=== PATIENT | female | born 1945 | race Caucasian/White ===

== ENCOUNTER → 2017-01-17 | Outpatient (CLI) | payer BC ==
[~2017-01-17] MED LIST: ASPI81TA21 PO; ATOR10TA82 PO; COEN100C7 PO; FEXO3TAB PO; LISI-461 PO; MELA1TAB4 PO; PANT40TA PO; RANI300T2 PO; TRIA0.5O TOP
--- NOTE | 2017-01-17 09:34 | DIAGNOSTIC IMAGING REPORT ---
CHEST CT WITHOUT CONTRAST CT DOSE: 548.76 mGycm HISTORY: R04.2 [id number] TECHNIQUE: Multiaxial CT images of the chest were performed without contrast. COMPARISON: Chest CTA 03/23/2016. FINDINGS: No pleural effusions. No pneumothorax. The central airways are patent.. Stable 4 mm nodular density within the right lung apex on image 47. The left upper lung zone remains clear. Stable curvilinear density within the medial aspect of the right lower lobe. This favors atelectasis or scarring given the long-term stability. Moderate to large hiatus hernia, unchanged. Postoperative changes within the left hemidiaphragm with mesh repair. Stable left basilar linear densities also likely representing scarring. No new focal lung consolidations. No fractures within the visualized osseous structures. The visualized liver, spleen, and adrenal glands are unremarkable. Normal caliber thoracic aorta. No mediastinal or hilar lymphadenopathy. The heart remains mildly enlarged. IMPRESSION: 1. No significant change compared to the prior study. 2. Postoperative changes within the left hemidiaphragm with stable bibasilar scar like densities. 3. Moderate to large hiatus hernia. Electronically signed by: Clemente Albrecht M.D. 01/17/2017 9:33 AM Dictated Date/Time: 01/17/2017 9:25 AM
== END | disposition home or self-care (01) ==
LOC: C.CTS 09:05
PROVIDERS: ATTEND Internal Medicine Pulmonary Disease
DX: R04.2 Hemoptysis (principal); K44.9 Diaphragmatic hernia without obstruction or gangrene

== ENCOUNTER → 2017-08-29 | Day surgery (SDC) | payer BC, OTHER ==
[2017-08-13 10:39] VITALS: BMI 34.0
[~2017-08-29] VITALS: Ht 170.2 cm; Wt 100.0 kg
[~2017-08-29] MED LIST changes: +ATOR-22 PO; -ATOR10TA82 PO; -FEXO3TAB PO; +LIDOCAINE HCL 2% 2 ML VIAL (20MG/ML) ONE; -LISI-461 PO; +LOSA1TAB PO; +OXYB5TAB21 PO; +PROPOFOL IV EMULSION 10 MG/ML 20 ML VIAL IV ONE; -RANI300T2 PO; +TRIA0.022 EXT; -TRIA0.5O TOP; +ZNTT/150 PO
[2017-08-29 13:02] VITALS: Ht 170.2 cm; Wt 100.0 kg
--- NOTE | 2017-08-29 13:54 | Endo History and Physical ---
History & Physical Date of Service: Aug 29, 2017. Chief Complaint: hx polyps Referring Physician: Dr. Phelan History of Present Illness For colonoscopy Past Surgical History Hx Cardiac Surgery: No Hx Internal Defibrillator: No Hx Pacemaker: No Hx Abdominal Surgery: Yes (MARII FUNDIPLATION, VAGINAL SEPTUM REMOVAL) Hx of Implantable Prosthesis: No Hx Post-Op Nausea and Vomiting: No Hx Cancer Surgery: Yes (LT BREAST PARIAL MASTECTOMY) Hx Thoracic Surgery: No Hx Orthopedic: No Hx Urinary Tract Surgery: No Family History None Social History Smoking Status: Former Smoker Hx Substance Use: No Hx Alcohol Use: Yes (OCCASIONAL) Allergies Coded Allergies: Shellfish (Verified Allergy, Intermediate, ITCHY, THROAT SWELLING, 08/29/17 ) NO KNOWN DRUG ALLERGIES (Verified Allergy, Unknown, ., 08/29/17) Current Medications Reported Home Medications Medications Dose Route/Sig Max Daily Dose Days Date Category Dose Instructions Triamcinolone Acet 0.025% (Triamcinolone Acetonide (Topic) 0.025 % Lot 1 Dose EXT DAILY PRN 08/15/17 Reported Coq10 (Coenzyme Q10 (Ubidecarenone)) 100 Mg Cap 1 Cap PO QAM 08/15/17 Reported Zantac (Ranitidine HCl) 150 Mg Tab 150 Mg PO HS 08/15/17 Reported Protonix (Pantoprazole Sodium) 40 Mg Tab 40 Mg PO QAM 08/15/17 Reported Ditropan Xl (Oxybutynin Chloride) 5 Mg Tab 1 Tab PO QAM 08/15/17 Reported NEW RX, HAS NOT STARTED YET. Cozaar (Losartan Potassium) 25 Mg Tab 25 Mg PO QAM 08/15/17 Reported Lipitor (Atorvastatin Calcium) 20 Mg Tab 10 Mg PO QAM 08/15/17 Reported Melatonin 1 Mg Tab 1 Mg PO HS PRN 10/07/13 Reported Ecotrin Or Generic (Aspirin) 81 Mg Tab 81 Mg PO QAM 05/12/13 Reported Vital Signs Weight (Kilograms): 100.00 Height (Feet): 5 Height (Inches): 7 Date Time Temp Pulse Resp B/P (MAP) Pulse Ox O2 Delivery O2 Flow Rate FiO2 08/29/17 13:07 36.5 75 20 127/79 (95) 94 Room Air Physical Exam General Appearance: WD/WN Respiratory/Chest: Respiratory effort: no dyspnea Cardiovascular: Heart Auscultation: RRR Abdomen: Inspection & Palpation: soft Assessment and Plan Hx polyps for colonoscopy
--- NOTE | 2017-08-29 14:23 | Discharge Instructions ---
Endoscopy Patient Instructions Date / Procedure(s) Performed Aug 29, 2017. Colonoscopy Allergy Information Coded Allergies: Shellfish (Verified Allergy, Intermediate, ITCHY, THROAT SWELLING, 08/29/17 ) NO KNOWN DRUG ALLERGIES (Verified Allergy, Unknown, ., 08/29/17) Discharge Date / Findings Aug 29, 2017. diverticulosis Medication Instructions Restart Stopped Medication(s): resume meds Reported Home Medications Medications Dose Route/Sig Max Daily Dose Days Date Category Dose Instructions Triamcinolone Acet 0.025% (Triamcinolone Acetonide (Topic) 0.025 % Lot 1 Dose EXT DAILY PRN 08/15/17 Reported Coq10 (Coenzyme Q10 (Ubidecarenone)) 100 Mg Cap 1 Cap PO QAM 08/15/17 Reported Zantac (Ranitidine HCl) 150 Mg Tab 150 Mg PO HS 08/15/17 Reported Protonix (Pantoprazole Sodium) 40 Mg Tab 40 Mg PO QAM 08/15/17 Reported Ditropan Xl (Oxybutynin Chloride) 5 Mg Tab 1 Tab PO QAM 08/15/17 Reported NEW RX, HAS NOT STARTED YET. Cozaar (Losartan Potassium) 25 Mg Tab 25 Mg PO QAM 08/15/17 Reported Lipitor (Atorvastatin Calcium) 20 Mg Tab 10 Mg PO QAM 08/15/17 Reported Melatonin 1 Mg Tab 1 Mg PO HS PRN 10/07/13 Reported Ecotrin Or Generic (Aspirin) 81 Mg Tab 81 Mg PO QAM 05/12/13 Reported Provider Instructions Activity Restrictions - No exercising or heavy lifting for 24 hours. - Do not drink alcohol the day of the procedure. - Do not drive a car or operate machinery until the day after the procedure. - Do not make any important decisions or sign important papers in 24 hours after the procedure. Following Day: - Return to full activity which may include returning to work/school. Diet Start your diet with liquids and light foods (jello, soup, juice, toast). Then eat your usual diet if not nauseated. Treatment For Common After Affects For mild abdominal pain, bloating, or excessive gas: - Rest - Eat lightly - Lie on right side Follow-Up Information Follow-up with Dr. Phelan as scheduled Anesthesia Information What You Should Know You have had a procedure that required some medicine to reduce anxiety and discomfort. This treatment is called moderate sedation. After receiving the treatment, you may be sleepy, but you will be able to breathe on your own. The effects of the treatment may last for several hours. Follow these instructions along with Activity/Diet recommendations noted above: * Do NOT do anything where dizziness or clumsiness would be dangerous. * Rest quietly at home today, then you can be up and about tomorrow. * Have a responsible person stay with you the rest of today. * You may have had an I.V. today. If so, you may take the dressing off later today. Recommendations Call your doctor if: * Trouble breathing * Continuous vomiting for more than 24 hours * Temperature above 101 degrees * Severe abdominal pain or bloating * Pain not relieved by pain medicine ordered * There is increased drainage or redness from any incision * A large amount of rectal bleeding greater than 2-3 tablespoons. (If you had a polyp/s removed or have hemorrhoids, a small amount of blood - from the rectum is to be expected.) * You have any unanswered questions or concerns. IN THE EVENT OF A SERIOUS EMERGENCY, GO TO THE NEAREST EMERGENCY ROOM Your discharge instructions were prepared by provider Kade Jiménez. Patient Instructions Signature Page Zara Cohn Patient (or Guardian) Signature/Date: I have read and understand the instructions given to me by my caregivers. Caregiver/RN/Doctor Signature/Date: The above-named patient and/or guardian has received patient instructions on this date. + Original Patient Signature Page (only) stays with chart. Please make copy for patient.
--- NOTE | 2017-08-29 14:26 | GI REPORT ---
Procedure Date: 08/29/2017 2:03 PM Procedure: Colonoscopy Indications: Personal history of colonic polyps Medicines: Propofol total dose 300 mg IV, Lidocaine 40 mg IV Complications: No immediate complications. Estimated Blood Loss: Estimated blood loss: none. Procedure: Pre-Anesthesia Assessment: - Prior to the procedure, a History and Physical was performed, and patient medications, allergies and sensitivities were reviewed. The patient's tolerance of previous anesthesia was reviewed. - The risks and benefits of the procedure and the sedation options and risks were discussed with the patient. All questions were answered and informed consent was obtained. After I obtained informed consent, the scope was passed under direct vision. Throughout the procedure, the patient's blood pressure, pulse, and oxygen saturations were monitored continuously. The scope was introduced through the anus and advanced to the terminal ileum. The colonoscopy was performed without difficulty. The patient tolerated the procedure well. The quality of the bowel preparation was good. Findings: Multiple diverticula were found in the sigmoid colon. The terminal ileum appeared normal. Impression: - Diverticulosis in the sigmoid colon. - The examined portion of the ileum was normal. - No specimens collected. Recommendation: - Discharge patient to home (ambulatory). - Continue present medications. - Repeat colonoscopy in 5 years for surveillance. - Return to primary care physician PRN. Kade Jiménez M.D. Kade Jiménez MD 08/29/2017 2:26:14 PM This report has been signed electronically. Note Initiated On: 08/29/2017 2:03 PM I attest to the content of the Intraoperative Record and orders documented therein, exceptions below
[2017-08-29 14:55] VITALS: BP 133/81; PULSE 86; O2SAT 96
--- NOTE | 2017-08-29 15:04 | Anesthesiology Progress Note ---
Anesthesia Post Op Note Date & Time Aug 29, 2017 at 15:03 Vital Signs Pain Intensity: 0 Vital Signs Past 12 Hours Date Time Temp Pulse Resp B/P (MAP) Pulse Ox O2 Delivery O2 Flow Rate FiO2 08/29/17 14:55 86 20 133/81 (98) 96 Room Air 08/29/17 14:40 87 18 128/74 (92) 96 Room Air 08/29/17 14:24 96 20 80/43 (55) 96 Room Air 08/29/17 13:07 36.5 75 20 127/79 (95) 94 Room Air Notes Mental Status: alert / awake / arousable, participated in evaluation Pt Amnestic to Procedure: Yes Nausea / Vomiting: adequately controlled Pain: adequately controlled Airway Patency, RR, SpO2: stable & adequate BP & HR: stable & adequate Hydration State: stable & adequate Anesthetic Complications: no major complications apparent
== END | disposition home or self-care (01) ==
LOC: C.GI 12:43
PROVIDERS: ATTEND Internal Medicine Gastroenterology
DX: R04.2 Hemoptysis (principal); K57.30 Diverticulosis of large intestine without perforation or abscess without bleeding; E88.81 Metabolic syndrome and other insulin resistance; K21.9 Gastro-esophageal reflux disease without esophagitis; I10 Essential (primary) hypertension; E78.2 Mixed hyperlipidemia; Z87.891 Personal history of nicotine dependence; Z86.010 Personal history of colon polyps; Z79.899 Other long term (current) drug therapy

== ENCOUNTER 2019-10-31 09:17 | Inpatient (IN) ==
[2019-10-31] MEDS ORDERED: SODIUM CHLORIDE 0.9% 500 ML IV SCH (09:45)
--- NOTE | 2019-10-31 09:50 | Emergency Department Note ---
Impression & Plan Abdominal pain, RUQ ED Provider Note NAME: HILL MCKEON AGE: 74 SEX: F ARRIVES VIA: Walk-In INFORMANT: Patient ED PROVIDER(S): Marek Castro MD CHIEF COMPLAINT: RUQ abdominal pain PLAN: Disposition: Admitted Condition: [Good] MEDICAL DECISION MAKING: Patient presented with upper abdominal pain. Her work-up included blood work and CT imaging. She had a leukocytosis and findings consistent with pancreat itis on laboratory testing. She had a CT scan which raised concerns for a bowel obstruction as well as cholelithiasis. The patient was treated with IV Dilaudid normal saline. She initially declined analgesia but on reassessment was having more pain. She did well with this. The patient underwent ultrasound imaging which did not reveal any evidence of cholecystitis. I did discuss the case with general surgery, Selma Coon PA-C who will consult with Dr. Jackie Elaine. I also discussed the case with the [facility] physician [facility] hospitalist service, Ratna Haney PA-C. Triage Nursing notes reviewed and agree them. Vital Signs: reviewed and remarkable for mild tachycardia Differential diagnosis: Pancreatitis, biliary pathology, appendicitis, infections, diverticulitis, UTI, obstruction, mesenteric ischemia, aortic pathology, inflammatory bowel disease, renal colic, PUD, hernia, volvulus, constipation, as well as other pathologies. ER treatment provided: NSS hydration IV Dilaudid Diagnostics interpreted by me: ECG: Rate: 109 Rhythm: Sinus tachycardia Nora: Normal QRS: Normal ST segements: No ST elevation or depression. Other: Inferior and anterior Q waves present. Laboratory studies: [place] ptosis on CBC. Chemistry panel revealed an elevated lipase consistent with pancreatitis. LFTs normal. Imaging studies: CT scan of the abdomen pelvis was consistent with a small bowel obstruction. Cholelithiasis noted. Ultrasound imaging of the right upper quadrant revealed cholelithiasis without evidence of cholecystitis. Consultation(s): General surgery [facility] physician [facility] hospitalist service HPI:The patient is a 74 year old female who presents to the Emergency Room with complaints of RUQ abdominal pain. This started 2 days ago and is worsening. The patient also notes the following associated symptoms, chronic SOB, diarrhea. The patient has tried tylenol relieving factors. Current pain is rated as 8/10. She declines analgesia. Called PCP and directed to ER. No travel or exposures. Pt denies LOC, headache, fevers, chills, diaphoresis, visual changes, neck pain, chest pain, new breathing difficulties, nausea, vomiting, back pain, melena, hematochezia, urinary symptoms, numbness, weakness, lymphadenopathy, rash, or other complaints. ROS: See above HPI for pertinent positives & negatives. A total of [10] systems reviewed and were otherwise negative. PAST MEDICAL HISTORY:[See Below] Hiatal hernia PAST SURGICAL HISTORY:[See Below]Repair of hernia FAMILY HISTORY:[See Below] SOCIAL HISTORY:[See Below] HOME MEDICATIONS:[See above] ALLERGIES:[See above] VITALS:[See Below] PHYSICAL EXAMINATION: GENERAL: Awake, alert, well-appearing, in no distress HENT: Normocephalic, atraumatic. Oropharynx unremarkable. EYES: Normal conjunctiva. Sclera non-icteric. NECK: Inspection normal. Non-tender. Supple. No nuchal rigidity. FROM. No masses. RESPIRATORY: Clear to auscultation. No wheezes. No rales. Normal respiratory effort. CARDIAC: Tachycardic rate. Normal rhythm. No murmurs. No rubs. Extremities warm and well perfused. Pulses equal. No JVD. GI: Soft, non-distended. RUQ tenderness to palpation. No rebound or guarding. No masses. RECTAL: Deferred. MUSCULOSKELETAL: Atraumatic. Chest examination reveals no tenderness. The back is symmetrical on inspection without obvious abnormality. There is no CVA tenderness to palpation. No joint edema. LOWER EXTREMITIES: Calves are equal size bilaterally and non-tender. No edema. No discoloration. NEURO: Normal sensorium. No sensory or motor deficits noted. SKIN: No rash or jaundice noted. 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 pt thinks she had an issue after vocal cord surgery but can't remember History of hemoptysis History of vocal cord paralysis cause? Hyperlipidemia Hypertension Laryngopharyngeal reflux Menopause Pain, lower extremity Pulmonary embolism 5 years ago - post hiatal hernia repair - pt also has factor V - [facility] - treated w/ AC Pulmonary embolism Restrictive lung disease Vocal cord paralysis LEFT Surgical History History of arthroscopy of right knee meniscus repair History of breast biopsy malignant History of colonoscopy History of esophagogastroduodenoscopy (EGD) History of hernia repair History of repair diaphramic hernia by thoracoabdominal approach History of laryngoscopy History of direct laryngoscopy with injection into vocal chords History of nasal polypectomy History of Dillon fundoplication History of esophagogastric fundoplasty dillon fundoplication History of partial mastectomy of left breast History of repair of hiatal hernia History of surgery vocal cord surgery History of tooth extraction History of wisdom tooth extraction Family History Brother Family history of diabetes mellitus Father Cerebral artery occlusion with cerebral infarction Sister Factor V Leiden mutation Hypercoagulation Other No family history of adverse response to anesthesia Social History Preferred Language: [place] Islander Communication Ability: Effective Manager Visual Required: No Beliefs That Will Affect Care: None marital status: Single Current Living Situation: Alone Other Information That Helps Us Care for You: No Feels Safe at Home: Yes Safety Concerns: Feels Safe At This Time Smoking Status: Former smoker Tobacco Type: cigarettes ; Cigarettes Per Day: 1 pack per day ; Smoking End Date: 1988 ; Second Hand Exposure: Yes (parents smoked) ; Hx Alcohol Use: Yes Alcohol type: beer, wine and hard liquor Hx Substance Use: No Allergies Allergies Allergy/AdvReac Type Severity Reaction Status Date / Time shellfish derived Allergy Intermediate ITCHY, Verified 10/31/19 10:21 THROAT SWELLING No Known Drug Allergies Allergy Unknown . Verified 10/31/19 10:21 Home Meds Home Medications Medication Instructions Recorded Confirmed acetaminophen [Tylenol Extra 1,000 mg PO Q6H PRN 09/13/18 10/31/19 Strength] aspirin 81 mg PO QAM 09/13/18 10/31/19 coenzyme Q10 [CoQ-10] 100 mg PO QAM 09/13/18 10/31/19 losartan 25 mg PO QAM 09/13/18 10/31/19 polyethylene glycol 3350 [Miralax] 17 g PO DAILY PRN 09/13/18 10/31/19 Mucinex 1 tab PO QAM 12/17/18 10/31/19 albuterol sulfate [ProAir HFA] 2 puff INHALATION Q6H PRN 12/17/18 10/31/19 melatonin 5 mg capsule 5 mg PO HS PRN cap 02/26/19 10/31/19 ferrous sulfate [iron] 325 mg PO 2XWK 10/31/19 10/31/19 rosuvastatin 5 mg PO QAM 10/31/19 10/31/19 Results & Data (ED) Vital Signs Vital Signs - 24 hr 10/31/19 09:23 10/31/19 09:53 10/31/19 09:54 Temperature 36.9 C Temperature Source Oral Pulse Rate 120 H 112 H Pulse Rate from SpO2 Sensor 108 H Respiratory Rate 20 23 Blood Pressure 112/78 120/81 Blood Pressure Mean 89 95 Pulse Oximetry 92 91 92 Oxygen Delivery Method Room Air Room Air Sepsis Recent Fever Within 48 Hours No Sepsis New/Unexplained Change in Mental Status No Sepsis Action Taken by Nursing No Action Required 10/31/19 10:00 10/31/19 10:30 10/31/19 11:00 Temperature Temperature Source Pulse Rate 108 H 102 H 109 H Pulse Rate from SpO2 Sensor 104 H 102 H 104 H Respiratory Rate 24 17 20 Blood Pressure 118/79 122/86 126/94 Blood Pressure Mean 83 96 101 Pulse Oximetry 93 94 94 Oxygen Delivery Method Room Air Room Air Room Air Sepsis Recent Fever Within 48 Hours Sepsis New/Unexplained Change in Mental Status Sepsis Action Taken by Nursing Laboratory Data Result diagrams: 10/31/19 10:00 10/31/19 10:00 Lab Results 10/31/19 10/31/19 Range/Units 10:00 10:00 WBC 16.38 H (4.8-10.8) K/uL RBC 5.31 (4.2-5.4) M/uL Hgb 15.4 (12.0-16.0) g/dL Hct 46.4 (37-47) % MCV 87.4 (80-100) fL MCH 29.0 (25-34) pg MCHC 33.2 (32-36) g/dL RDW Std Deviation 44.5 (36.4-46.3) fL RDW Coeff of Maya 13.8 (11.5-14.5) % Plt Count 255 (130-400) K/uL MPV 11.4 H (7.4-10.4) fL Immature Gran % (Auto) 0.4 % Neut % (Auto) 92.8 % Lymph % (Auto) 2.3 % Sebastian % (Auto) 4.4 % Eos % (Auto) 0.0 % Baso % (Auto) 0.1 % Immature Gran # (Auto) 0.06 H (0.00-0.02) K/uL Neut # (Auto) 15.22 H (1.4-6.5) K/uL Lymph # (Auto) 0.37 L (1.2-3.4) K/uL Sebastian # (Auto) 0.72 H (0.11-0.59) K/uL Eos # (Auto) 0.00 (0-0.5) K/uL Baso # (Auto) 0.01 (0-0.2) K/uL Sodium 140 (136-145) mmol/L Potassium 3.7 (3.5-5.1) mmol/L Chloride 106 (98-107) mmol/L Carbon Dioxide 27 (21-32) mmol/L Anion Gap 7.0 (3-11) BUN 31 H (7-18) mg/dl Creatinine 1.47 H (0.6-1.2) mg/dl Est Cr Clr Drug Dosing 40.4 ml/min Est GFR ( Amer) 40.9 Est GFR (Non-Af Amer) 35.3 BUN/Creatinine Ratio 21.0 H (10-20) Glucose 161 H (70-99) mg/dl Calcium 9.6 (8.5-10.1) mg/dl Total Bilirubin 0.5 (0.2-1) mg/dl AST 15 (15-37) U/L ALT 18 (12-78) U/L Alkaline Phosphatase 99 (45-117) U/L Troponin I < 0.015 (0-0.045) ng/ml Total Protein 7.8 (6.4-8.2) gm/dl Albumin 3.6 (3.4-5.0) gm/dl Globulin 4.2 H (2.5-4.0) gm/dl Albumin/Globulin Ratio 0.8 L (0.9-2) Lipase 84216 H (73-393) U/L Administered Medications Acetaminophen (Tylenol) 1,000 mg PO Q8H [facility] Stop: 11/30/19 12:59 Last Admin: 10/31/19 13:50 Dose: 1,000 mg Documented by: [id number] Ferrous Sulfate (Feosol) 325 mg PO MoFr@0900 [facility] Stop: 11/30/19 13:14 Last Admin: 10/31/19 13:49 Dose: Not Given Documented by: [id number] Hydromorphone HCl (Dilaudid) 0.5 mg IV Q3H PRN PRN Reason: Pain Stop: 11/14/19 12:41 Last Admin: 10/31/19 15:20 Dose: 0.5 mg Documented by: [id number] Lactated Ringer's (Lr) 1,000 mls @ 125 mls/hr IV .Q8H [facility] Stop: 11/30/19 11:29 Last Admin: 10/31/19 11:40 Dose: 125 mls/hr Documented by: [id number] Cefoxitin Sodium 2,000 mg/ (Dextrose) 60 mls @ 100 mls/hr IV Q8H [facility] Stop: 11/10/19 12:59 Last Infusion: 10/31/19 13:49 Dose: 0 mls/hr Documented by: [id number] Admin: 10/31/19 13:12 Dose: 100 mls/hr Documented by: [id number] Ondansetron HCl (Zofran) 4 mg IV Q4H PRN PRN Reason: Nausea And Vomiting Stop: 11/30/19 12:41 Last Admin: 10/31/19 16:48 Dose: 4 mg Documented by: [id number] Discontinued Medications Hydromorphone HCl (Dilaudid) 0.5 mg IV NOW STA Stop: 10/31/19 11:35 Last Admin: 10/31/19 11:40 Dose: 0.5 mg Documented by: [id number] Sodium Chloride (Nss) 500 mls @ 999 mls/hr IV .Q31M [facility] Stop: 10/31/19 10:15 Last Infusion: 10/31/19 11:08 Dose: 0 mls/hr Documented by: [id number] Admin: 10/31/19 10:01 Dose: 999 mls/hr Documented by: [id number] Discharge Plan Visit Data *Final* Discharge Date/Time: 10/31/19 12:16 Chief Complaint: Abdominal Pain Stated Complaint: ABD PAIN ED Provider: Marek Castro Discharge Problem: Abdominal pain, RUQ Patient Disposition: Admitted As Inpatient Discharge Instructions Interventions: ED Discharge Assessment Last Done: 10/31/19 12:16
[2019-10-31 10:14] LABS: Basophils # (auto) 0.01 K/uL (0-0.2); Basophils % (auto) 0.1 %; Hematocrit (blood only) 46.4 % (37-47); Hemoglobin 15.4 g/dL (12.0-16.0); Immature Granulocytes # (auto) 0.06 K/uL (0.00-0.02); Immature Granulocytes % (auto) 0.4 %; Lymphocytes # (auto) 0.37 K/uL (1.2-3.4); Lymphocytes % (auto) 2.3 %; Mean Corpuscular Hgb Conc 33.2 g/dL (32-36); Mean Corpuscular Volume 87.4 fL (80-100); Mean Platelet Volume 11.4 fL (7.4-10.4); Monocytes # (auto) 0.72 K/uL (0.11-0.59); Monocytes % (auto) 4.4 %; Neutrophils # (auto) 15.22 K/uL (1.4-6.5); Neutrophils % (auto) 92.8 %; Platelet Count 255 K/uL (130-400); RDW Coefficient of Variation 13.8 % (11.5-14.5); RDW Standard Deviation 44.5 fL (36.4-46.3); Red Blood Count 5.31 M/uL (4.2-5.4); White Blood Count 16.38 K/uL (4.8-10.8)
[2019-10-31 10:34] LABS: Alanine Aminotransferase 18 U/L (12-78); Albumin Level 3.6 gm/dl (3.4-5.0); Aspartate Aminotransferase 15 U/L (15-37); Blood Urea Nitrogen 31 mg/dl (7-18); Calcium 9.6 mg/dl (8.5-10.1); Carbon Dioxide 27 mmol/L (21-32); Chloride 106 mmol/L (98-107); Creatinine Clr Calc Pharmacy 40.4 ml/min; Est GFR (African American) 40.9; Est GFR (Non-African American) 35.3; Glucose 161 mg/dl (70-99); Potassium 3.7 mmol/L (3.5-5.1); Sodium 140 mmol/L (136-145)
[2019-10-31 10:39] LABS: Albumin Globulin Ratio 0.8 (0.9-2); Alkaline Phosphatase 99 U/L (45-117); Bilirubin,Total 0.5 mg/dl (0.2-1); Globulin 4.2 gm/dl (2.5-4.0); Lipase 13725 U/L (73-393); Total Protein 7.8 gm/dl (6.4-8.2); Troponin I < 0.015 ng/ml (0-0.045)
--- NOTE | 2019-10-31 11:01 | CT Scan Report ---
CT SCAN OF THE ABDOMEN AND PELVIS WITHOUT IV CONTRAST CLINICAL HISTORY: Right upper quadrant abdominal pain. COMPARISON STUDY: Abdominal CT dated 12/18/2007. TECHNIQUE: CT scan of the abdomen and pelvis is performed from the lung bases to the proximal femora. Images are reviewed in the axial, sagittal, and coronal planes. IV contrast was not administered for this examination as per the referring clinician. Note that the examination was performed in suboptim al fashion without oral and IV contrast. A dose lowering technique was utilized adhering to the princ iplterrie of RAGINI. CT DOSE: 1147.49 mGy.cm FINDINGS: Lung bases: The heart is enlarged and without pericardial effusion. The coronary arteries are densely calcified. Postoperative change is noted involving the left hemidiaphragm. There is a trace right pl eural effusion. The lung bases are otherwise clear noting bibasilar scarring/atelectasis Liver: The unenhanced liver is normal in size, contour, and attenuation. There is no intrahepatic lindsay iary ductal dilatation. Gallbladder: Small gallstones are noted. There is no CT evidence of acute cholecystitis. Spleen: Normal in size and attenuation. Pancreas: The unenhanced pancreas is mildly atrophic and grossly unremarkable. Adrenal glands: Unremarkable. Kidneys: The unenhanced kidneys demonstrate mild cortical atrophy and are without hydronephrosis. Sma ll nonobstructing calculi in the lower pole of left kidney measure up to 4 mm. No right renal calculi are identified. There is no evidence of contour deforming renal mass lesion. Parapelvic cysts are ag ain seen bilaterally. Abdominal vasculature: The abdominal aorta is normal in course and caliber noting moderate atheroscle rotic calcification. Bowel: Stomach and bowel there is a moderate to large hiatal hernia. The duodenum is normal in config uration. The stomach is distended and filled with fluid. The proximal small bowel loops are distended and fluid-filled, measuring up to 3.5 cm in diameter. There is a transition point identified in the ventral lower abdomen on image #215. A second transition points suggested in the right lower quadrant image #228. The distal small bowel and colon are decompressed and the appearance is consistent with a small bowel obstruction. This is likely on the basis of adhesions. There is no pneumatosis intestin олег or portal venous gas. Trace interloop fluid is observed. There is mild colonic diverticulosis wi thout CT evidence of acute diverticulitis. The appendix is well-visualized and normal. Peritoneum: There is no intraperitoneal free air. Trace free fluid is noted in the pelvis. Lymphadenopathy: None. Pelvic viscera: The bladder is decompressed and grossly unremarkable. The uterus and adnexa are brit l as imaged. Skeletal structures: The skeletal structures are osteopenic. There is mild to moderate lumbosacral sp ondylosis and scoliosis. No lytic or blastic lesions are seen. IMPRESSION: 1. Suboptimal examination without oral and IV contrast. 2. Findings are consistent with a small bowel obstruction. A transition point is identified in the ve ntral lower abdomen and this is likely in the basis of adhesions. A second transition point is sugges derian in the right lower quadrant, and a complex bowel obstruction is not excluded. Surgical assessment is advised. 3. There is trace interloop fluid and pelvic ascites. 4. There is no pneumatosis intestinalis or portal venous gas. No intraperitoneal free air is seen. 5. There is a moderate to large hiatal hernia. 6. Postoperative changes consistent with surgical repair of the left hemidiaphragm. 7. Cholelithiasis and left-sided nephrolithiasis. 8. Cardiomegaly and trace right pleural effusion. 9. Additional findings as above. ACT 112: Negative or not required by law. Electronically signed by: Les Fowler M.D. 10/31/2019 11:00 AM
--- NOTE | 2019-10-31 11:17 | History & Physical Report ---
Date of Service October 31, 2019 Assessment & Plan (1) SBO (small bowel obstruction): -Admit to [facility] -Consult general surgery for SBO and further management, this is likely secondary to adhesions from history of large hiatal hernia repair in 2012. -Bowel rest, IV hydration, pain management for conservative measures regarding SBO at this time -Lipase significantly elevated above 13,000, LR ordered, trend lipase with a.m. labs,, question if cholelithiasis causing blockage of pancreatic duct? ? ileus? -LFTs and bilirubin normal on admission, will trend. -CT of the abdomen reviewed does not demonstrate pancreatitis and was not done with contrast so will await US gallbladder -Consider initiation of IV abx with elevated WBC of 16.38 - Mafoxen 2 g Q8H - Afebrile (2) Diaphragmatic hernia: - In 2012 she underwent a Jamil fundoplication and repair of a large diaphragmatic hernia at [facility]. This was followed by a very complicated course postoperatively including PE, pneumonia, and acute respiratory failure where she required a tracheostomy. (3) Factor V Leiden mutation: -history of PE but taken off anticoagulation in the setting of hemoptysis. Patient denies any hemoptysis for more than >2 years (4) Pulmonary embolism: - Resolved now, occurred in 2012 after hernia repair. -Initially in 2012 PE was treated with warfarin and then subsequently was changed to Xarelto. Later on the Xarelto dose was cut in half. Subsequently Xarelto was discontinued in May 2015. In June 2015 she had some hemoptysis. She had intermittent small amounts of hemoptysis over the subsequent months. -March 2016 she represented with hemoptysis: Bronchoscopy was done which showed no evidence of acute bleeding. 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 The patient was referred to Infectious Disease and she saw Dr. Dorantes who felt treatment was not needed. - October 2016 had hemoptysis again. It occurred intermittently thereafter. She states she has not had any hemoptysis in the past year or more. (5) Restrictive lung disease: -Follows with Dr. Bustillo as an outpatient (6) Asthma: -Chronic, stable, continue pro-air as needed (7) Vocal cord paralysis: - Follow with Dr. Holloway as an outpatient, patient currently not performing focal exercises like she was instructed to (8) SYLVIA (acute kidney injury): -Creatinine acutely elevated at 1.47, BUN = 31, baseline creatinine is 0.95 -LR IV 125 mL/h x 12 hours -Trend a.m. 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 Patient presents with acute onset of nausea and vomiting which occurred 2 nights ago and has worsened. She reports right upper quadrant pain as well as epigastric pain. 2 days ago she consumed a large meal of baked ziti where she thought she overate and that was the cause of her symptoms. Last evening she developed diarrhea and has had several bouts. Currently she feels moderately distended in her abdomen, but denies nausea or vomiting. She has not yet received any pain medication but rates her pain an 8-9 out of 10 at bedside. She is agreeable to some IV pain meds at this time where earlier today thought that she could deal with pain. PT denies any recent alcohol intake nor routine alcohol intake. When asked about history of pancreatitis, she denies any history of such. She did not take her morning medications secondary to abdominal pain. Allergies Allergy/AdvReac Type Severity Reaction Status Date / Time shellfish derived Allergy Intermediate ITCHY, Verified 10/31/19 10:21 THROAT SWELLING No Known Drug Allergies Allergy Unknown . Verified 10/31/19 10:21 Home Medications Home Medications Medication Instructions Recorded Confirmed Type acetaminophen [Tylenol Extra 1,000 mg PO Q6H PRN 09/13/18 10/31/19 History Strength] aspirin 81 mg PO QAM 09/13/18 10/31/19 History coenzyme Q10 [CoQ-10] 100 mg PO QAM 09/13/18 10/31/19 History losartan 25 mg PO QAM 09/13/18 10/31/19 History polyethylene glycol 3350 [Miralax] 17 g PO DAILY PRN 09/13/18 10/31/19 History Mucinex 1 tab PO QAM 12/17/18 10/31/19 History albuterol sulfate [ProAir HFA] 2 puff INHALATION Q6H PRN 12/17/18 10/31/19 History melatonin 5 mg capsule 5 mg PO HS PRN cap 02/26/19 10/31/19 History ferrous sulfate [iron] 325 mg PO 2XWK 10/31/19 10/31/19 History rosuvastatin 5 mg PO QAM 10/31/19 10/31/19 History Past Med/Surg History Medical History Anemia Asthma inhaler prn Asthma Atypical mycobacterial infection Bronchiectasis Cancer breast ca - left - partial mastectomy - radiation 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) "Abnormal left breast mammogram Status post biopsy revealing DCIS, solid with focal comedonecrosis Status post left breast segmental mastectomy Stage [id number] stage 0 Status post completion of radiation therapy 03/22/2010 received 6120 cGy" Cough Diaphragmatic hernia Encounter for pre-operative examination Encounter for pre-operative examination Factor V Leiden Factor V Leiden mutation GERD (gastroesophageal reflux disease) History of anesthesia reaction ? pt thinks she had an issue after vocal cord surgery but can't remember History of hemoptysis History of vocal cord paralysis cause? Hyperlipidemia Hypertension Laryngopharyngeal reflux Menopause Pain, lower extremity Pulmonary embolism 5 years ago - post hiatal hernia repair - pt also has factor V - [facility] - treated w/ AC Pulmonary embolism Restrictive lung disease Vocal cord paralysis LEFT Surgical History History of arthroscopy of right knee meniscus repair History of breast biopsy malignant History of colonoscopy History of esophagogastroduodenoscopy (EGD) History of hernia repair History of repair diaphramic hernia by thoracoabdominal approach History of laryngoscopy History of direct laryngoscopy with injection into vocal chords History of nasal polypectomy History of Jamil fundoplication History of esophagogastric fundoplasty jamil fundoplication History of partial mastectomy of left breast History of repair of hiatal hernia History of surgery vocal cord surgery History of tooth extraction History of wisdom tooth extraction Family History Brother Family history of diabetes mellitus Father Cerebral artery occlusion with cerebral infarction Sister Factor V Leiden mutation Hypercoagulation Other No family history of adverse response to anesthesia Social History Preferred Language: Kiswahili Communication Ability: Effective Atlassian Administrator Required: No Beliefs That Will Affect Care: None marital status: Single Current Living Situation: Alone Other Information That Helps Us Care for You: No Feels Safe at Home: Yes Safety Concerns: Feels Safe At This Time Smoking Status: Former smoker Tobacco Type: cigarettes ; Cigarettes Per Day: 1 pack per day ; Smoking End Date: 1988 ; Second Hand Exposure: Yes (parents smoked) ; Hx Alcohol Use: Yes Alcohol type: beer, wine and hard liquor Hx Substance Use: No Review of Systems Review of Systems: Constitutional: No fever, sweats or chills Eyes: No diplopia, no worsening or blurred vision ENT: normal hearing, no trouble swallowing, + left-sided vocal cord paralysis, not routinely performing vocal exercises Respiratory: No cough, sputum, dyspnea at rest or on exertion Cardiovascular: No chest pain, tightness or palpitations Abdomen: As per HPI Musculoskeletal: No joint pain, calf pain, swelling Neurologic: No weakness, numbness/tingling, or balance problems Psychiatric: No anxiety or depression Skin: No rash or itch Physical Exam Physical Exam: General: awake, alert, + moderate distress and fatigued Head: Normocephalic, atraumatic ENT: PERRL, EOMI, no pharyngeal exudate, mucous membranes moist Chest: Clear to auscultation, on room air, no adventitious breath sounds Cardiac: + Sinus tach, HR = 115 at bedside, no murmur, no JVD, normal peripheral pulses, good capillary refill Abdominal: + Hypoactive BS x 4 quadrants, + mildly distended, + tender to palpation in RUQ and epigastric region, + Oreilly sign, + guarding no rebound tenderness Extremities: Normal inspection, no peripheral edema or erythema, calfs nontender to palpation Psych: Normal mood and affect Neuro: AAO x 3, strength intact bilaterally and rated 5/5, no motor deficits, speech is clear, no peripheral sensory deficits Skin: no rash or erythema Results & Data Results & Data ([facility]) Vital Signs (Past 12 Hours) Vital Signs Temp Pulse Resp BP Pulse Ox 10/31/19 11:00 109 H 20 126/94 94 10/31/19 10:30 102 H 17 122/86 94 10/31/19 10:00 108 H 24 118/79 93 10/31/19 09:54 92 10/31/19 09:53 112 H 23 120/81 91 10/31/19 09:23 36.9 C 120 H 20 112/[address] SCAN OF THE ABDOMEN AND PELVIS WITHOUT IV CONTRAST CLINICAL HISTORY: Right upper quadrant abdominal pain. COMPARISON STUDY: Abdominal CT dated 12/18/2007. TECHNIQUE: CT scan of the abdomen and pelvis is performed from the lung bases to the proximal femora. Images are reviewed in the axial, sagittal, and coronal planes. IV contrast was not administered for this examination as per the referring clinician. Note that the examination was performed in suboptimal fashion without oral and IV contrast. A dose lowering technique was utilized adhering to the principles of ALARA. CT DOSE: 1147.49 mGy.cm FINDINGS: Lung bases: The heart is enlarged and without pericardial effusion. The coronary arteries are densely calcified. Postoperative change is noted involving the left hemidiaphragm. There is a trace right pleural effusion. The lung bases are otherwise clear noting bibasilar scarring/atelectasis Liver: The unenhanced liver is normal in size, contour, and attenuation. There is no intrahepatic biliary ductal dilatation. Gallbladder: Small gallstones are noted. There is no CT evidence of acute cholecystitis. Spleen: Normal in size and attenuation. Pancreas: The unenhanced pancreas is mildly atrophic and grossly unremarkable. Adrenal glands: Unremarkable. Kidneys: The unenhanced kidneys demonstrate mild cortical atrophy and are without hydronephrosis. Small nonobstructing calculi in the lower pole of left kidney measure up to 4 mm. No right renal calculi are identified. There is no evidence of contour deforming renal mass lesion. Parapelvic cysts are again seen bilaterally. Abdominal vasculature: The abdominal aorta is normal in course and caliber noting moderate atherosclerotic calcification. Bowel: Stomach and bowel there is a moderate to large hiatal hernia. The duodenum is normal in configuration. The stomach is distended and filled with fluid. The proximal small bowel loops are distended and fluid-filled, measuring up to 3.5 cm in diameter. There is a transition point identified in the ventral lower abdomen on image #215. A second transition points suggested in the right lower quadrant image #228. The distal small bowel and colon are decompressed and the appearance is consistent with a small bowel obstruction. This is likely on the basis of adhesions. There is no pneumatosis intestinalis or portal venous gas. Trace interloop fluid is observed. There is mild colonic diverticulosis without CT evidence of acute diverticulitis. The appendix is well-visualized and normal. Peritoneum: There is no intraperitoneal free air. Trace free fluid is noted in the pelvis. Lymphadenopathy: None. Pelvic viscera: The bladder is decompressed and grossly unremarkable. The uterus and adnexa are normal as imaged. Skeletal structures: The skeletal structures are osteopenic. There is mild to moderate lumbosacral spondylosis and scoliosis. No lytic or blastic lesions are seen. IMPRESSION: 1. Suboptimal examination without oral and IV contrast. 2. Findings are consistent with a small bowel obstruction. A transition point is identified in the ventral lower abdomen and this is likely in the basis of adhesions. A second transition point is suggested in the right lower quadrant, and a complex bowel obstruction is not excluded. Surgical assessment is advised. 3. There is trace interloop fluid and pelvic ascites. 4. There is no pneumatosis intestinalis or portal venous gas. No intraperitoneal free air is seen. 5. There is a moderate to large hiatal hernia. 6. Postoperative changes consistent with surgical repair of the left hemidiaphragm. 7. Cholelithiasis and left-sided nephrolithiasis. 8. Cardiomegaly and trace right pleural effusion. 9. Additional findings as above. ACT 112: Negative or not required by law. Electronically signed by: Les Fowler M.D. 10/31/2019 11:00 AM Code Status & VTE Plan Code Status Discussed with patient at bedside Supervising Physician Co-Signing Physician Notes During my face to face encounter, I performed a physical examination and obtained a clinical history. Agree with above history and physical examination. I agree with above plan. In addition to the above plan, will add the following: Given that patient has a small bowel Obstruction, will continue on NPO. Will reinforce that she continues to ambulate to stimulate peristalsis. Will try to limit narcotics (opiates). In regards to her acute pancreatitis Will continue IV fluids for her acute pancreatitis. Currently has stones in gall bladder but no emergent indications for cholecystectomy at this time. PG Care Time/CCT Total # of Minutes Spent Total Time Spent with Patient: Total time spent is greater than 50% in coordination of care (as documented) at patient's floor/unit and/or counseling patient: Coding Level of Care Code 57162 Initial Inpt Care Lvl 3 Diagnoses SBO (small bowel obstruction) K56.609 Diaphragmatic hernia K44.9 Factor V Leiden mutation D68.51 Pulmonary embolism I26.99 Restrictive lung disease J98.4 Asthma J45.909 Vocal cord paralysis J38.00 SYLVIA (acute kidney injury) N17.9 Hypertension I10 Hyperlipidemia E78.5 Carcinoma in situ of breast D05.90 DVT prophylaxis Z29.9
[2019-10-31] MEDS ORDERED: HYDROmorphone INJ 0.5 MG/0.5 ML SYR IV STA (11:34)
[2019-10-31] MEDS: LACTATED RINGER'S 1,000 ML IV SCH ×2 (11:40→20:28)
--- NOTE | 2019-10-31 12:35 | Ultrasound Report ---
ULTRASOUND RIGHT UPPER QUADRANT ABDOMEN CLINICAL HISTORY: Right upper quadrant abdominal pain. COMPARISON STUDY: Abdominal CT dated 10/31/2019. TECHNIQUE: Real-time, grayscale, and color flow sonography of the right upper quadrant of the abdomen was performed. Images are reviewed in the transverse and longitudinal planes. FINDINGS: Liver: The liver is normal in size and echotexture. There is no intrahepatic biliary ductal dilatatio n. The main portal vein is patent. Gallbladder: The gallbladder is distended and there is a 6 mm shadowing mobile calcified gallstone. T here is no gallbladder wall thickening or pericholecystic fluid. A sonographic Oreilly's sign is repor tedly absent. The common bile duct measures up to 0.6 cm in diameter. Pancreas: Not visualized due to overlying bowel gas. Right kidney: Survey images of the right kidney demonstrate cortical atrophy. There is no hydronephro sis. Small cysts measure up to 1.4 cm. Ascites: None. IMPRESSION: Cholelithiasis without sonographic evidence of acute cholecystitis. ACT 112: Negative or not required by law. Electronically signed by: Les Fowler M.D. 10/31/2019 12:34 PM
[2019-10-31] MEDS ORDERED: POLYETHYLENE (MIRALAX) 17 GM PACK PO PRN (12:42)
[2019-10-31] MEDS ORDERED: LACTATED RINGER'S 1,000 ML IV SCH (12:42)
[2019-10-31] MEDS ORDERED: ALBUTEROL HFA 8 GM INHALER INH PRN (12:50)
[2019-10-31] MEDS: cefOXitin 2,000 MG in DEXTROSE 5% 50 ML IV SCH ×2 (13:12→20:25)
[2019-10-31] MEDS ORDERED: FERROUS SULFATE 325 MG TAB PO SCH (13:15)
--- NOTE | 2019-10-31 13:24 | Consultation ---
Date of Consultation October 31, 2019 Assessment & Plan (1) SBO (small bowel obstruction): Imaging shows small bowel obstruction with transition point. No signs of acute abdomen on examination. Would agree with bowel rest, IVF resuscitation, ng tube placement if significant vomiting occurs. Will follow. Present on Admission?: Yes (2) Factor V Leiden mutation: history of PE. Present on Admission?: Yes (3) Pancreatitis: Elevated lipase but normal liver function tests, no sign of acute cholecystitis on RUQ U/S, no sign of pancreatitis on CT (although noncontrast). Possible this is early evolving gallstone pancreatitis. Would follow labwork. Can reassess need for cholecystectomy pending clinical course. History of Present Illness Requesting Physician: Jeannie Haney Reason for Consultation: abdominal pain Attending Physician: Abdiaziz Sanderson History of Present Illness 74 yr old woman admitted with abdominal pain. Has a history of complicated diaphragmatic hernia repair. Prior to this event, had not had any bowel issues. Two nights ago, had a large meal of baked ziti. Following this, developed nausea and diarrhea, abdominal pain, generalized, epigastric. Dull/ aching and sharp at times. Not crampy. 8/10 in severity. No exacerbating or relieving factors. Associated with a cough which would precipitate the loose stools. Notes slight increase abdominal distention. No prior similar symptoms. In ER, CT scan (noncontrast) suggestive of SBO with dilated bowel and transition point. However, [place]work [place] [address] suggestive of pancreatitis. Remainder of lft's are normal. Allergies Allergy/AdvReac Type Severity Reaction Status Date / Time shellfish derived Allergy Intermediate ITCHY, Verified 10/31/19 10:21 THROAT SWELLING No Known Drug Allergies Allergy Unknown . Verified 10/31/19 10:21 Home Medications Home Medications Medication Instructions Recorded Confirmed Type acetaminophen [Tylenol Extra 1,000 mg PO Q6H PRN 09/13/18 10/31/19 History Strength] aspirin 81 mg PO QAM 09/13/18 10/31/19 History coenzyme Q10 [CoQ-10] 100 mg PO QAM 09/13/18 10/31/19 History losartan 25 mg PO QAM 09/13/18 10/31/19 History polyethylene glycol 3350 [Miralax] 17 g PO DAILY PRN 09/13/18 10/31/19 History Mucinex 1 tab PO QAM 12/17/18 10/31/19 History albuterol sulfate [ProAir HFA] 2 puff INHALATION Q6H PRN 12/17/18 10/31/19 History melatonin 5 mg capsule 5 mg PO HS PRN cap 02/26/19 10/31/19 History ferrous sulfate [iron] 325 mg PO 2XWK 10/31/19 10/31/19 History rosuvastatin 5 mg PO QAM 10/31/19 10/31/19 History Patient History Medical History Anemia Asthma inhaler prn Asthma Atypical mycobacterial infection Bronchiectasis Cancer breast ca - left - partial mastectomy - radiation 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 pt thinks she had an issue after vocal cord surgery but can't remember History of hemoptysis History of vocal cord paralysis cause? Hyperlipidemia Hypertension Laryngopharyngeal reflux Menopause Pain, lower extremity Pulmonary embolism 5 years ago - post hiatal hernia repair - pt also has factor V - [facility] - treated w/ AC Pulmonary embolism Restrictive lung disease Vocal cord paralysis LEFT Surgical History History of arthroscopy of right knee meniscus repair History of breast biopsy malignant History of colonoscopy History of esophagogastroduodenoscopy (EGD) History of hernia repair History of repair diaphramic hernia by thoracoabdominal approach History of laryngoscopy History of direct laryngoscopy with injection into vocal chords History of nasal polypectomy History of Dillon fundoplication History of esophagogastric fundoplasty dillon fundoplication History of partial mastectomy of left breast History of repair of hiatal hernia History of surgery vocal cord surgery History of tooth extraction History of wisdom tooth extraction Family History Brother Family history of diabetes mellitus Father Cerebral artery occlusion with cerebral infarction Sister Factor V Leiden mutation Hypercoagulation Other No family history of adverse response to anesthesia Social History Preferred Language: Croatian Communication Ability: Effective Expense Clerk Required: No Beliefs That Will Affect Care: None Current Living Situation: Alone Other Information That Helps Us Care for You: No Feels Safe at Home: Yes Safety Concerns: Feels Safe At This Time Smoking Status: Former smoker Tobacco Type: cigarettes ; Cigarettes Per Day: 1 pack per day ; Smoking End Date: 1988 ; Second Hand Exposure: Yes (parents smoked) ; Hx Alcohol Use: Yes Alcohol type: beer, wine and hard liquor Hx Substance Use: No Review of Systems Review of Systems: All systems reviewed & are unremarkable except as noted in HPI & below Respiratory: + cough Physical Exam Constitutional: WD/WN, vitals as above Eyes: PERRL, conjunctivae normal, anicteric sclerae Respiratory: normal respiratory effort, lungs clear to auscultation Cardiovascular: RRR, no murmur, no edema Gastrointestinal (Abdomen): Inspection/Auscultation: abdomen normal to inspection, + abdomen distended (mild) and normal bowel sounds Percussion/Palpation: + abdomen tender (epigastric and right upper quadrant) and abdomen soft; no guarding Musculoskeletal: Extremities: no cyanosis and no clubbing Skin: no rashes, warm and dry Neurologic: CN's II-XI intact bilaterally Psychiatric: A+Ox3, euthymic affect Results & Data ([facility]) Vital Signs (Past 12 Hours) Vital Signs Temp Pulse Pulse Resp BP BP Pulse Ox 10/31/19 12:53 36.5 C 109 H 22 119/80 93 10/31/19 11:48 115 H 20 157/95 H 95 10/31/19 11:00 109 H 20 126/94 94 10/31/19 10:30 102 H 17 122/86 94 10/31/19 10:00 108 H 24 118/79 93 10/31/19 09:54 92 10/31/19 09:53 112 H 23 120/81 91 10/31/19 09:23 36.9 C 120 H 20 112/78 92 Laboratory Results 10/31/19 10/31/19 Range/Units 10:00 10:00 WBC 16.38 H (4.8-10.8) K/uL RBC 5.31 (4.2-5.4) M/uL Hgb 15.4 (12.0-16.0) g/dL Hct 46.4 (37-47) % MCV 87.4 (80-100) fL MCH 29.0 (25-34) pg MCHC 33.2 (32-36) g/dL RDW Std Deviation 44.5 (36.4-46.3) fL RDW Coeff of Maya 13.8 (11.5-14.5) % Plt Count 255 (130-400) K/uL MPV 11.4 H (7.4-10.4) fL Immature Gran % (Auto) 0.4 % Neut % (Auto) 92.8 % Lymph % (Auto) 2.3 % Hubbard % (Auto) 4.4 % Eos % (Auto) 0.0 % Baso % (Auto) 0.1 % Immature Gran # (Auto) 0.06 H (0.00-0.02) K/uL Neut # (Auto) 15.22 H (1.4-6.5) K/uL Lymph # (Auto) 0.37 L (1.2-3.4) K/uL Hubbard # (Auto) 0.72 H (0.11-0.59) K/uL Eos # (Auto) 0.00 (0-0.5) K/uL Baso # (Auto) 0.01 (0-0.2) K/uL Sodium 140 (136-145) mmol/L Potassium 3.7 (3.5-5.1) mmol/L Chloride 106 (98-107) mmol/L Carbon Dioxide 27 (21-32) mmol/L Anion Gap 7.0 (3-11) BUN 31 H (7-18) mg/dl Creatinine 1.47 H (0.6-1.2) mg/dl Est Cr Clr Drug Dosing 40.4 ml/min Est GFR ( Amer) 40.9 Est GFR (Non-Af Amer) 35.3 BUN/Creatinine Ratio 21.0 H (10-20) Glucose 161 H (70-99) mg/dl Calcium 9.6 (8.5-10.1) mg/dl Total Bilirubin 0.5 (0.2-1) mg/dl AST 15 (15-37) U/L ALT 18 (12-78) U/L Alkaline Phosphatase 99 (45-117) U/L Troponin I < 0.015 (0-0.045) ng/ml Total Protein 7.8 (6.4-8.2) gm/dl Albumin 3.6 (3.4-5.0) gm/dl Globulin 4.2 H (2.5-4.0) gm/dl Albumin/Globulin Ratio 0.8 L (0.9-2) Lipase 55633 H (73-393) U/L Diagnostic Findings CT scan findings reviewed: FINDINGS: Lung bases: The heart is enlarged and without pericardial effusion. The coronary arteries are densely calcified. Postoperative change is noted involving the lef t hemidiaphragm. There is a trace right pleural effusion. The lung bases are otherwise clear noting bibasilar scarring/atelectasis Liver: The unenhanced liver is normal in size, contour, and attenuation. There is no intrahepatic biliary ductal dilatation. Gallbladder: Small gallstones are noted. There is no CT evidence of acute cholecystitis. Spleen: Normal in size and attenuation. Pancreas: The unenhanced pancreas is mildly atrophic and grossly unremarkable. Adrenal glands: Unremarkable. Kidneys: The unenhanced kidneys demonstrate mild cortical atrophy and are without hydronephrosis. Small nonobstructing calculi in the lower pole of left kidney measure up to 4 mm. No right renal calculi are identified. There is no evidence of contour deforming renal mass lesion. Parapelvic cysts are again seen bilaterally. Abdominal vasculature: The abdominal aorta is normal in course and caliber noting moderate atherosclerotic calcification. Bowel: Stomach and bowel there is a moderate to large hiatal hernia. The duodenum is normal in configuration. The stomach is distended and filled with fluid. The proximal small bowel loops are distended and fluid-filled, measuring up to 3.5 cm in diameter. There is a transition point identified in the ventral lower abdomen on image #215. A second transition points suggested in the right lower quadrant image #228. The distal small bowel and colon are decompressed and the appearance is consistent with a small bowel obstruction. This is likely on the basis of adhesions. There is no pneumatosis intestinalis or portal venous gas. Trace interloop fluid is observed. There is mild colonic diverticulosis without CT evidence of acute diverticulitis. The appendix is well-visualized and normal. Peritoneum: There is no intraperitoneal free air. Trace free fluid is noted in the pelvis. Lymphadenopathy: None. Pelvic viscera: The bladder is decompressed and grossly unremarkable. The uterus and adnexa are normal as imaged. Skeletal structures: The skeletal structures are osteopenic. There is mild to moderate lumbosacral spondylosis and scoliosis. No lytic or blastic lesions are seen. IMPRESSION: 1. Suboptimal examination without oral and IV contrast. 2. Findings are consistent with a small bowel obstruction. A transition point is identified in the ventral lower abdomen and this is likely in the basis of adhesions. A second transition point is suggested in the right lower quadrant, and a complex bowel obstruction is not excluded. Surgical assessment is advised. 3. There is trace interloop fluid and pelvic ascites. 4. There is no pneumatosis intestinalis or portal venous gas. No intraperitoneal free air is seen. 5. There is a moderate to large hiatal hernia. 6. Postoperative changes consistent with surgical repair of the left hemidiaphragm. 7. Cholelithiasis and left-sided nephrolithiasis. 8. Cardiomegaly and trace right pleural effusion. 9. Additional findings as above. RUQ US: FINDINGS: Liver: The liver is normal in size and echotexture. There is no intrahepatic biliary ductal dilatation. The main portal vein is patent. Gallbladder: The gallbladder is distended and there is a 6 mm shadowing mobile calcified gallstone. There is no gallbladder wall thickening or pericholecystic fluid. A sonographic Oreilly's sign is reportedly absent. The common bile duct measures up to 0.6 cm in diameter. Pancreas: Not visualized due to overlying bowel gas. Right kidney: Survey images of the right kidney demonstrate cortical atrophy. There is no hydronephrosis. Small cysts measure up to 1.4 cm. Ascites: None. IMPRESSION: Cholelithiasis without sonographic evidence of acute cholecystitis.
[2019-10-31] MEDS: ACETAMINOPHEN 500 MG TAB PO SCH ×3 (13:50→20:30)
[2019-10-31] MEDS: HYDROmorphone INJ 0.5 MG/0.5 ML SYR IV PRN ×2 (15:20→21:31)
--- NOTE | 2019-10-31 15:55 | Electrocardiogram Report ---
Test Reason : Blood Pressure : / mmHG Vent. Rate : 109 BPM Atrial Rate : 109 BPM P-R Int : 150 ms QRS Dur : 086 ms QT Int : 342 ms P-R-T Axes : 049 025 017 degrees QTc Int : 460 ms Sinus tachycardia with frequent PACs Abnormal ECG When compared with ECG of 16-SEP-2018 11:04, Nonspecific T wave abnormality, worse in Inferior leads Nonspecific T wave abnormality no longer evident in Anterior leads Confirmed by Issac Veliz ([id number]) on 10/31/2019 3:55:12 PM Referred By: REFERRED SELF Confirmed By:David Veliz
[2019-10-31] MEDS: ONDANSETRON INJ 2 MG/ML 2 ML VIAL IV PRN ×2 (16:48→20:25)
[2019-10-31 17:09] LABS: Appearance Urine Cloudy (Clear); Bacteria Urine Automated Negative (Negative); Bilirubin Urine Negative (Negative); Blood Urine Negative (Negative); Color Urine Yellow; Epithelial Cell Urine Auto >30 /lpf (0-5); Glucose Urine UA Negative (Negative); Ketones Urine 1+ (Negative); Leukocyte Esterase Urine Trace (Negative); Nitrite Urine Negative (Negative); Protein Urine 1+ (Negative); Specific Gravity Urine 1.027 (1.000-1.030); Urobilinogen Urine Negative (Negative)
[2019-11-01] MEDS: ONDANSETRON INJ 2 MG/ML 2 ML VIAL IV PRN ×2 (02:57→23:40)
[2019-11-01] MEDS: ACETAMINOPHEN 500 MG TAB PO SCH ×3 (05:24→20:53)
[2019-11-01] MEDS: HYDROmorphone INJ 0.5 MG/0.5 ML SYR IV PRN ×2 (06:04→13:11)
[2019-11-01] MEDS: LACTATED RINGER'S 1,000 ML IV SCH ×3 (06:05→20:17)
[2019-11-01 06:20] LABS: Hematocrit (blood only) 45.7 % (37-47); Mean Corpuscular Hemoglobin 29.5 pg (25-34); Mean Corpuscular Hgb Conc 32.8 g/dL (32-36); Mean Platelet Volume 11.3 fL (7.4-10.4); Platelet Count 233 K/uL (130-400); RDW Coefficient of Variation 14.3 % (11.5-14.5); RDW Standard Deviation 46.8 fL (36.4-46.3); Red Blood Count 5.08 M/uL (4.2-5.4); White Blood Count 8.95 K/uL (4.8-10.8)
[2019-11-01] MEDS: cefOXitin 2,000 MG in DEXTROSE 5% 50 ML IV SCH ×3 (06:35→20:35)
[2019-11-01 06:50] LABS: Albumin Level 3.1 gm/dl (3.4-5.0); BUN Creatinine Ratio 25.1 (10-20); Bilirubin Direct 0.2 mg/dl (0-0.2); Calcium 9.1 mg/dl (8.5-10.1); Creatinine Clr Calc Pharmacy 36.4 ml/min; Est GFR (African American) 36.4; Est GFR (Non-African American) 31.4; Potassium 3.9 mmol/L (3.5-5.1)
[2019-11-01 06:53] LABS: Albumin Globulin Ratio 0.8 (0.9-2); Bilirubin,Total 0.7 mg/dl (0.2-1); Total Protein 7.1 gm/dl (6.4-8.2)
[2019-11-01] MEDS: guaiFENesin 600 MG TABCR PO SCH (08:43)
[2019-11-01] MEDS: LOSARTAN POTASSIUM 25 MG TAB PO SCH (08:43)
[2019-11-01] MEDS: ROSUVASTATIN CALCIUM 5 MG TAB PO SCH (08:43)
[2019-11-01] MEDS: ASPIRIN 81 MG ECTAB PO SCH (08:43)
[2019-11-01] MEDS ORDERED: NON-FORMULARY MEDICATION (Coenzyme Q10 [Coq-10] 100 MG) PO SCH (09:00)
--- NOTE | 2019-11-01 10:49 | XRay Report ---
XR chest 1V portable CLINICAL HISTORY: 74 years-old Female presenting with SOB. TECHNIQUE: Portable upright AP view of the chest was obtained. COMPARISON: 10/11/2018. FINDINGS: Atherosclerosis of the aortic arch. Cardiac silhouette enlarged. Mildly low lung volumes. Mild pulmon titus vascular prominence increased from prior. Minimal basilar opacities. No pleural effusion or pneum othorax. Osseous structures normal. Upper abdomen normal. IMPRESSION: 1. Cardiomegaly with mild if any volume overload. 2. Low lung volumes with hypoventilatory changes and suspected bibasilar atelectasis. ACT 112: Negative or not required by law. Electronically signed by: Jet Monahan M.D. 11/01/2019 10:47 AM
--- NOTE | 2019-11-01 11:27 | Surgery Progress Note ---
Date of Service November 01, 2019 Assessment & Plan (1) SBO (small bowel obstruction): Imaging shows small bowel obstruction with transition point. No signs of acute abdomen on examination. Would agree with bowel rest, IVF resuscitation, ng tube placement if significant vomiting occurs. Will follow. No changes since yesterday. If no improvement, consider abdominal xray tomorrow to assess for progression of SBO. (2) Factor V Leiden mutation: history of PE. New onset of shortness of breath - cxr done by medicine shows mild pulmonary vascular congestion. Will defer management of pulmonary symptoms to medical team. (3) Pancreatitis: Elevated lipase but normal liver function tests, no sign of acute cholecystitis on RUQ U/S, no sign of pancreatitis on CT (although noncontrast). Possible this is early evolving gallstone pancreatitis. Lipase is decreasing, leukocytosis has resolved. Subjective Does not feel well, states no change or worsening pain in abdomen from yesterday but is feeling increasingly short of breath. Appears more labored with her breathing. No vomiting. No further bout of diarrhea and has not had a bowel movement or passed flatus since admission. Review of Systems Review of Systems: All systems reviewed & are unremarkable except as noted in HPI & below Physical Exam Constitutional: WD/WN, vitals as above Eyes: PERRL, conjunctivae normal, anicteric sclerae Respiratory: + labored breathing Auscultation: + diminished lung sounds (at bases) Cardiovascular: RRR, no murmur, no edema Gastrointestinal (Abdomen): Inspection/Auscultation: abdomen normal to inspection, + abdomen distended (mild) and normal bowel sounds Percussion/Palpation: + abdomen tender (appears to be less tender than yesterday) and abdomen soft; no guarding Musculoskeletal: Extremities: no cyanosis and no clubbing Skin: no rashes, warm and dry Neurologic: CN's II-XI intact bilaterally Psychiatric: A+Ox3, euthymic affect Results & Data Vital Signs (Past 12 Hours) Vital Signs Temp Pulse Resp BP BP Pulse Ox 11/01/19 07:35 36.6 C 99 H 18 116/77 92 11/01/19 06:45 92 10/31/19 23:37 37.0 C 107 H 20 132/76 93 Laboratory Results Abnormal lab results 03/27/20 03/28/20 03/28/20 Range/Units 16:57 06:05 06:05 RDW Std Deviation 46.8 H (36.4-46.3) fL MPV 11.3 H (7.4-10.4) fL BUN 41 H (7-18) mg/dl Creatinine 1.62 H (0.6-1.2) mg/dl BUN/Creatinine Ratio 25.1 H (10-20) Glucose 143 H (70-99) mg/dl Albumin 3.1 L (3.4-5.0) gm/dl Albumin/Globulin Ratio 0.8 L (0.9-2) Lipase 954 H (73-393) U/L Urine Appearance Cloudy A (Clear) Urine Protein 1+ H (Negative) Urine Ketones 1+ H (Negative) Ur Leukocyte Esterase Trace H (Negative) Urine RBC (Auto) 10-30 H (0-4) /hpf U Hyaline Cast (Auto) 5-10 H (0-5) /lpf U Epithel Cells (Auto) >30 H (0-5) /lpf Diagnostic Findings RUQ U/S showed no signs of acute cholecystitis, there was a small mobile gallstone present.
[2019-11-01] MEDS: LEVALBUTEROL HCL 1.25 MG/3 ML NEB NEB SCH ×2 (13:19→19:04)
[2019-11-01] MEDS ORDERED: ALBUT/IPRATROP 3MG/0.5MG NEB 3 ML VIAL NEB PRN (20:09)
[2019-11-01 21:36] LABS: D Dimer 2360 ug/L FEU (0-500)
[2019-11-01 22:29] LABS: INR 1.1 (0.9-1.1); Partial Thromboplastin Time 27.3 Seconds (21.0-31.0)
--- NOTE | 2019-11-01 22:53 | Hospitalist Progress Note ---
Date of Service November 01, 2019 Assessment & Plan (1) SBO (small bowel obstruction): -Admit to [facility] -Consult general surgery for SBO and further management, this is likely secondary to adhesions from history of large hiatal hernia repair in 2012. -Bowel rest, IV hydration, pain management for conservative measures regarding SBO at this time -Patient is NPO for now and clinically improving. -Lipase significantly improved from 13,000 to less than 1000, LR ordered, but held for concern over CHF. Surgery aware of gallbladder stones, no surgery is recommended at this time. -LFTs and bilirubin normal on admission, will trend. -On cefoxitin. WBC improved. - Afebrile (2) Diaphragmatic hernia: - In 2012 she underwent a Dillon fundoplication and repair of a large diaphragmatic hernia at [facility]. This was followed by a very complicated course postoperatively including PE, pneumonia, and acute respiratory failure where she required a tracheostomy. (3) Factor V Leiden mutation: -history of PE but taken off anticoagulation in the setting of hemoptysis. Patient denies any hemoptysis for more than >2 years (4) Pulmonary embolism: - Resolved now, occurred in 2012 after hernia repair. -Initially in 2012 PE was treated with warfarin and then subsequently was changed to Xarelto. Later on the Xarelto dose was cut in half. Subsequently Xarelto was discontinued in May 2015. In June 2015 she had some hemoptysis. She had intermittent small amounts of hemoptysis over the subsequent months. -March 2016 she represented with hemoptysis: Bronchoscopy was done which showed no evidence of acute bleeding. 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 The patient was referred to Infectious Disease and she saw Dr. Dorantes who felt treatment was not needed. - October 2016 had hemoptysis again. It occurred intermittently thereafter. She states she has not had any hemoptysis in the past year or more. (5) Restrictive lung disease: -Follows with Dr. Bustillo as an outpatient (6) Asthma: -Chronic, stable, continue pro-air as needed (7) Vocal cord paralysis: - Follow with Dr. Holloway as an outpatient, patient currently not performing focal exercises like she was instructed to (8) SYLVIA (acute kidney injury): -Creatinine acutely elevated at 1.47, BUN = 31, baseline creatinine is 0.95 -slightly worse today at 1.6 -however holding fluid for SOB. (9) Hypertension: -Losartan given today. will consider holding for SYLVIA. (10) Hyperlipidemia: -Continue rosuvastatin 5 mg daily (11) Carcinoma in situ of breast: -History of such diagnosed in Sep 2009, s/p left partial mastectomy and XRT, resolved (12) DVT prophylaxis: -Teds, SCDs CODE STATUS: Full code Will transfer to PCU to monitor for SOB and HR. Admission and Anticipated Discharge Date Admission Date: October 31, 2019 Subjective D/W nrsing staff. Patient appears to be anxious and gets more anxious while in the room. This also occured when I was examining patient. Patient reports feeling somewhat more short of breath today. Patient denies any nausea, vomiting, chest pain, sputum production. In regards to BM, patient has not passed stool. Review of Systems Review of Systems: All systems reviewed & are unremarkable except as noted in HPI & below Physical Exam Physical Exam: General: awake, alert, + moderate distress and fatigued Head: Normocephalic, atraumatic ENT: PERRL, EOMI, no pharyngeal exudate, mucous membranes moist Chest: Clear to auscultation, on room air, no adventitious breath sounds Cardiac: + Sinus tach, no murmur, no JVD, normal peripheral pulses, good capillary refill Abdominal: + Hypoactive BS x 4 quadrants, + mildly distended, no longer tender to palpation in RUQ and epigastric region, negative kinsey sign + guarding no rebound tenderness Extremities: Normal inspection, no peripheral edema or erythema, calfs nontender to palpation Psych: Normal mood and affect Neuro: AAO x 3, strength intact bilaterally and rated 5/5, no motor deficits, speech is clear, no peripheral sensory deficits Skin: no rash or erythema Results & Data Results & Data ([facility]) Vital Signs (Past 12 Hours) Vital Signs Temp Pulse Pulse Pulse Pulse Resp BP 11/01/19 20:00 11/01/19 19:44 123 H 22 104/69 11/01/19 19:41 36.7 C 106 H 18 126/79 11/01/19 19:05 113 H 24 11/01/19 16:13 36.5 C 111 H 20 112/78 11/01/19 13:21 110 H 18 11/01/19 13:01 98 H 11/01/19 12:34 36.4 C L 89 18 125/83 Pulse Ox Pulse Ox 11/01/19 20:00 94 11/01/19 19:44 94 11/01/19 19:41 99 11/01/19 19:05 91 11/01/19 16:13 90 11/01/19 13:21 92 11/01/19 13:01 11/01/19 12:34 94 PG Care Time/CCT Total # of Minutes Spent Total Time Spent with Patient: Total time spent is greater than 50% in coordination of care (as documented) at patient's floor/unit and/or counseling patient: Coding Level of Care Code 05085 Subseq Hosp Care Lvl 3 Diagnoses SBO (small bowel obstruction) K56.609 Diaphragmatic hernia K44.9 Factor V Leiden mutation D68.51 Pulmonary embolism I26.99 Restrictive lung disease J98.4 Asthma J45.909 Vocal cord paralysis J38.00 SYLVIA (acute kidney injury) N17.9 Hypertension I10 Hyperlipidemia E78.5 Carcinoma in situ of breast D05.90 DVT prophylaxis Z29.9 Time Spent (min) 35
[2019-11-02] MEDS ORDERED: OPTIRAY 320 125ml IV PRN (00:05)
[2019-11-02] MEDS: LEVALBUTEROL HCL 1.25 MG/3 ML NEB NEB SCH (00:39)
[2019-11-02] MEDS ORDERED: ALPRAZolam 0.25 MG TABLET PO STA (01:55)
--- NOTE | 2019-11-02 02:26 | Communication Note ---
Date of Service: November 02, 2019 1) Received page from RN over concerns of pt SOB and tachycardia. Went to assess and pt noted to be in mild distress, anxious appearing. Tachycardia and wheezing noted on PE. Scored at least 6 pts on Wells Criteria-moderate risk. Ordered D- Dimer ([id number]) and pt sent pt for urgent CTA Chest to r/o PE. Per [facility] read: positive for pulmonary embolism with small clot burden. LE Dopplers additionally ordered. Per [facility] read: No deep vein thrombosis in b/l lower extremities. Pt with h/o factor V Leiden mutation with previous PE (occurred in 2012 after hernia repair) that was taken off anticoagulation in the setting of hemoptysis. As noted in admission H&P, initially in 2012 PE was treated with warfarin and then subsequently was changed to Xarelto. Later on the Xarelto dose was cut in half. Subsequently Xarelto was discontinued in May 2015. In June 2015 pt had some hemoptysis. She had intermittent small amounts of hemoptysis over the subsequent months. March 2016 she represented with hemoptysis: Bronchoscopy was done which showed no evidence of acute bleeding. October 2016 had hemoptysis again. It occurred intermittently thereafter. She states she has not had any hemoptysis in the past year or more. After coming back from LE Doppler study, pt's SOB improved, notes that likely an anxiety component contributing. NAD. Given small burden load of PE and and pt h/o extensive hemoptysis as noted above, a consult was placed for vascular sx for consideration for IVC filter, as pt does not appear to be a candidate for AC at this time. 2) Pt with significant emesis refractory to Zofran. An NGT was placed, low intermittent suction. Placement confirmed by XR. Resident Activity Tracking Resident Involvement: Resident Care Provided Care Provided: Adult [facility]
[2019-11-02] MEDS: cefOXitin 2,000 MG in DEXTROSE 5% 50 ML IV SCH ×2 (04:20→12:29)
[2019-11-02] MEDS: ACETAMINOPHEN 500 MG TAB PO SCH ×2 (04:20→12:02)
[2019-11-02] MEDS: ONDANSETRON INJ 2 MG/ML 2 ML VIAL IV PRN ×3 (04:20→20:06)
[2019-11-02] MEDS: LACTATED RINGER'S 1,000 ML IV SCH ×2 (04:20→12:21)
--- NOTE | 2019-11-02 05:30 | CT Scan Report ---
CT angio chest PE protocol CT DOSE: 422.08 mGy.cm HISTORY: Chest pain. Dyspnea. PE TECHNIQUE: Multiaxial CT images of the chest were performed following the intravenous administration of contrast to evaluate the pulmonary arteries. Maximal intensity projection images were also obtaine d. A dose lowering technique was utilized adhering to the principles of ALARA. COMPARISON STUDY: None. FINDINGS: The thoracic aorta is tortuous and ectatic. There is fluid-filled distention of the stomach as well as proximal small bowel. Gallbladder is mildly distended. The basilar atelectasis is present. Pulmonary arterial vasculature suggests a filling defect of the right lower lobe pulmonary arterial v asculature image 36. All remaining pulmonary arterial structures enhance appropriately. IMPRESSION: 1. Study is positive for a focal pulmonary embolus involving the right lower lobe. 2. Mild bibasilar atelectasis with stable postoperative changes left hemidiaphragm. 3. Moderate fluid-filled gastric distention associated with hiatal hernia. Moderate proximal small calista wel and gallbladder distention. ACT 112: Negative or not required by law. The above report was generated using voice recognition software. It may contain grammatical, syntax or spelling errors. Electronically signed by: Dillon Lopes M.D. 11/02/2019 5:29 AM
--- NOTE | 2019-11-02 05:49 | Ultrasound Report ---
US venous doppler LE BI HISTORY: Pain. Edema. r/o dvt COMPARISON STUDY: None. FINDINGS: There is normal compressibility, flow, and augmentation within the bilateral lower extremit y deep venous systems. IMPRESSION: No DVT within the right or left lower extremity. ACT 112: Negative or not required by law. The above report was generated using voice recognition software. It may contain grammatical, syntax or spelling errors. Electronically signed by: Dillon Lopes M.D. 11/02/2019 5:48 AM
[2019-11-02 06:19] LABS: Hematocrit (blood only) 43.9 % (37-47); Hemoglobin 14.2 g/dL (12.0-16.0); Mean Corpuscular Hemoglobin 29.1 pg (25-34); Mean Corpuscular Hgb Conc 32.3 g/dL (32-36); Mean Platelet Volume 11.9 fL (7.4-10.4); Platelet Count 224 K/uL (130-400); RDW Coefficient of Variation 14.6 % (11.5-14.5); RDW Standard Deviation 48.2 fL (36.4-46.3); Red Blood Count 4.88 M/uL (4.2-5.4)
--- NOTE | 2019-11-02 06:22 | XRay Report ---
XR KUB/Abdomen 1 view CLINICAL HISTORY: NG tube placement tube position COMPARISON STUDY: 12/10/2007 FINDINGS: Nasogastric tube appears to be within the distal esophagus. This should be advanced. IMPRESSION: Nasogastric tube appears to be within the distal esophagus. This should be advanced. ACT 112: Negative or not required by law. The above report was generated using voice recognition software. It may contain grammatical, syntax or spelling errors. Electronically signed by: Dillon Lopes M.D. 11/02/2019 6:20 AM
[2019-11-02 06:48] LABS: Alanine Aminotransferase 14 U/L (12-78); Albumin Level 2.8 gm/dl (3.4-5.0); Aspartate Aminotransferase 12 U/L (15-37); BUN Creatinine Ratio 29.2 (10-20); Blood Urea Nitrogen 49 mg/dl (7-18); Calcium 8.9 mg/dl (8.5-10.1); Carbon Dioxide 29 mmol/L (21-32); Chloride 103 mmol/L (98-107); Creatinine Clr Calc Pharmacy 35.1 ml/min; Est GFR (African American) 34.8; Glucose 127 mg/dl (70-99); Potassium 3.6 mmol/L (3.5-5.1); Sodium 138 mmol/L (136-145)
[2019-11-02 06:51] LABS: Albumin Globulin Ratio 0.7 (0.9-2); Alkaline Phosphatase 66 U/L (45-117); Bilirubin,Total 0.6 mg/dl (0.2-1); Total Protein 6.8 gm/dl (6.4-8.2)
--- NOTE | 2019-11-02 06:53 | XRay Report ---
XR KUB/Abdomen 1 view CLINICAL HISTORY: NG tube advanced COMPARISON STUDY: Same date FINDINGS: Nasogastric tube is now coiled within either a small hiatal hernia or within the left lower lobe. IMPRESSION: Nasogastric tube is now coiled within either a small hiatal hernia or within the left lo wer lobe. This tube should be repositioned. ACT 112: Negative or not required by law. The above report was generated using voice recognition software. It may contain grammatical, syntax or spelling errors. Electronically signed by: Dillon Lopes M.D. 11/02/2019 6:51 AM
[2019-11-02 07:19] LABS: Bilirubin Direct < 0.1 mg/dl (0-0.2)
--- NOTE | 2019-11-02 08:17 | XRay Report ---
XR KUB/Abdomen 1 view CLINICAL HISTORY: NG tube placement COMPARISON STUDY: Same date FINDINGS: No change in the position of the nasogastric tube. It continues to be coiled within the reg ion of the left lower lobe or within a small hiatal hernia. IMPRESSION: No change in the location of the nasogastric tube. It is coiled within the left lower lo be or small hiatal hernia. ACT 112: Negative or not required by law. The above report was generated using voice recognition software. It may contain grammatical, syntax or spelling errors. Electronically signed by: Dillon Lopes M.D. 11/02/2019 8:16 AM
--- NOTE | 2019-11-02 08:25 | Hospitalist Progress Note ---
Date of Service November 02, 2019 Assessment & Plan (1) SBO (small bowel obstruction): -General surgery on board for SBO and further management, this is likely secondary to adhesions from history of large hiatal hernia repair in 2012. Persistent SBO despite NGT placement because of coiling within hiatal hernia now. There are gallstones as seen on US, no surgery planned at this time. -NGT placed overnight due to emesis of 750 ml, NGT on LIS with 300 ml out, but had to be repositioned twice overnight. KUB reviewed from 07:40 today showing coiling and possibly within a small hiatal hernia, discussed with Dr. Elaine and will replace NGT now and follow up with KUB. - NPO -Lipase trended down. -LFTs and bilirubin normal on admission, will trend. - Continue on cefoxitin. - WBC improved - Afebrile -Bowel rest, IV hydration, pain management for conservative measures have been done , NGT placed however coiling within hiatal hernia, no successful improvement in sx. Discussed with [facility] for transfer and they are willing to accept the patient. (2) Diaphragmatic hernia: - In 2012 she underwent a Dillon fundoplication and repair of a large diaphragmatic hernia at [facility]. This was followed by a very complicated course postoperatively including PE, pneumonia, and acute respiratory failure where she required a tracheostomy. (3) Factor V Leiden mutation: -history of PE but taken off anticoagulation in the setting of hemoptysis. Patient denies any hemoptysis for more than >2 years (4) Pulmonary embolism: Overnight developed SOB and tachycardia now found to have new PE with small clot burden - Pt is not an anticoagulation candidate with hx of hemoptysis - Vascular consult for possible IVC filter placement - Discussed with Dr. Calvillo who reports she would not be a candidate considering no DVT in BLE and other issues currently ongoing. - Pulmonary consulted - negative troponin on repeat, negative BNP - Checking echo stat - Starting on heparin per pulm recommendations at this time. Pt will transfer to [place] while on heparin. - Continue on LR Hx of PE discussed with radiologist - this is an acute PE, not in the same l ocation as previous PE in 2016 or PE in 2013. - Initially had PE which occurred in 2012 after hernia repair. -Initially in 2013 PE was treated with warfarin and then subsequently was changed to Xarelto. Later on the Xarelto dose was cut in half. Subsequently Xarelto was discontinued in May 2015. In June 2015 she had some hemoptysis. She had intermittent small amounts of hemoptysis over the subsequent months. -March 2016 she represented with hemoptysis: Bronchoscopy was done which showed no evidence of acute bleeding. 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 The patient was referred to Infectious Disease and she saw Dr. Dorantes who felt treatment was not needed. - October 2016 had hemoptysis again. It occurred intermittently thereafter. She states she has not had any hemoptysis in the past year or more. (5) Restrictive lung disease: -Follows with Dr. Bustillo as an outpatient (6) Asthma: -Chronic, stable, continue pro-air as needed (7) Vocal cord paralysis: - Follow with Dr. Holloway as an outpatient, patient currently not performing focal exercises like she was instructed to (8) SYLVIA (acute kidney injury): -Creatinine acutely elevated at 1.47, BUN = 31, baseline creatinine is 0.95 -slightly worse today at 1.6 -started on IVFs on 10/31 -follow BMP (9) Hypertension: -Losartan continued - consider holding for SYLVIA. Creatinine 1.68 and appears to be around baseline. 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 I verified all aggarwal points and agree with MIREILLE Haney with the following exceptions and/or additions: Please see discharge summary on same DOS Subjective The patient was seen and examined this morning. Pt states not doing well. She feels uncomfortable and finds it hard to position herself in bed comfortably. She has NGT in place, out 300 mL since it was re positioned earlier this morning, currently on LIS. Nursing reports the NGT was repositioned twice overnight due to coiling up, likely around the area in which her hiatal hernia is. Discussed with surgery and will replace it with another. Review of Systems Review of Systems: Constitutional: No fever, sweats or chills, + uncomfortable Eyes: No diplopia, no worsening or blurred vision ENT: normal hearing, no trouble swallowing Respiratory: No cough, sputum, +dyspnea on exertion Cardiovascular: No chest pain, tightness or palpitations Abdomen: + generalized abd pain, +nausea, no vomiting since NGT placement, no diarrhea or constipation, no BM or flatus. Musculoskeletal: No joint pain, calf pain, swelling Neurologic: No weakness, numbness/tingling, or balance problems Psychiatric: No anxiety or depression Skin: No rash or itch Physical Exam Physical Exam: General: awake, alert, + mild distress, + appears uncomfortable Head: Normocephalic, atraumatic ENT: PERRL, EOMI, no pharyngeal exudate, mucous membranes moist Chest: Clear to auscultation but slightly diminished at bases, on room air, no adventitious breath sounds Cardiac:+ sinus tachycardia, no murmur, no JVD, normal peripheral pulses, good capillary refill Abdominal: NABS x 4 quadrants, + mildly distended, +tender to palpation, no rebound, +guarding Extremities: Normal inspection, no peripheral edema or erythema, calfs nontender to palpation Psych: Normal mood and affect Neuro: AAO x 3, no gross motor deficits, speech is clear Results & Data Results & Data ([facility]) Vital Signs (Past 12 Hours) Vital Signs Temp Pulse Pulse Pulse Pulse Resp BP 11/02/19 07:00 36.5 C 111 H 24 11/02/19 04:00 36.9 C 106 H 19 111/73 11/02/19 01:17 11/02/19 00:41 113 H 20 11/02/19 00:35 115 H 11/01/19 23:23 36.5 C 110 H 22 BP Pulse Ox Pulse Ox 11/02/19 07:00 133/85 91 11/02/19 04:00 91 11/02/19 01:17 93 11/02/19 00:41 93 11/02/19 00:35 11/01/19 23:23 112/76 93 PG Care Time/CCT Total # of Minutes Spent Total Time Spent with Patient: Total time spent is greater than 50% in coordination of care (as documented) at patient's floor/unit and/or counseling patient: Coding Level of Care Code None Diagnoses SBO (small bowel obstruction) K56.609 Diaphragmatic hernia K44.9 Factor V Leiden mutation D68.51 Pulmonary embolism I26.99 Restrictive lung disease J98.4 Asthma J45.909 Vocal cord paralysis J38.00 SYLVIA (acute kidney injury) N17.9 Hypertension I10 Hyperlipidemia E78.5 Carcinoma in situ of breast D05.90 DVT prophylaxis Z29.9
--- NOTE | 2019-11-02 11:03 | XRay Report ---
XR KUB/Abdomen 1 view CLINICAL HISTORY: Assess position of NGT after new placed. COMPARISON STUDY: Same date FINDINGS: Nasogastric tube appears to be coiled within what is most likely a tortuous esophagus possi emerita within a hiatal hernia. IMPRESSION: A new nasogastric tube remains coiled within what appears to be the distal esophagus and /or small hiatal hernia. ACT 112: Negative or not required by law. The above report was generated using voice recognition software. It may contain grammatical, syntax or spelling errors. Electronically signed by: Dillon Lopes M.D. 11/02/2019 11:02 AM
[2019-11-02] MEDS: guaiFENesin 600 MG TABCR PO SCH (11:19)
[2019-11-02] MEDS: ASPIRIN 81 MG ECTAB PO SCH (11:19)
[2019-11-02] MEDS: LOSARTAN POTASSIUM 25 MG TAB PO SCH (11:19)
[2019-11-02] MEDS: ROSUVASTATIN CALCIUM 5 MG TAB PO SCH (11:19)
--- NOTE | 2019-11-02 11:55 | Surgery Progress Note ---
Date of Service November 02, 2019 Assessment & Plan (1) SBO (small bowel obstruction): Persistent proximal small bowel obstruction likely related to adhesive disease from prior complex hiatal hernia repair complicated by new vomiting and inability to place ng tube within stomach despite multiple attempts. Overall, while there is no clinical sign of bowel ischemia or need for urgent surgical intervention, she is also not improving and less likely to improve if ng cannot be placed. With her prior complex hiatal hernia repair, mainly upper abdominal adhesions, recurrent hiatal hernia and recent PE, she would best be served at a tertiary care facility should she require surgery. She herself is also not comfortable with staying locally and is interested in transfer. (2) Factor V Leiden mutation: New PE. (3) Pancreatitis: Elevated lipase but normal liver function tests, no sign of acute cholecystitis on RUQ U/S, no sign of pancreatitis on CT (although noncontrast). Possible this is early evolving gallstone pancreatitis. Lipase is now normal. leukocytosis has resolved. Subjective Vomited large volume yesterday. NG attempted to be placed but despite multiple attempts, remains coiled and not entering the dilated stomach. KUB again confirms dilated stomach and proximal small bowel c/w evolving SBO likely from upper abdominal adhesive disease due to prior large complex hiatal hernia repair. Events / imaging yesterday also demonstrate new pulmonary embolus. Remains short of breath, feels as though she is getting worse from respiratory standpoint. No worsening abdominal pain but still has not passed flatus. Review of Systems Review of Systems: All systems reviewed & are unremarkable except as noted in HPI & below Physical Exam Constitutional: WD/WN, vitals as above Eyes: PERRL, conjunctivae normal, anicteric sclerae Respiratory: + labored breathing Auscultation: + diminished lung sounds (at bases) Cardiovascular: Rate/Rhythm: regular rhythm and + tachycardic Heart Sounds: no murmur Gastrointestinal (Abdomen): Inspection/Auscultation: abdomen normal to inspection, + abdomen distended (mild) and normal bowel sounds Percussion/Palpation: + abdomen tender (appears to be less tender than yesterday) and abdomen soft; no guarding Musculoskeletal: Extremities: no cyanosis and no clubbing Skin: no rashes, warm and dry Neurologic: CN's II-XI intact bilaterally Psychiatric: A+Ox3, euthymic affect Results & Data Vital Signs (Past 12 Hours) Vital Signs Temp Pulse Pulse Pulse Pulse Resp BP 11/02/19 09:52 114 H 11/02/19 07:00 36.5 C 111 H 24 11/02/19 04:00 36.9 C 106 H 19 111/73 11/02/19 01:17 11/02/19 00:41 113 H 20 11/02/19 00:35 115 H BP Pulse Ox Pulse Ox 11/02/19 09:52 11/02/19 07:00 133/85 91 11/02/19 04:00 91 11/02/19 01:17 93 11/02/19 00:41 93 11/02/19 00:35 Laboratory Results 11/02/19 11/02/19 11/02/19 Range/Units 05:16 05:16 05:16 WBC 8.30 (4.8-10.8) K/uL RBC 4.88 (4.2-5.4) M/uL Hgb 14.2 (12.0-16.0) g/dL Hct 43.9 (37-47) % MCV 90.0 (80-100) fL MCH 29.1 (25-34) pg MCHC 32.3 (32-36) g/dL RDW Std Deviation 48.2 H (36.4-46.3) fL RDW Coeff of Maya 14.6 H (11.5-14.5) % Plt Count 224 (130-400) K/uL MPV 11.9 H (7.4-10.4) fL PT (9.0-12.0) Seconds INR (0.9-1.1) APTT (21.0-31.0) Seconds PTT Ratio D-Dimer (0-500) ug/L FEU Sodium 138 (136-145) mmol/L Potassium 3.6 (3.5-5.1) mmol/L Chloride 103 (98-107) mmol/L Carbon Dioxide 29 (21-32) mmol/L Anion Gap 6.0 (3-11) BUN 49 H (7-18) mg/dl Creatinine 1.68 H (0.6-1.2) mg/dl Est Cr Clr Drug Dosing 35.1 ml/min Est GFR ( Amer) 34.8 Est GFR (Non-Af Amer) 30.0 BUN/Creatinine Ratio 29.2 H (10-20) Glucose 127 H (70-99) mg/dl Calcium 8.9 (8.5-10.1) mg/dl Total Bilirubin 0.6 (0.2-1) mg/dl Direct Bilirubin < 0.1 D (0-0.2) mg/dl AST 12 L (15-37) U/L ALT 14 (12-78) U/L Alkaline Phosphatase 66 (45-117) U/L Troponin I (0-0.045) ng/ml Total Protein 6.8 (6.4-8.2) gm/dl Albumin 2.8 L (3.4-5.0) gm/dl Globulin 4.0 (2.5-4.0) gm/dl Albumin/Globulin Ratio 0.7 L (0.9-2) Lipase 367 (73-393) U/L 11/02/19 11/01/19 11/01/19 Range/Units 01:06 20:51 20:51 WBC (4.8-10.8) K/uL RBC (4.2-5.4) M/uL Hgb (12.0-16.0) g/dL Hct (37-47) % MCV (80-100) fL MCH (25-34) pg MCHC (32-36) g/dL RDW Std Deviation (36.4-46.3) fL RDW Coeff of Maya (11.5-14.5) % Plt Count (130-400) K/uL MPV (7.4-10.4) fL PT 12.0 (9.0-12.0) Seconds INR 1.1 (0.9-1.1) APTT 27.3 (21.0-31.0) Seconds PTT Ratio 1.0 D-Dimer 2360 H* (0-500) ug/L FEU Sodium (136-145) mmol/L Potassium (3.5-5.1) mmol/L Chloride (98-107) mmol/L Carbon Dioxide (21-32) mmol/L Anion Gap (3-11) BUN (7-18) mg/dl Creatinine (0.6-1.2) mg/dl Est Cr Clr Drug Dosing ml/min Est GFR ( Amer) Est GFR (Non-Af Amer) BUN/Creatinine Ratio (10-20) Glucose (70-99) mg/dl Calcium (8.5-10.1) mg/dl Total Bilirubin (0.2-1) mg/dl Direct Bilirubin (0-0.2) mg/dl AST (15-37) U/L ALT (12-78) U/L Alkaline Phosphatase (45-117) U/L Troponin I < 0.015 (0-0.045) ng/ml Total Protein (6.4-8.2) gm/dl Albumin (3.4-5.0) gm/dl Globulin (2.5-4.0) gm/dl Albumin/Globulin Ratio (0.9-2) Lipase (73-393) U/L Diagnostic Findings CTA shows new pulmonary embolus, stomach and gallbladder distention. Amylase is now normal. KUB shows persistent coiling of ng tube, dilated stomach.
[2019-11-02] MEDS ORDERED: ONDANSETRON INJ 2 MG/ML 2 ML VIAL IV ONE (13:02)
--- NOTE | 2019-11-02 13:27 | Pulmonary Consultation ---
Date of Consultation November 02, 2019 Assessment & Plan (1) Factor V Leiden mutation: Impression: 74-year-old female with complex medical history as noted with prior PEs, restrictive lung disease, potential asthma, vocal cord paralysis and complex diaphragmatic surgery at [facility] presenting now with bowel obstruction and concomitant small PE. Recommendations: 1. PE: Patient appears hemodynamically stable currently. Recommend checking BNP and troponin as well as echocardiogram. Duplex ultrasound of the lower extremities is negative. No indication for IVC filter. Recommend initiation of heparin drip. Given that this is her second event, and the factor V Leiden, would favor lifelong anticoagulation unless there is an absolute contraindication. Her prior history of hemoptysis does not constitute an absolute contraindication at this point time. Continue to follow over time. She does have an accentuated P2 on exam and a slight RV tap. echocardiogram will be helpful in guiding additional therapies and management strategy. 2. Shortness of breath: Suspect this is multifactorial due to combinations of restrictive lung disease worsened by her intra-abdominal process, and acute PE. Should she worsen would recommend checking lactate and blood gas. Noninvasive positive pressure ventilation may be trialed however ultimately, will require definitive improvement in her intra-abdominal process before her respiratory complaints would improve significantly. 3. Reported history of asthma: Patient did have a bronchodilator spots on her last PFTs. She is not bronchospastic currently. No indication for steroids currently. Inhalers can be used on an as-needed basis but again I do not believe that is the etiology of the patient's current complaints. 4. Restrictive lung disease: Likely multifactorial due to combinations of potential diaphragm dysfunction and weight. Prior CT scans have demonstrated no significant parenchymal abnormality. Continue supportive care. 5. Vocal cord paralysis: It does not appear to be an active issue currently. Continue to follow. Management of the patient's other medical issues is deferred to the medical service. (2) Pulmonary embolism: (3) Restrictive lung disease: (4) Vocal cord paralysis: History of Present Illness Attending Physician: Arlet Taylor MD History of Present Illness Asked by hospitalist to evaluate patient with history of PE, hemoptysis, and admitted with bowel obstruction with new small right lower lobe filling defect. History is obtained from review electronic medical record and discussion with the patient. The patient is a 74-year-old female who follows with Dr. arroyo in the outpatient setting. She is followed for history of restrictive lung disease with last PFTs demonstrating total lung capacity about 60 to 70%. There are notes regarding asthma and she did have a 15% improvement after administration of bronchodilators. She has a history of a complex diaphragmatic repair for hiatal hernia and diaphragmatic hernia which apparently was performed at [facility]. Her course was very complicated and postoperatively she required tracheostomy placement. She relates a history of PE diagnosed at that point time as well and was placed on anticoagulation. She had difficulties over the next several years as delineated in Dr. arroyo's notes and the admitting hospitalist notes with intermittent hemoptysis. Bronchoscopy identified no signs of bleeding. 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 She was not given any antimicrobial agents. She presented to the emergency room yesterday with acute onset of nausea and vomiting as well as some upper quadrant pain on the right and chang-epigastric pain. She had imaging performed which revealed a high-grade bowel obstruction. Surgical consultation was obtained. They recommended NG decompression. Multiple attempts to place an NG tube is been unsuccessful. Surgery service feels that given her complexity and previous intra-abdominal instrumentation, she would not be a candidate for surgical intervention today and of recommended transfer to a tertiary care facility. The patient also would like to be transferred to a tertiary care facility. The patient last evening developed increasing respiratory difficulty. A d-dimer was positive. She underwent a CT angiogram which showed a small filling defect in the right lower lobe subsegmental pulmonary artery. Pulmonary was consulted for additional management. Duplex ultrasound of the lower extremities demonstrated no clot. She is remained hemodynamically stable although slightly tachycardic. No syncope or presyncope. She is not had any hemoptysis. The patient also relates a history of factor V Leiden deficiency although she is unclear if she is heterozygous or homozygous. She also has a history of vocal cord paralysis Allergies Allergy/AdvReac Type Severity Reaction Status Date / Time shellfish derived Allergy Intermediate ITCHY, Verified 10/31/19 10:21 THROAT SWELLING No Known Drug Allergies Allergy Unknown . Verified 10/31/19 10:21 Home Medications Home Medications Medication Instructions Recorded Confirmed Type acetaminophen [Tylenol Extra 1,000 mg PO Q6H PRN 09/13/18 10/31/19 History Strength] aspirin 81 mg PO QAM 09/13/18 10/31/19 History coenzyme Q10 [CoQ-10] 100 mg PO QAM 09/13/18 10/31/19 History losartan 25 mg PO QAM 09/13/18 10/31/19 History polyethylene glycol 3350 [Miralax] 17 g PO DAILY PRN 09/13/18 10/31/19 History Mucinex 1 tab PO QAM 12/17/18 10/31/19 History albuterol sulfate [ProAir HFA] 2 puff INHALATION Q6H PRN 12/17/18 10/31/19 History melatonin 5 mg capsule 5 mg PO HS PRN cap 02/26/19 10/31/19 History ferrous sulfate [iron] 325 mg PO 2XWK 10/31/19 10/31/19 History rosuvastatin 5 mg PO QAM 10/31/19 10/31/19 History Patient History Medical History Anemia Asthma inhaler prn Asthma Atypical mycobacterial infection Bronchiectasis Cancer breast ca - left - partial mastectomy - radiation 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 pt thinks she had an issue after vocal cord surgery but can't remember History of hemoptysis History of vocal cord paralysis cause? Hyperlipidemia Hypertension Laryngopharyngeal reflux Menopause Pain, lower extremity Pulmonary embolism 5 years ago - post hiatal hernia repair - pt also has factor V - [facility] - treated w/ AC Pulmonary embolism Restrictive lung disease Vocal cord paralysis LEFT Surgical History History of arthroscopy of right knee meniscus repair History of breast biopsy malignant History of colonoscopy History of esophagogastroduodenoscopy (EGD) History of hernia repair History of repair diaphramic hernia by thoracoabdominal approach History of laryngoscopy History of direct laryngoscopy with injection into vocal chords History of nasal polypectomy History of Dillon fundoplication History of esophagogastric fundoplasty dillon fundoplication History of partial mastectomy of left breast History of repair of hiatal hernia History of surgery vocal cord surgery History of tooth extraction History of wisdom tooth extraction Family History Brother Family history of diabetes mellitus Father Cerebral artery occlusion with cerebral infarction Sister Factor V Leiden mutation Hypercoagulation Other No family history of adverse response to anesthesia Social History Preferred Language: Armenian Communication Ability: Effective Counseling Department Chair Required: No Beliefs That Will Affect Care: None marital status: Single Current Living Situation: Alone Other Information That Helps Us Care for You: No Feels Safe at Home: Yes Safety Concerns: Feels Safe At This Time Smoking Status: Former smoker Tobacco Type: cigarettes ; Cigarettes Per Day: 1 pack per day ; Smoking End Date: 1988 ; Second Hand Exposure: Yes (parents smoked) ; Hx Alcohol Use: Yes Alcohol type: beer, wine and hard liquor Hx Substance Use: No Review of Systems Review of Systems: Please refer to admission H&P for complete details. I have no additions or deletions. Physical Exam Constitutional: well developed and + ill appearing; no acute distress Neck: trachea midline, no thyromegaly Respiratory: normal respiratory effort, lungs clear to auscultation Cardiovascular: Rate/Rhythm: regular rate Heart Sounds: normal S1 Accentuated S2 with an RV tap noted Gastrointestinal (Abdomen): Inspection/Auscultation: abdomen normal to inspec tion She is nontender. Bowel sounds are diminished. She is slightly distended Musculoskeletal: Extremities: extremities normal to inspection Skin: no rashes, warm and dry Neurologic: Nonfocal exam Lymphatic: no cervical lymphadenopathy Results & Data Results & Data ([facility]) Vital Signs (Past 12 Hours) Vital Signs Temp Pulse Pulse Pulse Resp BP BP 11/02/19 12:02 36.7 C 105 H 20 117/81 11/02/19 09:52 114 H 11/02/19 07:00 36.5 C 111 H 24 133/85 11/02/19 04:00 36.9 C 106 H 19 111/73 11/02/19 01:17 Pulse Ox Pulse Ox 11/02/19 12:02 93 11/02/19 09:52 11/02/19 07:00 91 11/02/19 04:00 91 11/02/19 01:17 93 Laboratory Results 11/02/19 05:16 11/02/19 05:16 Lipase on presentation markedly elevated over 13,000 now decreased to normal at 367 Troponin BMP not checked Echocardiogram pending EKG did not show S1Q3T3 changes or RV strain pattern. Diagnostic Findings Imaging studies independently reviewed. CT angiogram 11/01/2019 was reviewed. The patient does have slightly low lung volumes. There is a small persistent hiatal hernia. Dilated stomach and small bowel loops noted. Small filling defect noted within the subsegmental right lower lobe pulmonary artery. No evidence of pulmonary infarct. CT abdomen pelvis 10/31/2019 was reviewed. It demonstrates evidence of a high- grade bowel obstruction with a transition point identified in the lower abdomen and a second transition point in the right lower quadrant Last PFTs were reviewed from April 2019. These showed an FEV1 of 1.44 L or 60% predicted with an FVC of 1.97 L or 62% predicted. The ratio was normal at 73. Bronchodilators were administered with a 15% improvement in the FEV1. Restriction was confirmed on lung volumes with a total lung capacity of 70% predicted, FRC of 73% predicted, RV of 71% predicted. Diffusion capacity reduced at 63% predicted but corrects to 102% predicted when adjusted for alveolar ventilation. Flow volume loops were consistent with restrictive physiology PG Care Time/CCT Total # of Minutes Spent Total Time Spent with Patient: Total time spent is greater than 50% in coordination of care (as documented) at patient's floor/unit and/or counseling patient: Coding Level of Care Code 19001 Initial Inpt Care Lvl 3 Diagnoses Factor V Leiden mutation D68.51 Pulmonary embolism I26.99 Restrictive lung disease J98.4 Vocal cord paralysis J38.00
[2019-11-02] MEDS ORDERED: HEPARIN SODIUM/DEXTROSE 25,000 UNITS/500 ML BAG IV SCH (13:30)
[2019-11-02] MEDS ORDERED: HEPARIN IV BOLUS 6,000 UNITS in SYRINGE 0 ML IV ONE (14:00)
[2019-11-02 14:06] LABS: NT Pro B Type Natriuretic Pept 483 pg/ml (0-900); Troponin I < 0.015 ng/ml (0-0.045)
[2019-11-02] MEDS ORDERED: PROCHLORPERAZINE 10 MG in SYRINGE 8 ML IV PRN (15:50)
[2019-11-02] MEDS ORDERED: PROMETHAZINE HCL 12.5 MG in SODIUM CHLORIDE 0.9% 50 ML IV STA (15:53)
--- NOTE | 2019-11-02 17:50 | Discharge Summary ---
Date of Service November 02, 2019 Admission HPI Per Admitting Provider This is a 74-year-old female with PMHx of hiatal hernia s/p surgical correction in 2013, PE, tracheostomy, hemoptysis, which are now resolved, as well as factor V Leiden mutation, left vocal cord paralysis, GERD, restrictive lung disease, asthma, history of breast cancer with left partial mastectomy and XRT therapy, HLD DM, HTN. Patient presents with acute onset of nausea and vomiting which occurred 2 nights ago and has worsened. She reports right upper quadrant pain as well as epigastric pain. 2 days ago she consumed a large meal of baked ziti where she thought she overate and that was the cause of her symptoms. Last evening she developed diarrhea and has had several bouts. Currently she feels moderately distended in her abdomen, but denies nausea or vomiting. She has not yet received any pain medication but rates her pain an 8-9 out of 10 at bedside. She is agreeable to some IV pain meds at this time where earlier today thought that she could deal with pain. PT denies any recent alcohol intake nor routine alcohol intake. When asked about history of pancreatitis, she denies any history of such. She did not take her morning medications secondary to abdominal pain. Admission Exam Per Admitting Provider General: awake, alert, + moderate distress and fatigued Head: Normocephalic, atraumatic ENT: PERRL, EOMI, no pharyngeal exudate, mucous membranes moist Chest: Clear to auscultation, on room air, no adventitious breath sounds Cardiac: + Sinus tach, HR = 115 at bedside, no murmur, no JVD, normal peripheral pulses, good capillary refill Abdominal: + Hypoactive BS x 4 quadrants, + mildly distended, + tender to palpation in RUQ and epigastric region, + Oreilly sign, + guarding no rebound tenderness Extremities: Normal inspection, no peripheral edema or erythema, calfs nontender to palpation Psych: Normal mood and affect Neuro: AAO x 3, strength intact bilaterally and rated 5/5, no motor deficits, speech is clear, no peripheral sensory deficits Skin: no rash or erythema Principal Diagnosis Small bowel obstruction Pulmonary embolism Factor V Leiden Hiatal hernia s/p repair Discharge Exam General: awake, alert, + mild distress, + appears uncomfortable Head: Normocephalic, atraumatic ENT: PERRL, EOMI, no pharyngeal exudate, mucous membranes moist Chest: Clear to auscultation but slightly diminished at bases, on room air, no adventitious breath sounds Cardiac:+ sinus tachycardia, no murmur, no JVD, normal peripheral pulses, good capillary refill Abdominal: NABS x 4 quadrants, + mildly distended, +tender to palpation, no rebound, +guarding Extremities: Normal inspection, no peripheral edema or erythema, calfs nontender to palpation Psych: Normal mood and affect Neuro: AAO x 3, no gross motor deficits, speech is clear Discharge Data Allergies Allergy/AdvReac Type Severity Reaction Status Date / Time shellfish derived Allergy Intermediate ITCHY, Verified 10/31/19 10:21 THROAT SWELLING No Known Drug Allergies Allergy Unknown . Verified 10/31/19 10:21 Consultations 10/31/19 11:17 ED Decision to Admit Stat 10/31/19 12:42 Consult Case Management - Discharge Planning Routine Consult General Surgery Routine 11/02/19 00:46 Consult Vascular Surgery Routine 11/02/19 12:40 Consult Pulmonology Routine 11/02/19 14:33 Burn CD for patient Stat Ordered Studies 10/31/19 09:43 CT abd pelvis wo con Stat 10/31/19 10:43 US gallbladder Stat 11/01/19 20:31 CT angio chest PE protocol Urgent 11/02/19 00:45 US venous doppler LE BI Urgent CXR KUB x 4 Hospital Course (1) SBO (small bowel obstruction): -General surgery on board for SBO and further management, this is likely secondary to adhesions from history of large hiatal hernia repair in 2012 with recurrent HH. Persistent SBO despite multiple attempts for NGT placement because of coiling within hiatal hernia now. There are gallstones as seen on US, no surgery planned at this time. -NGT placed overnight due to emesis of 750 ml, NGT on LIS with 300 ml out this morning- but had to be repositioned twice overnight. KUB reviewed from 07:40 today showing coiling and possibly within a small hiatal hernia, discussed with Dr. Elaine and was planning on replacing NG tube however d/t multiple unsuccessful attempts and possibly needing general surgery for further work- up/surgical procedure, also patient request, planned for transfer to [facility]. - NPO - Lipase trended down. - LFTs and bilirubin normal on admission, will trend. - Continue on cefoxitin. - WBC improved - Afebrile -continue Bowel rest, IV hydration, pain management for conservative measures have been done , NGT placed however coiling within hiatal hernia, it was removed, no successful improvement in sx. Discussed with [facility] for transfer and they are willing to accept the patient. (2) Diaphragmatic hernia: - In 2012 she underwent a Dillon fundoplication and repair of a large diaphragmatic hernia at [facility]. This was followed by a very complicated course postoperatively including PE, pneumonia, and acute respiratory failure where she required a tracheostomy. -Appears new small hiatal hernia on imaging, NG tube continuing to coil within this location (3) Factor V Leiden mutation: -history of PE but taken off anticoagulation in the setting of hemoptysis. Patient denies any hemoptysis for more than >2 years (4) Pulmonary embolism: Overnight 10/31-11/01, developed SOB and tachycardia now found to have new PE with small clot burden - Pt is not a good snf anticoagulation candidate with hx of hemoptysis -fortunately, she is hemodynamically stable at this time, not hypoxic - Vascular consult for possible IVC filter placement - Discussed with Dr. Calvillo who reports she would not be a candidate considering no DVT in BLE and other issues currently ongoing. - Pulmonary consulted - negative troponin on repeat, negative BNP - Checking echo stat-was pending at time of discharge - Starting on heparin gtt per pulm recommendations at this time. Pt will transfer to [place] while on heparin. - Continue on LR Hx of PE discussed with radiologist - this is an acute PE, not in the same location as previous PE in 2016 or PE in 2012. - Initially had PE which occurred in 2012 after hernia repair. -Initially in 2012 PE was treated with warfarin and then subsequently was changed to Xarelto. Later on the Xarelto dose was cut in half. Subsequently Xarelto was discontinued in May 2015. In June 2015 she had some hemoptysis. She had intermittent small amounts of hemoptysis over the subsequent months. -March 2016 she represented with hemoptysis: Bronchoscopy was done which showed no evidence of acute bleeding. 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 The patient was referred to Infectious Disease and she saw Dr. Dorantes who felt treatment was not needed. - October 2016 had hemoptysis again. It occurred intermittently thereafter. She states she has not had any hemoptysis in the past year or more. (5) Restrictive lung disease: -Follows with Dr. Bustillo as an outpatient (6) Asthma: -Chronic, stable, continue pro-air as needed (7) Vocal cord paralysis: - Follow with Dr. Macdonald of ENT as an outpatient, patient currently not performing focal exercises like she was instructed to (8) SYLVIA (acute kidney injury): -Creatinine acutely elevated at 1.47, BUN = 31, baseline creatinine is 0.95 -Cr. 1.65 today, overnight was placed on LR after CT PE confirmed for new acute PE, continue on transport. (9) Hypertension: -Losartan continued initially for elevated BP - LR started overnight, Cr. As above (10) Hyperlipidemia: -Continue rosuvastatin 5 mg daily (11) Carcinoma in situ of breast: -History of such diagnosed in Sep 2009, s/p left partial mastectomy and XRT, resolved (12) DVT prophylaxis: -Teds, SCDs, heparin gtt CODE STATUS: Full code Dispo: Transferred to [facility]. Total Time Total Time Spent Total Time Spent (In Minutes): 50 Discharge Plan Discharge Items Patient Disposition: Transfer Acute Care Hospital Reason For Visit: SBO Discharge Diagnosis: Small Bowel obstruction, new onset Pulmonary embolism Condition on Discharge: Serious Activity: As commented below Activity Comment: OOB to chair as tolerated, ambulate as tolerated Non-emergency contact: Primary Care Provider Call non-emergency contact if: you have any medication questions and your rectal temperature is above 100.4 Follow-up/Referrals: Thanh Phelan [Primary Care Provider] - Diet: Nothing by Mouth Addtl Attending Provider Instructions: You were admitted to [facility] due to abdominal pain and nausea x 2 days prior to admission and found to have small bowel obstruction and pulmonary embolism during your stay at [facility]. Due to needs for possible surgery in the setting of complicated previous hiatal hernia repair and new small hiatal hernia, and pulmonary embolism on heparin in the setting of Factor V Leiden, you are being transferred to [facility] under general surgery service. During your stay here you were treated with supportive care, medications including intravenous fluids, and started on a heparin drip. Imaging studies which were completed include CT abdomen, CT PE, 2D echocardiogram. Medications: Continue taking you medications as prescribed Appointments: Follow up with appropriate services after discharge from [facility]. Pending Studies at Discharge: No Stand-Alone Forms: My [facility] Skilled Items Patient informed of condition?: Yes DNR: No Discharge Level of Care: Other Communicable Disease: No Discharge Prognosis: Stable Lines: Peripheral IV Urinary Catheter: No Medications and DC Order Prescriptions: Continued melatonin 5 mg capsule 5 mg PO HS PRN (Reason: Sleep) RF: 0 albuterol sulfate [ProAir HFA] 90 mcg/actuation Hfa Aerosol Inhaler 2 puff INHALATION Q6H PRN (Reason: Shortness Of Breath) RF: 0 Mucinex 1,200 mg Tablet Extended Release 12hr 1 tab PO QAM RF: 0 aspirin 81 mg Tablet,Delayed Release (Dr/Ec) 81 mg PO QAM RF: 0 acetaminophen [Tylenol Extra Strength] 500 mg Tablet 1,000 mg PO Q6H PRN (Reason: Pain) RF: 0 losartan 25 mg Tablet 25 mg PO QAM RF: 0 polyethylene glycol 3350 [Miralax] 17 gram/dose Powder 17 g PO DAILY PRN (Reason: Constipation) RF: 0 coenzyme Q10 [CoQ-10] 100 mg Capsule 100 mg PO QAM RF: 0 ferrous sulfate [iron] 325 mg (65 mg iron) Tablet 325 mg PO 2XWK RF: 0 rosuvastatin 5 mg tablet 5 mg PO QAM RF: 0 Discharge Orders: Discharge Order (Routine); Ordered 11/02/19 Ordered By: Jeannie Haney Admission Data Admit Date/Time: 10/31/19 11:43 Attending Provider: Arlet Taylor Admit Provider: Abdiaziz Sanderson Primary Care Provider: Thanh Phelan Other Providers: Abdiaziz Sanderson ; Jackie Elaine ; Giorgio Calvillo ; Steve Tobar Supervising Physician Co-Signing Physician Notes MIREILLE Supervision Note: I personally saw and examined the patient. I verified all aggarwal points and agree with MIREILLE Haney with the following exceptions and/or additions: Pt with persistent nausea, no significant abd pain. NGT with repeated attempts unable to pass into stomach due to coiling in hiatal hernia Seen by Gen Surgery and discussed the case with Dr. Elaine today--> needs referral to tertiary care facility for potentially complex surgery for HH if SBO does not resolved; pt prefers [facility] where she had her hiatal hernia repair originally. Pt denies chest pain and SOB now but remains mildly tachycardic, not hypoxic NAD, AAOx3 Tachy, reg rhtyhm, no mgr CTAB no wcr Abd hypoactive BS, mild distension in epigastric region, nontender Ext no edema 74 yo female here with SBO secondary to recurrent HH with adhesions likely, inability to pass NGT, potential fo rcomplex repair perhaps involving Thoracic Surgery. Also with development of acute PE requiring anticoagulation with heparin gtt -transfer to [facility] at this time given complexity of medical issues -added on phenergan prn nausea as zofran not helping stable for transfer Coding Level of Care Code D/C Day Management >30 mins Diagnoses SBO (small bowel obstruction) K56.609 Diaphragmatic hernia K44.9 Factor V Leiden mutation D68.51 Pulmonary embolism I26.99 Restrictive lung disease J98.4 Asthma J45.909 Vocal cord paralysis J38.00 SYLVIA (acute kidney injury) N17.9 Hypertension I10 Hyperlipidemia E78.5 Carcinoma in situ of breast D05.90 DVT prophylaxis Z29.9
[2019-11-02 20:45] LABS: Partial Thromboplastin Ratio 2.9
[2019-11-02 20:47] LABS: Partial Thromboplastin Time 80.7 Seconds (21.0-31.0)
--- NOTE | 2019-11-03 11:34 | XCELERA ---
[id number] \\[id number]
== END 2019-11-02 20:15 | disposition short-term general hospital (02) | DRG 388 ==
LOC: ED 09:17 → 3E 11:43 → SUATTDRO 11:43 → 3E 12:16 → 2S 11-01 12:28

== ENCOUNTER 2021-02-15 08:54 | Inpatient (IN) ==
--- NOTE | 2021-02-15 09:37 | Emergency Department Note ---
Impression & Plan Cough productive of yellow sputum, Hypoxia ED Provider Note INFORMANT: Patient ED PROVIDER(S): Marek Castro MD CHIEF COMPLAINT: Cough PLAN: Disposition: Admitted Condition: Good Outpatient prescription management: none Referral: None MEDICAL DECISION MAKING: Patient presented to emergency department complaining of a productive cough. Chest x-ray was performed and showed some atelectasis but no significant infiltrate. She had blood work obtained. She has a mild leukocytosis. The patient's troponin, BNP, and chemistry panel are unremarkable. ECG was negative. Patient was doing well however she became more short of breath and had more productive cough. She was producing a lot of sputum. Her oxygen saturations dropped to 88%. She was placed on supplemental oxygen by me. A sputum culture was ordered. IV Rocephin and doxycycline ordered after blood cultures. The patient will need further management in the hospital. She did request on multiple occasion something for the cough. She was given a small dose of oral Hycodan. Consultation was made with not any hospitalist service. The patient was evaluated in the ER for further management. Triage Nursing notes reviewed and agree them. Vital Signs: reviewed and remarkable for no significant abnormalities Differential diagnosis: Reactive airway disease, pneumonia, pneumothorax, COPD, CHF, infections, cardiac ischemia, pulmonary embolism, musculoskeletal, gastrointestinal, as well as other pathologies. Diagnostics interpreted by me: ECG: Rate: 89 Rhythm:Normal sinus Randolph:Normal QRS:Normal ST segements:No elevation or depression Other:No PACs or PVCs Cardiac Monitoring: Cardiac monitoring ordered by me: The patient was placed on continuous cardiac monitoring and observed. It revealed a normal sinus rhythm at 90 beats per minute without ectopy or evidence of dysrhythmia. Imaging studies: Chest imaging shows bibasilar crease markings. Radiology favored atelectasis. Possibly infectious. HPI: The patient is a 75 year old female who presents to the Emergency Room with complaints of productive cough. This started 2 days ago and is worsening. The patient also notes the following associated symptoms, congested, mild SOb. The patient has tried her nebulizer for relieving factors. Current pain is rated as 0/10. Pt denies LOC, headache, fevers, chills, diaphoresis, visual changes, neck pain, chest pain, nausea, vomiting, abdominal pain, back pain, melena, hematochezia, urinary symptoms, numbness, weakness, lymphadenopathy, rash, or other complaints. ROS: See above HPI for pertinent positives & negatives. A total of 10 systems reviewed and were otherwise negative. PAST MEDICAL HISTORY:See Below , Bronchiectasis, SBO PAST SURGICAL HISTORY:See Below, hiatal hernia FAMILY HISTORY:See Below SOCIAL HISTORY:See Below, retired HOME MEDICATIONS:See Below ALLERGIES:See Below VITALS:See Below PHYSICAL EXAMINATION: GENERAL: Awake, tired-appearing, in no distress HENT: Normocephalic, atraumatic. Oropharynx unremarkable. EYES: Normal conjunctiva. Sclera non-icteric. NECK: Inspection normal. Non-tender. Supple. No nuchal rigidity. FROM. No masses. RESPIRATORY: Clear to auscultation. No wheezes. No rales. Normal respiratory effort. CARDIAC: Normal rate. Normal rhythm. No murmurs. No rubs. Extremities warm and well perfused. Pulses equal. No JVD. GI: Soft, non-distended. No tenderness to palpation. No rebound or guarding. No masses. RECTAL: Deferred. MUSCULOSKELETAL: Atraumatic. Chest examination reveals no tenderness. The back is symmetrical on inspection without obvious abnormality. There is no CVA tenderness to palpation. No joint edema. LOWER EXTREMITIES: Calves are equal size bilaterally and non-tender. No edema. No discoloration. NEURO: Normal sensorium. No sensory or motor deficits noted. SKIN: No rash or jaundice noted. Marek Castro MD Past Med/Surg History Medical History (Updated 02/15/21 @ 14:53 by Marek Castro MD) Anemia Aspiration pneumonia Asthma inhaler prn Bronchiectasis Cancer breast ca - left - partial mastectomy - radiation Chronic cough Factor V Leiden GERD (gastroesophageal reflux disease) Hiatal hernia History of anesthesia reaction ? pt thinks she had an issue after vocal cord surgery but can't remember History of hemoptysis eliquis recently decreased from 5 mg PO BID to 2.5 mg PO BID. pt denies hemoptysis since decreasing eliquis dose History of vocal cord paralysis cause? Hyperlipidemia Hypertension Laryngopharyngeal reflux Mild asthma Pulmonary embolism -10/2019 -- factor V -- on eliquis BID -7 years ago - post hiatal hernia repair - pt also has factor V - [facility] - treated w/ AC Restrictive lung disease Shortness of breath Surgical History History of arthroscopy of right knee meniscus repair History of breast biopsy History of colonoscopy History of esophagogastroduodenoscopy (EGD) History of hernia repair History of repair diaphramic hernia by thoracoabdominal approach History of laryngoscopy History of direct laryngoscopy with injection into vocal chords History of left cataract surgery History of nasal polypectomy History of Dillon fundoplication History of esophagogastric fundoplasty dillon fundoplication History of partial mastectomy of left breast History of repair of hiatal hernia History of surgery vocal cord surgery History of surgery lysis of abdominal adhesions 10/2019 [facility] History of tooth extraction History of vaginal surgery History of wisdom tooth extraction Family History Brother Family history of diabetes mellitus Father Cerebral artery occlusion with cerebral infarction Sister Factor V Leiden mutation Hypercoagulation Other No family history of adverse response to anesthesia Social History Smoking Status: Former smoker Tobacco Type: Cigarettes Cigarettes Per Day: 1 pack per day; Second Hand Exposure: No; Hx Alcohol Use: Yes Alcohol type: beer, wine and hard liquor Hx Substance Use: No Preferred Language: Vincentian Communication Ability: Effective Roentgenologist Required: No Beliefs That Will Affect Care: None marital status: Single Current Living Situation: Alone Feels Safe at Home: Yes Assistive Devices: Glasses Allergies Allergies Allergy/AdvReac Type Severity Reaction Status Date / Time shellfish derived Allergy Intermediate ITCHY, Verified 02/15/21 11:21 THROAT SWELLING No Known Drug Allergies Allergy Unknown . Verified 02/15/21 11:21 Home Meds Home Medications Medication Instructions Recorded Confirmed acetaminophen [Tylenol Extra 1,000 mg PO Q6H PRN 09/13/18 02/15/21 Strength] losartan [Cozaar] 25 mg PO QAM 09/13/18 02/15/21 polyethylene glycol 3350 [Miralax] 17 g PO DAILY PRN 09/13/18 02/15/21 melatonin 5 mg capsule 5 mg PO HS PRN cap 02/26/19 02/15/21 rosuvastatin [Crestor] 5 mg PO QAM 10/31/19 02/15/21 pantoprazole 40 mg tablet,delayed 40 mg PO QDD 11/14/19 02/15/21 release budesonide-formoterol [Symbicort] 2 inh INHALATION BID 02/24/20 02/15/21 albuterol sulfate 90 mcg/actuation 2 puffs INH QID PRN 02/25/20 02/15/21 breath activated powder inhaler coenzyme Q10 100 mg capsule 100 mg PO QAM 02/25/20 02/15/21 apixaban [Eliquis] 2.5 mg PO BID 08/07/20 02/15/21 famotidine 20 mg tablet 10 mg PO HS 09/15/20 02/15/21 Cbd 5mg 5 - 10 mg PO DAILY PRN 02/15/21 02/15/21 [employer] Prodha Memory 1,000 mg PO QAM 02/15/21 02/15/21 guaifenesin [Mucinex] 600 mg PO Q12H PRN 02/15/21 02/15/21 Previous Rx's Medication Instructions Recorded fluticasone propionate 50 2 spray INTRANASAL DAILY #15.8 ml 08/23/20 mcg/actuation nasal spray,suspension Flutter Valve #1 ea 02/01/21 Results & Data (ED) Vital Signs Vital Signs - 24 hr 02/15/21 08:55 02/15/21 09:21 02/15/21 09:50 Temperature 36.5 C Temperature Source Temporal Artery Scan Pulse Rate 105 H 95 H 90 Pulse Rate [Left Finger] Pulse Rate from SpO2 Sensor 97 H Pulse Rhythm Regular Respiratory Rate 18 20 18 Respiratory Effort / Characteristics Blood Pressure 128/77 131/80 Blood Pressure Mean 94 97 Blood Pressure Position Sitting Pulse Oximetry 92 93 94 Oxygen Delivery Method Room Air Room Air Room Air Oxygen Flow Rate Sepsis Recent Fever Within 48 Hours No Sepsis New/Unexplained Change in Mental Status No Sepsis Action Taken by Nursing No Action Required 02/15/21 10:00 02/15/21 11:00 02/15/21 12:03 Temperature Temperature Source Pulse Rate 90 88 107 H Pulse Rate [Left Finger] Pulse Rate from SpO2 Sensor 90 88 109 H Pulse Rhythm Respiratory Rate 20 21 22 Respiratory Effort / Characteristics Blood Pressure 117/73 126/71 Blood Pressure Mean 87 89 Blood Pressure Position Pulse Oximetry 93 94 88 L Oxygen Delivery Method Room Air Room Air Oxygen Flow Rate Sepsis Recent Fever Within 48 Hours Sepsis New/Unexplained Change in Mental Status Sepsis Action Taken by Nursing 02/15/21 12:10 02/15/21 12:20 02/15/21 12:30 Temperature Temperature Source Pulse Rate 112 H 104 H 102 H Pulse Rate [Left Finger] Pulse Rate from SpO2 Sensor 111 H 105 H 102 H Pulse Rhythm Respiratory Rate 23 22 17 Respiratory Effort / Characteristics Blood Pressure Blood Pressure Mean Blood Pressure Position Pulse Oximetry 90 92 94 Oxygen Delivery Method Room Air Nasal Cannula Oxygen Flow Rate 2 Sepsis Recent Fever Within 48 Hours Sepsis New/Unexplained Change in Mental Status Sepsis Action Taken by Nursing 02/15/21 12:40 02/15/21 12:50 02/15/21 13:00 Temperature Temperature Source Pulse Rate 104 H 104 H 103 H Pulse Rate [Left Finger] Pulse Rate from SpO2 Sensor 106 H 103 H 103 H Pulse Rhythm Respiratory Rate 21 22 20 Respiratory Effort / Characteristics Blood Pressure Blood Pressure Mean Blood Pressure Position Pulse Oximetry 91 90 89 L Oxygen Delivery Method Nasal Cannula Nasal Cannula Oxygen Flow Rate 2 2 2 Sepsis Recent Fever Within 48 Hours Sepsis New/Unexplained Change in Mental Status Sepsis Action Taken by Nursing 02/15/21 13:11 02/15/21 13:20 02/15/21 13:31 Temperature Temperature Source Pulse Rate 102 H Pulse Rate [Left Finger] 101 H Pulse Rate from SpO2 Sensor 110 H 103 H Pulse Rhythm Respiratory Rate 22 22 20 Respiratory Effort / Characteristics Non-Labored Spontaneous Blood Pressure Blood Pressure Mean Blood Pressure Position Pulse Oximetry 88 L 95 94 Oxygen Delivery Method Nasal Cannula Nasal Cannula Nasal Cannula Oxygen Flow Rate 2 3 3 Sepsis Recent Fever Within 48 Hours Sepsis New/Unexplained Change in Mental Status Sepsis Action Taken by Nursing 02/15/21 14:00 Temperature Temperature Source Pulse Rate 98 H Pulse Rate [Left Finger] Pulse Rate from SpO2 Sensor 98 H Pulse Rhythm Respiratory Rate 20 Respiratory Effort / Characteristics Blood Pressure 116/65 Blood Pressure Mean 82 Blood Pressure Position Pulse Oximetry 100 Oxygen Delivery Method Nasal Cannula Oxygen Flow Rate 3 Sepsis Recent Fever Within 48 Hours Sepsis New/Unexplained Change in Mental Status Sepsis Action Taken by Nursing Laboratory Data Result diagrams: 02/15/21 10:20 02/15/21 10:20 Lab Results 02/15/21 02/15/21 02/15/21 Range/Units 10:20 10:20 10:20 WBC 10.83 H (4.8-10.8) K/uL RBC 4.64 (4.2-5.4) M/uL Hgb 12.8 (12.0-16.0) g/dL Hct 40.6 (37-47) % MCV 87.5 (80-100) fL MCH 27.6 (25-34) pg MCHC 31.5 L (32-36) g/dL RDW Std Deviation 48.9 H (36.4-46.3) fL RDW Coeff of Maya 15.2 H (11.5-14.5) % Plt Count 229 (130-400) K/uL MPV 10.4 (7.4-10.4) fL Immature Gran % (Auto) 0.2 % Neut % (Auto) 90.8 % Lymph % (Auto) 5.4 % Wilson % (Auto) 3.4 % Eos % (Auto) 0.2 % Baso % (Auto) 0.0 % Neut # (Auto) 9.84 H (1.4-6.5) K/uL Lymph # (Auto) 0.58 L (1.2-3.4) K/uL Wilson # (Auto) 0.37 (0.11-0.59) K/uL Eos # (Auto) 0.02 (0-0.5) K/uL Baso # (Auto) 0.00 (0-0.2) K/uL Immature Gran # (Auto) 0.02 (0.00-0.02) K/uL D-Dimer Cancelled Sodium 142 (136-145) mmol/L Potassium 3.4 L (3.5-5.1) mmol/L Chloride 110 H (98-107) mmol/L Carbon Dioxide 29 (21-32) mmol/L Anion Gap 4.0 (3-11) BUN 16 (7-18) mg/dl Creatinine 0.86 (0.6-1.2) mg/dl Est Cr Clr Drug Dosing 62.3 ml/min Est GFR ( Amer) 77.7 ml/min Est GFR (Non-Af Amer) 67.0 ml/min BUN/Creatinine Ratio 18.6 (10-20) Glucose 118 H (70-99) mg/dl Calcium 8.6 (8.5-10.1) mg/dl Total Bilirubin 0.6 (0.2-1) mg/dl AST 11 L (15-37) U/L ALT 15 (12-78) U/L Alkaline Phosphatase 74 (45-117) U/L Troponin I < 0.015 (0-0.045) ng/ml NT-Pro-B Natriuret Pep 121 (0-900) pg/ml Total Protein 6.8 (6.4-8.2) gm/dl Albumin 3.2 L (3.4-5.0) gm/dl Globulin 3.6 (2.5-4.0) gm/dl Albumin/Globulin Ratio 0.9 (0.9-2) Urine Color Urine Appearance (Clear) Urine pH (4.5-7.5) Ur Specific [place] (1.000-1.030) Urine Protein (Negative) Urine Glucose (UA) (Negative) Urine Ketones (Negative) Urine Blood (Negative) Urine Nitrite (Negative) Urine Bilirubin (Negative) Urine Urobilinogen (Negative) Ur Leukocyte Esterase (Negative) Urine WBC (Auto) (0-5) /hpf Urine RBC (Auto) (0-4) /hpf U Hyaline Cast (Auto) (0-5) /lpf U Epithel Cells (Auto) (0-5) /lpf Urine Bacteria (Auto) (Negative) Ur Renal Epithelial Cell Urine Crystals Urine Yeast COVID-19 Eval Order SARS-CoV-2 (PCR) (Negative) 02/15/21 02/15/21 02/15/21 Range/Units 13:00 13:21 13:21 WBC (4.8-10.8) K/uL RBC (4.2-5.4) M/uL Hgb (12.0-16.0) g/dL Hct (37-47) % MCV (80-100) fL MCH (25-34) pg MCHC (32-36) g/dL RDW Std Deviation (36.4-46.3) fL RDW Coeff of Maya (11.5-14.5) % Plt Count (130-400) K/uL MPV (7.4-10.4) fL Immature Gran % (Auto) % Neut % (Auto) % Lymph % (Auto) % Wilson % (Auto) % Eos % (Auto) % Baso % (Auto) % Neut # (Auto) (1.4-6.5) K/uL Lymph # (Auto) (1.2-3.4) K/uL Wilson # (Auto) (0.11-0.59) K/uL Eos # (Auto) (0-0.5) K/uL Baso # (Auto) (0-0.2) K/uL Immature Gran # (Auto) (0.00-0.02) K/uL D-Dimer Sodium (136-145) mmol/L Potassium (3.5-5.1) mmol/L Chloride (98-107) mmol/L Carbon Dioxide (21-32) mmol/L Anion Gap (3-11) BUN (7-18) mg/dl Creatinine (0.6-1.2) mg/dl Est Cr Clr Drug Dosing ml/min Est GFR ( Amer) ml/min Est GFR (Non-Af Amer) ml/min BUN/Creatinine Ratio (10-20) Glucose (70-99) mg/dl Calcium (8.5-10.1) mg/dl Total Bilirubin (0.2-1) mg/dl AST (15-37) U/L ALT (12-78) U/L Alkaline Phosphatase (45-117) U/L Troponin I (0-0.045) ng/ml NT-Pro-B Natriuret Pep (0-900) pg/ml Total Protein (6.4-8.2) gm/dl Albumin (3.4-5.0) gm/dl Globulin (2.5-4.0) gm/dl Albumin/Globulin Ratio (0.9-2) Urine Color Dark Yellow Urine Appearance Turbid A (Clear) Urine pH 7.5 (4.5-7.5) Ur Specific [place] 1.014 (1.000-1.030) Urine Protein 2+ H (Negative) Urine Glucose (UA) Trace H (Negative) Urine Ketones Negative (Negative) Urine Blood 3+ H (Negative) Urine Nitrite Positive A (Negative) Urine Bilirubin Negative (Negative) Urine Urobilinogen Negative (Negative) Ur Leukocyte Esterase 3+ H (Negative) Urine WBC (Auto) >30 H (0-5) /hpf Urine RBC (Auto) 5-10 H (0-4) /hpf U Hyaline Cast (Auto) 5-10 H (0-5) /lpf U Epithel Cells (Auto) >30 H (0-5) /lpf Urine Bacteria (Auto) 2+ H (Negative) Ur Renal Epithelial Cell Not Reportable Urine Crystals Not Reportable Urine Yeast Not Reportable COVID-19 Eval Order Covid19 at [facility] SARS-CoV-2 (PCR) NEGATIVE (Negative) Administered Medications Discontinued Medications Albuterol (Albut/Ipratrop 3mg/0.5mg Neb 3 Ml Vial) 3 ml NEB NOW STA Stop: 02/15/21 12:30 Last Admin: 02/15/21 13:30 Dose: 3 ml Documented by: [id number] Hydrocodone Bit/Homatropine Methylb (Hydrocodone/Homatropine Syrup 5mg/1.5mg 5ml Udp) 5 ml PO NOW STA Stop: 02/15/21 12:30 Last Admin: 02/15/21 12:45 Dose: 5 ml Documented by: [id number] Ceftriaxone Sodium (Rocephin) 2,000 mg in 70 mls @ 140 mls/hr IV NOW STA Stop: 02/15/21 12:57 Last Infusion: 02/15/21 13:26 Dose: 0 mls/hr Documented by: [id number] Admin: 02/15/21 12:55 Dose: 140 mls/hr Documented by: [id number] Doxycycline Hyclate 100 mg/ (Dextrose) 110 mls @ 50 mls/hr IV NOW STA Stop: 02/15/21 14:39 Last Admin: 02/15/21 13:38 Dose: 50 mls/hr Documented by: [id number] Imaging Data Radiologist's Impression: Chest X-Ray 02/15/21 09:38 XR chest 1V portable CLINICAL HISTORY: Dyspnea COMPARISON STUDY: Chest radiograph February 01, 2021. FINDINGS: Patient is rotated. There is no pneumothorax. Bibasilar opacities persist. There are equivocal trace bilateral pleural effusions. There is no evidence for pulmonary edema. A hiatal hernia is present. IMPRESSION: 1. Bibasilar opacities which favor atelectasis. 2. Possible trace bilateral pleural effusions. 3. Hiatal hernia. ACT 112: Negative or not required by law. Electronically signed by: Vin Lema M.D. 02/15/2021 10:32 AM Discharge Plan Visit Data Chief Complaint: Cough Stated Complaint: SEVERE DEEP COUGH,SOB ED Provider: Marek Castro Discharge Problem: Cough productive of yellow sputum, Hypoxia Forms Stand Alone Forms: My [facility] Prescriptions Prescriptions: No Action fluticasone propionate [Children's Flonase Allergy Rlf] 50 mcg/actuation spray,suspension 2 spray intranasal DAILY Qty: 15.8 RF: 2 melatonin 5 mg capsule 5 mg PO HS PRN (Reason: Sleep) RF: 0 pantoprazole [Protonix] 40 mg tablet,delayed release (DR/EC) 40 mg PO QDD RF: 0 famotidine [Pepcid] 20 mg tablet 10 mg PO HS RF: 0 ProAir RespiClick 90 mcg/actuation aerosol powdr breath activated 2 puffs INH QID PRN (Reason: sob) RF: 0 coenzyme Q10 100 mg capsule 100 mg PO QAM RF: 0 (DME) Flutter Valve Device See Rx Instructions .ROUTE .MEDSUPPLY Qty: 1 RF: 0 budesonide-formoterol [Symbicort] 80-4.5 mcg/actuation HFA aerosol inhaler 2 inh INHALATION BID RF: 0 Eliquis 2.5 mg tablet 2.5 mg PO BID RF: 0 acetaminophen [Tylenol Extra Strength] 500 mg Tablet 1,000 mg PO Q6H PRN (Reason: Pain) RF: 0 losartan [Cozaar] 25 mg Tablet 25 mg PO QAM RF: 0 polyethylene glycol 3350 [Miralax] 17 gram/dose Powder 17 g PO DAILY PRN (Reason: Constipation) RF: 0 rosuvastatin [Crestor] 5 mg tablet 5 mg PO QAM RF: 0 guaifenesin [Mucinex] 600 mg Tablet Extended Release 12hr 600 mg PO Q12H PRN (Reason: Congestion) RF: 0 Cbd 5mg 5 - 10 mg PO DAILY PRN (Reason: .) RF: 0 [employer] Prodha Memory 1,000 mg PO QAM RF: 0
[2021-02-15 10:32] LABS: Eosinophils # (auto) 0.02 K/uL (0-0.5); Eosinophils % (auto) 0.2 %; Hematocrit (blood only) 40.6 % (37-47); Hemoglobin 12.8 g/dL (12.0-16.0); Immature Granulocytes # (auto) 0.02 K/uL (0.00-0.02); Immature Granulocytes % (auto) 0.2 %; Lymphocytes # (auto) 0.58 K/uL (1.2-3.4); Lymphocytes % (auto) 5.4 %; Mean Corpuscular Hemoglobin 27.6 pg (25-34); Mean Corpuscular Hgb Conc 31.5 g/dL (32-36); Mean Corpuscular Volume 87.5 fL (80-100); Mean Platelet Volume 10.4 fL (7.4-10.4); Monocytes # (auto) 0.37 K/uL (0.11-0.59); Monocytes % (auto) 3.4 %; Neutrophils # (auto) 9.84 K/uL (1.4-6.5); Neutrophils % (auto) 90.8 %; Platelet Count 229 K/uL (130-400); RDW Coefficient of Variation 15.2 % (11.5-14.5); RDW Standard Deviation 48.9 fL (36.4-46.3); Red Blood Count 4.64 M/uL (4.2-5.4); White Blood Count 10.83 K/uL (4.8-10.8)
--- NOTE | 2021-02-15 10:33 | XRay Report ---
XR chest 1V portable CLINICAL HISTORY: Dyspnea COMPARISON STUDY: Chest radiograph February 01, 2021. FINDINGS: Patient is rotated. There is no pneumothorax. Bibasilar opacities persist. There are equivo zachariah trace bilateral pleural effusions. There is no evidence for pulmonary edema. A hiatal hernia is p resent. IMPRESSION: 1. Bibasilar opacities which favor atelectasis. 2. Possible trace bilateral pleural effusions. 3. Hiatal hernia. ACT 112: Negative or not required by law. Electronically signed by: Vin Lema M.D. 02/15/2021 10:32 AM
[2021-02-15 10:53] LABS: Alanine Aminotransferase 15 U/L (12-78); Albumin Level 3.2 gm/dl (3.4-5.0); Aspartate Aminotransferase 11 U/L (15-37); BUN Creatinine Ratio 18.6 (10-20); Blood Urea Nitrogen 16 mg/dl (7-18); Calcium 8.6 mg/dl (8.5-10.1); Carbon Dioxide 29 mmol/L (21-32); Chloride 110 mmol/L (98-107); Creatinine Clr Calc Pharmacy 62.3 ml/min; Est GFR (African American) 77.7 ml/min; Glucose 118 mg/dl (70-99); Potassium 3.4 mmol/L (3.5-5.1); Sodium 142 mmol/L (136-145)
[2021-02-15 10:57] LABS: Albumin Globulin Ratio 0.9 (0.9-2); Alkaline Phosphatase 74 U/L (45-117); Bilirubin,Total 0.6 mg/dl (0.2-1); Globulin 3.6 gm/dl (2.5-4.0); NT Pro B Type Natriuretic Pept 121 pg/ml (0-900); Total Protein 6.8 gm/dl (6.4-8.2); Troponin I < 0.015 ng/ml (0-0.045)
[2021-02-15] MEDS ORDERED: cefTRIAXone SODIUM 2,000 MG/70 ML BAG IV STA (12:28)
[2021-02-15] MEDS ORDERED: DOXYCYCLINE HYCLATE 100 MG in DEXTROSE 5% 100 ML IV STA (12:28)
[2021-02-15] MEDS ORDERED: ALBUT/IPRATROP 3MG/0.5MG NEB 3 ML VIAL NEB STA (12:29)
[2021-02-15] MEDS ORDERED: HYDROcodone/HOMATROPINE SYRUP 5MG/1.5MG 5ML UDP PO STA (12:29)
[2021-02-15 13:33] LABS: Appearance Urine Turbid (Clear); Bacteria Urine Automated 2+ (Negative); Bilirubin Urine Negative (Negative); Blood Urine 3+ (Negative); Color Urine Dark Yellow; Epithelial Cell Urine Auto >30 /lpf (0-5); Glucose Urine UA Trace (Negative); Ketones Urine Negative (Negative); Leukocyte Esterase Urine 3+ (Negative); Nitrite Urine Positive (Negative); Specific Gravity Urine 1.014 (1.000-1.030); Urobilinogen Urine Negative (Negative); WBC Urine Automated >30 /hpf (0-5); pH Urine 7.5 (4.5-7.5)
[2021-02-15 13:38] LABS: Protein Urine 2+ (Negative)
--- NOTE | 2021-02-15 15:03 | History & Physical Report ---
Date of Service February 15, 2021 Assessment & Plan (1) Cough productive of yellow sputum: Admitted for above problem.will place on neb xopenex Solumedrol IV ABX IV will assess improvement on these meds will require further workup with pulm as outpatien. Could this be infection: bacterial, viral, or LPR vs voacl paralysis (2) Laryngopharyngeal reflux (LPR): as stated above, may need ENT followup (3) Vocal cord paralysis: (4) Pulmonary embolism: H/O above problem. will continue aixaban (5) Factor V Leiden mutation: (6) Hyperlipidemia: resume home meds (7) Hypertension: resume home meds (8) Bronchiectasis: as above (9) Restrictive lung disease: History of Present Illness Primary Care Provider: Thanh Phelan 75 yo female is here for 48 hours of worsening cough. Patient reports having intermittent cough for the past 48 hours. Patient reports having worsening sputum. Patient reports when she takes a deep breath or speaks, she feels like she needs to cough. When patient arrived to the ER, she required more oxygen. Allergies Allergy/AdvReac Type Severity Reaction Status Date / Time shellfish derived Allergy Intermediate ITCHY, Verified 02/15/21 11:21 THROAT SWELLING No Known Drug Allergies Allergy Unknown . Verified 02/15/21 11:21 Home Medications Medication Instructions Recorded Confirmed Type acetaminophen [Tylenol Extra 1,000 mg PO Q6H PRN 09/13/18 02/15/21 History Strength] losartan [Cozaar] 25 mg PO QAM 09/13/18 02/15/21 History polyethylene glycol 3350 [Miralax] 17 g PO DAILY PRN 09/13/18 02/15/21 History melatonin 5 mg capsule 5 mg PO HS PRN cap 02/26/19 02/15/21 History rosuvastatin [Crestor] 5 mg PO QAM 10/31/19 02/15/21 History pantoprazole 40 mg tablet,delayed 40 mg PO QDD 11/14/19 02/15/21 History release budesonide-formoterol [Symbicort] 2 inh INHALATION BID 02/24/20 02/15/21 History albuterol sulfate 90 mcg/actuation 2 puffs INH QID PRN 02/25/20 02/15/21 History breath activated powder inhaler coenzyme Q10 100 mg capsule 100 mg PO QAM 02/25/20 02/15/21 History apixaban [Eliquis] 2.5 mg PO BID 08/07/20 02/15/21 History fluticasone propionate 50 2 spray INTRANASAL DAILY #15.8 ml 08/23/20 02/15/21 Rx mcg/actuation nasal spray,suspension famotidine 20 mg tablet 10 mg PO HS 09/15/20 02/15/21 History Flutter Valve #1 ea 02/01/21 02/01/21 Rx Cbd 5mg 5 - 10 mg PO DAILY PRN 02/15/21 02/15/21 History [employer] Prodha Memory 1,000 mg PO QAM 02/15/21 02/15/21 History guaifenesin [Mucinex] 600 mg PO Q12H PRN 02/15/21 02/15/21 History Past Med/Surg History Medical History Anemia Aspiration pneumonia Asthma inhaler prn Bronchiectasis Cancer breast ca - left - partial mastectomy - radiation Chronic cough Factor V Leiden GERD (gastroesophageal reflux disease) Hiatal hernia History of anesthesia reaction ? pt thinks she had an issue after vocal cord surgery but can't remember History of hemoptysis eliquis recently decreased from 5 mg PO BID to 2.5 mg PO BID. pt denies hemoptysis since decreasing eliquis dose History of vocal cord paralysis cause? Hyperlipidemia Hypertension Laryngopharyngeal reflux Mild asthma Pulmonary embolism -10/2019 -- factor V -- on eliquis BID -7 years ago - post hiatal hernia repair - pt also has factor V - [facility] - treated w/ AC Restrictive lung disease Shortness of breath Surgical History History of arthroscopy of right knee meniscus repair History of breast biopsy History of colonoscopy History of esophagogastroduodenoscopy (EGD) History of hernia repair History of repair diaphramic hernia by thoracoabdominal approach History of laryngoscopy History of direct laryngoscopy with injection into vocal chords History of left cataract surgery History of nasal polypectomy History of Dillon fundoplication History of esophagogastric fundoplasty dillon fundoplication History of partial mastectomy of left breast History of repair of hiatal hernia History of surgery vocal cord surgery History of surgery lysis of abdominal adhesions 10/2019 [facility] History of tooth extraction History of vaginal surgery History of wisdom tooth extraction Family History Brother Family history of diabetes mellitus Father Cerebral artery occlusion with cerebral infarction Sister Factor V Leiden mutation Hypercoagulation Other No family history of adverse response to anesthesia Social History Smoking Status: Former smoker Tobacco Type: Cigarettes Cigarettes Per Day: 1 pack per day; Second Hand Exposure: No; Do You Dip or Chew Tobacco: No; Tobacco Cessation Education Requested by Patient: No Hx Alcohol Use: Yes Alcohol type: beer, wine and hard liquor Hx Substance Use: No Preferred Language: [place] Communication Ability: Effective Business Area Director Required: No Beliefs That Will Affect Care: Spiritual marital status: Single Current Living Situation: Alone Other Information That Helps Us Care for You: Yes (Likes to be called Naomy) Feels Safe at Home: Yes Safety Concerns: Feels Safe At This Time Assistive Devices: Cane and Glasses Review of Systems Constitutional: no fever and no sweats Eyes: no diplopia Respiratory: + cough and + change in sputum Cardiovascular: no chest pain with activity Gastrointestinal: no bloating Genitourinary: no urinary frequency Musculoskeletal: no radicular pain Integumentary: no rash Neurologic: no falls Psychiatric: no hopelessness Endocrine: no polydipsia Physical Exam Constitutional: WD/WN, vitals as above Eyes: PERRL, conjunctivae normal, anicteric sclerae ENMT: external ear and nose normal, oropharynx normal Neck: trachea midline, no thyromegaly Respiratory: + respiratory distress and + labored breathing Auscultation: + diminished lung sounds Cardiovascular: RRR, no murmur, no edema Gastrointestinal (Abdomen): normal bowel sounds, soft, nontender, no hepatosplenomegaly Musculoskeletal: no cyanosis or clubbing, extremities motor strength 5/5 Skin: no rashes, warm and dry Neurologic: PERRL, EOMI, accommodation nl, no face palsy, no dysarthria Psychiatric: A+Ox3, euthymic affect Results & Data Results & Data ([facility]) Vital Signs (Past 12 Hours) Vital Signs Temp Pulse Pulse Resp BP Pulse Ox 02/15/21 14:00 98 H 20 116/65 100 02/15/21 13:31 101 H 20 94 02/15/21 13:20 102 H 22 95 02/15/21 13:11 22 88 L 02/15/21 13:00 103 H 20 89 L 02/15/21 12:50 104 H 22 90 02/15/21 12:40 104 H 21 91 02/15/21 12:30 102 H 17 94 02/15/21 12:20 104 H 22 92 02/15/21 12:10 112 H 23 90 02/15/21 12:03 107 H 22 88 L 02/15/21 11:00 88 21 126/71 94 02/15/21 10:00 90 20 117/73 93 02/15/21 09:50 90 18 94 02/15/21 09:21 95 H 20 131/80 93 02/15/21 08:55 36.5 C 105 H 18 128/77 92 PG Care Time/CCT Total # of Minutes Spent Total Time Spent with Patient: Total time spent is greater than 50% in coordination of care (as documented) at patient's floor/unit and/or counseling patient: Coding Level of Care Code 94277 Initial Inpt Care Lvl 3 Diagnoses Cough productive of yellow sputum R05 Laryngopharyngeal reflux (LPR) K21.9 Vocal cord paralysis J38.00 Pulmonary embolism I26.99 Factor V Leiden mutation D68.51 Hyperlipidemia E78.5 Hypertension I10 Bronchiectasis J47.9 Restrictive lung disease J98.4 Time Spent (min) 5
[2021-02-15] MEDS ORDERED: ACETAMINOPHEN 500 MG TAB PO PRN ×2 (15:09→15:28)
[2021-02-15] MEDS ORDERED: POLYETHYLENE (MIRALAX) 17 GM PACK PO PRN (15:09)
[2021-02-15] MEDS ORDERED: MELATONIN 3 MG TAB PO PRN (15:25)
[2021-02-15] MEDS: guaiFENesin 600 MG TABCR PO PRN (15:43)
--- NOTE | 2021-02-15 18:30 | Electrocardiogram Report ---
Test Reason : Blood Pressure : / mmHG Vent. Rate : 089 BPM Atrial Rate : 089 BPM P-R Int : 162 ms QRS Dur : 094 ms QT Int : 368 ms P-R-T Axes : 052 019 030 degrees QTc Int : 447 ms Normal sinus rhythm Normal ECG When compared with ECG of 07-AUG-2020 16:21, Minimal criteria for Inferior infarct are no longer Present Confirmed by Issac Veliz ([id number]) on 02/15/2021 6:30:27 PM Referred By: REFERRED SELF Confirmed By:David Veliz
[2021-02-15] MEDS: PANTOprazole 40 MG TAB PO SCH (18:42)
[2021-02-15] MEDS: LEVALBUTEROL HCL 1.25 MG/3 ML NEB NEB SCH (19:02)
[2021-02-15] MEDS: FAMOTIDINE 10 MG TABLET PO SCH (20:33)
[2021-02-15] MEDS: APIXABAN 2.5 MG TAB PO SCH (20:33)
[2021-02-16] MEDS: LEVALBUTEROL HCL 1.25 MG/3 ML NEB NEB SCH ×4 (01:52→18:05)
[2021-02-16] MEDS: methylPREDNISolone 40 MG in SYRINGE 0 ML IV SCH (08:45)
[2021-02-16] MEDS: APIXABAN 2.5 MG TAB PO SCH ×2 (08:46→20:08)
[2021-02-16] MEDS: LOSARTAN POTASSIUM 25 MG TAB PO SCH (08:46)
[2021-02-16] MEDS: FLUTICASONE PROPIONATE NA SPR 16 GM BTL SCH (08:46)
[2021-02-16] MEDS: ROSUVASTATIN CALCIUM 5 MG TAB PO SCH (08:47)
[2021-02-16] MEDS: FLUTICASONE/VILANTEROL 100/25MCG 14 PUFFS/INHALER INH SCH (08:47)
[2021-02-16] MEDS ORDERED: NON-FORMULARY MEDICATION (Coenzyme Q10 100 mg capsule) PO SCH (09:00)
[2021-02-16] MEDS ORDERED: AZITHROMYCIN 500 MG in DEXTROSE 5% 250 ML IV ONE (09:00)
[2021-02-16] MEDS: cefTRIAXone SODIUM 2,000 MG in DEXTROSE 5% 50 ML IV SCH (12:26)
[2021-02-16] MEDS: PANTOprazole 40 MG TAB PO SCH (16:25)
[2021-02-16] MEDS: BENZONATATE 100 MG CAPSULE PO PRN (16:27)
[2021-02-16] MEDS ORDERED: COUGH DROP (SUGAR FREE) LOZ 24 LOZ/1 BOX BUCCAL ONE (19:11)
[2021-02-16] MEDS: FAMOTIDINE 10 MG TABLET PO SCH (20:08)
--- NOTE | 2021-02-16 21:50 | Hospitalist Progress Note ---
Date of Service February 16, 2021 Assessment & Plan (1) Cough productive of yellow sputum: Plan: Admitted for above problem. Patient improved with current plan. will continue flutter valve and antibiotics, awaiting cultues continue on neb xopenex Solumedrol IV ABX IV will require further workup with pulm as outpatient. Could this be infection: bacterial, viral, or LPR vs voacl paralysis (2) Laryngopharyngeal reflux (LPR): as stated above, may need ENT followup (3) Vocal cord paralysis: (4) Pulmonary embolism: H/O above problem. will continue aixaban (5) Factor V Leiden mutation: (6) Hyperlipidemia: resume home meds (7) Hypertension: resume home meds (8) Bronchiectasis: as above (9) Restrictive lung disease: (2) Laryngopharyngeal reflux (LPR): (3) Vocal cord paralysis: (4) Pulmonary embolism: (5) Factor V Leiden mutation: (6) Hyperlipidemia: (7) Hypertension: (8) Bronchiectasis: (9) Restrictive lung disease: Admission and Anticipated Discharge Date Admission Date: February 15, 2021 Subjective Patient reports her coughing has decreased, her sputum is now dark brown, Review of Systems Review of Systems: All systems reviewed & are unremarkable except as noted in HPI & below Physical Exam Constitutional: WD/WN, vitals as above Eyes: PERRL, conjunctivae normal, anicteric sclerae ENMT: external ear and nose normal, oropharynx normal Neck: trachea midline, no thyromegaly Respiratory: no respiratory distress and no labored breathing Auscultation: + diminished lung sounds Cardiovascular: RRR, no murmur, no edema Gastrointestinal (Abdomen): normal bowel sounds, soft, nontender, no hepatosplenomegaly Musculoskeletal: no cyanosis or clubbing, extremities motor strength 5/5 Skin: no rashes, warm and dry Neurologic: PERRL, EOMI, accommodation nl, no face palsy, no dysarthria Psychiatric: A+Ox3, euthymic affect Results & Data Results & Data ([facility]) Vital Signs (Past 12 Hours) Vital Signs Temp Pulse Resp BP Pulse Ox 02/16/21 18:06 102 H 16 96 02/16/21 16:10 36.6 C 91 H 16 105/68 94 02/16/21 13:24 92 H 18 95 PG Care Time/CCT Total # of Minutes Spent Total Time Spent with Patient: Total time spent is greater than 50% in coordination of care (as documented) at patient's floor/unit and/or counseling patient: Coding Level of Care Code 62697 Subseq Hosp Care Lvl 2 Diagnoses Cough productive of yellow sputum R05 Laryngopharyngeal reflux (LPR) K21.9 Vocal cord paralysis J38.00 Pulmonary embolism I26.99 Factor V Leiden mutation D68.51 Hyperlipidemia E78.5 Hypertension I10 Bronchiectasis J47.9 Restrictive lung disease J98.4
[2021-02-17] MEDS: BENZONATATE 100 MG CAPSULE PO PRN ×3 (00:22→20:16)
[2021-02-17] MEDS: LEVALBUTEROL HCL 1.25 MG/3 ML NEB NEB SCH ×4 (01:57→19:14)
[2021-02-17] MEDS: ROSUVASTATIN CALCIUM 5 MG TAB PO SCH (08:20)
[2021-02-17] MEDS: LOSARTAN POTASSIUM 25 MG TAB PO SCH (08:21)
[2021-02-17] MEDS: APIXABAN 2.5 MG TAB PO SCH ×2 (08:21→20:16)
[2021-02-17] MEDS: AZITHROMYCIN 250 MG TAB PO SCH (08:21)
[2021-02-17] MEDS: methylPREDNISolone 40 MG in SYRINGE 0 ML IV SCH (08:22)
[2021-02-17] MEDS: FLUTICASONE/VILANTEROL 100/25MCG 14 PUFFS/INHALER INH SCH (08:23)
[2021-02-17] MEDS: FLUTICASONE PROPIONATE NA SPR 16 GM BTL SCH (08:23)
[2021-02-17] MEDS: cefTRIAXone SODIUM 2,000 MG in DEXTROSE 5% 50 ML IV SCH (12:01)
[2021-02-17 14:37] LABS: Basophils # (auto) 0.01 K/uL (0-0.2); Basophils % (auto) 0.1 %; Hematocrit (blood only) 40.4 % (37-47); Hemoglobin 12.8 g/dL (12.0-16.0); Immature Granulocytes # (auto) 0.02 K/uL (0.00-0.02); Immature Granulocytes % (auto) 0.2 %; Lymphocytes # (auto) 0.53 K/uL (1.2-3.4); Lymphocytes % (auto) 4.8 %; Mean Corpuscular Hemoglobin 27.9 pg (25-34); Mean Corpuscular Hgb Conc 31.7 g/dL (32-36); Mean Platelet Volume 10.7 fL (7.4-10.4); Monocytes # (auto) 0.24 K/uL (0.11-0.59); Monocytes % (auto) 2.2 %; Neutrophils # (auto) 10.15 K/uL (1.4-6.5); Neutrophils % (auto) 92.7 %; Platelet Count 243 K/uL (130-400); RDW Coefficient of Variation 15.7 % (11.5-14.5); RDW Standard Deviation 50.5 fL (36.4-46.3); Red Blood Count 4.59 M/uL (4.2-5.4); White Blood Count 10.95 K/uL (4.8-10.8)
[2021-02-17 15:18] LABS: BUN Creatinine Ratio 21.5 (10-20); Calcium 9.1 mg/dl (8.5-10.1); Creatinine Clr Calc Pharmacy 58.1 ml/min; Est GFR (Non-African American) 58.7 ml/min; Potassium 4.1 mmol/L (3.5-5.1)
[2021-02-17] MEDS: PANTOprazole 40 MG TAB PO SCH (16:48)
[2021-02-17] MEDS: FAMOTIDINE 10 MG TABLET PO SCH (20:16)
[2021-02-17] MEDS: guaiFENesin 600 MG TABCR PO PRN (21:00)
--- NOTE | 2021-02-17 21:08 | Hospitalist Progress Note ---
Date of Service February 17, 2021 Assessment & Plan (1) Cough productive of yellow sputum: Plan: Bronchiectasis with (acute) exacerbation Admitted for above problem. Patient improved with current plan. Frequecny of cough as well as production of sputum has improved. will continue flutter valve and antibiotics sputum culturesd are negative. continue on neb xopenex Solumedrol IV ABX IV will require further workup with pulm as outpatient. Etiology may be multifactorial: bacterial, viral, or LPR vs voacl paralysis Patient however is asking to see pulmonary provider prior to discharge. (2) Laryngopharyngeal reflux (LPR): as stated above, may need ENT followup (3) Vocal cord paralysis: (4) Pulmonary embolism: H/O above problem. will continue paixaban (5) Factor V Leiden mutation: (6) Hyperlipidemia: resume home meds (7) Hypertension: resume home meds (8) Bronchiectasis: as above (9) Restrictive lung disease: (2) Laryngopharyngeal reflux (LPR): (3) Vocal cord paralysis: (4) Pulmonary embolism: (5) Factor V Leiden mutation: (6) Hyperlipidemia: (7) Hypertension: (8) Bronchiectasis: (9) Restrictive lung disease: Admission and Anticipated Discharge Date Admission Date: February 15, 2021 Subjective Patient had a coughing spell this morning. She states she was very anxious and reports that she coudl not breath. Though she reports that he has improved from when she came in and her sputum has decreased, she is frustrated as to why these episodes keep on occuring as well as to why she has not recovered as quickly as she had hoped. She is asking for input from a special effects specialist. Review of Systems Review of Systems: All systems reviewed & are unremarkable except as noted in HPI & below Physical Exam Constitutional: WD/WN, vitals as above Eyes: PERRL, conjunctivae normal, anicteric sclerae ENMT: external ear and nose normal, oropharynx normal Neck: trachea midline, no thyromegaly Respiratory: no respiratory distress and no labored breathing Auscultation: + diminished lung sounds Cardiovascular: RRR, no murmur, no edema Gastrointestinal (Abdomen): normal bowel sounds, soft, nontender, no hepatosplenomegaly Musculoskeletal: no cyanosis or clubbing, extremities motor strength 5/5 Skin: no rashes, warm and dry Neurologic: PERRL, EOMI, accommodation nl, no face palsy, no dysarthria Psychiatric: A+Ox3, euthymic affect Results & Data Results & Data ([facility]) Vital Signs (Past 12 Hours) Vital Signs Pulse Resp Pulse Ox 02/17/21 19:17 94 H 18 96 02/17/21 13:41 92 H 18 96 PG Care Time/CCT Total # of Minutes Spent Total Time Spent with Patient: Total time spent is greater than 50% in coordination of care (as documented) at patient's floor/unit and/or counseling patient: Coding Level of Care Code 07156 Subseq Hosp Care Lvl 2 Diagnoses Cough productive of yellow sputum R05 Laryngopharyngeal reflux (LPR) K21.9 Vocal cord paralysis J38.00 Pulmonary embolism I26.99 Factor V Leiden mutation D68.51 Hyperlipidemia E78.5 Hypertension I10 Bronchiectasis J47.9 Restrictive lung disease J98.4 Time Spent (min) 25
[2021-02-18] MEDS: LEVALBUTEROL HCL 1.25 MG/3 ML NEB NEB SCH ×3 (01:27→13:17)
[2021-02-18] MEDS: BENZONATATE 100 MG CAPSULE PO PRN (06:22)
[2021-02-18] MEDS: LOSARTAN POTASSIUM 25 MG TAB PO SCH (08:37)
[2021-02-18] MEDS: APIXABAN 2.5 MG TAB PO SCH (08:37)
[2021-02-18] MEDS: guaiFENesin 600 MG TABCR PO PRN (08:37)
[2021-02-18] MEDS: FLUTICASONE/VILANTEROL 100/25MCG 14 PUFFS/INHALER INH SCH (08:38)
[2021-02-18] MEDS: FLUTICASONE PROPIONATE NA SPR 16 GM BTL SCH (08:38)
[2021-02-18] MEDS: methylPREDNISolone 40 MG in SYRINGE 0 ML IV SCH (08:38)
[2021-02-18] MEDS: AZITHROMYCIN 250 MG TAB PO SCH (08:39)
[2021-02-18] MEDS: ROSUVASTATIN CALCIUM 5 MG TAB PO SCH (08:39)
--- NOTE | 2021-02-18 09:55 | XRay Report ---
XR chest 2V PA/lateral CLINICAL HISTORY: cough/ SOB COMPARISON STUDY: 02/15/2021 FINDINGS: The heart is borderline enlarged. There is a retrocardiac opacity consistent with a hiatal hernia. There are persistent bibasilar opacities, atelectasis favored over pneumonia. There are no si gnificant pleural effusions. IMPRESSION: 1. Persistent bibasilar opacities, atelectasis favored over pneumonia. ACT 112: Negative or not required by law. Electronically signed by: Fabian Dorsey M.D. 02/18/2021 9:54 AM
--- NOTE | 2021-02-18 10:01 | Pulmonary Consultation ---
Date of Consultation February 18, 2021 Assessment & Plan (1) Cough productive of yellow sputum: Impression: 75-year-old female with chronic cough associated with shortness of breath. She does not appear to be bronchospastic currently and I believe the etiologies for the cough are as outlined previously in the outpatient pulmonary note including vocal cord dysfunction, upper airway cough syndrome, esophageal reflux, potential intermittent aspiration. She is also on an ARB which could be causing the cough as well. Recommendations: 1. Cough: Recommend aggressively treating upper airway cough syndrome and reflux. Would place the patient on acid suppression medication as well as Carafate. Chlorpheniramine 4 mg twice a day, Sudafed LA 120 mg twice a day, Flonase nasal spray, and saline sinus irrigation should also be used for the upper airway cough syndrome. Chlorpheniramine is not available in the hospital so we will place her on Benadryl and transition to chlorpheniramine in the outpatient setting. Saline sinus irrigation also not available in the hospital. 2. Patient is on an ARB which could be aggravating the cough. Recommend discontinuing this medication. ARB cough can be anywhere between 1 and 8%. She may require other antihypertensives. 3. No indication for steroids currently Solu-Medrol will be stopped. Sputum culture is also negative to date so we will stop Rocephin. Can continue azithromycin for now. 4. Continue supportive treatment for cough with Tessalon Perles. If it becomes refractory, consideration for low-dose tramadol may be appropriate. 5. The patient may require reestablishment with speech therapy for evaluation management of her vocal cord dysfunction. Patient appears to be relatively stable at this point time and I think she can likely be dismissed from the hospital with outpatient pulmonary follow-up with [facility]. (2) Shortness of breath: (3) Hiatal hernia: (4) Pulmonary embolism: (5) Diaphragmatic hernia: (6) Atypical mycobacterial infection: History of Present Illness Attending Physician: Abdiaziz Sanderson History of Present Illness Asked by hospitalist to evaluate this patient admitted with cough. She follows with in the outpatient setting and was last seen about a month ago. She has a history of mild asthma, reflux, restrictive lung disease, factor V Leiden, PE, and vocal cord dysfunction. The patient is a 75-year-old female who presented to the emergency room 2020 with cough. She states that she has these coughing spasms which cause her to become significantly short of breath and she becomes quite panicked during these episodes. She does report some sputum production. The cough is worse whenever she takes a deep breath or speaks. She was placed on oxygen in the emergency room. She was admitted with diagnosis of bronchiectasis and treated with IV antibiotics and steroids. She is not significantly improved which prompted a pulmonary consultation. The patient does not report any wheezing. She does not have overt signs of reflux. She does endorse some chronic postnasal drip. She denies chest pain palpitations or significant lower extremity edema. No fevers chills or night sweats. Her appetite is good. She has no dysphagia or problems with chewing or swallowing. Allergies Allergy/AdvReac Type Severity Reaction Status Date / Time shellfish derived Allergy Intermediate ITCHY, Verified 02/15/21 11:21 THROAT SWELLING No Known Drug Allergies Allergy Unknown . Verified 02/15/21 11:21 Home Medications Medication Instructions Recorded Confirmed Type acetaminophen 500 mg tablet 1,000 mg PO Q6H PRN 09/13/18 02/15/21 History (Tylenol Extra Strength) losartan 25 mg tablet (Cozaar) 25 mg PO QAM 09/13/18 02/15/21 History polyethylene glycol 3350 17 17 g PO DAILY PRN 09/13/18 02/15/21 History gram/dose oral powder (Miralax) melatonin 5 mg capsule 5 mg PO HS PRN cap 02/26/19 02/15/21 History rosuvastatin 5 mg tablet (Crestor) 5 mg PO QAM 10/31/19 02/15/21 History pantoprazole 40 mg tablet,delayed 40 mg PO QDD 11/14/19 02/15/21 History release (Protonix) budesonide-formoterol HFA 80 2 inh INHALATION BID 02/24/20 02/15/21 History mcg-4.5 mcg/actuation aerosol inhaler (Symbicort) albuterol sulfate 90 mcg/actuation 2 puffs INH QID PRN 02/25/20 02/15/21 History breath activated powder inhaler ([employer]) coenzyme Q10 100 mg capsule 100 mg PO QAM 02/25/20 02/15/21 History apixaban 2.5 mg tablet (Eliquis) 2.5 mg PO BID 08/07/20 02/15/21 History fluticasone propionate 50 2 spray INTRANASAL DAILY #15.8 ml 08/23/20 02/15/21 Rx mcg/actuation nasal spray,suspension ([facility]on[facility]) famotidine 20 mg tablet (Pepcid) 10 mg PO HS 09/15/20 02/15/21 History Flutter Valve #1 ea 02/01/21 02/01/21 Rx Cbd 5mg 5 - 10 mg PO DAILY PRN 02/15/21 02/15/21 History [employer] Prodha Memory 1,000 mg PO QAM 02/15/21 02/15/21 History guaifenesin 600 mg tablet, 600 mg PO Q12H PRN 02/15/21 02/15/21 History extended release 12 hr (Mucinex) Patient History Medical History Anemia Aspiration pneumonia Asthma inhaler prn Bronchiectasis Cancer breast ca - left - partial mastectomy - radiation Chronic cough Factor V Leiden GERD (gastroesophageal reflux disease) Hiatal hernia History of anesthesia reaction ? pt thinks she had an issue after vocal cord surgery but can't remember History of hemoptysis eliquis recently decreased from 5 mg PO BID to 2.5 mg PO BID. pt denies hemoptysis since decreasing eliquis dose History of vocal cord paralysis cause? Hyperlipidemia Hypertension Laryngopharyngeal reflux Mild asthma Pulmonary embolism -10/2019 -- factor V -- on eliquis BID -7 years ago - post hiatal hernia repair - pt also has factor V - [facility] - treated w/ AC Restrictive lung disease Shortness of breath Surgical History History of arthroscopy of right knee meniscus repair History of breast biopsy History of colonoscopy History of esophagogastroduodenoscopy (EGD) History of hernia repair History of repair diaphramic hernia by thoracoabdominal approach History of laryngoscopy History of direct laryngoscopy with injection into vocal chords History of left cataract surgery History of nasal polypectomy History of Dillon fundoplication History of esophagogastric fundoplasty dillon fundoplication History of partial mastectomy of left breast History of repair of hiatal hernia History of surgery vocal cord surgery History of surgery lysis of abdominal adhesions 10/2019 [facility] History of tooth extraction History of vaginal surgery History of wisdom tooth extraction Family History Brother Family history of diabetes mellitus Father Cerebral artery occlusion with cerebral infarction Sister Factor V Leiden mutation Hypercoagulation Other No family history of adverse response to anesthesia Social History Smoking Status: Former smoker Tobacco Type: Cigarettes Cigarettes Per Day: 1 pack per day; Second Hand Exposure: No; Do You Dip or Chew Tobacco: No; Tobacco Cessation Education Requested by Patient: No Hx Alcohol Use: Yes Alcohol type: beer, wine and hard liquor Hx Substance Use: No Preferred Language: Ma[place] Communication Ability: Effective Gas Refrigerator Servicer Required: No Beliefs That Will Affect Care: Spiritual marital status: Single Current Living Situation: Alone Other Information That Helps Us Care for You: Yes (Likes to be called Naomy) Feels Safe at Home: Yes Safety Concerns: Feels Safe At This Time Assistive Devices: Cane Review of Systems Review of Systems: Please refer to the admission H&P. I have no additions or deletions. Physical Exam Constitutional: well developed and + obese; not ill appearing Eyes: PERRL, conjunctivae normal, anicteric sclerae ENMT: external ear and nose normal, oropharynx normal Neck: normal visual inspection Respiratory: normal respiratory effort, lungs clear to auscultation Cardiovascular: RRR, no murmur, no edema Gastrointestinal (Abdomen): normal bowel sounds, soft, nontender, no hepatosplenomegaly Musculoskeletal: no cyanosis or clubbing, extremities motor strength 5/5 Skin: no rashes, warm and dry Neurologic: PERRL, EOMI, accommodation nl, no face palsy, no dysarthria Motor/Sensory: + tremor Mild resting tremor noted of her head. Results & Data Results & Data ([facility]) Vital Signs (Past 12 Hours) Vital Signs Temp Pulse Resp BP Pulse Ox 02/18/21 08:02 36.8 C 75 16 119/69 93 02/18/21 07:34 76 19 94 02/18/21 01:29 74 18 93 02/17/21 23:00 36.5 C 81 18 131/80 94 Laboratory Results 02/17/21 14:16 02/17/21 14:16 Diagnostic Findings Imaging studies were independently reviewed. Chest x-ray from today demonstrated linear basilar densities consistent with probable atelectasis CT the chest from 02/24/2020 was reviewed. It demonstrates significant hiatal hernia. There is motion artifact. There does appear to be some mild mosaicism however this may be secondary to technique and motion degradation. PG Care Time/CCT Total # of Minutes Spent Total Time Spent with Patient: Total time spent is greater than 50% in coordination of care (as documented) at patient's floor/unit and/or counseling patient: Coding Level of Care Code 21634 Initial Inpt Care Lvl 3 Diagnoses Cough productive of yellow sputum R05 Shortness of breath R06.02 Hiatal hernia K44.9 Pulmonary embolism I26.99 Diaphragmatic hernia K44.9 Atypical mycobacterial infection A31.9
[2021-02-18] MEDS ORDERED: diphenhydrAMINE Capsule 25 MG CAP PO SCH (10:30)
[2021-02-18] MEDS ORDERED: PSEUDOEPHEDRINE HCL 30 MG TAB PO SCH (10:30)
[2021-02-18] MEDS ORDERED: FLUTICASONE PROPIONATE NA SPR 16 GM BTL SCH (10:30)
[2021-02-18 11:02] LABS: Basophils # (auto) 0.01 K/uL (0-0.2); Basophils % (auto) 0.1 %; Echinocytes 1+; Eosinophils # (auto) 0.05 K/uL (0-0.5); Eosinophils % (auto) 0.4 %; Hemoglobin 12.7 g/dL (12.0-16.0); Immature Granulocytes # (auto) 0.04 K/uL (0.00-0.02); Immature Granulocytes % (auto) 0.3 %; Lymphocytes % (auto) 6.3 %; Mean Corpuscular Hemoglobin 27.5 pg (25-34); Mean Corpuscular Volume 88.7 fL (80-100); Mean Platelet Volume 11.7 fL (7.4-10.4); Monocytes # (auto) 0.41 K/uL (0.11-0.59); Monocytes % (auto) 3.2 %; Neutrophils # (auto) 11.45 K/uL (1.4-6.5); Neutrophils % (auto) 89.7 %; Platelet Count 190 K/uL (130-400); RDW Coefficient of Variation 15.7 % (11.5-14.5); RDW Standard Deviation 51.6 fL (36.4-46.3); Red Blood Count 4.62 M/uL (4.2-5.4); White Blood Count 12.76 K/uL (4.8-10.8)
[2021-02-18] MEDS: SUCRALFATE 1 GM/10 ML UDC PO SCH ×2 (11:45→16:13)
[2021-02-18 11:58] LABS: BUN Creatinine Ratio 23.1 (10-20); Calcium 9.2 mg/dl (8.5-10.1); Creatinine Clr Calc Pharmacy 52.6 ml/min; Est GFR (African American) 60.3 ml/min; Potassium 3.6 mmol/L (3.5-5.1)
[2021-02-18] MEDS: PANTOprazole 40 MG TAB PO SCH (16:13)
--- NOTE | 2021-02-19 18:49 | Discharge Summary ---
Date of Service February 18, 2021 Admission HPI Per Admitting Provider 75 yo female is here for 48 hours of worsening cough. Patient reports having intermittent cough for the past 48 hours. Patient reports having worsening sputum. Patient reports when she takes a deep breath or speaks, she feels like she needs to cough. When patient arrived to the ER, she required more oxygen. Principal Diagnosis Bronchiectasis with acute exacerbation Discharge Exam Constitutional: WD/WN, vitals as above Eyes: PERRL, conjunctivae normal, anicteric sclerae ENMT: external ear and nose normal, oropharynx normal Neck: trachea midline, no thyromegaly Respiratory: no respiratory distress and no labored breathing Auscultation: + diminished lung sounds Cardiovascular: RRR, no murmur, no edema Gastrointestinal (Abdomen): normal bowel sounds, soft, nontender, no hepatosplenomegaly Musculoskeletal: no cyanosis or clubbing, extremities motor strength 5/5 Skin: no rashes, warm and dry Neurologic: PERRL, EOMI, accommodation nl, no face palsy, no dysarthria Psychiatric: A+Ox3, euthymic affect Discharge Data Allergies Allergy/AdvReac Type Severity Reaction Status Date / Time shellfish derived Allergy Intermediate ITCHY, Verified 02/15/21 11:21 THROAT SWELLING No Known Drug Allergies Allergy Unknown . Verified 02/15/21 11:21 Consultations 02/17/21 22:37 Consult Pulmonology Routine Hospital Course (1) Cough productive of yellow sputum: Bronchiectasis with (acute) exacerbation Admitted for above problem. Patient improved with current plan. Frequecny of cough as well as production of sputum has improved. will continue flutter valve and antibiotics sputum culturesd are negative. continue on neb xopenex Solumedrol IV ABX IV will require further workup with pulm as outpatient. Etiology may be multifactorial: bacterial, viral, or LPR vs voacl paralysis Patient however is asking to see pulmonary provider prior to discharge. On day of discharge: It appears your cough and shortness of breath is multifactorial and may be due to your vocal cord paralysis, reflux and restrictive lung disease in [facility] you follow Dr. Connor as an outpatient. Pulmonology saw patient. Dr. Tobar recommended aggressively to continue acid suppression medication as well as adding Carafate. Recommended adding Chlorpheniramine 4 mg twice a day, pseudoephedrine, Flonase nasal spray, and saline sinus irrigation should also be used for the upper airway cough syndrome. ARB (losartan) which could be aggravating the cough. Recommend discontinuing this medication. ARB cough can be anywhere between 1 and 8%. Added amlodipine to replace it at 2.5 mg PO Daily. Continue azithromycin for now. Continue supportive treatment for cough with Tessalon Perles. You may require reestablishment with speech therapy for evaluation management of her vocal cord dysfunction. Will defer to PCP. Patient appears to be relatively stable at this point time and I think she can likely be dismissed from the hospital with outpatient pulmonary follow-up with [facility]. (2) Laryngopharyngeal reflux (LPR): as stated above, may need ENT followup (3) Vocal cord paralysis: (4) Pulmonary embolism: H/O above problem. will continue paixaban (5) Factor V Leiden mutation: (6) Hyperlipidemia: resume home meds (7) Hypertension: resume home meds (8) Bronchiectasis: as above (9) Restrictive lung disease: (2) Laryngopharyngeal reflux (LPR): (3) Vocal cord paralysis: (4) Pulmonary embolism: (5) Factor V Leiden mutation: (6) Hyperlipidemia: (7) Hypertension: (8) Bronchiectasis: (9) Restrictive lung disease: Total Time Total Time Spent Total Time Spent (In Minutes): 32 Discharge Plan Discharge Items Patient Disposition: Home - Self-Care Reason For Visit: HYPOXIA/RESTRICTIVE LUNG DISEASE Discharge Diagnosis: hypoxia/ restrictive lung disease Activity: Resume your previous activity Non-emergency contact: Primary Care Provider Call non-emergency contact if: you have any medication questions Follow-up/Referrals: Brandyn Connor MD [Physician] - 03/10/21 10:15 am Thanh Phelan [Primary Care Provider] - 02/24/21 12:50 pm (Appointment will be with ) Diet: Heart Healthy Addtl Attending Provider Instructions: You came in with productive cough. You were treated with antibiotics and steroids. It appears your cough and shortness of breath is multifactorial and may be due to your vocal cord paralysis, reflux and restrictive lung disease in [facility] you follow Dr. Connor as an outpatient. Dr. Tobar recommended aggressively to continue acid suppression medication as well as adding Carafate. Recommended adding Chlorpheniramine 4 mg twice a day, pseudoephedrine, Flonase nasal spray, and saline sinus irrigation should also be used for the upper airway cough syndrome. You are on an ARB (losartan) which could be aggravating the cough. Recommend discontinuing this medication. ARB cough can be anywhere between 1 and 8%. You may require other antihypertensives. Continue azithromycin for now. Continue supportive treatment for cough with Tessalon Perles. You may require reestablishment with speech therapy for evaluation management of her vocal cord dysfunction. Will defer to PCP. Patient appears to be relatively stable at this point time and I think she can likely be dismissed from the hospital with outpatient pulmonary follow-up with Nikolas. Pending Studies at Discharge: No Stand-Alone Forms: My [facility] [employer], Smoking Cessation Medications and DC Order Prescriptions: New pseudoephedrine HCl [Suphedrine] 30 mg Tablet 30 mg PO BID Qty: 60 RF: 0 chlorpheniramine maleate 4 mg tablet 4 mg PO Q12H Qty: 60 RF: 0 sucralfate [Carafate] 1 gram tablet 1 g PO BID 28 Days Qty: 56 RF: 0 azithromycin 250 mg Tablet 250 mg PO QAM Qty: 3 RF: 0 benzonatate [Tessalon Perles] 100 mg Capsule 100 mg PO Q8H PRN (Reason: cough) Qty: 60 RF: 0 amlodipine 2.5 mg tablet 2.5 mg PO PM Qty: 30 RF: 0 Continued fluticasone propionate [Children's Flonase Allergy Rlf] 50 mcg/actuation spray,suspension 2 spray intranasal DAILY Qty: 15.8 RF: 2 melatonin 5 mg capsule 5 mg PO HS PRN (Reason: Sleep) RF: 0 pantoprazole [Protonix] 40 mg tablet,delayed release (DR/EC) 40 mg PO QDD RF: 0 famotidine [Pepcid] 20 mg tablet 10 mg PO HS RF: 0 ProAir RespiClick 90 mcg/actuation aerosol powdr breath activated 2 puffs INH QID PRN (Reason: sob) RF: 0 coenzyme Q10 100 mg capsule 100 mg PO QAM RF: 0 (DME) Flutter Valve Device See Rx Instructions .ROUTE .MEDSUPPLY Qty: 1 RF: 0 budesonide-formoterol [Symbicort] 80-4.5 mcg/actuation HFA aerosol inhaler 2 inh INHALATION BID RF: 0 Eliquis 2.5 mg tablet 2.5 mg PO BID RF: 0 acetaminophen [Tylenol Extra Strength] 500 mg Tablet 1,000 mg PO Q6H PRN (Reason: Pain) RF: 0 polyethylene glycol 3350 [Miralax] 17 gram/dose Powder 17 g PO DAILY PRN (Reason: Constipation) RF: 0 rosuvastatin [Crestor] 5 mg tablet 5 mg PO QAM RF: 0 guaifenesin [Mucinex] 600 mg Tablet Extended Release 12hr 600 mg PO Q12H PRN (Reason: Congestion) RF: 0 Cbd 5mg 5 - 10 mg PO DAILY PRN (Reason: .) RF: 0 [employer] Prodha Memory 1,000 mg PO QAM RF: 0 Discontinued losartan [Cozaar] 25 mg Tablet 25 mg PO QAM RF: 0 Discharge Orders: Discharge Order (Routine); Ordered 02/18/21 Ordered By: Abdiaziz Sanderson Admission Data Admit Date/Time: 02/15/21 15:20 Attending Provider: Abdiaziz Sanderson Admit Provider: Abdiaziz Sanderson Primary Care Provider: Thanh Phelan Other Providers: Steve Tobar Other Interventions: Discharge Summary Assessment (RN) Last Done: 02/18/21 15:25 Coding Level of Care Code D/C DAY MANAGEMENT >30 MINS Diagnoses Cough productive of yellow sputum R05 Laryngopharyngeal reflux (LPR) K21.9 Vocal cord paralysis J38.00 Pulmonary embolism I26.99 Factor V Leiden mutation D68.51 Hyperlipidemia E78.5 Hypertension I10 Bronchiectasis J47.9 Restrictive lung disease J98.4 Time Spent (min) 32
--- NOTE | 2021-03-02 12:16 | Coding Query ---
CODING QUERY To promote full compliance with coding requirements relating to patient care, provider participation is requested in all cases of optical assistant uncertainty. Please assist us with the question(s) below: Coding Question(s): There is documentation in the record of a history of Factor V Leiden Mutation. It is not clear if the patient was monitored during the admission for this and/or if the patient was on chronic medication for Factor V Leiden Mutation. Please specify below, in your clinical opinion. ( x ) Factor V Leiden Mutation was monitored and/or treated/managed with chronic medication or other medication during this admission. ( ) Factor V Leiden Mutation was Not monitored and/or treated/managed with chronic medication or other medication during this admission ( ) Other: Please Specify Physician's Response(s): Thank you Savannah Good Principal Diagnosis: "that condition established after study, to be chiefly responsible for occasioning the admission of the patient to the hospital for care." Co-Existing Principal Diagnosis: "when two or more diagnoses equally meet the criteria for principal diagnosis as determined by the circumstances of admission, diagnostic work up, and/or therapy provided, and the Alphabetic Index, Tabular List, or another coding guideline does not provide sequencing direction, any one of the diagnoses may be sequenced first." "When the physician has documented what appears to be a current diagnosis in the body of the record, but has not included the diagnosis in the final diagnostic statement, the physician should be asked whether the diagnosis should be added." (Source [facility]oding [facility] 2 QTR90. p3-4) DESHAWN
== END 2021-02-18 17:04 | disposition home or self-care (01) | DRG 191 ==
LOC: ED 08:54 → 3N 15:20

== ENCOUNTER 2021-05-03 11:14 | Inpatient (IN) ==
[2021-05-03] MEDS ORDERED: PIPERACILLIN/TAZOBACTAM 4.5 GM/120 ML BAG IV ONE (11:42)
[2021-05-03] MEDS ORDERED: ACETAMINOPHEN 1,000 MG/100 ML VIAL IV STA (11:42)
[2021-05-03] MEDS ORDERED: PIPERACILL/TAZOBAC CONSULT ACTIVE PRN (11:42)
[2021-05-03] MEDS ORDERED: SODIUM CHLORIDE 0.9% 1000ML 1,000 ML IV ONE ×2 (11:42→13:21)
[2021-05-03] MEDS ORDERED: ALBUT/IPRATROP 3MG/0.5MG NEB 3 ML VIAL NEB STA (11:45)
[2021-05-03] MEDS ORDERED: methylPREDNISolone 125 MG/2 ML VIAL IV STA (11:45)
[2021-05-03 12:11] LABS: Hematocrit (blood only) 41.9 % (37-47); Hemoglobin 13.7 g/dL (12.0-16.0); Mean Corpuscular Hemoglobin 28.2 pg (25-34); Mean Corpuscular Hgb Conc 32.7 g/dL (32-36); Mean Corpuscular Volume 86.2 fL (80-100); Mean Platelet Volume 11.7 fL (7.4-10.4); Platelet Count 223 K/uL (130-400); RDW Coefficient of Variation 15.1 % (11.5-14.5); RDW Standard Deviation 47.7 fL (36.4-46.3); Red Blood Count 4.86 M/uL (4.2-5.4); White Blood Count 14.34 K/uL (4.8-10.8)
--- NOTE | 2021-05-03 12:13 | Emergency Department Note ---
Impression & Plan Aspiration pneumonia, Hypoxia, Hypomagnesemia ED Provider Note NAME: HILL MCKEON AGE: 75 SEX: F ARRIVES VIA: Ambulance INFORMANT: Patient, ED PROVIDER(S): Mati Guillen MD CHIEF COMPLAINT: SOB PLAN: Disposition: Admit MEDICAL DECISION MAKING: The patient is a pleasant 75-year-old woman with a past medical history of bronchiectasis, history of vocal cord paralysis, acid reflux and restrictive lung disease who presents to the emergency department for worsening cough, congestion with productive yellow sputum and feverishness over the past several days. The patient denies being on home oxygen. She denies any nausea, vomiting, diarrhea or urinary symptoms. She denies any known COVID-19 exposures. On arrival the patient is ill-appearing, comfortable, febrile to 38.4 with heart in the 130s and vital signs otherwise stable. She appears clinically dry. She has scattered wheezes and rhonchi. EKG demonstrates sinus tachycardia without overt acute ischemia. Chest x-ray demonstrates progression of bilateral pleural effusions and bilateral infiltrates consistent with pneumonia with suspicion for aspiration given the patient's history. WBC 14.3 K, H/H and platelets within normal limits. Chemistry without metabolic acidosis. BUN/creatinine 20 consistent with the patient's clinically dry appearance. Magnesium 1.7 with repletion initiated. LFTs unremarkable. Troponin negative/undetectable. Procalcitonin is elevated at 3.6. Patient was treated empirically with IV Zosyn on arrival given febrile, tachycardic and s uspected aspiration pneumonia. HR improved with IVF hydration, apap, solu- medrol, duoneb. Zosyn ordered. Patient agrees with plan for admission given her hypoxia. Case was discussed with Dr. Mayo, [facility] hospitalist, who will evaluate the patient for admission. Triage Nursing notes reviewed and agree them. Prior medical records reviewed Vital Signs: reviewed and remarkable for hypoxia, tachycardia, fever. Differential diagnosis: Reactive airway disease, pneumonia, pneumothorax, COPD, CHF, infections, cardiac ischemia, pulmonary embolism, musculoskeletal, gastrointestinal, as well as other pathologies. ER treatment provided: See below. Diagnostics interpreted by me: ECG: Sinus tachycardia, 137 bpm, no ectopy, no overt ST elevation or depression, QTC 449, QRS 94. Cardiac Monitoring: An order for continuous cardiac monitoring was placed and demonstrated Sinus tachycardia, 137 bpm, no ectopy. Laboratory studies: See below Imaging studies: See below Consultation(s): Case was discussed with Dr. Mayo, [facility] hospitalist, who will evaluate the patient for admission. HPI: The patient is a pleasant 75-year-old woman with a past medical history of bronchiectasis, history of vocal cord paralysis, acid reflux and restrictive lung disease who presents to the emergency department for worsening cough, congestion with productive yellow sputum and feverishness over the past several days. The patient denies being on home oxygen. She denies any nausea, vomiting, diarrhea or urinary symptoms. She denies any known COVID-19 exposures. ROS: See above HPI for pertinent positives & negatives. A total of 10 systems reviewed and were otherwise negative. PAST MEDICAL HISTORY:See Below PAST SURGICAL HISTORY:See Below FAMILY HISTORY:See Below SOCIAL HISTORY:See Below HOME MEDICATIONS:See Below ALLERGIES:See Below VITALS:See Below PHYSICAL EXAMINATION: GENERAL: Awake, alert, ill-appearing, in no distress HENT: Normocephalic, atraumatic. Oropharynx with dry mucous membranes and otherwise unremarkable. EYES: Normal conjunctiva. Sclera non-icteric. NECK: Supple. No nuchal rigidity. FROM. No JVD. RESPIRATORY: Scattered wheezes and rhonci. CARDIAC: Tachycardic rate, normal rhythm. Extremities warm and well perfused. Pulses equal. ABDOMEN: Soft, non-distended. No tenderness to palpation. No rebound or guarding. No masses. RECTAL: Deferred. MUSCULOSKELETAL: Chest examination reveals no tenderness. The back is symmetrical on inspection without obvious abnormality. There is no CVA tenderness to palpation. No joint edema. LOWER EXTREMITIES: Calves are equal size bilaterally and non-tender. No edema. No discoloration. NEURO: Normal sensorium. No sensory or motor deficits noted. SKIN: No rash or jaundice noted. Mati Guillen MD Past Med/Surg History Medical History (Updated 05/04/21 @ 02:01 by Mati Guillen MD) Anemia Aspiration pneumonia Asthma inhaler prn Bronchiectasis Cancer breast ca - left - partial mastectomy - radiation Chronic cough Factor V Leiden GERD (gastroesophageal reflux disease) Hiatal hernia History of anesthesia reaction ? pt thinks she had an issue after vocal cord surgery but can't remember History of hemoptysis eliquis recently decreased from 5 mg PO BID to 2.5 mg PO BID. pt denies hemoptysis since decreasing eliquis dose History of vocal cord paralysis cause? Hyperlipidemia Hypertension Laryngopharyngeal reflux Mild asthma Pulmonary embolism -10/2019 -- factor V -- on eliquis BID -7 years ago - post hiatal hernia repair - pt also has factor V - [facility] - treated w/ AC Restrictive lung disease Shortness of breath Upper airway cough syndrome Surgical History History of arthroscopy of right knee meniscus repair History of breast biopsy History of colonoscopy History of esophagogastroduodenoscopy (EGD) History of hernia repair History of repair diaphramic hernia by thoracoabdominal approach History of laryngoscopy History of direct laryngoscopy with injection into vocal chords History of left cataract surgery History of nasal polypectomy History of Dillon fundoplication History of esophagogastric fundoplasty dillon fundoplication History of partial mastectomy of left breast History of repair of hiatal hernia History of surgery vocal cord surgery History of surgery lysis of abdominal adhesions 10/2019 [facility] History of tooth extraction History of vaginal surgery History of wisdom tooth extraction Family History Brother Family history of diabetes mellitus Father Cerebral artery occlusion with cerebral infarction Sister Factor V Leiden mutation Hypercoagulation Other No family history of adverse response to anesthesia Social History Smoking Status: Former smoker Tobacco Type: Cigarettes Cigarettes Per Day: 1 pack per day; Second Hand Exposure: No; Do You Dip or Chew Tobacco: No; Tobacco Cessation Education Requested by Patient: No Hx Alcohol Use: Yes Alcohol type: beer, wine and hard liquor Hx Substance Use: Yes Substance Use Type Other:: 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 Verified 05/03/21 14:05 Home Meds Home Medications Medication Instructions Recorded Confirmed polyethylene glycol 3350 17 17 g PO DAILY PRN 09/13/18 05/03/21 gram/dose oral powder (Miralax) melatonin 5 mg capsule 5 mg PO HS PRN cap 02/26/19 05/03/21 rosuvastatin 5 mg tablet (Crestor) 5 mg PO QAM 10/31/19 05/03/21 pantoprazole 40 mg tablet,delayed 40 mg PO QDD 11/14/19 05/03/21 release (Protonix) budesonide-formoterol HFA 80 2 inh INHALATION BID 02/24/20 05/03/21 mcg-4.5 mcg/actuation aerosol inhaler (Symbicort) albuterol sulfate 90 mcg/actuation 2 puffs INH QID PRN 02/25/20 05/03/21 breath activated powder inhaler (ProAir RespiClick) coenzyme Q10 100 mg capsule (Co 100 mg PO QAM 02/25/20 05/03/21 Q-10) apixaban 2.5 mg tablet (Eliquis) 2.5 mg PO BID 08/07/20 05/03/21 famotidine 20 mg tablet (Pepcid) 10 mg PO HS 09/15/20 05/03/21 guaifenesin 600 mg tablet, 600 mg PO Q12H PRN 02/15/21 05/03/21 extended release 12 hr (Mucinex) amlodipine 2.5 mg tablet (Norvasc) 2.5 mg PO HS 05/03/21 05/03/21 chlorpheniramine maleate 4 mg 4 mg PO Q12H 05/03/21 05/03/21 tablet (Allergy (chlorpheniramine)) fluticasone propionate 50 2 spray INTRANASAL QAM 05/03/21 05/03/21 mcg/actuation nasal spray,suspension (Children's Flonase Allergy Relief) sucralfate 1 gram tablet (Carafate) 1 g PO BID 05/03/21 05/03/21 Previous Rx's Medication Instructions Recorded Flutter Valve #1 ea 02/01/21 benzonatate 100 mg capsule 100 mg PO Q8H PRN #60 cap 02/18/21 (Tessalon Perles) pseudoephedrine HCl 30 mg tablet 30 mg PO BID #60 tab 02/18/21 (Suphedrine) Results & Data (ED) Vital Signs Vital Signs - 24 hr 05/03/21 11:19 05/03/21 11:27 05/03/21 11:30 Temperature 38.4 C H Temperature Source Oral Pulse Rate 137 H 135 H 133 H Pulse Rate [Apical] Pulse Rate from SpO2 Sensor 134 H 134 H Respiratory Rate 22 29 H 33 H Respiratory Effort / Characteristics Blood Pressure 99/67 L 101/67 Blood Pressure Mean 77 78 Pulse Oximetry 86 L 91 92 Oxygen Delivery Method Room Air Oxygen Flow Rate Sepsis Recent Fever Within 48 Hours Yes Sepsis New/Unexplained Change in Mental Status N/A Sepsis Action Taken by Nursing No Action Required 05/03/21 12:00 05/03/21 12:09 05/03/21 12:30 Temperature Temperature Source Pulse Rate 131 H 130 H Pulse Rate [Apical] 130 H Pulse Rate from SpO2 Sensor 133 H 130 H Respiratory Rate 33 H 32 H 29 H Respiratory Effort / Characteristics Spontaneous Blood Pressure 102/74 125/77 Blood Pressure Mean 83 93 Pulse Oximetry 91 90 93 Oxygen Delivery Method Nasal Cannula Oxygen Flow Rate 4 Sepsis Recent Fever Within 48 Hours Sepsis New/Unexplained Change in Mental Status Sepsis Action Taken by Nursing 05/03/21 13:00 05/03/21 13:30 05/03/21 14:00 Temperature Temperature Source Pulse Rate 129 H 102 H 104 H Pulse Rate [Apical] Pulse Rate from SpO2 Sensor 130 H 102 H 100 H Respiratory Rate 25 H 28 H 28 H Respiratory Effort / Characteristics Blood Pressure 101/69 109/64 104/58 L Blood Pressure Mean 79 79 73 Pulse Oximetry 93 92 Oxygen Delivery Method Oxygen Flow Rate Sepsis Recent Fever Within 48 Hours Sepsis New/Unexplained Change in Mental Status Sepsis Action Taken by Nursing Laboratory Data Result diagrams: 05/03/21 11:28 05/03/21 11:28 Lab Results 05/03/21 05/03/21 05/03/21 Range/Units 11:28 11:28 11:28 WBC 14.34 H (4.8-10.8) K/uL RBC 4.86 (4.2-5.4) M/uL Hgb 13.7 (12.0-16.0) g/dL Hct 41.9 (37-47) % MCV 86.2 (80-100) fL MCH 28.2 (25-34) pg MCHC 32.7 (32-36) g/dL RDW Std Deviation 47.7 H (36.4-46.3) fL RDW Coeff of Maya 15.1 H (11.5-14.5) % Plt Count 223 (130-400) K/uL MPV 11.7 H (7.4-10.4) fL Immature Gran % (Auto) 0.1 % Neut % (Auto) 93.6 % Lymph % (Auto) 3.3 % [place] % (Auto) 3.0 % Eos % (Auto) 0.0 % Baso % (Auto) 0.0 % Neut # (Auto) 13.41 H (1.4-6.5) K/uL Lymph # (Auto) 0.48 L (1.2-3.4) K/uL [place] # (Auto) 0.43 (0.11-0.59) K/uL Eos # (Auto) 0.00 (0-0.5) K/uL Baso # (Auto) 0.00 (0-0.2) K/uL Immature Gran # (Auto) 0.02 (0.00-0.02) K/uL PT 12.0 (9.0-12.0) Seconds INR 1.2 H (0.9-1.1) APTT 32.8 H (21.0-31.0) Seconds PTT Ratio 1.2 Sodium 142 (136-145) mmol/L Potassium 3.5 (3.5-5.1) mmol/L Chloride 108 H (98-107) mmol/L Carbon Dioxide 25 (21-32) mmol/L Anion Gap 9.0 (3-11) BUN 20 H (7-18) mg/dl Creatinine 0.94 (0.6-1.2) mg/dl Est Cr Clr Drug Dosing 56.6 ml/min Est GFR ( Amer) 69.8 ml/min Est GFR (Non-Af Amer) 60.2 ml/min BUN/Creatinine Ratio 21.3 H (10-20) Glucose 121 H (70-99) mg/dl Lactate (0.4-2.0) mmol/L Calcium 8.8 (8.5-10.1) mg/dl Phosphorus 2.7 (2.5-4.9) mg/dl Magnesium 1.7 L (1.8-2.4) mg/dl Total Bilirubin 0.8 (0.2-1) mg/dl Direct Bilirubin 0.3 H (0-0.2) mg/dl AST 18 (15-37) U/L ALT 23 (12-78) U/L Alkaline Phosphatase 64 (45-117) U/L Troponin I < 0.015 (0-0.045) ng/ml Total Protein 6.8 (6.4-8.2) gm/dl Albumin 3.0 L (3.4-5.0) gm/dl Globulin 3.8 (2.5-4.0) gm/dl Albumin/Globulin Ratio 0.8 L (0.9-2) Procalcitonin (0-0.5) ng/ml COVID-19 Eval Order SARS-CoV-2 (PCR) (Negative) 05/03/21 05/03/21 05/03/21 Range/Units 11:28 12:02 12:02 WBC (4.8-10.8) K/uL RBC (4.2-5.4) M/uL Hgb (12.0-16.0) g/dL Hct (37-47) % MCV (80-100) fL MCH (25-34) pg MCHC (32-36) g/dL RDW Std Deviation (36.4-46.3) fL RDW Coeff of Maya (11.5-14.5) % Plt Count (130-400) K/uL MPV (7.4-10.4) fL Immature Gran % (Auto) % Neut % (Auto) % Lymph % (Auto) % [place] % (Auto) % Eos % (Auto) % Baso % (Auto) % Neut # (Auto) (1.4-6.5) K/uL Lymph # (Auto) (1.2-3.4) K/uL [place] # (Auto) (0.11-0.59) K/uL Eos # (Auto) (0-0.5) K/uL Baso # (Auto) (0-0.2) K/uL Immature Gran # (Auto) (0.00-0.02) K/uL PT (9.0-12.0) Seconds INR (0.9-1.1) APTT (21.0-31.0) Seconds PTT Ratio Sodium (136-145) mmol/L Potassium (3.5-5.1) mmol/L Chloride (98-107) mmol/L Carbon Dioxide (21-32) mmol/L Anion Gap (3-11) BUN (7-18) mg/dl Creatinine (0.6-1.2) mg/dl Est Cr Clr Drug Dosing ml/min Est GFR ( Amer) ml/min Est GFR (Non-Af Amer) ml/min BUN/Creatinine Ratio (10-20) Glucose (70-99) mg/dl Lactate (0.4-2.0) mmol/L Calcium (8.5-10.1) mg/dl Phosphorus (2.5-4.9) mg/dl Magnesium (1.8-2.4) mg/dl Total Bilirubin (0.2-1) mg/dl Direct Bilirubin (0-0.2) mg/dl AST (15-37) U/L ALT (12-78) U/L Alkaline Phosphatase (45-117) U/L Troponin I (0-0.045) ng/ml Total Protein (6.4-8.2) gm/dl Albumin (3.4-5.0) gm/dl Globulin (2.5-4.0) gm/dl Albumin/Globulin Ratio (0.9-2) Procalcitonin 3.67 H (0-0.5) ng/ml COVID-19 Eval Order Covid19 at [facility] SARS-CoV-2 (PCR) NEGATIVE (Negative) 05/03/21 Range/Units 12:46 WBC (4.8-10.8) K/uL RBC (4.2-5.4) M/uL Hgb (12.0-16.0) g/dL Hct (37-47) % MCV (80-100) fL MCH (25-34) pg MCHC (32-36) g/dL RDW Std Deviation (36.4-46.3) fL RDW Coeff of Maya (11.5-14.5) % Plt Count (130-400) K/uL MPV (7.4-10.4) fL Immature Gran % (Auto) % Neut % (Auto) % Lymph % (Auto) % [place] % (Auto) % Eos % (Auto) % Baso % (Auto) % Neut # (Auto) (1.4-6.5) K/uL Lymph # (Auto) (1.2-3.4) K/uL [place] # (Auto) (0.11-0.59) K/uL Eos # (Auto) (0-0.5) K/uL Baso # (Auto) (0-0.2) K/uL Immature Gran # (Auto) (0.00-0.02) K/uL PT (9.0-12.0) Seconds INR (0.9-1.1) APTT (21.0-31.0) Seconds PTT Ratio Sodium (136-145) mmol/L Potassium (3.5-5.1) mmol/L Chloride (98-107) mmol/L Carbon Dioxide (21-32) mmol/L Anion Gap (3-11) BUN (7-18) mg/dl Creatinine (0.6-1.2) mg/dl Est Cr Clr Drug Dosing ml/min Est GFR ( Amer) ml/min Est GFR (Non-Af Amer) ml/min BUN/Creatinine Ratio (10-20) Glucose (70-99) mg/dl Lactate 1.6 (0.4-2.0) mmol/L Calcium (8.5-10.1) mg/dl Phosphorus (2.5-4.9) mg/dl Magnesium (1.8-2.4) mg/dl Total Bilirubin (0.2-1) mg/dl Direct Bilirubin (0-0.2) mg/dl AST (15-37) U/L ALT (12-78) U/L Alkaline Phosphatase (45-117) U/L Troponin I (0-0.045) ng/ml Total Protein (6.4-8.2) gm/dl Albumin (3.4-5.0) gm/dl Globulin (2.5-4.0) gm/dl Albumin/Globulin Ratio (0.9-2) Procalcitonin (0-0.5) ng/ml COVID-19 Eval Order SARS-CoV-2 (PCR) (Negative) Administered Medications Albuterol (Albut/Ipratrop 3mg/0.5mg Neb 3 Ml Vial) 3 ml NEB Q4R KENZIE Stop: 06/02/21 22:59 Last Admin: 09/28/21 23:29 Dose: 3 ml Documented by: [id number] Apixaban (Apixaban 2.5 Mg Tab) 2.5 mg PO BID KENZIE Stop: 06/02/21 20:59 Last Admin: 05/03/21 19:20 Dose: 2.5 mg Documented by: [id number] Benzonatate (Benzonatate 100 Mg Capsule) 100 mg PO Q8H PRN PRN Reason: cough Stop: 06/02/21 16:15 Last Admin: 05/03/21 19:19 Dose: 100 mg Documented by: [id number] Famotidine (Famotidine 10 Mg Tablet) 10 mg PO HS KENZIE Stop: 06/02/21 20:59 Last Admin: 05/03/21 19:20 Dose: 10 mg Documented by: [id number] Guaifenesin (Guaifenesin 600 Mg Tabcr) 1,200 mg PO BID KENZIE Stop: 06/02/21 20:59 Last Admin: 05/03/21 20:39 Dose: 1,200 mg Documented by: [id number] Piperacillin Sod/Tazobactam (Sod 3.375 gm/ Dextrose) 115 mls @ 28.75 mls/hr IV Q8H KENZIE; Protocol Stop: 05/05/21 17:59 Last Infusion: 05/03/21 23:28 Dose: 0 mls/hr Documented by: [id number] Admin: 05/03/21 18:33 Dose: 28.8 mls/hr Documented by: [id number] Pantoprazole Sodium (Pantoprazole 40 Mg Tab) 40 mg PO QDD KENZIE Stop: 06/02/21 16:29 Last Admin: 05/03/21 18:33 Dose: 40 mg Documented by: [id number] Sucralfate (Sucralfate 1 Gm Tab) 1 gm PO BID KENZIE Stop: 06/02/21 20:59 Last Admin: 05/03/21 19:20 Dose: 1 gm Documented by: [id number] Discontinued Medications Albuterol (Albut/Ipratrop 3mg/0.5mg Neb 3 Ml Vial) 3 ml NEB NOW STA Stop: 05/03/21 11:46 Last Admin: 05/03/21 12:08 Dose: 3 ml Documented by: [id number] Guaifenesin (Guaifenesin 600 Mg Tabcr) 600 mg PO NOW STA Stop: 05/03/21 13:23 Last Admin: 05/03/21 13:46 Dose: 600 mg Documented by: [id number] Sodium Chloride (Nss 1000ml) 1,000 mls @ 999 mls/hr IV .Q1H1M ONE Stop: 05/03/21 12:42 Last Infusion: 05/03/21 13:01 Dose: 0 mls/hr Documented by: [id number] Admin: 05/03/21 12:04 Dose: 999 mls/hr Documented by: [id number] Acetaminophen (Ofirmev) 1,000 mg in 100 mls @ 400 mls/hr IV NOW STA Stop: 05/03/21 11:56 Last Infusion: 05/03/21 12:24 Dose: 0 mls/hr Documented by: [id number] Admin: 05/03/21 12:05 Dose: 400 mls/hr Documented by: [id number] Piperacillin Sod/Tazobactam Sod (Zosyn) 4.5 gm in 120 mls @ 240 mls/hr IV NOW ONE Stop: 05/03/21 12:11 Last Infusion: 05/03/21 12:31 Dose: 0 mls/hr Documented by: [id number] Admin: 05/03/21 12:04 Dose: 240 mls/hr Documented by: [id number] Magnesium Sulfate/Dextrose (Magnesium Sulfate / D5w) 1 gm in 100 mls @ 100 mls/hr IV NOW STA Stop: 05/03/21 14:20 Last Infusion: 05/03/21 14:48 Dose: 0 mls/hr Documented by: [id number] Admin: 05/03/21 13:46 Dose: 100 mls/hr Documented by: [id number] Sodium Chloride (Nss 1000ml) 1,000 mls @ 999 mls/hr IV .Q1H1M ONE Stop: 05/03/21 14:21 Last Infusion: 05/03/21 14:49 Dose: 0 mls/hr Documented by: [id number] Admin: 05/03/21 13:46 Dose: 999 mls/hr Documented by: [id number] Azithromycin 500 mg/ Dextrose 255 mls @ 127.5 mls/hr IV NOW STA Stop: 05/03/21 16:18 Last Infusion: 05/03/21 19:06 Dose: 0 mls/hr Documented by: [id number] Admin: 05/03/21 16:36 Dose: 127.5 mls/hr Documented by: [id number] Ipratropium [place] (Ipratropium [place] Neb Soln 0.02% 2.5 Ml Vial) 0.5 mg INH Q6R KENZIE Stop: 06/02/21 18:59 Last Admin: 05/03/21 20:03 Dose: 0.5 mg Documented by: [id number] Levalbuterol HCl (Levalbuterol Hcl 0.63 Mg/3 Ml Neb) 0.63 mg NEB Q6R KENZIE Stop: 06/02/21 18:59 Last Admin: 05/03/21 20:03 Dose: 0.63 mg Documented by: [id number] Methylprednisolone (Methylprednisolone 125 Mg/2 Ml Vial) 125 mg IV NOW STA Stop: 05/03/21 11:46 Last Admin: 05/03/21 12:05 Dose: 125 mg Documented by: [id number] Miscellaneous (*Chlorphenaramine*Order Awaiting Action) 1 ea N/A QS KENZIE Stop: 06/02/21 16:59 Last Admin: 05/03/21 18:12 Dose: Not Given Documented by: [id number] Pseudoephedrine HCl (Pseudoephedrine Hcl 30 Mg Tab) 30 mg PO BID KENZIE Stop: 06/02/21 20:59 Last Admin: 05/03/21 19:21 Dose: 30 mg Documented by: [id number] Imaging Data Radiologist's Impression: Chest X-Ray 05/03/21 11:42 XR chest 1V portable INDICATION: [place] ^SEPSIS . TECHNIQUE: Single frontal radiograph of the chest was obtained. Comparison: Comparison is made to chest 2 views 02/18/2031 FINDINGS: No lines and tubes are seen. Calcified aortic knob is seen. The cardiac mediastinal silhouette is obscured. Airspace opacities are seen in the left retrocardiac region and right lower lung. There is a moderate left and small right pleural effusion. IMPRESSION: Moderate left and small right pleural effusion, increased from the prior. Worsened airspace opacities in the bilateral lower lungs which may represent atelectasis, pneumonia, and/or aspiration. ACT 112: Negative or not required by law. Electronically signed by: Michael Gayle M.D. 05/03/2021 12:38 PM Discharge Plan Visit Data Chief Complaint: Shortness of Breath/Dyspnea Stated Complaint: SOB ED Provider: Mati Guillen Discharge Problem: Aspiration pneumonia, Hypoxia, Hypomagnesemia Patient Disposition: Admitted As Inpatient Discharge Instructions Interventions: ED Discharge Assessment Last Done: 05/03/21 15:04 Discharge Problem: Aspiration pneumonia Qualifiers: Aspiration pneumonia type: unspecified Laterality: bilateral Lung location: lower lobe of lung Qualified Code(s): J69.0 - Pneumonitis due to inhalation of food and vomit
[2021-05-03 12:20] LABS: Alanine Aminotransferase 23 U/L (12-78); Aspartate Aminotransferase 18 U/L (15-37); BUN Creatinine Ratio 21.3 (10-20); Bilirubin Direct 0.3 mg/dl (0-0.2); Blood Urea Nitrogen 20 mg/dl (7-18); Calcium 8.8 mg/dl (8.5-10.1); Carbon Dioxide 25 mmol/L (21-32); Chloride 108 mmol/L (98-107); Creatinine Clr Calc Pharmacy 56.6 ml/min; Est GFR (African American) 69.8 ml/min; Est GFR (Non-African American) 60.2 ml/min; Glucose 121 mg/dl (70-99); Magnesium 1.7 mg/dl (1.8-2.4); Potassium 3.5 mmol/L (3.5-5.1); Sodium 142 mmol/L (136-145)
[2021-05-03 12:25] LABS: Albumin Globulin Ratio 0.8 (0.9-2); Alkaline Phosphatase 64 U/L (45-117); Bilirubin,Total 0.8 mg/dl (0.2-1); Globulin 3.8 gm/dl (2.5-4.0); Phosphorus 2.7 mg/dl (2.5-4.9); Total Protein 6.8 gm/dl (6.4-8.2); Troponin I < 0.015 ng/ml (0-0.045)
[2021-05-03 12:37] LABS: INR 1.2 (0.9-1.1); Partial Thromboplastin Ratio 1.2; Partial Thromboplastin Time 32.8 Seconds (21.0-31.0)
--- NOTE | 2021-05-03 12:39 | XRay Report ---
XR chest 1V portable INDICATION: [place] ^SEPSIS . TECHNIQUE: Single frontal radiograph of the chest was obtained. Comparison: Comparison is made to chest 2 views 02/18/2031 FINDINGS: No lines and tubes are seen. Calcified aortic knob is seen. The cardiac mediastinal silhouette is obs cured. Airspace opacities are seen in the left retrocardiac region and right lower lung. There is a m oderate left and small right pleural effusion. IMPRESSION: Moderate left and small right pleural effusion, increased from the prior. Worsened airspace opacities in the bilateral lower lungs which may represent atelectasis, pneumonia, and/or aspiration. ACT 112: Negative or not required by law. Electronically signed by: Michael Gayle M.D. 05/03/2021 12:38 PM
[2021-05-03 12:51] LABS: Immature Granulocytes # (auto) 0.02 K/uL (0.00-0.02); Immature Granulocytes % (auto) 0.1 %; Lymphocytes # (auto) 0.48 K/uL (1.2-3.4); Lymphocytes % (auto) 3.3 %; Monocytes # (auto) 0.43 K/uL (0.11-0.59); Neutrophils # (auto) 13.41 K/uL (1.4-6.5); Neutrophils % (auto) 93.6 %
[2021-05-03] MEDS ORDERED: MAGNESIUM SULFATE / D5W 1 GM/100 ML BAG IV STA (13:21)
[2021-05-03] MEDS ORDERED: guaiFENesin 600 MG TABCR PO STA (13:22)
--- NOTE | 2021-05-03 14:13 | History & Physical Report ---
Date of Service May 03, 2021 Assessment & Plan (1) Sepsis: Plan: Lactate 1.6 Zosyn + azithromycin Source - PNA, most likely aspiration given vocal cord issues and chronic postnasal drip (2) Bacterial pneumonia: Plan: Follow up blood cultures Sputum cultures ordered Incentive spirometer Flutter valve No indication for further steroids at the current time but will continue on nebulizers to aid with coughing up phlegm Zosyn to cover for aspiration pneumonia, start azithromycin to cover for atypical PNA SLT reassessment Consult pulmonology to aid in management given repeated episodes and pleural effusions (3) Acute respiratory failure with hypoxia: Plan: Secondary to pneumonia as above. Aim O2 sats > 90% (4) Bilateral pleural effusion: Plan: Consult pulmonology for consideration of diagnostic thoracocentesis as this has not been previously performed and no history of heart failure. (5) Laryngopharyngeal reflux (LPR): Plan: Continue pantoprazole, famotidine and Carafate (6) Vocal cord paralysis: Plan: Aspiration precautions SLT reassessment as above (7) Factor V Leiden mutation: Plan: History of PE, continue eliquis but may need to be held if thoracocentesis is planned. Plan: VTE Prophylaxis -apixaban 2.5 PO BID (reduced dose due to history of bleeding on higher doses) Diet - regular Disposition - admit to PCU Admission and Anticipated Discharge Date Admission Date: May 03, 2021 History of Present Illness Chief Complaint: Shortness of breath Primary Care Provider: Thanh Phelan Zara Cohn is a 75 year old female who presents to the ER with shortness of breath, hypoxia, chills and increased productive cough. She was recently admitted for the same in February 2021. She is under pulmonology for known asthma, reflux, restrictive lung disease, vocal cord dysfunction and chronic post nasal drip. On her admission in February she was diagnosed with bronchiectasis treated with IV steroids and antibiotics but without significant improvement therefore pulmonology were consulted and stopped steroids and increased her medications for post nasal drip and GERD. She reports her current symptoms started 2 nights ago with increasing productive cough with yellow sputum. Episodes of wheezing and not being able to catch her breath. Last night she started having chills. She took her O2 sats today and they were in the 80s with HR 148. She called her PCP office and advised coming to the ER so she called for an ambulance. She reports having the booster COVID-19 vaccination last Sunday with significant sore arm after this. She did not take any of her regular medications yet this morning. In the ER she is now maintaining O2 sats > 94% on 4LPM O2. CXR was consistent with worsening airspace opacities from prior. SARS-COV-2 PCR negative. She was treated with IV Zosyn and Solu-medrol. She was referred to medicine for admission and ongoing management of aspiration pneumonia and hypoxia. Allergies Allergy/AdvReac Type Severity Reaction Status Date / Time shellfish derived Allergy Intermediate ITCHY, Verified 05/03/21 14:05 THROAT SWELLING No Known Drug Allergies Allergy Unknown . Verified 05/03/21 14:05 Home Medications Medication Instructions Recorded Confirmed Type polyethylene glycol 3350 17 17 g PO DAILY PRN 09/13/18 05/03/21 History gram/dose oral powder (Miralax) melatonin 5 mg capsule 5 mg PO HS PRN cap 02/26/19 05/03/21 History rosuvastatin 5 mg tablet (Crestor) 5 mg PO QAM 10/31/19 05/03/21 History pantoprazole 40 mg tablet,delayed 40 mg PO QDD 11/14/19 05/03/21 History release (Protonix) budesonide-formoterol HFA 80 2 inh INHALATION BID 02/24/20 05/03/21 History mcg-4.5 mcg/actuation aerosol inhaler (Symbicort) albuterol sulfate 90 mcg/actuation 2 puffs INH QID PRN 02/25/20 05/03/21 History breath activated powder inhaler (ProAir RespiClick) coenzyme Q10 100 mg capsule (Co 100 mg PO QAM 02/25/20 05/03/21 History Q-10) apixaban 2.5 mg tablet (Eliquis) 2.5 mg PO BID 08/07/20 05/03/21 History famotidine 20 mg tablet (Pepcid) 10 mg PO HS 09/15/20 05/03/21 History Flutter Valve #1 ea 02/01/21 03/10/21 Rx guaifenesin 600 mg tablet, 600 mg PO Q12H PRN 02/15/21 05/03/21 History extended release 12 hr (Mucinex) benzonatate 100 mg capsule 100 mg PO Q8H PRN #60 cap 02/18/21 05/03/21 Rx (Tessalon Perles) pseudoephedrine HCl 30 mg tablet 30 mg PO BID #60 tab 02/18/21 05/03/21 Rx (Suphedrine) amlodipine 2.5 mg tablet (Norvasc) 2.5 mg PO HS 05/03/21 05/03/21 History chlorpheniramine maleate 4 mg 4 mg PO Q12H 05/03/21 05/03/21 History tablet (Allergy (chlorpheniramine)) fluticasone propionate 50 2 spray INTRANASAL QAM 05/03/21 05/03/21 History mcg/actuation nasal spray,suspension (Children's Flonase Allergy Relief) sucralfate 1 gram tablet (Carafate) 1 g PO BID 05/03/21 05/03/21 History Past Med/Surg History Medical History (Updated 05/04/21 @ 08:16 by Tylor Mayo MD) Anemia Aspiration pneumonia Asthma inhaler prn Bronchiectasis Cancer breast ca - left - partial mastectomy - radiation Chronic cough Factor V Leiden GERD (gastroesophageal reflux disease) Hiatal hernia History of anesthesia reaction ? pt thinks she had an issue after vocal cord surgery but can't remember History of hemoptysis eliquis recently decreased from 5 mg PO BID to 2.5 mg PO BID. pt denies hemoptysis since decreasing eliquis dose History of vocal cord paralysis cause? Hyperlipidemia Hypertension Laryngopharyngeal reflux Mild asthma Pulmonary embolism -10/2019 -- factor V -- on eliquis BID -7 years ago - post hiatal hernia repair - pt also has factor V - [facility] - treated w/ AC Restrictive lung disease Shortness of breath Upper airway cough syndrome Surgical History History of arthroscopy of right knee meniscus repair History of breast biopsy History of colonoscopy History of esophagogastroduodenoscopy (EGD) History of hernia repair History of repair diaphramic hernia by thoracoabdominal approach History of laryngoscopy History of direct laryngoscopy with injection into vocal chords History of left cataract surgery History of nasal polypectomy History of Dillon fundoplication History of esophagogastric fundoplasty dillon fundoplication History of partial mastectomy of left breast History of repair of hiatal hernia History of surgery vocal cord surgery History of surgery lysis of abdominal adhesions 10/2019 [facility] History of tooth extraction History of vaginal surgery History of wisdom tooth extraction Family History Brother Family history of diabetes mellitus Father Cerebral artery occlusion with cerebral infarction Sister Factor V Leiden mutation Hypercoagulation Other No family history of adverse response to anesthesia Social History Smoking Status: Former smoker Tobacco Type: Cigarettes Cigarettes Per Day: 1 pack per day; Second Hand Exposure: No; Do You Dip or Chew Tobacco: No; Tobacco Cessation Education Requested by Patient: No Hx Alcohol Use: Yes Alcohol type: beer, wine and hard liquor Hx Substance Use: Yes Substance Use Type Other:: 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 MARIJUANA Preferred Language: Bermudian Communication Ability: Effective 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 Beliefs That Will Affect Care: None marital status: Single Current Living Situation: Alone Other Information That Helps Us Care for You: No Feels Safe at Home: Yes Safety Concerns: Feels Safe At This Time Assistive Devices: Oxygen - Continuous Assistive Devices Comment: READING Review of Systems Review of Systems: All systems reviewed & are unremarkable except as noted in HPI & below Physical Exam Constitutional: WD/WN, vitals as above Eyes: + anicteric sclerae; normal pupil size ENMT: Mouth: oral mucous membranes not dry Neck: trachea midline, no thyromegaly Respiratory: + labored breathing, + retractions and + uses accessory muscles Auscultation: + crackles (borase bilateral posteriorly); no diminished lung sounds and no wheezes Cardiovascular: Rate/Rhythm: regular rhythm and + tachycardic Extremities: normal capillary refill; no calf tenderness and no pedal edema Gastrointestinal (Abdomen): normal bowel sounds, soft, nontender, no hepatosplenomegaly Musculoskeletal: no cyanosis or clubbing, extremities motor strength 5/5 Skin: no rashes, warm and dry Neurologic: moves all extremities and awake; no focal motor deficits and not confused Psychiatric: A+Ox3, euthymic affect Genitourinary: no CVA tenderness Results & Data Results & [facility] ([facility]) Vital Signs (Past 12 Hours) Vital Signs Temp Pulse Pulse Resp BP Pulse Ox 05/03/21 13:30 102 H 28 H 109/64 92 05/03/21 13:00 129 H 25 H 101/69 93 05/03/21 12:30 130 H 29 H 125/77 93 05/03/21 12:09 130 H 32 H 90 05/03/21 12:00 131 H 33 H 102/74 91 05/03/21 11:30 133 H 33 H 101/67 92 05/03/21 11:27 135 H 29 H 99/67 L 91 05/03/21 11:19 38.4 C H 137 H 22 86 L Diagnostic Findings XR chest 1V portable INDICATION: MN ^SEPSIS TECHNIQUE: Single frontal radiograph of the chest was obtained. Comparison: Comparison is made to chest 2 views 02/18/2031 FINDINGS: No lines and tubes are seen. Calcified aortic knob is seen. The cardiac mediastinal silhouette is obscured. Airspace opacities are seen in the left retrocardiac region and right lower lung. There is a moderate left and small right pleural effusion. IMPRESSION: Moderate left and small right pleural effusion, increased from the prior. Worsened airspace opacities in the bilateral lower lungs which may represent atelectasis, pneumonia, and/or aspiration. Medications Administered ER Medications Given: NSS 2L bolus Acetaminophen 1g IV Zosyn 4.5g IV Solu-medrol 125mg IV Duoneb 3ml Magnesium sulphate 1g IV Guaifenesin 600mg PO ECG Indication: SOB/dyspnea Rate (beats per minute): 137 Rhythm: sinus tachycardia Findings: no acute ischemic change Comparison ECG Date: from (February 15, 2021) Change: the following changes noted (increased rate) Code Status & VTE Plan Code Status Full as discussed with the patient VTE Prophylaxis Plan VTE Prophylaxis will be ordered: Yes PG Care Time/CCT Total # of Minutes Spent Total Time Spent with Patient: Total time spent is greater than 50% in coordination of care (as documented) at patient's floor/unit and/or counseling patient: Coding Level of Care Code 31773 Initial Inpt Care Lvl 3 Diagnoses Sepsis A41.9 Bacterial pneumonia J15.9 Acute respiratory failure with hypoxia J96.01 Laryngopharyngeal reflux (LPR) K21.9 Vocal cord paralysis J38.00 Factor V Leiden mutation D68.51 Bilateral pleural effusion J90
[2021-05-03] MEDS ORDERED: AZITHROMYCIN 500 MG in DEXTROSE 5% 250 ML IV STA (14:19)
[2021-05-03] MEDS ORDERED: guaiFENesin 600 MG TABCR PO PRN (16:16)
[2021-05-03] MEDS ORDERED: ONDANSETRON INJ 2 MG/ML 2 ML VIAL IV PRN (16:16)
[2021-05-03] MEDS ORDERED: ACETAMINOPHEN 325 MG TAB PO PRN (16:16)
[2021-05-03] MEDS ORDERED: POLYETHYLENE (MIRALAX) 17 GM PACK PO PRN (16:16)
[2021-05-03 17:11] LABS: Appearance Urine Clear (Clear); Bacteria Urine Automated Negative (Negative); Bilirubin Urine Negative (Negative); Blood Urine Trace (Negative); Color Urine Yellow; Epithelial Cell Urine Auto 20-30 /lpf (0-5); Glucose Urine UA Negative (Negative); Ketones Urine 1+ (Negative); Leukocyte Esterase Urine Negative (Negative); Nitrite Urine Negative (Negative); Protein Urine 1+ (Negative); Specific Gravity Urine 1.022 (1.000-1.030); Urobilinogen Urine Negative (Negative); pH Urine 5.5 (4.5-7.5)
[2021-05-03] MEDS: PANTOprazole 40 MG TAB PO SCH (18:33)
[2021-05-03] MEDS: PIPERACILLIN/TAZOBACTAM 3.375 GM in DEXTROSE 5% 100 ML IV SCH (18:33)
[2021-05-03] MEDS ORDERED: IPRATROPIUM BROMIDE NEB SOLN 0.02% 2.5 ML VIAL INH SCH (19:00)
[2021-05-03] MEDS ORDERED: LEVALBUTEROL HCL 0.63 MG/3 ML NEB NEB SCH (19:00)
[2021-05-03] MEDS ORDERED: XOPENEX/ATROVENT 0.63mg/0.5MG NEB COMBO NEB SCH (19:00)
[2021-05-03] MEDS: BENZONATATE 100 MG CAPSULE PO PRN (19:19)
[2021-05-03] MEDS: SUCRALFATE 1 GM TAB PO SCH (19:20)
[2021-05-03] MEDS: FAMOTIDINE 10 MG TABLET PO SCH (19:20)
[2021-05-03] MEDS: APIXABAN 2.5 MG TAB PO SCH (19:20)
[2021-05-03] MEDS: guaiFENesin 600 MG TABCR PO SCH (20:39)
[2021-05-03] MEDS ORDERED: PSEUDOEPHEDRINE HCL 30 MG TAB PO SCH (21:00)
[2021-05-03] MEDS ORDERED: [UNRECOGNIZED DRUG - REMARK] PO SCH (21:00)
[2021-05-03] MEDS: ALBUT/IPRATROP 3MG/0.5MG NEB 3 ML VIAL NEB SCH (23:29)
[2021-05-04] MEDS: ALBUT/IPRATROP 3MG/0.5MG NEB 3 ML VIAL NEB SCH ×6 (02:09→22:40)
[2021-05-04] MEDS: PIPERACILLIN/TAZOBACTAM 3.375 GM in DEXTROSE 5% 100 ML IV SCH ×2 (03:25→10:48)
[2021-05-04 07:34] LABS: Hematocrit (blood only) 36.7 % (37-47); Hemoglobin 11.6 g/dL (12.0-16.0); Mean Corpuscular Hemoglobin 27.5 pg (25-34); Mean Corpuscular Hgb Conc 31.6 g/dL (32-36); Mean Platelet Volume 11.1 fL (7.4-10.4); Platelet Count 189 K/uL (130-400); RDW Coefficient of Variation 15.4 % (11.5-14.5); RDW Standard Deviation 49.3 fL (36.4-46.3); Red Blood Count 4.22 M/uL (4.2-5.4); White Blood Count 12.23 K/uL (4.8-10.8)
[2021-05-04 08:05] LABS: BUN Creatinine Ratio 22.2 (10-20); Calcium 9.3 mg/dl (8.5-10.1); Creatinine Clr Calc Pharmacy 64.6 ml/min; Est GFR (African American) 78.8 ml/min; Potassium 3.5 mmol/L (3.5-5.1)
[2021-05-04 08:38] LABS: Basophils # (auto) 0.01 K/uL (0-0.2); Basophils % (auto) 0.1 %; Immature Granulocytes # (auto) 0.02 K/uL (0.00-0.02); Immature Granulocytes % (auto) 0.2 %; Lymphocytes # (auto) 0.63 K/uL (1.2-3.4); Lymphocytes % (auto) 5.2 %; Monocytes # (auto) 0.34 K/uL (0.11-0.59); Monocytes % (auto) 2.8 %; Neutrophils # (auto) 11.23 K/uL (1.4-6.5); Neutrophils % (auto) 91.7 %
--- NOTE | 2021-05-04 08:44 | Pulmonary Consultation ---
Date of Consultation May 04, 2021 Assessment & Plan (1) Bilateral pleural effusion: 75 year old female w/ PMHx of PE/DVT/afib on Eliquis, asthma, history of vocal cord paralysis who presents w/ acute hypoxic respiratory failure most likely secondary to pneumonia, possibly aspiration-type because of vocal cord paralysis. Pulm consulted for pleural effusions. pleural effusion Moderate left and small right pleural effusion, slightly increased from prior (02/2021). Will assess via bedside ultrasound to determine if thoracentesis of L side indicated. If loculated/complex, consider thora today. If fluid is simple, would wait 48 hours after last Eliquis dose. acute respiratory failure with hypoxia Home desat and transient desat to 86 noted. Patient is saturating well on 2L. Likely secondary to acute pneumonia. Intermittent tachycardia noted, most likely from sepsis state. Considered PE; lower suspicion while on Eliquis. pneumonia Procalc elevated at 3.67. Mild leukocytosis. Bilateral lower lung airspace opacities noted, worse on L. Continue Zosyn and IV Azithro. 05/03 BC no growth x 24 hours. Sputum gram stain w/ moderate epithelail cells, many wbcs, moderate gram pos cocci clusters, and few gram neg bacilli. Prelim sputum culture w/ moderate normal suzanne. chronic anticoagulation use for hx of VTE and afib Last Eliquis 189905/03/21, currently held. Subjective hx of mild red-tinge sputum noted, most likely 2/2 pneumonia. Considering IV heparin drip given hypercoagulable hx, but will defer until bedside US as per above. Hb 13.7->11.6 overnight was noted. asthma Continue Breo ellipta, q4r duoneb, Mucinex. Incentive spirometry. 02/01/21 PFTs. No obstruction. No significant post BD response. Lung volumes suggesting mild air trapping. DLCO mildly reduced. (2) Acute respiratory failure with hypoxia: (3) Cough productive of yellow sputum: (4) Sepsis: (5) Asthma: (6) History of hemoptysis: Supervising Physician Co-Signing Physician Notes Dr. French was the resident-physician during care of patient. I separately evaluated patient for aggarwal portions of the history and the exam. I was present during the critical portion of medical decision making, and I discussed the case with the resident. I generally agree with the findings and plan except for any additions/exceptions noted. 72-year-old female with past medical history of asthma, restrictive lung disease from elevated left hemidiaphragm, vocal cord dysfunction, pulmonary embolism with factor V Leiden deficiency history of medical bacterium GERD any, upper airway cough syndrome presented to hospital with complaints of cough going on since last couple of days for bringing up green phlegm. He also complains of blood-tinged phlegm. She denies any chest pain. No fever or chills. No dysuria, no diarrhea. No headache, no blurry vision No nausea or vomiting Social history: Approximately [id number] smoking history quit a long time ago, quit long time ago Constitutional: No acute distress HEENT: EOMI, PERRLA Respiratory system: Decreased air entry bilaterally, positive crackles bilateral lower lobes more on the left side, no wheeze, no rhonchi CVS: S1-S2 positive, no murmurs or gallops Abdomen: Soft, nontender, nondistended, positive bowel sounds x4 Extremities: +2 pulses bilaterally radialis/ dorsalis pedis, no cyanosis, no edema Neuro: Awake alert oriented x3 Psych: Normal mood and affect G/U: No Urban Plan: I did bedside ultrasound. Patient has dense consolidative process on the left side. There is no significant pleural effusion. B-lines appreciated on the left side I would recommend continue with antibiotics Continue with flutter valve along with incentive spirometry Procalcitonin 3.67 BNP 745 COVID-19 PCR negative Nasal MRSA negative Continue with antibiotics for at least 7-10 days Follow sputum culture Hold apixaban for hematemesis. CT chest without contrast in a.m. Please note the above document was generated using voice recognition software. It may contain grammatical, syntax or spelling errors.Any formal questions or concerns about the content, text or information contained within the body of this dictation should be directly addressed to the provider for clarification. History of Present Illness Reason for Consultation: pleural effusion Attending Physician: Cj Spangler DO History of Present Illness Zara Cohn is a 75 year old female w/ PMHx of factor V Leiden (heterozygous) PE on Eliquis, asthma, history of vocal cord paralysis, upper airway cough syndrome, and history of Mycobacterium gordonae who presents w/ fever, cough, SOB, hypoxia. She had early stage breast cancer, treated 10 years ago via radiation therapy. She is being treated by the hospitalist service for likely aspiration pneumonia. Pulmonary consultation was requested to evaluate patient's bilateral pleural effusions. She presented to the ED on 05/03/21 for desaturation to 79% and tachycardia to 149 on pulse ox at home and a day of worsening productive cough (green sputum) and was found to be febrile to 38.4C at arrival. Pulmonary consultation as requested to evaluate patient's bilateral pleural effusions, which have worsened since prior imaging. Patient's main subjective complaint is the productive cough. She also noticed some red tinge in her sputum today. She has had hx of hemoptysis in past and after her Eliquis dose was decreased from 5mg BID to 2.5mg BID, had not had reoccurrence. She is not on home O2. She had 3rd dose of Pfizer on 05/01/21. 20+ pack year hx, quit at age 42. Denies occupational exposures. Allergies Allergy/AdvReac Type Severity Reaction Status Date / Time shellfish derived Allergy Intermediate ITCHY, Verified 05/03/21 14:05 THROAT SWELLING No Known Drug Allergies Allergy Unknown . Verified 05/03/21 14:05 Home Medications Medication Instructions Recorded Confirmed Type polyethylene glycol 3350 17 17 g PO DAILY PRN 09/13/18 05/03/21 History gram/dose oral powder (Miralax) melatonin 5 mg capsule 5 mg PO HS PRN cap 02/26/19 05/03/21 History rosuvastatin 5 mg tablet (Crestor) 5 mg PO QAM 10/31/19 05/03/21 History pantoprazole 40 mg tablet,delayed 40 mg PO QDD 11/14/19 05/03/21 History release (Protonix) budesonide-formoterol HFA 80 2 inh INHALATION BID 02/24/20 05/03/21 History mcg-4.5 mcg/actuation aerosol inhaler (Symbicort) albuterol sulfate 90 mcg/actuation 2 puffs INH QID PRN 02/25/20 05/03/21 History breath activated powder inhaler (ProAir RespiClick) coenzyme Q10 100 mg capsule (Co 100 mg PO QAM 02/25/20 05/03/21 History Q-10) apixaban 2.5 mg tablet (Eliquis) 2.5 mg PO BID 08/07/20 05/03/21 History famotidine 20 mg tablet (Pepcid) 10 mg PO HS 09/15/20 05/03/21 History Flutter Valve #1 ea 02/01/21 03/10/21 Rx guaifenesin 600 mg tablet, 600 mg PO Q12H PRN 02/15/21 05/03/21 History extended release 12 hr (Mucinex) benzonatate 100 mg capsule 100 mg PO Q8H PRN #60 cap 02/18/21 05/03/21 Rx (Tessalon Perles) pseudoephedrine HCl 30 mg tablet 30 mg PO BID #60 tab 02/18/21 05/03/21 Rx (Suphedrine) amlodipine 2.5 mg tablet (Norvasc) 2.5 mg PO HS 05/03/21 05/03/21 History chlorpheniramine maleate 4 mg 4 mg PO Q12H 05/03/21 05/03/21 History tablet (Allergy (chlorpheniramine)) fluticasone propionate 50 2 spray INTRANASAL QAM 05/03/21 05/03/21 History mcg/actuation nasal spray,suspension (Children's Flonase Allergy Relief) sucralfate 1 gram tablet (Carafate) 1 g PO BID 05/03/21 05/03/21 History Patient History Medical History (Updated 05/04/21 @ 08:16 by Tylor Mayo MD) Anemia Aspiration pneumonia Asthma inhaler prn Bronchiectasis Cancer breast ca - left - partial mastectomy - radiation Chronic cough Factor V Leiden GERD (gastroesophageal reflux disease) Hiatal hernia History of anesthesia reaction ? pt thinks she had an issue after vocal cord surgery but can't remember History of hemoptysis eliquis recently decreased from 5 mg PO BID to 2.5 mg PO BID. pt denies hemoptysis since decreasing eliquis dose History of vocal cord paralysis cause? Hyperlipidemia Hypertension Laryngopharyngeal reflux Mild asthma Pulmonary embolism -10/2019 -- factor V -- on eliquis BID -7 years ago - post hiatal hernia repair - pt also has factor V - [facility] - treated w/ AC Restrictive lung disease Shortness of breath Upper airway cough syndrome Surgical History History of arthroscopy of right knee meniscus repair History of breast biopsy History of colonoscopy History of esophagogastroduodenoscopy (EGD) History of hernia repair History of repair diaphramic hernia by thoracoabdominal approach History of laryngoscopy History of direct laryngoscopy with injection into vocal chords History of left cataract surgery History of nasal polypectomy History of Dillon fundoplication History of esophagogastric fundoplasty dillon fundoplication History of partial mastectomy of left breast History of repair of hiatal hernia History of surgery vocal cord surgery History of surgery lysis of abdominal adhesions 10/2019 [facility] History of tooth extraction History of vaginal surgery History of wisdom tooth extraction Family History Brother Family history of diabetes mellitus Father Cerebral artery occlusion with cerebral infarction Sister Factor V Leiden mutation Hypercoagulation Other No family history of adverse response to anesthesia Social History Smoking Status: Former smoker Tobacco Type: Cigarettes Cigarettes Per Day: 1 pack per day; Second Hand Exposure: No; Do You Dip or Chew Tobacco: No; Tobacco Cessation Education Requested by Patient: No Hx Alcohol Use: Yes Alcohol type: beer, wine and hard liquor Hx Substance Use: Yes Substance Use Type Other:: 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 MARIJUANA Preferred Language: Hungarian Communication Ability: Effective 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 + chills. intentional wt loss 25 lbs x 5 months. Lupe Doroteo diet. Eyes: Denies blurry vision ENT: Denies sore throat Cardiovascular: Denies chest pain, palpitations Respiratory: + chronic RANDALL Gastrointestinal: Denies nausea, vomiting, constipation, diarrhea. Intermittent rib discomfort, attributed to cough. Genitourinary: Denies urinary symptoms including dysuria Musculoskeletal: Denies weakness Neurological: Denies headache, numbness, tingling, focal weakness Physical Exam Physical Exam: General: Grossly A&O. NAD. Cooperative. HEENT: Atraumatic, normocephalic. EOMI. No LAD. Neck supple. Pulm: Coarse inspirations. R upper lung field clear. No wheezing. No respiratory distress. No accessory muscle use. Nasal cannula currently at 2L. Cardiac: TRR, -mrg. Radial pulses intact and symmetrical. Puffy lower extremities. No pitting edema. Abdominal: Nontender, nondistended, soft. Integ: Warm, dry, intact. Results & Data Results & Data ([facility]) Vital Signs (Past 12 Hours) Vital Signs Temp Pulse Pulse Resp BP Pulse Ox 05/04/21 07:51 37.0 C 101 H 18 118/67 96 05/04/21 07:32 75 05/04/21 07:19 84 18 96 05/04/21 03:37 36.6 C 92 H 18 102/64 94 05/04/21 02:11 86 18 94 05/04/21 00:00 81 05/03/21 23:29 86 14 96 05/03/21 22:50 36.5 C 83 19 111/71 99 Laboratory Results wbc 14.34->12.23. Hb 13.7->11.6. INR 1.2. apt 32.8. Electrolytes and kidney function acceptable. covid neg. 05/04/21 07:07 05/04/21 07:07 Diagnostic Findings Chest X-Ray 05/03/21 11:42 XR chest 1V portable INDICATION: [place] ^SEPSIS . TECHNIQUE: Single frontal radiograph of the chest was obtained. Comparison: Comparison is made to chest 2 views 02/18/2031 FINDINGS: No lines and tubes are seen. Calcified aortic knob is seen. The cardiac mediastinal silhouette is obscured. Airspace opacities are seen in the left re trocardiac region and right lower lung. There is a moderate left and small right pleural effusion. IMPRESSION: Moderate left and small right pleural effusion, increased from the prior. Worsened airspace opacities in the bilateral lower lungs which may represent atelectasis, pneumonia, and/or aspiration. ACT 112: Negative or not required by law. Electronically signed by: Michael Gayle M.D. 05/03/2021 12:38 PM Resident Activity Tracking Resident Involvement: Resident Care Provided Care Provided: [facility] Medicine
[2021-05-04] MEDS: FLUTICASONE/VILANTEROL 100/25MCG 14 PUFFS/INHALER INH SCH (08:46)
[2021-05-04] MEDS: ROSUVASTATIN CALCIUM 5 MG TAB PO SCH (08:47)
[2021-05-04] MEDS: SUCRALFATE 1 GM TAB PO SCH ×2 (08:47→20:33)
[2021-05-04] MEDS: guaiFENesin 600 MG TABCR PO SCH ×2 (08:47→20:33)
--- NOTE | 2021-05-04 14:33 | Hospitalist Progress Note ---
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 Bacterial Pneumonia with Acute Hypoxemic respiratory failure and Sepsis - Community acquired vs. aspiration pneumonia - Overall symptoms are improving - CXR 05/03: Moderate left and small right pleural effusion, increased from the prior. Worsened airspace opacities in the bilateral lower lungs which may represent atelectasis, pneumonia, and/or aspiration. - Pneumonia likely secondary to aspiration given hx of vocal cord dysfuncti on/paralysis and chronic postnasal drip - Will consult ST - Lactate 1.6 on admission - MRSA negative, COVID negative - Started on IV Zosyn and Azithromycin --> switched to Ceftriaxone and A zithromycin today, 05/04 - Blood cx pending - Sputum cx preliminary with moderate gram positive cocci in clusters and few gram negative bacilli - Encourage IS and flutter valve use - Continue supplemental O2 to maintain O2 sat > 92% - Pulmonology consulted. Appreciate their assistance and recommendations. - Bedside US performed for concerns of pulmonary effusion, ? thoracentesis; dense consolidative process on the left side, no significant pleural effusion, no indication for thoracentesis at this time - Recommend continuing with abx therapy for at least 7-10 days as well as flutter valve adn incentive spirometry - Follow sputum culture - Continue to hold apixaban - Plan for chest CT w/o contrast in AM Reflux - Continue home pantoprazole, famotidine, and carafate Vocal cord paralysis - ST consulted - Aspiration precauations Factor V Leiden mutation w/ hx of recurrent PE - History of recurrent PE - On 2.5 mg apixaban, currently being held in the setting of hemoptysis Diet: Regular Disposition: med/surge Code: FULL CODE (2) Bilateral pleural effusion: (3) Acute respiratory failure with hypoxia: (4) Shortness of breath: (5) Factor V Leiden mutation: (6) Cough: (7) Vocal cord paralysis: Admission and Anticipated Discharge Date Admission Date: May 03, 2021 Supervising Physician Co-Signing Physician Notes I personally examined the patient and verified all aggarwal points of history and exam, discussed case, and agree with decision making with Dr Eisenberg cough much less purulent. Feeling better. Breathing better. Does have some hemoptysis. Vitals noted, in general she is awake and alert pleasant no distress. HEENT normocephalic atraumatic mucous membranes are moist. Left greater than right bibasilar rales no rhonchi no wheezes good effort. No accessory muscle use. Neuro without focal deficits. Community-acquired versus aspiration pneumonia with acute hypoxic respiratory failure and sepsis all present on admissionall improving quite nicely. Continue antibiotics. Fortunately no significant effusion/nothing that needs to have thoracentesis. Back to room air. Hopefully ongoing fairly rapid improvement. Otherwise as above Subjective Patient seen and evaluated at bedside this morning. Reports longstanding hx of cough w/ sputum production and dyspnea for the past several years. However, symptoms worsening over the past several days and yesterday she called her PCP. Patient has a home pulse ox/HR monitor and when she caled her PCP, the pulse ox was reportedly 79% on room air w/ pulse of 148. At that time it was recommended that she come to the hospital for further evaluation. Ultimately admitted with sepsis and bacterial pneumonia. Since admission, sputum quality has changed from a yellow production to green production to darker green/brown + hemoptysis this morning. Patient states that the SOB has been unchanged. Generally feels unwell. Denies persistent/recurrent fever or chills. No abdominal pain, nausea, or vomiting. Review of Systems Constitutional: + fatigue; no fever and no chills Eyes: no problem reported Ear, Nose, Mouth, Throat: no problem reported Respiratory: + cough, + change in sputum, + dyspnea and + hemoptysis Cardiovascular: no chest pain Gastrointestinal: no abdominal pain, no nausea, no vomiting and no diarrhea/loose stools Genitourinary: no dysuria and no problem reported Neurologic: no dizziness, no syncope and no headache(s) Physical Exam Physical Exam: GENERAL: No acute distress. Well developed and well nourished. Vital signs reviewed as above. EYES: EOMI. Anicteric sclerae. HENT: Atraumatic, normocephalic. Moist mucous membranes. RESPIRATORY: Coarse breath sounds with rhonci and crackles bilaterally. No wheez ing. No acute respiratory distress. Supplemental O2 via NC at 2L, satting > 95%. CARDIOVASCULAR: Regular rate and rhythm. No murmurs. ABDOMEN: Soft, non-tender and non-distended. Normal bowel sounds. EXTREMITIES: No edema. Non-tender. SKIN: Warm, dry. No rashes or lesions. NEUROLOGIC: A/O x3. No focal neurological deficits. PSYCHIATRIC: Cooperative. Appropriate mood and affect. Results & Data Results & Data ([facility]) Vital Signs (Past 12 Hours) Vital Signs Temp Pulse Pulse Resp BP Pulse Ox 05/04/21 14:05 88 18 97 05/04/21 12:15 36.7 C 98 H 22 120/84 97 05/04/21 11:10 81 18 96 05/04/21 07:51 37.0 C 101 H 18 118/67 96 05/04/21 07:32 75 05/04/21 07:19 84 18 96 05/04/21 03:37 36.6 C 92 H 18 102/64 94 Resident Activity Tracking Resident Involvement: Resident Care Provided Care Provided: Adult Hospital Medicine
[2021-05-04] MEDS: AZITHROMYCIN 250 MG in DEXTROSE 5% 250 ML IV SCH (15:52)
[2021-05-04] MEDS: PANTOprazole 40 MG TAB PO SCH (15:53)
--- NOTE | 2021-05-04 17:40 | Billing Data ---
Date of Service May 04, 2021 Coding Level of Care Code 95112 Initial Inpt Care Lvl 3
--- NOTE | 2021-05-04 17:43 | Procedure Note ---
Procedure Note Date of Service May 04, 2021 Supervising Physician Co-Signing Physician Notes Bedside Ultrasound: Right lung: B-lines appreciated posteriorly inferiorly, no pleural effusion, a lines anteriorly Left lung: Elevated left hemidiaphragm, consolidated left lung, no significant pleural effusion appreciated. Please note the above document was generated using voice recognition software. It may contain grammatical, syntax or spelling errors.Any formal questions or concerns about the content, text or information contained within the body of this dictation should be directly addressed to the provider for clarification. Coding CPT Codes Pulmonary/Thoracic - Pulmonary and Thoracic: 40108 US, Chest, real time with imaging documentation ([id number]) [facility] [place]) Pulmonary/Thoracic Procedure 1: Pulmonary and Thoracic: 48003 US, Chest, real time with imaging documentation
--- NOTE | 2021-05-04 17:52 | Billing Data ---
Date of Service May 04, 2021 Coding Level of Care Code 62484 Subseq Hosp Care Lvl 3
[2021-05-04] MEDS: cefTRIAXone SODIUM 2,000 MG in DEXTROSE 5% 50 ML IV SCH (18:02)
[2021-05-04] MEDS: FAMOTIDINE 10 MG TABLET PO SCH (20:33)
--- NOTE | 2021-05-04 21:37 | Electrocardiogram Report ---
Test Reason : Blood Pressure : / mmHG Vent. Rate : 137 BPM Atrial Rate : 137 BPM P-R Int : 160 ms QRS Dur : 094 ms QT Int : 298 ms P-R-T Axes : -23 -19 -18 degrees QTc Int : 449 ms Poor data quality, interpretation may be adversely affected Sinus tachycardia Possible Anterolateral infarct , age undetermined Abnormal ECG When compared with ECG of 15-FEB-2021 09:44, Vent. rate has increased BY 48 BPM Confirmed by Torey Aguilar ([id number]) on 05/04/2021 9:37:31 PM Referred By: REFERRED SELF Confirmed By:Torey Aguilar
[2021-05-04] MEDS: BENZONATATE 100 MG CAPSULE PO PRN (23:11)
[2021-05-05] MEDS: MELATONIN 3 MG TAB PO PRN ×2 (00:48→21:37)
[2021-05-05] MEDS: ALBUT/IPRATROP 3MG/0.5MG NEB 3 ML VIAL NEB SCH ×6 (01:58→21:48)
[2021-05-05] MEDS: BENZONATATE 100 MG CAPSULE PO PRN ×2 (06:43→21:37)
[2021-05-05 08:04] LABS: Eosinophils # (auto) 0.01 K/uL (0-0.5); Eosinophils % (auto) 0.1 %; Hematocrit (blood only) 37.7 % (37-47); Immature Granulocytes # (auto) 0.01 K/uL (0.00-0.02); Immature Granulocytes % (auto) 0.1 %; Lymphocytes # (auto) 0.91 K/uL (1.2-3.4); Lymphocytes % (auto) 10.1 %; Mean Corpuscular Hemoglobin 27.7 pg (25-34); Mean Corpuscular Hgb Conc 31.8 g/dL (32-36); Mean Corpuscular Volume 87.1 fL (80-100); Mean Platelet Volume 10.9 fL (7.4-10.4); Monocytes # (auto) 0.47 K/uL (0.11-0.59); Monocytes % (auto) 5.2 %; Neutrophils # (auto) 7.64 K/uL (1.4-6.5); Neutrophils % (auto) 84.5 %; Platelet Count 187 K/uL (130-400); RDW Coefficient of Variation 15.6 % (11.5-14.5); RDW Standard Deviation 50.3 fL (36.4-46.3); Red Blood Count 4.33 M/uL (4.2-5.4); White Blood Count 9.04 K/uL (4.8-10.8)
[2021-05-05] MEDS: FLUTICASONE/VILANTEROL 100/25MCG 14 PUFFS/INHALER INH SCH (08:18)
[2021-05-05] MEDS: guaiFENesin 600 MG TABCR PO SCH ×2 (08:19→21:36)
[2021-05-05] MEDS: ROSUVASTATIN CALCIUM 5 MG TAB PO SCH (08:19)
[2021-05-05] MEDS: SUCRALFATE 1 GM TAB PO SCH ×2 (08:19→21:36)
--- NOTE | 2021-05-05 08:23 | CT Scan Report ---
CT SCAN OF THE CHEST WITHOUT IV CONTRAST CLINICAL HISTORY: Pneumonia. COMPARISON STUDY: Chest CT scans dated 02/24/2020 and 01/17/2017. Chest x-ray dated 05/03/2021. TECHNIQUE: CT scan of the thorax was performed from the thoracic inlet to the upper abdomen. Images are reviewed in the axial, sagittal, and coronal planes. IV contrast was not administered for this ex amination as per the referring clinician. A dose lowering technique was utilized adhering to the kellee Gaspar. CT DOSE: 285.44 mGy.cm FINDINGS: Thyroid: Imaged portions of the thyroid gland are normal in size and attenuation. Thoracic aorta: There is mild atherosclerotic calcification of the thoracic aorta, which is normal in caliber and demonstrates bovine variant arch anatomy. Heart: The heart is enlarged noting trace pericardial effusion. The coronary arteries are densely zachariah cified. Lungs and pleural spaces: There is dense bibasilar airspace consolidation. Patchy groundglass consoli dation is seen in the left upper lobe. The trachea and central airways are clear. There are trace ple ural effusions. Mediastinum: There is no mediastinal lymphadenopathy. Arti: Not well assessed without IV contrast. Axillae: There is no axillary lymphadenopathy. Upper abdomen: There is a moderate hiatal hernia. Postoperative changes consistent with previous repa ir of the left hemidiaphragm. Skeletal structures: The skeletal structures are osteopenic. Degenerative change and kyphoscoliosis a re noted in the thoracic spine. No lytic or blastic bony lesions are seen. IMPRESSION: 1. Multifocal airspace consolidation is typical for pneumonia/aspiration pneumonitis. Clinical correl ation will be required and radiographic follow-up to resolution is recommended. 2. Cardiomegaly. 3. Trace pleural effusions. 4. Hiatal hernia. 5. Additional findings as above. ACT 112: Negative or not required by law. Electronically signed by: Les Fowler M.D. 05/05/2021 8:22 AM
[2021-05-05 08:35] LABS: BUN Creatinine Ratio 22.1 (10-20); Calcium 8.7 mg/dl (8.5-10.1); Creatinine Clr Calc Pharmacy 64.8 ml/min; Est GFR (African American) 78.8 ml/min; Potassium 3.4 mmol/L (3.5-5.1)
[2021-05-05] MEDS ORDERED: POTASSIUM CHLORIDE CRTAB 20 MEQ TABCR PO STA (09:21)
--- NOTE | 2021-05-05 14:07 | Pulmonology Progress Note ---
Date of Service May 05, 2021 Assessment & Plan (1) Bilateral pleural effusion: Plan: 75 year old female w/ PMHx of PE/DVT/afib on Eliquis, asthma, history of vocal cord paralysis who presents w/ acute hypoxic respiratory failure most likely secondary to pneumonia, possibly aspiration-type because of vocal cord paralysis. Pulm consulted for pleural effusions. --Acute hypoxic respiratory failure Secondary to multilobar pneumonia Continue with antibiotics to cover for anaerobes as well as gram negatives Procalcitonin 3.67 BNP 745 COVID-19 PCR negative Nasal MRSA negative Follow sputum culture --Elevated left hemidiaphragm Continue with incentive spirometry --History of asthma On Breo currently Would continue with same 02/01/21 PFTs. No obstruction. No significant post BD response. Lung volumes suggesting mild air trapping. DLCO mildly reduced. Plan: We will resume apixaban. Patient has no pleural effusion would recommend discontinuing with antibiotics for at least 10 days. Incentive spirometer along with flutter valve. Patient does complain of fits of cough and was requesting cough medication. Will start her on guaifenesin DM [id number]. No further recommendation from pulmonary perspective. Please call directly with any questions We will sign off. Please note the above document was generated using voice recognition software. It may contain grammatical, syntax or spelling errors.Any formal questions or concerns about the content, text or information contained within the body of this dictation should be directly addressed to the provider for clarification. (2) Acute respiratory failure with hypoxia: (3) Cough productive of yellow sputum: (4) Sepsis: (5) Asthma: (6) History of hemoptysis: Admission and Anticipated Discharge Date Admission Date: May 03, 2021 Subjective Patient seen and examined at bedside. No acute distress, no adverse events overnight Patient still complains of cough. She is bringing up phlegm. No hemoptysis No chest pain, no headache, no nausea, no vomiting Fair appetite Review of Systems Review of Systems: All systems reviewed & are unremarkable except as noted in Subjective Physical Exam Physical Exam: Constitutional: No acute distress HEENT: EOMI, PERRLA Respiratory system: Decreased air entry bilaterally, no wheeze, rhonchi, positive crackles bilateral lower lobes more on the left side CVS: S1-S2 positive, no murmurs or gallops Abdomen: Soft, nontender, nondistended, positive bowel sounds x4 Extremities: +2 pulses bilaterally radialis/ dorsalis pedis, no cyanosis, no edema Neuro: Awake alert oriented x3 Psych: Normal mood and affect G/U: No Urban Skin: no rashes, warm and dry Lymphatic: no cervical or axillary lymphadenopathy Results & Data Results & Data ([facility]) Vital Signs (Past 12 Hours) Vital Signs Temp Pulse Pulse Resp BP Pulse Ox 05/05/21 11:45 36.7 C 103 H 18 117/72 90 05/05/21 10:44 83 18 91 05/05/21 07:54 37.1 C 98 H 19 146/84 H 91 05/05/21 07:17 84 18 96 05/05/21 07:00 81 05/05/21 05:00 85 124/75 94 05/05/21 04:12 36.7 C 84 16 122/75 95 05/05/21 07:46 05/05/21 07:46 PG Care Time/CCT Total # of Minutes Spent Total Time Spent with Patient: Total time spent is greater than 50% in coordination of care (as documented) at patient's floor/unit and/or counseling patient: Coding Level of Care Code 85482 Subseq Hosp Care Lvl 3 Diagnoses Bilateral pleural effusion J90 Acute respiratory failure with hypoxia J96.01 Cough productive of yellow sputum R05 Sepsis A41.9 Asthma J45.909 History of hemoptysis Z87.09
[2021-05-05] MEDS: guaiFENesin/DEXTROM SYRUP 100MG/10MG 5ML UDC PO SCH (16:15)
[2021-05-05] MEDS: AZITHROMYCIN 250 MG in DEXTROSE 5% 250 ML IV SCH (17:08)
[2021-05-05] MEDS: PANTOprazole 40 MG TAB PO SCH (17:08)
[2021-05-05] MEDS: cefTRIAXone SODIUM 2,000 MG in DEXTROSE 5% 50 ML IV SCH (17:30)
--- NOTE | 2021-05-05 19:42 | Hospitalist Progress Note ---
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 Bacterial Pneumonia with Acute Hypoxemic respiratory failure and Sepsis - Community acquired; aspiration pneumonia ruled out w/ ST and FEES negative - Overall symptoms are improving - CXR 05/03: Moderate left and small right pleural effusion, increased from the prior. Worsened airspace opacities in the bilateral lower lungs which may represent atelectasis, pneumonia, and/or aspiration. - Chest CT 05/05: - Lactate 1.6 on admission - MRSA negative, COVID negative - Started on IV Zosyn and Azithromycin --> switched to Ceftriaxone and Azithromycin 05/04; will plan to discharge home on cefdinir and azithromycin for total duration of treatment of at least 10 days - Blood cx pending - Sputum cx preliminary with moderate gram positive cocci in clusters and few gram negative bacilli; continue to follow - Encourage IS and flutter valve use - Continue supplemental O2 to maintain O2 sat > 92% - Pulmonology consulted. Appreciate their assistance and recommendations. - Bedside US performed for concerns of pulmonary effusion, ? thoracentesis on 05/05; dense consolidative process on the left side, no significant pleural effusion, no indication for thoracentesis at this time - Recommend continuing with abx therapy for at least 7-10 days as well as flutter valve and incentive spirometry - Follow sputum culture - 02/01/21 PFTs. No obstruction. No significant post BD response. Lung volumes suggesting mild air trapping. DLCO mildly reduced. - Starting on guaifenesin DM [id number] - Will restart Eliquis today Reflux - Continue home pantoprazole, famotidine, and carafate Vocal cord paralysis - ST consulted: She did not aspirate at all. Her left vocal fold is paralyzed, but the right one moves well enough to compensate for that. Factor V Leiden mutation w/ hx of recurrent PE - History of recurrent PE - On 2.5 mg apixaban, restarted today Diet: Regular Disposition: med/surge Code: FULL CODE (2) Bilateral pleural effusion: (3) Acute respiratory failure with hypoxia: (4) Shortness of breath: (5) Factor V Leiden mutation: (6) Cough: (7) Vocal cord paralysis: Admission and Anticipated Discharge Date Admission Date: May 03, 2021 Supervising Physician Co-Signing Physician Notes I personally examined the patient and verified all aggarwal points of history and exam, discussed case, and agree with decision making with Dr Eisenberg Feeling better, but still not great. Still fatigued and coughing. Sputum has returned some. Dyspnea on exertion. Vitals noted, in general she is awake and alert pleasant no distress. HEENT normocephalic atraumatic mucous membranes are moist. Left greater than right bibasilar rales no rhonchi no wheezes good effort little bit louder, but a little bit better air entry than yesterday. No accessory muscle use. Neuro without focal deficits. Walked in the hallway with patient, she became dyspneic using accessory muscles at about 50 feet of ambulation, and was a little bit weak on her feet Community-acquired pneumonia with acute hypoxic respiratory failure and sepsis all present on admissionstill showing improvement. Continue current antibioticsconsidered home today, but she still has rather significant dyspnea on exertionhopefully home tomorrow on p.o. antibiotics. Discussed her situationshe wondered about this and her episode in Februarythe episode in February appears to have been more from a cough not necessarily a clearly obvious pneumonia, as compared to this 1. We discussed the very unlikely possibility of any kind of immune deficiency, and whether or not she might have COPDlater PFTs reviewed, she has a degree of restrictive lung disease. Otherwise as above Subjective Patient seen and evaluated at bedside this morning. No acute events overnight. Reports persistent productive cough but notes that there has been no persistent hemoptysis. Overall does not feel significantly changed from yesterday. Eating well without abdominal pain, nausea, or vomiting. Denies CP, MCFADDEN, lightheadedness, or dizziness. Review of Systems Review of Systems: See HPI Physical Exam Physical Exam: GENERAL: No acute distress. Well developed and well nourished. Vital signs reviewed as above. Appears fatigued. EYES: EOMI. Anicteric sclerae. HENT: Atraumatic, normocephalic. Moist mucous membranes. RESPIRATORY: Coarse breath sounds bilaterally with crackles in bilateral lower lobes, improved from yesterday. No wheezing. No acute respiratory distress. CARDIOVASCULAR: Regular rate and rhythm. No murmurs. ABDOMEN: Soft, non-tender and non-distended. Normal bowel sounds. EXTREMITIES: No edema. Non-tender. SKIN: Warm, dry. No rashes or lesions. NEUROLOGIC: A/O x3. No focal neurological deficits. PSYCHIATRIC: Cooperative. Appropriate mood and affect. Results & Data Results & Data ([facility]) Vital Signs (Past 12 Hours) Vital Signs Temp Pulse Resp BP Pulse Ox Pulse Ox 05/05/21 19:28 78 95 05/05/21 16:00 94 05/05/21 15:51 77 18 96 05/05/21 15:44 36.9 C 91 H 18 122/76 91 05/05/21 11:45 36.7 C 103 H 18 117/72 90 05/05/21 10:44 83 18 91 05/05/21 07:54 37.1 C 98 H 19 146/84 H 91 Resident Activity Tracking Resident Involvement: Resident Care Provided Care Provided: Adult Hospital Medicine
--- NOTE | 2021-05-05 20:22 | Billing Data ---
Date of Service May 05, 2021 Coding Level of Care Code 24835 Subseq Hosp Care Lvl 3
[2021-05-05] MEDS: FAMOTIDINE 10 MG TABLET PO SCH (21:36)
[2021-05-05] MEDS: APIXABAN 2.5 MG TAB PO SCH (21:37)
[2021-05-05] MEDS ORDERED: NURSING DECISION MEDICATION PRN (23:34)
[2021-05-05] MEDS ORDERED: CHLORASEPTIC 1.4% SOLN 180 ML BTL MT PRN (23:48)
[2021-05-06] MEDS: guaiFENesin/DEXTROM SYRUP 100MG/10MG 5ML UDC PO SCH ×3 (00:16→12:57)
[2021-05-06] MEDS: ALBUT/IPRATROP 3MG/0.5MG NEB 3 ML VIAL NEB SCH ×3 (02:07→12:30)
[2021-05-06 07:33] LABS: Calcium 8.9 mg/dl (8.5-10.1); Creatinine Clr Calc Pharmacy 68.8 ml/min; Est GFR (African American) 84.8 ml/min; Est GFR (Non-African American) 73.1 ml/min; Potassium 3.2 mmol/L (3.5-5.1)
[2021-05-06] MEDS ORDERED: COUGH DROP (SUGAR FREE) LOZ 24 LOZ/1 BOX BUCCAL STA (07:49)
[2021-05-06] MEDS ORDERED: POTASSIUM CHLORIDE CRTAB 20 MEQ TABCR PO STA (08:22)
[2021-05-06 08:28] LABS: Basophils # (auto) 0.01 K/uL (0-0.2); Basophils % (auto) 0.1 %; Eosinophils # (auto) 0.02 K/uL (0-0.5); Eosinophils % (auto) 0.3 %; Hematocrit (blood only) 35.1 % (37-47); Hemoglobin 11.3 g/dL (12.0-16.0); Immature Granulocytes # (auto) 0.01 K/uL (0.00-0.02); Immature Granulocytes % (auto) 0.1 %; Lymphocytes # (auto) 0.95 K/uL (1.2-3.4); Lymphocytes % (auto) 12.2 %; Mean Corpuscular Hemoglobin 27.8 pg (25-34); Mean Corpuscular Hgb Conc 32.2 g/dL (32-36); Mean Corpuscular Volume 86.2 fL (80-100); Monocytes # (auto) 0.48 K/uL (0.11-0.59); Monocytes % (auto) 6.2 %; Neutrophils % (auto) 81.1 %; Platelet Count 228 K/uL (130-400); RDW Coefficient of Variation 15.6 % (11.5-14.5); RDW Standard Deviation 49.4 fL (36.4-46.3); Red Blood Count 4.07 M/uL (4.2-5.4); White Blood Count 7.77 K/uL (4.8-10.8)
[2021-05-06] MEDS: SUCRALFATE 1 GM TAB PO SCH (08:30)
[2021-05-06] MEDS: FLUTICASONE/VILANTEROL 100/25MCG 14 PUFFS/INHALER INH SCH (08:30)
[2021-05-06] MEDS: ROSUVASTATIN CALCIUM 5 MG TAB PO SCH (08:31)
[2021-05-06] MEDS: guaiFENesin 600 MG TABCR PO SCH (08:31)
[2021-05-06] MEDS: APIXABAN 2.5 MG TAB PO SCH (08:52)
--- NOTE | 2021-05-06 14:28 | Discharge Summary ---
Date of Service May 06, 2021 Admission HPI Per Admitting Provider Zara Cohn is a 75 year old female who presents to the ER with shortness of breath, hypoxia, chills and increased productive cough. She was recently admitted for the same in February 2021. She is under pulmonology for known asthma, reflux, restrictive lung disease, vocal cord dysfunction and chronic post nasal drip. On her admission in February she was diagnosed with bronchiectasis treated with IV steroids and antibiotics but without significant improvement therefore pulmonology were consulted and stopped steroids and increased her medications for post nasal drip and GERD. She reports her current symptoms started 2 nights ago with increasing productive cough with yellow sputum. Episodes of wheezing and not being able to catch her breath. Last night she started having chills. She took her O2 sats today and they were in the 80s with HR 148. She called her PCP office and advised coming to the ER so she called for an ambulance. She reports having the booster COVID-19 vaccination last Sunday with significant sore arm after this. She did not take any of her regular medications yet this morning. In the ER she is now maintaining O2 sats > 94% on 4LPM O2. CXR was consistent with worsening airspace opacities from prior. SARS-COV-2 PCR negative. She was treated with IV Zosyn and Solu-medrol. She was referred to medicine for admission and ongoing management of aspiration pneumonia and hypoxia. Admission Exam Per Admitting Provider Constitutional: WD/WN, vitals as above Eyes: + anicteric sclerae; normal pupil size ENMT: Mouth: oral mucous membranes not dry Neck: trachea midline, no thyromegaly Respiratory: + labored breathing, + retractions and + uses accessory muscles Auscultation: + crackles (borase bilateral posteriorly); no diminished lung sounds and no wheezes Cardiovascular: Rate/Rhythm: regular rhythm and + tachycardic Extremities: normal capillary refill; no calf tenderness and no pedal edema Gastrointestinal (Abdomen): normal bowel sounds, soft, nontender, no hepatosplenomegaly Musculoskeletal: no cyanosis or clubbing, extremities motor strength 5/5 Skin: no rashes, warm and dry Neurologic: moves all extremities and awake; no focal motor deficits and not confused Psychiatric: A+Ox3, euthymic affect Genitourinary: no CVA tenderness Principal Diagnosis bacterial pneumonia Discharge Exam GENERAL: No acute distress. Well developed and well nourished. Vital signs reviewed as above. EYES: EOMI. Anicteric sclerae. HENT: Moist mucous membranes. RESPIRATORY: Improved air movement with inspiration. Mild bilateral, L>R, rales that are improving. No accessory muscle use. No wheezing. CARDIOVASCULAR: Regular rate and rhythm. No murmurs. ABDOMEN: Soft, non-tender and non-distended. Normal bowel sounds. EXTREMITIES: No edema. Non-tender. SKIN: Warm, dry. No rashes or lesions. NEUROLOGIC: A/O x3. No focal neurological deficits. PSYCHIATRIC: Cooperative. Appropriate mood and affect. Discharge Data Allergies Allergy/AdvReac Type Severity Reaction Status Date / Time shellfish derived Allergy Intermediate ITCHY, Verified 05/03/21 14:05 THROAT SWELLING No Known Drug Allergies Allergy Unknown . 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 Bacterial Pneumonia with Acute Hypoxemic respiratory failure and Sepsis - Community acquired; aspiration pneumonia ruled out w/ ST and FEES negative - Overall symptoms are improving - CXR 05/03: Moderate left and small right pleural effusion, increased from the prior. Worsened airspace opacities in the bilateral lower lungs which may represent atelectasis, pneumonia, and/or aspiration. - Chest CT 05/05: Multifocal airspace consolidation is typical for pneumonia/aspiration pneumonitis. Clinical correlation will be required and radiographic follow-up to resolution is recommended. Cardiomegaly. Trace pleural effusions. - Lactate 1.6 on admission - MRSA negative, COVID negative - Started on IV Zosyn and Azithromycin --> switched to Ceftriaxone and Azithromycin 05/04; discharged home on cefdinir and azithromycin for total duration of treatment of at least 10 days - Blood cx with no growth to date - Sputum cx preliminary with moderate gram positive cocci in clusters and few gram negative bacilli; continue to follow - Continue to encourage IS and flutter valve use; discussed "lung exercises" with patient and encouraged her to continue with these tools even after symptoms improve - Pulmonology consulted. Appreciate their assistance and recommendations. - Bedside US performed for concerns of pulmonary effusion, ? thoracentesis on 05/05; dense consolidative process on the left side, no significant pleural effusion, no indication for thoracentesis at this time - Recommend continuing with abx therapy for at least 7-10 days as well as flutter valve and incentive spirometry - Follow sputum culture - 02/01/21 PFTs. No obstruction. No significant post BD response. Lung volumes suggesting mild air trapping. DLCO mildly reduced. - Starting on guaifenesin DM [id number] - Eliquis initially held due to concerns of hemoptysis but restarted on 05/05 - Patient performed 2-step with respiratory therapy on day of discharge; no indication for need for home supplemental oxygen at this time Reflux - Continue home pantoprazole, famotidine, and carafate Vocal cord paralysis - ST consulted: She did not aspirate at all. Her left vocal fold is paralyzed, but the right one moves well enough to compensate for that. Factor V Leiden mutation w/ hx of recurrent PE - History of recurrent PE - Continue 2.5 mg apixaban Diet: Regular Disposition: med/surge Code: FULL CODE (2) Bilateral pleural effusion: (3) Acute respiratory failure with hypoxia: (4) Shortness of breath: (5) Factor V Leiden mutation: (6) Cough: (7) Vocal cord paralysis: Total Time Total Time Spent Total Time Spent (In Minutes): <30 Discharge Plan Discharge Items Patient Disposition: Home - Self-Care Reason For Visit: SEPSIS,PNEUMONIA Discharge Diagnosis: pneumonia Activity: Resume your previous activity Non-emergency contact: Primary Care Provider Call non-emergency contact if: you have any medication questions and your symptoms worsen Follow-up/Referrals: Thanh Phelan [Primary Care Provider] - 05/09/21 10:50 am (Appointment will be with ) Diet: Regular Addtl Attending Provider Instructions: Zara, It was our pleasure to care for you at [facility] from 05/03/21 to 10/1/21. You initially presented to the ER with concerns of shortness of breath, hypoxia (low blood oxygen levels), chills, and cough. You were diagnosed with bacterial pneumonia. YOUR COVID TEST WAS NEGATIVE. During hospitalization, you were treated with IV fluids and IV antibiotics. You were also evaluated by pulmonology who assisted with the care. You have done well and at this time we feel that it is safe for you to be discharged. You will be discharged with the following medications, please take them as prescribed: 1. Cefdinir (an antibiotic) -- Take 300 mg by mouth twice a day for the next 10 days. 2. Azithromycin (an antibiotic) -- Take 250mg by mouth daily for the next 5 days. As we discussed, continue your "lung workouts" by using the incentive spirometer and flutter valve tools. The goal would be to use these 3-4 times each day. Don't stop using them, even when you feel like your getting better. It is important that you stay well hydrated while you continue to get better -- goal is to drink 80 oz. of water per day. It is also important to get plenty of rest. Follow up with your PCP, Dr. Phelan, in his office on Sunday, May 16 at 1:30pm. If you cannot make this appointment, please call his office at [phone]. Return to the ER if you have any worsening symptoms, cough, fever, or concerns. Pending Studies at Discharge: No Stand-Alone Forms: [facility], Smoking Cessation Medications and DC Order Prescriptions: New cefdinir 300 mg capsule 300 mg PO BID 10 Days Qty: 20 RF: 0 azithromycin 250 mg tablet 250 mg PO DAILY 5 Days Qty: 5 RF: 0 Continued melatonin 5 mg capsule 5 mg PO HS PRN (Reason: Sleep) RF: 0 pantoprazole [Protonix] 40 mg tablet,delayed release (DR/EC) 40 mg PO QDD RF: 0 famotidine [Pepcid] 20 mg tablet 10 mg PO HS RF: 0 ProAir RespiClick 90 mcg/actuation aerosol powdr breath activated 2 puffs INH QID PRN (Reason: sob) RF: 0 coenzyme Q10 [Co Q-10] 100 mg capsule 100 mg PO QAM RF: 0 (DME) Flutter Valve Device See Rx Instructions .ROUTE .MEDSUPPLY Qty: 1 RF: 0 budesonide-formoterol [Symbicort] 80-4.5 mcg/actuation HFA aerosol inhaler 2 inh INHALATION BID RF: 0 Eliquis 2.5 mg tablet 2.5 mg PO BID RF: 0 polyethylene glycol 3350 [Miralax] 17 gram/dose Powder 17 g PO DAILY PRN (Reason: Constipation) RF: 0 rosuvastatin [Crestor] 5 mg tablet 5 mg PO QAM RF: 0 guaifenesin [Mucinex] 600 mg Tablet Extended Release 12hr 600 mg PO Q12H PRN (Reason: Congestion) RF: 0 benzonatate [Tessalon Perles] 100 mg Capsule 100 mg PO Q8H PRN (Reason: cough) Qty: 60 RF: 0 sucralfate [Carafate] 1 gram tablet 1 g PO BID RF: 0 chlorpheniramine maleate [Allergy (chlorpheniramine)] 4 mg tablet 4 mg PO Q12H RF: 0 amlodipine [Norvasc] 2.5 mg tablet 2.5 mg PO HS RF: 0 fluticasone propionate [Children's Flonase Allergy Rlf] 50 mcg/actuation spray,suspension 2 spray intranasal QAM RF: 0 Discontinued pseudoephedrine HCl [Suphedrine] 30 mg Tablet 30 mg PO BID Qty: 60 RF: 0 Discharge Orders: Discharge Order (Routine); Ordered 05/06/21 Ordered By: Sylvia Malave/Other Patient Handouts: Treating Pneumonia, When You Have Pneumonia Admission Data Admit Date/Time: 05/03/21 14:26 Attending Provider: Cj Spangler Admit Provider: Tylor Mayo Primary Care Provider: Thanh Phelan Other Providers: Tylor Mayo ; Carlitos Lezama Other Interventions: Discharge Summary Assessment (RN) Last Done: 05/06/21 14:45 Supervising Physician Co-Signing Physician Notes I personally examined the patient and verified all aggarwal points of history and exam, discussed case, and agree with decision making with Dr Eisenberg Still somewhat fatigued and somewhat dyspneic on exertionbut did okay on two- step, does not require home oxygen, and very much wants to go home. Extensive discussions on recovery from pneumonia, as well as possible management of her restrictive lung disease. Vitals noted, in general she is awake and alert pleasant no distress. HEENT normocephalic atraumatic mucous membranes are moist. Steady gait with a mild degree of dyspnea on ambulation, but not stumbling like yesterday. Breathing un labored no accessory muscle use at rest. Overall appearing improved. Community-acquired pneumonia with acute hypoxic respiratory failure and sepsis all present on admissionstill showing improvement. Appears safe and stable for homeZithromax and cefdinir. PCP follow-up. As it relates to her restrictive lung diseasequestion if it is related to her degree of kyphoscoliosisencouraged incentive spirometer use even after she is better from pneumonia, and discussed the possibility for a trial of OMT. Otherwise as above stable for home Resident Activity Tracking Resident Involvement: Resident Care Provided Care Provided: Adult Hospital Medicine
--- NOTE | 2021-05-06 16:53 | XCELERA ---
[id number]
--- NOTE | 2021-05-06 16:54 | Electrocardiogram Report ---
Test Reason : Blood Pressure : / mmHG Vent. Rate : 080 BPM Atrial Rate : 080 BPM P-R Int : 148 ms QRS Dur : 096 ms QT Int : 366 ms P-R-T Axes : 024 005 008 degrees QTc Int : 422 ms Normal sinus rhythm Normal ECG When compared with ECG of 03-MAY-2021 11:24, Vent. rate has decreased BY 57 BPM Criteria for Anterolateral infarct are no longer Present Confirmed by Torey Aguilar ([id number]) on 05/06/2021 4:53:52 PM Referred By: REFERRED SELF Confirmed By:Torey Aguilar
--- NOTE | 2021-05-06 20:02 | Billing Data ---
Date of Service May 06, 2021 Coding Level of Care Code D/C DAY MANAGEMENT <30 MINS
== END 2021-05-06 15:58 | disposition home or self-care (01) | DRG 871 ==
LOC: ED 11:14 → 2S 14:26 → SUATTDRO 14:26 → 2S 15:04 → 3N 05-05 20:22
DX: I48.91 Unspecified atrial fibrillation; Z79.01 Long term (current) use of anticoagulants; J38.00 Paralysis of vocal cords and larynx, unspecified; D68.51 Activated protein C resistance; J91.8 Pleural effusion in other conditions classified elsewhere; E83.42 Hypomagnesemia; J15.9 Unspecified bacterial pneumonia; K21.9 Gastro-esophageal reflux disease without esophagitis; J96.01 Acute respiratory failure with hypoxia; Z87.891 Personal history of nicotine dependence; E78.5 Hyperlipidemia, unspecified; A41.9 Sepsis, unspecified organism; K92.0 Hematemesis; Z86.718 Personal history of other venous thrombosis and embolism; J45.909 Unspecified asthma, uncomplicated; Z86.711 Personal history of pulmonary embolism

== ENCOUNTER 2023-11-20 14:50 | Inpatient (IN) ==
--- NOTE | 2023-11-20 15:08 | ED Triage Note ---
Date of Service November 20, 2023 Provider in Triage Author: Annika Young History of Present Illness This patient was briefly evaluated while in triage. An abbreviated physical exam was performed. This patient is a 78-year-old Female who presents to the ED for evaluation of shortness of breath and cough which started yesterday. She denies sick contacts. She is unsure if she has a history of lung problems. She does not wear oxygen at home. Physical Exam GENERAL: Ill appearing, short of breath. HEENT: Pupils equal. No obvious scleral icterus. HEART: Tachycardic. LUNGS: Crackles bilateral bases. Increased work of breathing noted. NEURO: Alert and oriented. No obvious neurological deficits on quick neuro exam. Initial orders for labs and / or imaging were placed and patient was placed in the waiting area until a bed is available. Please see further documentation for the full ED course.
--- NOTE | 2023-11-20 15:14 | Emergency Department Note ---
Impression & Plan Acute hypoxic respiratory failure, Bilateral pneumonia, Sepsis ED Provider Note NAME: HILL MCKEON AGE: 78 SEX: F : 1945 ARRIVES VIA: Walk-In INFORMANT: Patient, ED PROVIDER(S): Merlin Darling MD CHIEF COMPLAINT: MEDICAL DECISION MAKING: Patient presents due to concern for worsening cough and was noted to be hypoxic hypotensive and febrile. Sepsis protocols initiated. 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 Patient was treated with Zosyn. IV was established and blood work was obtained. Patient's white count of 16 with normal H&H and platelet count. Kidney function is unremarkable but with prerenal azotemia. Chest x-ray shows concern for possible pulmonary edema although likely hypovolemic. Bio fire negative. MRSA swab also obtained which is negative. I did reevaluate the patient who was improved blood pressure had improved patient's tachycardia was also improving. Patient's procalcitonin is not elevated. Troponin not elevated patient's lactate is negative. I did speak the on-call hospitalist service and the patient was admitted to the medicine service. Patient was fluid responsive and did receive 30 cc/kg bolus. Critical Care: I have personally spent 50 minutes of critical care time in direct management of this patient. This includes bedside care, interpretation of diagnostic studies, and testing, discussion with consultants, patient, and family members, and other require inpatient management activities. This 50 minutes is in excess of all separately billable procedures. Discussion w/ other healthcare providers: Dr. Bernstein inpatient medicine service Prior /Outside records reviewed: I reviewed an H&P from October 18, 2023. Patient was seen by Dr. Gamino with a known history of colonic polyps underwent colonoscopy. Per review patient does have a history of overactive bladder pneumonia GERD bronchitis Per review of the medication list patient does take Xarelto does have albuterol inhaler. Differential diagnosis: Reactive airway disease, pneumonia, pneumothorax, COPD, CHF, ACS, pulmonary embolism, musculoskeletal, GERD as well as other pathologies were considered. Diagnostics, as interpreted by me: ECG:Sinus tachycardia, rate of 111, normal intervals, normal axis no ST elevations. Slight depressions noted in the lateral leads. Cardiac monitoring: An order was placed for continuous cardiac monitoring. The monitor shows a rate of 102 with tachycardic and regular rhythm. Patient was placed on pulse oximetry Medical decision rules: Curb 65 score Imaging studies: I informally interpreted the patient's chest x-ray which shows possible bilateral lower lobe pneumonia with formal report to follow. HPI: Patient presents due to concern for cough that began yesterday. The patient states that this seemed to worsen with associated shortness of breath. Patient is a former smoker with reported history of COPD and last smoked in 1988. The patient does follow with Dr. Connor with pulmonology. The patient is using albuterol nebulizer but without significant improvement in symptoms. Patient states that she seemed to cough incessantly from 5-8 30 this morning. The patient states is productive with discolored sputum. Patient denies any chest pains. Patient denies any leg swelling or calf pain. Patient does have a prior history of factor V Leiden and PE for which she does take Xarelto and is compliant. 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 Patient denies any falls or trauma. Patient states that she had been seen due to concern for gastro pulmonary fistula here was transferred to [place] where she did not notice to have this but states that she had an esophagram including clinic October 25 was told that she likely had this. Patient was reportedly not a surgical candidate but was told that they could consider a feeding tube. PAST MEDICAL HISTORY: See Below PAST SURGICAL HISTORY: See Below SOCIAL HISTORY: See Below HOME MEDICATIONS: See Below ALLERGIES: See Below VITALS: See Below PHYSICAL EXAMINATION: GENERAL: Mildly ill but nontoxic in appearance, wearing glasses, oxime mask in place. EYE EXAM: Normal conjunctiva. PERRL, no anisocoria and EOM's grossly intact w/o pain. OROPHARYNX: Moist mucus membranes, grossly normal dentition. NECK: Trachea midline, no stridor. Supple, no nuchal rigidity, no adenopathy, non-tender. No signs of meningismus. FROM of the neck with good chin to chest and neck extension. LUNGS: Decreased breath sounds bilateral bases. Normal chest wall mechanics. HEART: NSR, no MRG. ABDOMEN: Abdomen soft, non-tender, no masses, no rebound or guarding. BACK: No CVA TTP. SKIN: No rashes and no bruising. UPPER EXTREMITIES: Upper extremities are grossly normal. LOWER EXTREMITIES: Grossly normal, no edema. NEURO EXAM: A&O x3, cranial nerves II-XII grossly intact, normal speech, moves all 4 extremities. Past Med/Surg History Medical History Overactive bladder History of pneumonia x2 past 2 yrs/most recent May 2023. Chronic gastroesophageal reflux disease Chronic bronchitis with productive mucopurulent cough Vocal cord paralysis Chronic pulmonary aspiration History of recent fall 3 wks ago/med eval for. some bruising. Chronic cough coughing spells over last 3 yr. Prediabetes Upper airway cough syndrome Shortness of breath more noticeable with activity/no change from baseline. Aspiration pneumonia hx Hiatal hernia GERD (gastroesophageal reflux disease) Laryngopharyngeal reflux Restrictive lung disease Hyperlipidemia Factor V Leiden Anemia hx Cancer breast ca - left - partial mastectomy - radiation Pulmonary embolism -10/2019 -- factor V -- on eliquis BID -7 years ago - post hiatal hernia repair - pt also has factor V - [facility] - treated w/ AC Hypertension Asthma inhaler prn/last use 10/04/23 for cough spell. get coughing spells over past 3 yrs . Surgical History History of right cataract surgery History of left cataract surgery History of surgery lysis of abdominal adhesions 10/2019 [facility] History of vaginal surgery History of hernia repair History of repair diaphramic hernia by thoracoabdominal approach History of Dillon fundoplication History of esophagogastric fundoplasty dillon fundoplication History of laryngoscopy History of direct laryngoscopy with injection into vocal chords History of nasal polypectomy History of arthroscopy of right knee meniscus repair History of tooth extraction History of wisdom tooth extraction History of breast biopsy History of partial mastectomy of left breast History of surgery vocal cord surgery. foreign body present "something for support" History of esophagogastroduodenoscopy (EGD) History of colonoscopy Most recent October 2022 - wasn't cleaned out/reason for upcoming procedure. Family History Brother Family history of diabetes mellitus Father Cerebral artery occlusion with cerebral infarction Sister Factor V Leiden mutation Hypercoagulation Other No family history of adverse response to anesthesia Social History Smoking Status: Former smoker Tobacco Type: Cigarettes Cigarettes Per Day: 35 yr ago; Second Hand Exposure: No; Do You Dip or Chew Tobacco: No; Hx Alcohol Use: Yes Alcohol type: beer, wine and hard liquor Hx Substance Use: No Preferred Language: Yoruba Communication Ability: Effective Forming Yardage Control Operator Required: No Beliefs That Will Affect Care: None marital status: Single Current Living Situation: Alone How many Children do You have: 0 Feels Safe at Home: Yes Safety Concerns: Feels Safe At This Time Assistive Devices: None Allergies Allergies Allergy/AdvReac Type Severity Reaction Status Date / Time shellfish derived Allergy Severe ITCHY, Verified 11/20/23 17:33 THROAT SWELLING environmental allergies Allergy Unknown multiple/allergy Uncoded 11/20/23 17:33 testing +. unsure rxn details. Home Meds Home Medications Medication Instructions Recorded Confirmed melatonin 5 mg capsule 5 mg PO HS PRN Sleep 02/26/19 11/20/23 rosuvastatin 5 mg tablet (Crestor) 5 mg PO QAM 10/31/19 11/20/23 pantoprazole 40 mg tablet,delayed 40 mg PO QAM 11/14/19 11/20/23 release (Protonix) albuterol sulfate 90 mcg/actuation 2 puffs inhalation QID PRN sob 02/25/20 11/20/23 breath activated powder inhaler (ProAir RespiClick) coenzyme Q10 100 mg capsule (Co 100 mg PO QAM 02/25/20 11/20/23 Q-10) acetaminophen 325 mg tablet 325 mg PO QID PRN Pain 03/27/22 11/20/23 (Tylenol) oxybutynin chloride 5 mg tablet 5 mg PO QAM 03/27/22 11/20/23 rivaroxaban 20 mg tablet (Xarelto) 20 mg PO QAM 03/27/22 11/20/23 fluticasone propionate 50 2 spray intranasal QAM 10/03/22 11/20/23 mcg/actuation nasal spray,suspension albuterol sulfate 0.63 mg/3 mL 0.63 mg inhalation UD PRN coughing 05/04/23 11/20/23 solution for nebulization spells dextromethorphan polistirex 30 10 ml PO UD PRN coughing spell 05/04/23 11/20/23 mg/5 mL oral susp ext.release 12hr (Delsym 12 hour) fexofenadine 60 mg tablet (Olga 60 mg PO QPM 05/04/23 11/20/23 Allergy) guaifenesin 600 mg tablet, 600 mg PO QAM 10/05/23 11/20/23 extended release 12 hr (Mucinex) ipratropium bromide 21 mcg (0.03 2 spray intranasal QPM PRN cough & 10/05/23 11/20/23 %) nasal spray congestion codeine 10 mg-guaifenesin 100 mg/5 10 ml PO .Q4-6H PRN Cough 11/20/23 11/20/23 mL oral liquid Previous Rx's Medication Instructions Recorded famotidine 20 mg tablet (Pepcid) 20 mg PO HS #90 tabs 08/28/23 lactulose 10 gram/15 mL oral 15 ml PO BID #3,785 mL 10/24/23 solution linaclotide 290 mcg capsule 290 mcg PO QAM #90 caps 11/05/23 (Linzess) Results & Data (ED) Vital Signs Vital Signs - 24 hr 11/20/23 15:06 11/20/23 15:08 11/20/23 15:10 Temperature 38.0 C H Temperature Source Temporal Artery Scan Pulse Rate 119 H Pulse Rate from SpO2 Sensor Respiratory Rate 22 Respiratory Effort / Characteristics Non-Labored Spontaneous Respiratory Depth Normal Blood Pressure 89/58 L Blood Pressure Mean 68 Pulse Oximetry 83 L 95 Oxygen Delivery Method Room Air Oxymask Room Air Oxygen Flow Rate 4 Sepsis Recent Fever Within 48 Hours Yes Sepsis New/Unexplained Change in Mental Status No Sepsis Action Taken by Nursing Adv Provider Notified Pulse Oximetry Post Tiitration 83 L 11/20/23 15:38 11/20/23 15:45 11/20/23 16:00 Temperature Temperature Source Pulse Rate 109 H 105 H 101 H Pulse Rate from SpO2 Sensor 109 H 105 H 98 H Respiratory Rate 26 H 25 H 21 Respiratory Effort / Characteristics Respiratory Depth Blood Pressure Blood Pressure Mean Pulse Oximetry 97 97 100 Oxygen Delivery Method Oxygen Flow Rate Sepsis Recent Fever Within 48 Hours Sepsis New/Unexplained Change in Mental Status Sepsis Action Taken by Nursing Pulse Oximetry Post Tiitration 11/20/23 16:00 11/20/23 16:15 11/20/23 16:15 Temperature Temperature Source Pulse Rate 103 H Pulse Rate from SpO2 Sensor 103 H Respiratory Rate 26 H Respiratory Effort / Characteristics Respiratory Depth Blood Pressure 121/77 136/71 Blood Pressure Mean 90 83 Pulse Oximetry 99 Oxygen Delivery Method Oxygen Flow Rate Sepsis Recent Fever Within 48 Hours Sepsis New/Unexplained Change in Mental Status Sepsis Action Taken by Nursing Pulse Oximetry Post Tiitration 11/20/23 16:30 11/20/23 16:30 11/20/23 16:38 Temperature Temperature Source Pulse Rate 102 H 108 H Pulse Rate from SpO2 Sensor 102 H Respiratory Rate 23 Respiratory Effort / Characteristics Respiratory Depth Blood Pressure 127/80 Blood Pressure Mean 98 Pulse Oximetry 98 Oxygen Delivery Method Oxygen Flow Rate Sepsis Recent Fever Within 48 Hours Sepsis New/Unexplained Change in Mental Status Sepsis Action Taken by Nursing Pulse Oximetry Post Tiitration 11/20/23 16:45 11/20/23 16:45 11/20/23 17:00 Temperature Temperature Source Pulse Rate 102 H Pulse Rate from SpO2 Sensor 102 H Respiratory Rate 23 Respiratory Effort / Characteristics Respiratory Depth Blood Pressure 132/76 129/73 Blood Pressure Mean 89 84 Pulse Oximetry 98 Oxygen Delivery Method Oxymask Oxygen Flow Rate 3 Sepsis Recent Fever Within 48 Hours Sepsis New/Unexplained Change in Mental Status Sepsis Action Taken by Nursing Pulse Oximetry Post Tiitration 11/20/23 17:00 Temperature Temperature Source Pulse Rate 101 H Pulse Rate from SpO2 Sensor 100 H Respiratory Rate 29 H Respiratory Effort / Characteristics Respiratory Depth Blood Pressure Blood Pressure Mean Pulse Oximetry 98 Oxygen Delivery Method Oxygen Flow Rate Sepsis Recent Fever Within 48 Hours Sepsis New/Unexplained Change in Mental Status Sepsis Action Taken by Nursing Pulse Oximetry Post Tiitration Home Medications Current Medication List: was personally reviewed by me Laboratory Data Attestation: I reviewed the patient's lab results. 11/20/23 15:25 11/20/23 15:25 Lab Results 11/20/23 11/20/23 Range/Units 15:25 15:51 WBC 16.91 H (4.8-10.8) K/ul RBC 4.80 (4.20-5.40) M/uL Hgb 12.7 (12.0-16.0) g/dl Hct 41.9 (37.0-47.0) % MCV 87.3 (80.0-100.0) fL MCH 26.5 (25.0-34.0) pg MCHC 30.3 L (32.0-36.0) g/dL RDW Std Deviation 49.7 H (36.4-46.3) fL RDW Coeff of Maya 15.6 H (11.5-14.5) % Plt Count 235 (130-400) K/uL MPV 10.8 (9.4-12.4) fL Immature Gran % (Auto) 0.3 % Neut % (Auto) 95.4 % Lymph % (Auto) 1.8 % [place] % (Auto) 2.3 % Eos % (Auto) 0.0 % Baso % (Auto) 0.2 % Neut # (Auto) 16.13 H (1.40-6.50) K/uL Lymph # (Auto) 0.31 L (1.20-3.40) K/uL [place] # (Auto) 0.39 (0.11-0.59) K/uL Eos # (Auto) 0.00 (0.00-0.50) K/uL Baso # (Auto) 0.03 (0.00-0.20) K/uL Immature Gran # (Auto) 0.05 (0.01-0.20) K/uL Sodium 140 (136-145) mmol/L Potassium 3.7 (3.5-5.1) mmol/L Chloride 106 (98-107) mmol/L Carbon Dioxide 27 (21-32) mmol/L Anion Gap 7 (3-11) BUN 20 (6-23) mg/dl Creatinine 0.85 (0.6-1.2) mg/dl Est Cr Clr Drug Dosing 52.7 ml/min Est GFR ( Amer) 77.1 ml/min Est GFR (Non-Af Amer) 66.6 ml/min BUN/Creatinine Ratio 23.5 H (10-20) Glucose 137 H (70-99(Fasting)) mg/dl Lactate 1.6 (0.4-2.0) mmol/L Calcium 9.6 (8.6-10.3) mg/dl Magnesium 1.7 (1.7-2.4) mg/dl Total Bilirubin 0.9 (0.2-1.0) mg/dl Direct Bilirubin 0.1 (0-0.2) mg/dl AST 11 L (13-39) U/L ALT 6 L (7-52) U/L Alkaline Phosphatase 76 (34-104) U/L Troponin I High Sens 3.5 (0-14) pg/ml Total Protein 7.1 (6.0-8.3) gm/dl Albumin 3.8 (3.4-5.0) gm/dl Globulin 3.3 (2.5-4.0) gm/dl Albumin/Globulin Ratio 1.2 (0.9-2) Procalcitonin 0.36 (0-0.5) ng/ml Adenovirus (PCR) Not Detected (NotDetected) B. pertussis DNA (PCR) Not Detected (NotDetected) B.parapertussis DNA PCR Not Detected (NotDetected) C. pneumoniae DNA (PCR) Not Detected (NotDetected) Coronavirus OC43 (PCR) Not Detected (NotDetected) Coronavirus HKU1 (PCR) Not Detected (NotDetected) Coronavirus 229E (PCR) Not Detected (NotDetected) SARS-CoV-2 (PCR) Not Detected (NotDetected) Coronavirus NL63 (PCR) Not Detected (NotDetected) Human Metapneumovir PCR Not Detected (NotDetected) Influenza Type A (PCR) Not Detected (NotDetected) Influenza Type B (PCR) Not Detected (NotDetected) M. pneumoniae (PCR) Not Detected (NotDetected) Parainfluenza 1 (PCR) Not Detected (NotDetected) Parainfluenza 2 (PCR) Not Detected (NotDetected) Parainfluenza 3 (PCR) Not Detected (NotDetected) Parainfluenza 4 (PCR) Not Detected (NotDetected) RSV (PCR) Not Detected (NotDetected) Entero/Rhino (PCR) Not Detected (NotDetected) Administered Medications Famotidine (Famotidine 20 Mg Tab) 20 mg PO HS KENZIE Stop: 12/20/23 20:59 Last Admin: 11/20/23 20:53 Dose: 20 mg Documented By: JUAN R Fexofenadine HCl (Fexofenadine 60 Mg Tab) 60 mg PO QPM KENZIE Stop: 12/20/23 20:59 Last Admin: 11/20/23 20:53 Dose: 60 mg Documented By: JUAN R Doxycycline Hyclate 100 mg/ (Dextrose) 100 mls @ 50 mls/hr IV Q12H KENZIE Stop: 11/27/23 20:59 Last Admin: 11/20/23 20:51 Dose: 50 mls/hr Documented By: JUAN R Discontinued Medications Sodium Chloride (Nss) 1,000 mls @ 999 mls/hr IV .Q1H1M KENZIE Stop: 11/20/23 17:45 Last Infusion: 11/20/23 17:34 Dose: Infused Documented By: JUAN R Admin: 11/20/23 16:39 Dose: 999 mls/hr Documented By: JUAN R Infusion: 11/20/23 16:39 Dose: Infused Documented By: JUAN R Admin: 11/20/23 15:46 Dose: 999 mls/hr Documented By: JUAN R Piperacillin Sod/Tazobactam Sod (Zosyn) 4.5 gm in 100 mls @ 200 mls/hr IV NOW STA Stop: 11/20/23 16:03 Last Infusion: 11/20/23 17:34 Dose: Infused Documented By: JUAN R Admin: 11/20/23 16:39 Dose: 200 mls/hr Documented By: JUAN R Acetaminophen (Ofirmev) 1,000 mg in 100 mls @ 400 mls/hr IV NOW STA Stop: 11/20/23 16:13 Last Infusion: 11/20/23 16:40 Dose: Infused Documented By: JUAN R Admin: 11/20/23 16:12 Dose: 400 mls/hr Documented By: JUAN R Levalbuterol HCl (Levalbuterol 1.25 Mg/3 Ml Neb) 1.25 mg NEB NOW STA Stop: 11/20/23 15:35 Last Admin: 11/20/23 15:48 Dose: 1.25 mg Documented By: JUAN R Methylprednisolone (Methylprednisolone 125 Mg/2 Ml Vial) 60 mg IV NOW STA Stop: 11/20/23 15:35 Last Admin: 11/20/23 15:47 Dose: 60 mg Documented By: JUAN R Imaging Data Radiologist's Impression: Chest X-Ray 11/20/23 15:34 XR chest 1V portable HISTORY: Sepsis COMPARISON: Chest 09/11/2023. FINDINGS: There are low lung volumes. No pneumothorax. The heart remains mildly enlarged. There is progressive interstitial/vascular thickening consistent with pulmonary edema. Small bilateral pleural effusions and bibasilar densities have also progressed. IMPRESSION: 1. Cardiomegaly with mild interstitial pulmonary edema. This has progressed in the interval. 2. Small bilateral pleural effusions and bibasilar densities have also progressed. This may represent atelectasis or a pneumonia. ACT 112: Negative or not required by law. Electronically signed by: Clemente Albrecht M.D. 11/20/2023 4:12 PM Discharge Plan Visit Data Chief Complaint: Shortness of Breath/Dyspnea Stated Complaint: SOB, COUGH ED Provider: Merlin Darling Discharge Problem: Acute hypoxic respiratory failure, Bilateral pneumonia, Sepsis Discharge Instructions Interventions: ED Discharge Assessment Last Done: 11/20/23 19:30 Discharge Problem: Bilateral pneumonia Qualifiers: Pneumonia type: due to unspecified organism Lung location: lower lobe of lung Q ualified Code(s): J18.9 - Pneumonia, unspecified organism Sepsis Qualifiers: Sepsis type: sepsis due to unspecified organism Sepsis acute organ dysfunction status: with acute organ dysfunction Severe sepsis acute organ dysfunction type: acute respiratory failure Acute respiratory failure type: with hypoxia Severe sepsis shock status: without septic shock Qualified Code(s): A41.9 - Sepsis, unspecified organism; R65.20 - Severe sepsis without septic shock; J96.01 - Acute respiratory failure with hypoxia
[2023-11-20] MEDS: SODIUM CHLORIDE 0.9% 1,000 ML IV SCH (15:46)
[2023-11-20] MEDS: methylPREDNISolone 125 MG/2 ML VIAL IV STA (15:47)
[2023-11-20] MEDS: LEVALBUTEROL 1.25 MG/3 ML NEB NEB STA (15:48)
[2023-11-20 15:59] LABS: Hematocrit (blood only) 41.9 % (37.0-47.0); Hemoglobin 12.7 g/dl (12.0-16.0); Mean Corpuscular Hemoglobin 26.5 pg (25.0-34.0); Mean Corpuscular Hgb Conc 30.3 g/dL (32.0-36.0); Mean Corpuscular Volume 87.3 fL (80.0-100.0); Mean Platelet Volume 10.8 fL (9.4-12.4); Platelet Count 235 K/uL (130-400); RDW Coefficient of Variation 15.6 % (11.5-14.5); RDW Standard Deviation 49.7 fL (36.4-46.3); White Blood Count 16.91 K/ul (4.8-10.8)
[2023-11-20 16:03] LABS: Albumin Globulin Ratio 1.2 (0.9-2); Albumin Level 3.8 gm/dl (3.4-5.0); BUN Creatinine Ratio 23.5 (10-20); Bilirubin,Total 0.9 mg/dl (0.2-1.0); Calcium 9.6 mg/dl (8.6-10.3); Creatinine Clr Calc Pharmacy 52.7 ml/min; Est GFR (African American) 77.1 ml/min; Est GFR (Non-African American) 66.6 ml/min; Globulin 3.3 gm/dl (2.5-4.0); Potassium 3.7 mmol/L (3.5-5.1); Total Protein 7.1 gm/dl (6.0-8.3)
[2023-11-20 16:09] LABS: Troponin I High Sensitivity 3.5 pg/ml (0-14)
[2023-11-20 16:11] LABS: Bilirubin Direct 0.1 mg/dl (0-0.2); Magnesium 1.7 mg/dl (1.7-2.4)
[2023-11-20] MEDS: ACETAMINOPHEN 1,000 MG/100 ML VIAL IV STA (16:12)
--- NOTE | 2023-11-20 16:13 | XRay Report ---
XR chest 1V portable HISTORY: Sepsis COMPARISON: Chest 09/11/2023. FINDINGS: There are low lung volumes. No pneumothorax. The heart remains mildly enlarged. There is pr ogressive interstitial/vascular thickening consistent with pulmonary edema. Small bilateral pleural e ffusions and bibasilar densities have also progressed. IMPRESSION: 1. Cardiomegaly with mild interstitial pulmonary edema. This has progressed in the interval. 2. Small bilateral pleural effusions and bibasilar densities have also progressed. This may represent atelectasis or a pneumonia. ACT 112: Negative or not required by law. Electronically signed by: Clemente Albrecht M.D. 11/20/2023 4:12 PM
[2023-11-20 16:22] LABS: Basophils # (auto) 0.03 K/uL (0.00-0.20); Basophils % (auto) 0.2 %; Immature Granulocytes # (auto) 0.05 K/uL (0.01-0.20); Immature Granulocytes % (auto) 0.3 %; Lymphocytes # (auto) 0.31 K/uL (1.20-3.40); Lymphocytes % (auto) 1.8 %; Monocytes # (auto) 0.39 K/uL (0.11-0.59); Monocytes % (auto) 2.3 %; Neutrophils # (auto) 16.13 K/uL (1.40-6.50); Neutrophils % (auto) 95.4 %
[2023-11-20] MEDS: PIPERACILLIN/TAZOBACTAM 4.5 GM/100 ML BAG IV STA (16:39)
[2023-11-20 17:00] LABS: Adenovirus PCR Not Detected (NotDetected); Bordetella parapertussis PCR Not Detected (NotDetected); Bordetella pertussis PCR Not Detected (NotDetected); Chlamydia pneumoniae PCR Not Detected (NotDetected); Coronavirus 229E PCR Not Detected (NotDetected); Coronavirus CoV-2 (COVID19)PCR Not Detected (NotDetected); Coronavirus HKU1 PCR Not Detected (NotDetected); Coronavirus NL63 PCR Not Detected (NotDetected); Coronavirus OC43PCR Not Detected (NotDetected); Human Metapneumovirus PCR Not Detected (NotDetected); Influenza A PCR Not Detected (NotDetected); Influenza B PCR Not Detected (NotDetected); Mycoplasma pneumoniae PCR Not Detected (NotDetected); Parainfluenza Virus 1 PCR Not Detected (NotDetected); Parainfluenza Virus 2 PCR Not Detected (NotDetected); Parainfluenza Virus 3 PCR Not Detected (NotDetected); Parainfluenza Virus 4 PCR Not Detected (NotDetected); Respiratory Syncytial VirusPCR Not Detected (NotDetected); Rhinovirus/Enterovirus PCR Not Detected (NotDetected)
--- NOTE | 2023-11-20 17:17 | History & Physical Report ---
Date of Service November 20, 2023 Assessment & Plan (1) Pneumonia: Plan: Pneumonia Chest x-ray: Cardiomegaly with mild interstitial pulmonary edema, progressed from prior. Small bilateral pleural effusions and bibasilar densities? 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 Leukocytosis of 16.9, NLR >30 Patient is febrile on admission Procalcitonin 0.36 BioFire negative Last echo with EF 55 to 60%, grade 1 diastolic dysfunction. Well chest x-ray shows some evidence of congestion, given patient has a leukocytosis is febrile with productive cough with sputum change and opacities consistent with pneumonia and no history of clinical heart failure recommend fluids as given, continue treatment for pneumonia, and clinical reassessment. Lactate is normal on admission BP is normotensive at time of hospitalist evaluation. CT chest 1. Dense bibasilar airspace consolidation is typical for pneumonia/aspiration pneumonitis. Clinical correlation will be required and ra diographic follow-up to resolution is recommended. 2. As suggested previously, a possible fistulous connection between the hiatal hernia and the right lower lobe is not excluded. (2) COPD (chronic obstructive pulmonary disease): Plan: COPD With acute exacerbation due to pneumonia Continue Symbicort, Flonase, albuterol (3) Fistula: Plan: Gastro pulmonary fistula Has been evaluated at [facility] and specialty care. Initially at [facility] her scans did not show gas or pulmonary fistula; on further reevaluation this was redemonstrated and she was seen at [facility], but was not a surgical candidate. Patient could have a PEG tube placed however this would not meaningfully reduce her risk of aberrant aspiration or infection, and would only be placed for nutrition. 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 Does not use oxygen at baseline, was hypoxic in the ER and subsequently normalized with supplemental oxygen. Pt reports she has intermittent dyspnea normally, but much worse last 24-36 hours. Coughing up more mixed green/brownish sputum. No chills, +fevers. No chest pressure or chest pain No lightheadness, dizziness, nausea, vomiting, diarrhea, or constipation no abdominal pain no urinary pain Appetite poor x 2 days Was seen at [facility] and [facility] clinic to evaluate gastropulmonary fisulta. Is no an operative candidate. Is considering a PEG tube at some point; however, as she is currently able to eat has not pursued this but will followup with [facility] in another 6 weeks. Medical History: Reviewed Medications: Reviewed Surgical History: Reviewed Family history: Reviewed Allergies: Reviewed Social History: Reviewed Code Status: Full Code Allergies Allergy/AdvReac Type Severity Reaction Status Date / Time shellfish derived Allergy Severe ITCHY, Verified 11/20/23 17:33 THROAT SWELLING environmental allergies Allergy Unknown multiple/allergy Uncoded 11/20/23 17:33 testing +. unsure rxn details. Home Medications Medication Instructions Recorded Confirmed Type melatonin 5 mg capsule 5 mg PO HS PRN Sleep 02/26/19 11/20/23 History rosuvastatin 5 mg tablet (Crestor) 5 mg PO QAM 10/31/19 11/20/23 History pantoprazole 40 mg tablet,delayed 40 mg PO QAM 11/14/19 11/20/23 History release (Protonix) albuterol sulfate 90 mcg/actuation 2 puffs inhalation QID PRN sob 02/25/20 11/20/23 History breath activated powder inhaler (ProAir RespiClick) coenzyme Q10 100 mg capsule (Co 100 mg PO QAM 02/25/20 11/20/23 History Q-10) acetaminophen 325 mg tablet 325 mg PO QID PRN Pain 03/27/22 11/20/23 History (Tylenol) oxybutynin chloride 5 mg tablet 5 mg PO QAM 03/27/22 11/20/23 History rivaroxaban 20 mg tablet (Xarelto) 20 mg PO QAM 03/27/22 11/20/23 History fluticasone propionate 50 2 spray intranasal QAM 10/03/22 11/20/23 History mcg/actuation nasal spray,suspension albuterol sulfate 0.63 mg/3 mL 0.63 mg inhalation UD PRN coughing 05/04/23 11/20/23 History solution for nebulization spells dextromethorphan polistirex 30 10 ml PO UD PRN coughing spell 05/04/23 11/20/23 History mg/5 mL oral susp ext.release 12hr (Delsym 12 hour) fexofenadine 60 mg tablet (Olga 60 mg PO QPM 05/04/23 11/20/23 History Allergy) famotidine 20 mg tablet (Pepcid) 20 mg PO HS #90 tabs 08/28/23 11/20/23 Rx guaifenesin 600 mg tablet, 600 mg PO QAM 10/05/23 11/20/23 History extended release 12 hr (Mucinex) ipratropium bromide 21 mcg (0.03 2 spray intranasal QPM PRN cough & 10/05/23 11/20/23 History %) nasal spray congestion lactulose 10 gram/15 mL oral 15 ml PO BID #3,785 mL 10/24/23 11/20/23 Rx solution linaclotide 290 mcg capsule 290 mcg PO QAM #90 caps 11/05/23 11/20/23 Rx (Linzess) codeine 10 mg-guaifenesin 100 mg/5 10 ml PO .Q4-6H PRN Cough 11/20/23 11/20/23 History mL oral liquid Past Med/Surg History Medical History Overactive bladder History of pneumonia x2 past 2 yrs/most recent May 2023. Chronic gastroesophageal reflux disease Chronic bronchitis with productive mucopurulent cough Vocal cord paralysis Chronic pulmonary aspiration History of recent fall 3 wks ago/med eval for. some bruising. Chronic cough coughing spells over last 3 yr. Prediabetes Upper airway cough syndrome Shortness of breath more noticeable with activity/no change from baseline. Aspiration pneumonia hx Hiatal hernia GERD (gastroesophageal reflux disease) Laryngopharyngeal reflux Restrictive lung disease Hyperlipidemia Factor V Leiden Anemia hx Cancer breast ca - left - partial mastectomy - radiation Pulmonary embolism -10/2019 -- factor V -- on eliquis BID -7 years ago - post hiatal hernia repair - pt also has factor V - [facility] - treated w/ AC Hypertension Asthma inhaler prn/last use 10/04/23 for cough spell. get coughing spells over past 3 yrs . Surgical History History of right cataract surgery History of left cataract surgery History of surgery lysis of abdominal adhesions 10/2019 [facility] History of vaginal surgery History of hernia repair History of repair diaphramic hernia by thoracoabdominal approach History of Dillon fundoplication History of esophagogastric fundoplasty dillon fundoplication History of laryngoscopy History of direct laryngoscopy with injection into vocal chords History of nasal polypectomy History of arthroscopy of right knee meniscus repair History of tooth extraction History of wisdom tooth extraction History of breast biopsy History of partial mastectomy of left breast History of surgery vocal cord surgery. foreign body present "something for support" History of esophagogastroduodenoscopy (EGD) History of colonoscopy Most recent October 2022 - wasn't cleaned out/reason for upcoming procedure. Family History Brother Family history of diabetes mellitus Father Cerebral artery occlusion with cerebral infarction Sister Factor V Leiden mutation Hypercoagulation Other No family history of adverse response to anesthesia Social History Smoking Status: Former smoker Tobacco Type: Cigarettes Cigarettes Per Day: 35 yr ago; Second Hand Exposure: No; Do You Dip or Chew Tobacco: No; Hx Alcohol Use: Yes Alcohol type: beer, wine and hard liquor Hx Substance Use: No Preferred Language: Bulgarian Communication Ability: Effective Cone Machine Feeder Required: No Beliefs That Will Affect Care: None marital status: Single Current Living Situation: Alone How many Children do You have: 0 Feels Safe at Home: Yes Assistive Devices: Other Physical Exam Physical Exam: General: A&Ox3. NAD. Cooperative. HEENT: Atraumatic, normocephalic. Pulm: Coarse int he bases bilaterally. No distress. Cardiac: Regular, tachycardic -mrg. Radial pulses intact and symmetrical. Abdominal: Nontender, nondistended, soft. BS present. Results & Data Results & Data Vital Signs (Past 12 Hours) Vital Signs Temp Pulse Resp BP Pulse Ox O2 Del Method O2 Flow Rate 11/20/23 16:45 132/76 11/20/23 16:45 102 H 23 98 Oxymask 3 11/20/23 16:38 108 H 11/20/23 16:30 127/80 11/20/23 16:30 102 H 23 98 11/20/23 16:15 103 H 26 H 99 11/20/23 16:15 136/71 11/20/23 16:00 121/77 11/20/23 16:00 101 H 21 100 11/20/23 15:45 105 H 25 H 97 11/20/23 15:38 109 H 26 H 97 11/20/23 15:10 Room Air 11/20/23 15:08 95 Oxymask 4 11/20/23 15:06 38.0 C H 119 H 22 89/58 L 83 L Room Air Code Status & VTE Plan VTE Prophylaxis Plan VTE Prophylaxis will be ordered: Yes PG Care Time/CCT Total # of Minutes Spent Total Time Spent with Patient: Total time spent is greater than 50% in coordination of care (as documented) at patient's floor/unit and/or counseling patient: Coding Level of Care Code 39414 INT INP/OBS CARE MIN Diagnoses Pneumonia J18.9 COPD (chronic obstructive pulmonary disease) J44.9 Fistula L98.8
[2023-11-20] MEDS ORDERED: LEVALBUTEROL 1.25 MG/3 ML NEB NEB PRN (17:33)
--- NOTE | 2023-11-20 18:54 | CT Scan Report ---
CT SCAN OF THE CHEST WITHOUT IV CONTRAST CLINICAL HISTORY: Pneumonia. COMPARISON STUDY: Prior chest CT scans, most recently dated 07/18/2023. Chest x-ray dated 11/20/2023. TECHNIQUE: Unenhanced CT scan of the thorax was performed from the thoracic inlet to the upper abdome n. Images are reviewed in the axial, sagittal, and coronal planes. IV contrast was not administered f or this examination. A dose lowering technique was utilized adhering to the principles of ALARA. The examination is degraded by motion artifact. CT DOSE: 418. mGy.cm FINDINGS: Thyroid: Normal in size and heterogeneous in attenuation. Thoracic aorta: There is atherosclerotic calcification of the thoracic aorta, which is normal in justin cheri and demonstrates bovine variant arch anatomy. Heart: The heart is enlarged and without pericardial effusion. The coronary arteries are densely calc ified. Lungs and pleural spaces: Evaluation of the lung parenchyma is degraded by motion artifact. There is dense bibasilar airspace consolidation. Trace pleural effusions are seen bilaterally. Mild patchy air space consolidation is seen in the right upper lobe. The trachea and central airways appear clear. Mediastinum: Mildly enlarged mediastinal lymph nodes are likely reactive. A precarinal node measures 17 mm in short axis. Arti: Not well assessed without IV contrast. Axillae: There is no axillary lymphadenopathy. Upper abdomen: There is a moderate to large hiatal hernia. The distal centimeter cyst filled with ej ris. The partially visualized gallbladder appears distended. Renal sinus cysts are partially imaged i n the left kidney. There is evidence of previous left diaphragmatic repair. Skeletal structures: The skeletal structures are osteopenic. No lytic or blastic bony lesions are see n. Degenerative change and kyphoscoliosis is noted in the spine. IMPRESSION: 1. Dense bibasilar airspace consolidation is typical for pneumonia/aspiration pneumonitis. Clinical c orrelation will be required and radiographic follow-up to resolution is recommended. 2. As suggested previously, a possible fistulous connection between the hiatal hernia and the right l ower lobe is not excluded. 3. Cardiomegaly and trace pleural effusions. 4. Additional findings as above. ACT 112: Negative or not required by law. Electronically signed by: Les Fowler M.D. 11/20/2023 6:51 PM
[2023-11-20] MEDS ORDERED: ACETAMINOPHEN 325 MG TAB PO PRN (19:30)
[2023-11-20] MEDS ORDERED: MELATONIN 3 MG TAB PO PRN (19:30)
[2023-11-20] MEDS: DOXYCYCLINE HYCLATE 100 MG in DEXTROSE 5% MINI-B 100 ML IV SCH (20:51)
[2023-11-20] MEDS: FEXOFENADINE 60 MG TAB PO SCH (20:53)
[2023-11-20] MEDS: FAMOTIDINE 20 MG TAB PO SCH (20:53)
[2023-11-20] MEDS ORDERED: LACTULOSE SYRUP 10 GM/15 ML BTL 960 ML PO SCH (21:00)
[2023-11-20] MEDS: PIPERACILLIN/TAZOBACTAM 4.5 GM in DEXTROSE 5% MINI-B 100 ML IV SCH (22:54)
[2023-11-20] MEDS: LACTULOSE SYRUP 10 GM/15 ML BTL 960 ML PO SCH (22:54)
[2023-11-21 03:47] LABS: Hematocrit (blood only) 35.1 % (37.0-47.0); Hemoglobin 10.9 g/dl (12.0-16.0); Mean Corpuscular Hemoglobin 27.3 pg (25.0-34.0); Mean Corpuscular Hgb Conc 31.1 g/dL (32.0-36.0); Mean Corpuscular Volume 87.8 fL (80.0-100.0); Mean Platelet Volume 10.6 fL (9.4-12.4); Platelet Count 200 K/uL (130-400); RDW Coefficient of Variation 15.7 % (11.5-14.5); RDW Standard Deviation 51.1 fL (36.4-46.3); White Blood Count 19.57 K/ul (4.8-10.8)
[2023-11-21 04:06] LABS: Calcium 8.8 mg/dl (8.6-10.3); Creatinine Clr Calc Pharmacy 60.5 ml/min; Est GFR (African American) 91.2 ml/min; Est GFR (Non-African American) 78.7 ml/min; Potassium 4.1 mmol/L (3.5-5.1)
[2023-11-21 04:15] LABS: Basophils # (auto) 0.04 K/uL (0.00-0.20); Basophils % (auto) 0.2 %; Immature Granulocytes # (auto) 0.12 K/uL (0.01-0.20); Immature Granulocytes % (auto) 0.6 %; Lymphocytes # (auto) 0.43 K/uL (1.20-3.40); Lymphocytes % (auto) 2.2 %; Monocytes # (auto) 0.34 K/uL (0.11-0.59); Monocytes % (auto) 1.7 %; Neutrophils # (auto) 18.64 K/uL (1.40-6.50); Neutrophils % (auto) 95.3 %; RBC Morphology Unremarkable
[2023-11-21] MEDS: RIVAROXABAN 20 MG TAB PO SCH (08:21)
[2023-11-21] MEDS: LINACLOTIDE 145 MCG CAPSULE PO SCH (08:21)
[2023-11-21] MEDS: ROSUVASTATIN CALCIUM 5 MG TAB PO SCH (08:22)
[2023-11-21] MEDS: oxyBUTYnin chloride 5 MG TAB PO SCH (08:22)
[2023-11-21] MEDS: PANTOprazole 40 MG TAB PO SCH (08:27)
--- NOTE | 2023-11-21 08:34 | Hospitalist Progress Note ---
Date of Service November 21, 2023 Assessment & Plan (1) Pneumonia: Plan: Aspiration Pneumonia -Tm 38.0, resp Biofire neg, nasal MRSA neg, procal 0.36--> >3 today consistent with bacterial pneumonia. WBC increased 16-->19 today but got IV steroids in ED -chest CT - dense bibasilar consolidations and mild patchy airspace consolidation in RUL, small bilateral pleural effusions -cont pip-tazo and doxycycline (change doxy to po) x 7d - hypoxia resolved and may be able to discharge home on oral antibiotics tomorrow Last echo 03/2023 with EF 55 to 60%, grade 1 diastolic dysfunction. (2) COPD (chronic obstructive pulmonary disease): Plan: COPD With acute exacerbation due to pneumonia - had dose of IV steroids by ED but no further wheezing and hypoxia resolved. hold off on further steroids Continue Symbicort, Flonase, albuterol (3) Fistula: Plan: Gastro pulmonary fistula Has been evaluated at [facility] and specialty care. Initially at [facility] her scans did not show gas or pulmonary fistula; on further reevaluation this was redemonstrated and she was seen at [facility], but was not a surgical candidate. Patient could have a PEG tube placed however this would not meaningfully reduce her risk of aberrant aspiration or infection, and would only be placed for nutrition. Currently has been able to eat and drink OK so had not pursued a PEG tube, but is still thinking about this option nursing home She is not a surgical candidate, recommended for admission and tx of PNA Plan Chronic stable issues GERD: Continue Pepcid/Protonix Factor V status: Continue Xarelto Hypertension: Continue statin Overactive bladder: Continue oxybutynin - densely calcified coronaries on chest CT noted DVT PPx: Anticoagulated Can downgrade from PCU to medical Admission and Anticipated Discharge Date Admission Date: November 20, 2023 Subjective Feels much better. less cough, not SOB any longer. No CP no leg edema Has been up walking to bathroom. Physical Exam 2 Physical Exam: PHYSICAL EXAMINATION Last 24h vital signs reviewed, see documentation in flowsheet General: comfortable appearing, no distress HEENT: Normocephalic, atraumatic, pupils round and equal, sclerae anicteric, no conjunctival injection, moist mucus membranes Lungs: Normal respiratory effort. Crackles both bases. No RRW Heart: Regular rate and rhythm, no murmurs. No JVD Abdomen: Soft, nontender, nondistended. Bowel sounds present. Extremities: Warm, dry, well-perfused. No extremity edema. Neuro: Alert and oriented x 4, face symmetric, moves 4 extremities well Psych: Normal affect and behavior Results & Data Results & Data Vital Signs (Past 12 Hours) Vital Signs Pulse Pulse Pulse Resp BP BP Pulse Ox 11/21/23 07:28 81 11/21/23 06:33 75 16 113/67 98 11/21/23 05:00 78 18 117/81 95 11/21/23 04:00 77 19 109/66 93 11/21/23 03:00 78 78 22 105/62 95 11/21/23 01:00 82 82 20 125/71 98 11/20/23 23:39 81 11/20/23 23:15 123/73 11/20/23 23:15 84 22 96 11/20/23 23:00 90 23 96 11/20/23 23:00 132/82 11/20/23 22:45 120/77 11/20/23 22:45 90 21 11/20/23 22:30 121/74 11/20/23 22:30 95 H 16 11/20/23 22:15 126/78 11/20/23 22:15 91 H 22 96 11/20/23 22:00 131/79 11/20/23 22:00 92 H 22 11/20/23 21:45 92 H 25 H 11/20/23 21:45 116/69 11/20/23 21:30 113/73 11/20/23 21:30 94 H 25 H 11/20/23 21:15 123/76 11/20/23 21:15 96 H 21 11/20/23 21:00 123/77 11/20/23 21:00 101 H 24 11/20/23 20:45 104 H 26 H 97 11/20/23 20:45 124/74 O2 Del Method O2 Flow Rate 11/21/23 07:28 11/21/23 06:33 Nasal Cannula 2 11/21/23 05:00 Nasal Cannula 2 11/21/23 04:00 Room Air 2 11/21/23 03:00 Nasal Cannula 2 11/21/23 01:00 Nasal Cannula 2 11/20/23 23:39 11/20/23 23:15 11/20/23 23:15 11/20/23 23:00 11/20/23 23:00 11/20/23 22:45 11/20/23 22:45 11/20/23 22:30 11/20/23 22:30 11/20/23 22:15 11/20/23 22:15 Nasal Cannula 2 11/20/23 22:00 11/20/23 22:00 11/20/23 21:45 11/20/23 21:45 11/20/23 21:30 11/20/23 21:30 11/20/23 21:15 11/20/23 21:15 11/20/23 21:00 11/20/23 21:00 11/20/23 20:45 11/20/23 20:45 Laboratory Results 11/21/23 03:14 11/21/23 03:14 PG Care Time/CCT Total # of Minutes Spent Total Time Spent with Patient: Total time spent is greater than 50% in coordination of care (as documented) at patient's floor/unit and/or counseling patient: Coding Level of Care Code 07654 SUB INP/OBS CARE 2/35MIN Diagnoses Pneumonia J18.9 COPD (chronic obstructive pulmonary disease) J44.9 Fistula L98.8
[2023-11-21] MEDS ORDERED: Nursing to Pharmacy Communication SCH (10:15)
--- NOTE | 2023-11-21 10:36 | Electrocardiogram Report ---
Test Reason : Blood Pressure : / mmHG Vent. Rate : 111 BPM Atrial Rate : 111 BPM P-R Int : 124 ms QRS Dur : 086 ms QT Int : 342 ms P-R-T Axes : -12 -16 018 degrees QTc Int : 465 ms Sinus tachycardia Poor R wave progression, consider anterior MT vs. lead placement vs. LVH Abnormal ECG When compared with ECG of 15-MAY-2023 14:46, Premature supraventricular complexes are no longer Present Nonspecific T wave abnormality has replaced inverted T waves in Inferior leads Nonspecific T wave abnormality now evident in Lateral leads Confirmed by Issac Veliz ([id number]) on 11/21/2023 10:36:38 AM Referred By: Confirmed By:David Veliz
[2023-11-21] MEDS: DOXYCYCLINE HYCLATE 100 MG CAP PO SCH ×2 (12:10→21:13)
[2023-11-21 17:22] LABS: Appearance Urine Clear (Clear); Bilirubin Urine Negative (Negative); Blood Urine Negative (Negative); Color Urine Yellow; Glucose Urine UA Negative (Negative); Ketones Urine Trace (Negative); Leukocyte Esterase Urine Negative (Negative); Nitrite Urine Negative (Negative); Protein Urine Negative (Negative); Specific Gravity Urine 1.022 (1.000-1.030); Urobilinogen Urine Negative (Negative)
[2023-11-22 04:44] LABS: Basophils # (auto) 0.02 K/uL (0.00-0.20); Basophils % (auto) 0.1 %; Eosinophils # (auto) 0.08 K/uL (0.00-0.50); Eosinophils % (auto) 0.6 %; Hematocrit (blood only) 34.7 % (37.0-47.0); Hemoglobin 10.6 g/dl (12.0-16.0); Immature Granulocytes # (auto) 0.09 K/uL (0.01-0.20); Immature Granulocytes % (auto) 0.7 %; Lymphocytes % (auto) 10.4 %; Mean Corpuscular Hemoglobin 26.8 pg (25.0-34.0); Mean Corpuscular Hgb Conc 30.5 g/dL (32.0-36.0); Mean Corpuscular Volume 87.6 fL (80.0-100.0); Monocytes # (auto) 0.56 K/uL (0.11-0.59); Monocytes % (auto) 4.2 %; Neutrophils # (auto) 11.32 K/uL (1.40-6.50); Platelet Count 208 K/uL (130-400); RDW Coefficient of Variation 15.8 % (11.5-14.5); RDW Standard Deviation 50.9 fL (36.4-46.3); Red Blood Count 3.96 M/uL (4.20-5.40); White Blood Count 13.47 K/ul (4.8-10.8)
[2023-11-22 05:02] LABS: BUN Creatinine Ratio 19.8 (10-20); Calcium 8.8 mg/dl (8.6-10.3); Creatinine Clr Calc Pharmacy 52.1 ml/min; Est GFR (African American) 76.1 ml/min; Est GFR (Non-African American) 65.6 ml/min; Potassium 3.5 mmol/L (3.5-5.1)
--- NOTE | 2023-11-22 18:43 | Discharge Summary ---
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 Does not use oxygen at baseline, was hypoxic in the ER and subsequently normalized with supplemental oxygen. Pt reports she has intermittent dyspnea normally, but much worse last 24-36 hours. Coughing up more mixed green/brownish sputum. No chills, +fevers. No chest pressure or chest pain No lightheadness, dizziness, nausea, vomiting, diarrhea, or constipation no abdominal pain no urinary pain Appetite poor x 2 days Was seen at [facility] and [facility] to evaluate gastropulmonary fisulta. Is no an operative candidate. Is considering a PEG tube at some point; however, as she is currently able to eat has not pursued this but will followup with [facility] in another 6 weeks. Principal Diagnosis acute hypoxic respiratory failure due to aspiration pneumonia Discharge Exam PHYSICAL EXAMINATION Last 24h vital signs reviewed, see documentation in flowsheet General: comfortable appearing, no distress HEENT: Normocephalic, atraumatic, pupils round and equal, sclerae anicteric, no conjunctival injection, moist mucus membranes Lungs: coarse crackles in both bases, slightly coarse right anterior upper [place], no wheezing good air move Heart: Regular rate and rhythm, no murmurs. No JVD Abdomen: Soft, nontender, nondistended. Bowel sounds present. Extremities: Warm, dry, well-perfused. No extremity edema. Neuro: Alert and oriented x 4, face symmetric, moves 4 extremities well Psych: Normal affect and behavior Discharge Data Allergies Allergy/AdvReac Type Severity Reaction Status Date / Time shellfish derived Allergy Severe ITCHY, Verified 11/20/23 17:33 THROAT SWELLING environmental allergies Allergy Unknown multiple/allergy Uncoded 11/20/23 17:33 testing +. unsure rxn details. Consultations 11/20/23 17:23 ED Decision to Admit Stat Ordered Studies 11/20/23 17:15 CT chest diagnostic wo con Urgent Chest X-Ray 11/20/23 15:34 XR chest 1V portable HISTORY: Sepsis COMPARISON: Chest 09/11/2023. FINDINGS: There are low lung volumes. No pneumothorax. The heart remains mildly enlarged. There is progressive interstitial/vascular thickening consistent with pulmonary edema. Small bilateral pleural effusions and bibasilar densities have also progressed. IMPRESSION: 1. Cardiomegaly with mild interstitial pulmonary edema. This has progressed in the interval. 2. Small bilateral pleural effusions and bibasilar densities have also progressed. This may represent atelectasis or a pneumonia. ACT 112: Negative or not required by law. Electronically signed by: Clemente Albrecht M.D. 11/20/2023 4:[address] 11/20/23 17:15 CT SCAN OF THE CHEST WITHOUT IV CONTRAST CLINICAL HISTORY: Pneumonia. COMPARISON STUDY: Prior chest CT scans, most recently dated 07/18/2023. Chest x-ray dated 11/20/2023. TECHNIQUE: Unenhanced CT scan of the thorax was performed from the thoracic inlet to the upper abdomen. Images are reviewed in the axial, sagittal, and coronal planes. IV contrast was not administered for this examination. A dose lowering technique was utilized adhering to the principles of ALARA. The examination is degraded by motion artifact. CT DOSE: 418. mGy.cm FINDINGS: Thyroid: Normal in size and heterogeneous in attenuation. Thoracic aorta: There is atherosclerotic calcification of the thoracic aorta, which is normal in caliber and demonstrates bovine variant arch anatomy. Heart: The heart is enlarged and without pericardial effusion. The coronary arteries are densely calcified. Lungs and pleural spaces: Evaluation of the lung parenchyma is degraded by motion artifact. There is dense bibasilar airspace consolidation. Trace pleural effusions are seen bilaterally. Mild patchy airspace consolidation is seen in the right upper lobe. The trachea and central airways appear clear. Mediastinum: Mildly enlarged mediastinal lymph nodes are likely reactive. A precarinal node measures 17 mm in short axis. Arti: Not well assessed without IV contrast. Axillae: There is no axillary lymphadenopathy. Upper abdomen: There is a moderate to large hiatal hernia. The distal centimeter cyst filled with debris. The partially visualized gallbladder appears distended. Renal sinus cysts are partially imaged in the left kidney. There is evidence of previous left diaphragmatic repair. Skeletal structures: The skeletal structures are osteopenic. No lytic or blastic bony lesions are seen. Degenerative change and kyphoscoliosis is noted in the spine. IMPRESSION: 1. Dense bibasilar airspace consolidation is typical for pneumonia/aspiration pneumonitis. Clinical correlation will be required and radiographic follow-up to resolution is recommended. 2. As suggested previously, a possible fistulous connection between the hiatal hernia and the right lower lobe is not excluded. 3. Cardiomegaly and trace pleural effusions. 4. Additional findings as above. ACT 112: Negative or not required by law. Electronically signed by: Les Fowler M.D. 11/20/2023 6:51 PM 11/22/23 03:58 11/22/23 03:58 Hospital Course (1) Pneumonia: 78-year-old woman with known hiatal hernia and inoperable gastropulmonary fistula presented with acute hypoxic respiratory failure due to aspiration pneumonia Aspiration Pneumonia -Tm 38.0, resp Biofire neg, nasal MRSA neg, procal 0.36--> >3 consistent with bacterial pneumonia. WBC increased 16-->19 today but got IV steroids in ED -chest CT - dense bibasilar consolidations and mild patchy airspace consolidation in RUL, small bilateral pleural effusions - treated with pip-tazo and doxycycline, improved and hypoxia resolved was on room air satting 95-98% throughout my interview this morning. leukocytosis improved from 19 K down to 13, there is some steroid effect however since she got IV steroids less than 48 hours ago in the ED. she has been afebrile for over 24 hours and now feels well - she will follow-up in primary care, also plans to follow-up at [facility] for her gastro pulmonary fistula Last echo 03/2023 with EF 55 to 60%, grade 1 diastolic dysfunction. (2) COPD (chronic obstructive pulmonary disease): COPD With acute exacerbation due to pneumonia - mild exacerbation - had dose of IV steroids by ED but no further wheezing and hypoxia resolved. not treated with further steroids Continue Symbicort, Flonase, albuterol (3) Fistula: Gastro pulmonary fistula Has been evaluated at [facility] and specialty care. Initially at [facility] her scans did not show gas or pulmonary fistula; on further reevaluation this was redemonstrated and she was seen at [facility], but was not a surgical candidate. Patient could have a PEG tube placed however this would not meaningfully reduce her risk of aberrant aspiration or infection, and would only be placed for nutrition. 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 GERD: Continue Pepcid/Protonix Factor V status: Continue Xarelto Hypertension: Continue statin Overactive bladder: Continue oxybutynin - densely calcified coronaries on chest CT noted Total Time Total Time Spent Total Time Spent (In Minutes): less than 30 minutes Discharge Plan Discharge Items Patient Disposition: Home - Self-Care Reason For Visit: AHRF, PNA Discharge Diagnosis: Aspiration pneumonia Activity: Resume your previous activity Non-emergency contact: Primary Care Provider Call non-emergency contact if: you have any medication questions, your symptoms worsen and you have a fever Follow-up/Referrals: Thanh Phelan [Primary Care Provider] - Diet: Regular Addtl Attending Provider Instructions: You were treated for bilateral pneumonia. Its possible that this pneumonia is related to aspiration from your hiatal hernia or the fistula so we treated with broad-spectrum antibiotics -take augmentin (amoxacillin-clav) -take doxycycline - another type of antibiotics that covers a few common lung infections not covered by augmentin -antibiotics are for a week, but you will probably be coughing for 2 or even 3 weeks - you should be gradually improving however -you may want to take a probiotic for 2-4 weeks to prevent antibiotic-associated diarrhea. 2 strains or more is probably better. These are available over the counter. Alternatively, you could eat live-culture yogurt every day Follow up in primary care in 1-2 weeks Call your doctor if you are getting worse / not improving, if you have reaction to antibiotics like a rash, hives, or severe diarrhea Its probably a good idea to reschedule the colonoscopy because of the fasting required It was a pleasure seeing you in the hospital Ashley Marshall MD Pending Studies at Discharge: Yes Studies:: blood cultures - negative to date, but don't finalize for 5 days Stand-Alone Forms: My [facility] [employer], Smoking Cessation Medications and DC Order Prescriptions: New doxycycline hyclate 100 mg Capsule 100 mg PO BID Qty: 14 0RF amoxicillin-pot clavulanate 875-125 mg tablet 1 tab PO BID Qty: 14 0RF Continued lactulose 10 gram/15 mL solution 15 ml PO BID Qty: 3785 2RF Linzess 290 mcg capsule 290 mcg PO QAM Qty: 90 3RF Suflave 178.7-7.3-0.5 gram recon soln See Rx Instructions PO .COMPLEX Qty: 2 0RF Rx Instructions: TAKE DIRECTED PER SPLIT DOSE INSTRUCTIONS BIN: [id number] N: 2000 GROUP: [id number] acetaminophen [Tylenol] 325 mg tablet 325 mg PO QID PRN (Reason: Pain) oxybutynin chloride 5 mg tablet 5 mg PO QAM Xarelto 20 mg tablet 20 mg PO QAM Rx Instructions: must administer with evening meal famotidine [Pepcid] 20 mg tablet 20 mg PO HS Qty: 90 3RF melatonin 5 mg capsule 5 mg PO HS PRN (Reason: Sleep) pantoprazole [Protonix] 40 mg tablet,delayed release (DR/EC) 40 mg PO QAM ProAir RespiClick 90 mcg/actuation aerosol powdr breath activated 2 puffs INH QID PRN (Reason: sob) coenzyme Q10 [Co Q-10] 100 mg capsule 100 mg PO QAM rosuvastatin [Crestor] 5 mg tablet 5 mg PO QAM fexofenadine [Olga Allergy] 60 mg Tablet 60 mg PO QPM dextromethorphan polistirex [Delsym 12 hour] 30 mg/5 mL Suspension,Extended Rel 12 Hr 10 ml PO UD PRN (Reason: coughing spell) albuterol sulfate 0.63 mg/3 mL Solution For Nebulization 0.63 mg INHALATION UD PRN (Reason: coughing spells) ipratropium bromide 21 mcg (0.03 %) spray,non-aerosol 2 spray intranasal QPM PRN (Reason: cough & congestion) Rx Instructions: administer into each nostril guaifenesin [Mucinex] 600 mg Tablet Extended Release 12hr 600 mg PO QAM fluticasone propionate 50 mcg/actuation spray,suspension 2 spray intranasal QAM Rx Instructions: administer into each nostril codeine-guaifenesin 10-100 mg/5 mL liquid 10 ml PO .Q4-6H PRN (Reason: Cough) Discharge Orders: Discharge Order (Routine); Ordered 11/22/23 Ordered By: Ashley Marshall Admission Data Admit Date/Time: 11/20/23 17:15 Attending Provider: Ashley Marshall Admit Provider: Ashley Marshall Primary Care Provider: Thanh Phelan Other Providers: Jet Bernstein Coding Level of Care Code 73429 IN/OBS DISCH 30 MIN/LESS Diagnoses Pneumonia J18.9 COPD (chronic obstructive pulmonary disease) J44.9 Fistula L98.8
== END 2023-11-22 12:46 | disposition home or self-care (01) | DRG 177 ==
LOC: ED 14:50 → EDINP 17:15 → SUATTDRO 17:15 → EDINP 11-22 13:32

== ENCOUNTER 2024-06-28 09:23 | Inpatient (IN) ==
--- NOTE | 2024-06-28 09:50 | Emergency Department Note ---
Impression & Plan Hypoxia ADMIT ED Provider Note HPI: History obtained from patient. The patient is a 78-year-old female with history of pulmonary embolism currently on Xarelto, history of COPD, presents the emergency department with a chief complaint of cough and shortness of breath. Patient states she has had a cough now for several months but it seems to be acutely worsening over the past several days and today she was feeling very short of breath and therefore came to the ER to be assessed. On arrival here to the ED the patient was noted to be hypoxic in triage at 85% was placed on nasal cannula oxygen with good improvement. Patient's blood pressure is mildly hypotensive at 96/64, heart rate was elevated in the 130s. Patient denies any recent fever. She states she has had some mild abdominal discomfort but denies any vomiting. Patient denies any chest pain. ROS: - Per HPI Differential Diagnosis: Pneumonia, viral upper respiratory infection with cough, pleural effusion, pulmonary edema, CHF exacerbation, ACS, pulmonary embolism, amongst other potential pathologies. *Outpatient medications and allergy history reviewed. PE: General: Alert HEENT: Normocephalic, trachea midline Eyes: Extraocular eye movement is intact, no scleral erythema Pulmonary: Coarse bilateral breath sounds Cardio: Tachycardic rate with regular rhythm GI: Abdomen is soft to palpation : No suprapubic tenderness MSK: No evidence of trauma or malformation of the extremities, no edema Skin: No evidence of rash Neuro: Alert, no focal deficits Psychiatric: Cooperative INDEPENDENT INTERPRETATIONS: quality assurance monitor: (As interpreted by myself): - An order was placed for continuous cardiac monitoring - Patient was noted to be in sinus tachycardia with a rate of 115 EKG: (As interpreted by myself): Rate: 138 Rhythm: Sinus tachycardia Intervals: Within normal limits ST changes: No ST elevation Time: 0936 Chest x-ray: (As interpreted by myself): Multifocal pneumonia pattern Interventions provided in ED: -IV fluid bolus, IV ceftriaxone, IV azithromycin Medical Decision Making: IV was established and lab work obtained, patient was placed on personnel monitor. Patient's hypoxia improved with nasal cannula oxygen. Lab work shows a leukocytosis of 14.53, hemoglobin is normal, platelet count is normal, CMP does not show any evidence of any critical findings. Troponin is negative. BNP is mildly elevated to 15 and procalcitonin is elevated at 0.89, lactic acid is within normal limits. Chest x-ray suggestive of bilateral pneumonia per my interpretation. Viral panel testing was obtained and is negative. Patient is anticoagulated, low suspicion for PE. Troponin is negative and EKG does not show any acute ischemic changes, low suspicion for ACS. Patient's tachycardia downtrended with IV fluids and oxygen here in the ED. I suspect that her hypoxia secondary to pneumonia. Blood cultures were drawn, patient was treated with IV antibiotics. I discussed the patient's presentation with the on-call hospitalist, Dr. Brewster, and the patient was placed for admission in stable condition for further care. Consultants/Discussions held with other healthcare providers: -Hospitalist, Dr. Taylor Disposition discussion held by myself with: -Patient * CRITICAL CARE TIME: ( 43 ) minutes -Stabilization of hypoxia with oxygen saturation of 85% on room air requiring supplemental oxygen for correction, time spent at the bedside, interpretation of diagnostic studies, discussion with other physicians and arrangement of admission. Diagnosis: 1. Hypoxia, acute 2. Bilateral pneumonia, acute 3. Leukocytosis, acute Disposition: Admission Dillon Ellis DO Emergency Medicine Past Med/Surg History Problem List (Updated 06/28/24 @ 14:59 by Dillon Ellis DO) Hypoxia (Acute) Diarrhea Hypokalemia Moderate persistent asthma Dyspnea Sepsis (Acute) Bilateral pneumonia (Acute) Acute hypoxic respiratory failure (Acute) Fistula COPD (chronic obstructive pulmonary disease) Other dysphagia Pneumonia (Acute) History of colon polyps Constipation Vocal cord paralysis Excessive cerumen in both ear canals Hemoptysis Bilateral pleural effusion Acute respiratory failure with hypoxia Hypomagnesemia (Acute) Hypoxia (Acute) Bacterial pneumonia Sepsis Hypoxia (Acute) Cough productive of yellow sputum (Acute) Laryngopharyngeal reflux (LPR) Mild asthma Chronic cough Pancreatitis SYLVIA (acute kidney injury) DVT prophylaxis SBO (small bowel obstruction) Abdominal pain, RUQ (Acute) Asthma Atypical mycobacterial infection Bronchiectasis Cough Diaphragmatic hernia Factor V Leiden mutation History of hemoptysis Menopause Pain, lower extremity Pulmonary embolism Vocal cord paralysis LEFT Encounter for pre-operative examination Encounter for pre-operative examination History of repair of hiatal hernia 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 Chronic gastroesophageal reflux disease Chronic bronchitis with productive mucopurulent cough Vocal cord paralysis Chronic pulmonary aspiration History of recent fall not since 04/2023 Chronic cough coughing spells over last 3 yr. Prediabetes Upper airway cough syndrome Shortness of breath more noticeable with activity/no change from baseline. Aspiration pneumonia hx Hiatal hernia GERD (gastroesophageal reflux disease) Laryngopharyngeal reflux Restrictive lung disease Hyperlipidemia Factor V Leiden Anemia hx Cancer breast ca - left - partial mastectomy - radiation Pulmonary embolism -10/2019 -- factor V -- on eliquis BID -7 years ago - post hiatal hernia repair - pt also has factor V - [facility] - treated w/ AC Hypertension Asthma inhaler prn/last use 10/04/23 for cough spell. get coughing spells over past 3 yrs . Surgical History History of right cataract surgery History of left cataract surgery History of surgery lysis of abdominal adhesions 10/2019 [facility] History of vaginal surgery History of hernia repair History of repair diaphramic hernia by thoracoabdominal approach History of Jamil fundoplication History of esophagogastric fundoplasty jamil fundoplication History of laryngoscopy History of direct laryngoscopy with injection into vocal chords History of nasal polypectomy History of arthroscopy of right knee meniscus repair History of tooth extraction History of wisdom tooth extraction History of breast biopsy History of partial mastectomy of left breast History of surgery vocal cord surgery. foreign body present "something for support" History of esophagogastroduodenoscopy (EGD) History of colonoscopy Family History Brother Family history of diabetes mellitus Father Cerebral artery occlusion with cerebral infarction Sister Factor V Leiden mutation Hypercoagulation Other No family history of adverse response to anesthesia Social History Smoking Status: Former smoker Tobacco Type: Cigarettes Cigarettes Per Day: 35 yr ago; Smoking End Date: Quit 25 to 35 years ago; Second Hand Exposure: No; Do You Dip or Chew Tobacco: No; Hx Alcohol Use: Yes Alcohol type: beer, wine and hard liquor Hx Substance Use: No Preferred Language: Danish Communication Ability: Effective Golf Cart Maker Required: No Beliefs That Will Affect Care: None marital status: Single Current Living Situation: Alone How many Children do You have: 0 Other Information That Helps Us Care for You: No Feels Safe at Home: Yes and No Is there a partner from a previous relationship who is making you feel unsafe now?: No Any Concerns about Your Family Situation: No Would You Like to Speak to Someone About Your Situation: No Safety Concerns: Feels Safe At This Time Assistive Devices: Glasses Allergies Allergies Allergy/AdvReac Type Severity Reaction Status Date / Time shellfish derived Allergy Severe Itchy/Swelling Verified 06/16/24 11:15 Throat environmental allergies Allergy Unknown multiple/allergy Uncoded 06/16/24 11:15 testing +. unsure rxn details. Home Meds Home Medications Medication Instructions Recorded Confirmed melatonin 5 mg capsule 5 mg PO HS PRN Sleep 02/26/19 06/28/24 rosuvastatin 5 mg tablet (Crestor) 5 mg PO QAM 10/31/19 06/28/24 pantoprazole 40 mg tablet,delayed 40 mg PO QAM 11/14/19 06/28/24 release (Protonix) albuterol sulfate 90 mcg/actuation 2 puffs inhalation QID PRN sob 02/25/20 06/28/24 breath activated powder inhaler (ProAir RespiClick) coenzyme Q10 100 mg capsule (Co 100 mg PO QAM 02/25/20 06/28/24 Q-10) acetaminophen 325 mg tablet 325 mg PO QID PRN Pain 03/27/22 06/28/24 (Tylenol) oxybutynin chloride 5 mg tablet 5 mg PO QAM PRN urinary discomfort 03/27/22 06/28/24 rivaroxaban 20 mg tablet (Xarelto) 20 mg PO QAM 03/27/22 06/28/24 fluticasone propionate 50 2 spray intranasal QAM 10/03/22 06/28/24 mcg/actuation nasal spray,suspension albuterol sulfate 0.63 mg/3 mL 0.63 mg inhalation UD PRN coughing 05/04/23 06/28/24 solution for nebulization spells dextromethorphan polistirex 30 10 ml PO UD PRN coughing spell 05/04/23 06/28/24 mg/5 mL oral susp ext.release 12hr (Delsym 12 hour) fexofenadine 60 mg tablet (Olga 60 mg PO QPM 05/04/23 06/28/24 Allergy) guaifenesin 600 mg tablet, 600 mg PO QAM 10/05/23 06/28/24 extended release 12 hr (Mucinex) ipratropium bromide 21 mcg (0.03 2 spray intranasal QPM PRN cough & 10/05/23 06/28/24 %) nasal spray congestion polyethylene glycol 3350 17 17 g PO DAILY 04/24/24 06/28/24 gram/dose oral powder (Miralax) triamcinolone acetonide 0.025 % 1 applic topical TID 06/28/24 06/28/24 topical cream Previous Rx's Medication Instructions Recorded famotidine 20 mg tablet (Pepcid) 20 mg PO HS #90 tabs 08/28/23 linaclotide 290 mcg capsule 290 mcg PO QAM #90 caps 11/05/23 (Linzess) budesonide-formoterol HFA 160 2 puff inhalation BID #10.2 grams 06/16/24 mcg-4.5 mcg/actuation aerosol inhaler (Symbicort) inhalational spacing device #1 ea 06/16/24 Results & Data (ED) Vital Signs Vital Signs - 24 hr 06/28/24 09:27 06/28/24 09:43 06/28/24 09:44 Temperature 36.6 C Temperature Source Oral Pulse Rate 142 H Pulse Rate [Apical] Respiratory Rate 20 Respiratory Effort / Characteristics Non-Labored Spontaneous Respiratory Depth Deep Respiratory Pattern Regular Blood Pressure 96/64 L Blood Pressure [Left Arm] Blood Pressure Mean 74 Blood Pressure Mean [Left Arm] Blood Pressure Position [Left Arm] Pulse Oximetry 85 L 85 L Oxygen Delivery Method Room Air Room Air Nasal Cannula Oxygen Flow Rate 5 Sepsis New/Unexplained Change in Mental Status No Sepsis Action Taken by Nursing No Action Required Oxygen Flow Rate - Titration 4 Pulse Oximetry Post Tiitration 92 06/28/24 10:06 06/28/24 10:17 06/28/24 10:44 Temperature 36.8 C Temperature Source Oral Pulse Rate 98 H 104 H Pulse Rate [Apical] 100 H Respiratory Rate 27 H 22 Respiratory Effort / Characteristics Non-Labored Spontaneous Respiratory Depth Normal Respiratory Pattern Blood Pressure Blood Pressure [Left Arm] 118/81 Blood Pressure Mean Blood Pressure Mean [Left Arm] 93 Blood Pressure Position [Left Arm] Sitting Pulse Oximetry 93 92 Oxygen Delivery Method Nasal Cannula Nasal Cannula Oxygen Flow Rate 5 4 Sepsis New/Unexplained Change in Mental Status Sepsis Action Taken by Nursing Oxygen Flow Rate - Titration Pulse Oximetry Post Tiitration 06/28/24 11:11 Temperature Temperature Source Pulse Rate Pulse Rate [Apical] 123 H Respiratory Rate 19 Respiratory Effort / Characteristics Respiratory Depth Respiratory Pattern Blood Pressure Blood Pressure [Left Arm] 143/81 H Blood Pressure Mean Blood Pressure Mean [Left Arm] 101 Blood Pressure Position [Left Arm] Sitting Pulse Oximetry 94 Oxygen Delivery Method Nasal Cannula Oxygen Flow Rate 4 Sepsis New/Unexplained Change in Mental Status Sepsis Action Taken by Nursing Oxygen Flow Rate - Titration Pulse Oximetry Post Tiitration Laboratory Data 06/28/24 09:45 06/28/24 09:45 Lab Results 06/28/24 06/28/24 06/28/24 Range/Units 09:39 09:45 09:48 WBC 14.53 H (4.8-10.8) K/ul RBC 5.00 (4.20-5.40) M/uL Hgb 13.8 (12.0-16.0) g/dl Hct 43.7 (37.0-47.0) % MCV 87.4 (80.0-100.0) fL MCH 27.6 (25.0-34.0) pg MCHC 31.6 L (32.0-36.0) g/dL RDW Std Deviation 48.8 H (36.4-46.3) fL RDW Coeff of Maya 15.2 H (11.5-14.5) % Plt Count 200 (130-400) K/uL MPV 10.9 (9.4-12.4) fL Immature Gran % (Auto) 0.3 % Neut % (Auto) 93.7 % Lymph % (Auto) 2.5 % [place] % (Auto) 3.3 % Eos % (Auto) 0.0 % Baso % (Auto) 0.2 % Neut # (Auto) 13.60 H (1.40-6.50) K/uL Lymph # (Auto) 0.37 L (1.20-3.40) K/uL [place] # (Auto) 0.48 (0.11-0.59) K/uL Eos # (Auto) 0.00 (0.00-0.50) K/uL Baso # (Auto) 0.03 (0.00-0.20) K/uL Immature Gran # (Auto) 0.05 (0.01-0.20) K/uL Ovalocytes 1+ PT 13.7 H (9.0-12.0) Seconds INR 1.3 H (0.9-1.1) VBG pH 7.40 (7.36-7.41) VBG pCO2 50 (38-50) mmHg VBG pO2 29 mmHg VBG HCO3 31 mmol/L VBG O2 Saturation < 60.0 % VBG Base Excess 5.0 mEq/L Sodium 145 (136-145) mmol/L Potassium 3.4 L (3.5-5.1) mmol/L Chloride 108 H (98-107) mmol/L Carbon Dioxide 30 (21-32) mmol/L Anion Gap 7 (3-11) BUN 15 (6-23) mg/dl Creatinine 0.81 (0.6-1.2) mg/dl Est Cr Clr Drug Dosing Not Reportable eGFR 75.19 BUN/Creatinine Ratio 18.5 (10-20) Glucose 118 H (70-99(Fasting)) mg/dl Lactate 1.5 (0.4-2.0) mmol/L Calcium 9.4 (8.6-10.3) mg/dl Magnesium 1.5 L (1.7-2.4) mg/dl Total Bilirubin 1.0 (0.2-1.0) mg/dl AST 16 (13-39) U/L ALT 9 (7-52) U/L Alkaline Phosphatase 75 (34-104) U/L Troponin I High Sens 5.1 (0-14) pg/ml B-Natriuretic Peptide 215 H (0-100) pg/ml Total Protein 7.2 (6.0-8.3) gm/dl Albumin 3.8 (3.4-5.0) gm/dl Globulin 3.4 (2.5-4.0) gm/dl Albumin/Globulin Ratio 1.1 (0.9-2) Lipase 14 (11-82) U/L Procalcitonin 0.89 H (0-0.5) ng/ml Adenovirus (PCR) Not Detected (NotDetected) B. pertussis DNA (PCR) Not Detected (NotDetected) B.parapertussis DNA PCR Not Detected (NotDetected) C. pneumoniae DNA (PCR) Not Detected (NotDetected) Coronavirus OC43 (PCR) Not Detected (NotDetected) Coronavirus HKU1 (PCR) Not Detected (NotDetected) Coronavirus 229E (PCR) Not Detected (NotDetected) SARS-CoV-2 (PCR) Not Detected (NotDetected) Coronavirus NL63 (PCR) Not Detected (NotDetected) Human Metapneumovir PCR Not Detected (NotDetected) Influenza Type A (PCR) Not Detected (NotDetected) Influenza Type B (PCR) Not Detected (NotDetected) M. pneumoniae (PCR) Not Detected (NotDetected) Parainfluenza 1 (PCR) Not Detected (NotDetected) Parainfluenza 2 (PCR) Not Detected (NotDetected) Parainfluenza 3 (PCR) Not Detected (NotDetected) Parainfluenza 4 (PCR) Not Detected (NotDetected) RSV (PCR) Not Detected (NotDetected) Entero/Rhino (PCR) Not Detected (NotDetected) Administered Medications Potassium Chloride (K Alli / Wtr) 10 meq in 100 mls @ 100 mls/hr IV Q1H KENZIE; Protocol Stop: 06/28/24 16:59 Last Admin: 06/28/24 14:47 Dose: 100 mls/hr Documented By: WENDY Magnesium Sulfate/Dextrose (Magnesium Sulfate / D5w) 1 gm in 100 mls @ 50 mls/hr IV Q2H KENZIE Stop: 06/28/24 16:59 Last Admin: 06/28/24 14:47 Dose: 50 mls/hr Documented By: WENDY Ondansetron HCl (Ondansetron Inj 2 Mg/Ml 2 Ml Vial) 4 mg IV Q6H PRN PRN Reason: Nausea And Vomiting Stop: 07/28/24 12:23 Last Admin: 06/28/24 12:53 Dose: 4 mg Documented By: MNE Discontinued Medications Albuterol (Albut/Ipratrop 3mg/0.5mg Neb 3 Ml Vial) 3 ml NEB NOW STA; Protocol Stop: 06/28/24 09:48 Last Admin: 06/28/24 09:57 Dose: 3 ml Documented By: CC Sodium Chloride (Nss) 1,000 mls @ 999 mls/hr IV .Q1H1M ONE Stop: 06/28/24 10:41 Last Infusion: 06/28/24 11:08 Dose: Infused Documented By: Admin: 06/28/24 09:57 Dose: 999 mls/hr Documented By: CC Ceftriaxone Sodium (Rocephin) 2,000 mg in 50 mls @ 100 mls/hr IV NOW STA Stop: 06/28/24 11:50 Last Infusion: 06/28/24 12:25 Dose: Infused Documented By: Admin: 06/28/24 11:56 Dose: 100 mls/hr Documented By: JOSUE Azithromycin 500 mg/ Sodium (Chloride) 255 mls @ 127.5 mls/hr IV NOW ONE Stop: 06/28/24 13:44 Last Admin: 06/28/24 12:28 Dose: 127.5 mls/hr Documented By: ORION Lactated Ringer's (Lr) 1,000 mls @ 999 mls/hr IV .Q1H1M ONE Stop: 06/28/24 12:54 Last Admin: 06/28/24 12:28 Dose: 999 mls/hr Documented By: ORION Methylprednisolone (Methylprednisolone 125 Mg/2 Ml Vial) 125 mg IV NOW STA Stop: 06/28/24 09:48 Last Admin: 06/28/24 09:58 Dose: 125 mg Documented By: CC Potassium Chloride (Potassium Chloride Crtab 20 Meq Tabcr) 60 meq PO NOW STA Stop: 06/28/24 11:55 Last Admin: 06/28/24 12:16 Dose: 20 meq Documented By: ORION Imaging Data Radiologist's Impression: Chest X-Ray 06/28/24 09:41 XR chest 1V portable CLINICAL HISTORY: Shortness of breath. COMPARISON STUDY: Chest radiograph February 06, 2024. Chest CT November 20, 2023. FINDINGS: Patient is rotated. Moderate left and small right pleural effusions are present. Bibasilar opacities are greater on the left. There are also left perihilar opacities. There is no pneumothorax. Cardiomegaly with mild interstitial thickening. There is a probable hiatal hernia. IMPRESSION: 1. Cardiomegaly with interstitial pulmonary edema. Moderate left and small right pleural effusions. 2. Asymmetric left lung opacities which could reflect superimposed pneumonia or asymmetric alveolar edema. Radiographic follow-up to ensure resolution is recommended. ACT 112: Negative or not required by law. Electronically signed by: Vin Lema M.D. 06/28/2024 11:[address] 06/28/24 12:21 CT OF THE CHEST WITHOUT IV CONTRAST CLINICAL HISTORY: Shortness of breath. Pneumonia. Fistula between lung and hiatal hernia. COMPARISON STUDY: Chest CT November 20, 2023. Chest radiograph performed earlier today. CT DOSE: 414.92 mGy.cm TECHNIQUE: Axial images of the chest were obtained without IV contrast. Images were reviewed in the axial, sagittal, and coronal planes. IV contrast was not administered for this examination. Automated exposure control was utilized for the study. A dose lowering technique was utilized adhering to the principles of ALARA. FINDINGS: The heart is moderately enlarged. There is no pericardial effusion. Mildly enlarged mediastinal lymph nodes are similar to prior exam. There is no pneumothorax. There are trace bilateral pleural effusions. Postoperative findings along the left hemidiaphragm are again noted. The postoperative appearance is similar to prior CT. There is hyperdense material within the distal esophagus. A moderate sized hiatal hernia is noted. Extensive bilateral lower lobe consolidation is present. There is also right middle lobe and lingular consolidation. The extent of airspace opacities as increased when compared to CT of November 20, 2023. No consolidation is present. There are extensive secretions within the airways, most notably the left mainstem bronchus. Possible fistulous connection between the hiatal hernia and the right lower lobe is again noted on image 154 of 225. This similar in appearance to prior exam. Left-sided parapelvic cysts are incidentally noted. There are gallstones within the gallbladder. IMPRESSION: 1. Dense consolidation within the bilateral lower lobes, lingula and right middle lobe, increased in extent since CT of November 20, 2023. The findings are suggestive of pneumonia or aspiration pneumonitis, given extensive airway secretions. Radiographic follow-up to ensure resolution is recommended. 2. As suggested previously, a possible fistulous connection between the hiatal hernia and the right lower lobe is not excluded. 3. Trace bilateral pleural effusions. 4. Cardiomegaly. 5. Stable mildly enlarged mediastinal lymph this, likely reactive. ACT 112: Negative or not required by law. Electronically signed by: Vin Lema M.D. 06/28/2024 2:01 PM Discharge Plan Visit Data Chief Complaint: Shortness of Breath/Dyspnea Stated Complaint: SOB, DIARRHEA, ABD PAIN ED Provider: Dillon Ellis Discharge Problem: Hypoxia Patient Disposition: Admitted As Inpatient Discharge Instructions Interventions: ED Discharge Assessment Last Done: 06/28/24 13:01
[2024-06-28] MEDS: SODIUM CHLORIDE 0.9% 1,000 ML IV ONE (09:57)
[2024-06-28] MEDS: ALBUT/IPRATROP 3MG/0.5MG NEB 3 ML VIAL NEB STA (09:57)
[2024-06-28] MEDS: methylPREDNISolone 125 MG/2 ML VIAL IV STA (09:58)
[2024-06-28 10:01] LABS: HCO3 VBG 31 mmol/L; Oxygen Saturation VBG < 60.0 %; PCO2 VBG 50 mmHg (38-50); PO2 VBG 29 mmHg
[2024-06-28 10:13] LABS: Hematocrit (blood only) 43.7 % (37.0-47.0); Hemoglobin 13.8 g/dl (12.0-16.0); Mean Corpuscular Hemoglobin 27.6 pg (25.0-34.0); Mean Corpuscular Hgb Conc 31.6 g/dL (32.0-36.0); Mean Corpuscular Volume 87.4 fL (80.0-100.0); Mean Platelet Volume 10.9 fL (9.4-12.4); Platelet Count 200 K/uL (130-400); RDW Coefficient of Variation 15.2 % (11.5-14.5); RDW Standard Deviation 48.8 fL (36.4-46.3); White Blood Count 14.53 K/ul (4.8-10.8)
[2024-06-28 10:23] LABS: Alanine Aminotransferase 9 U/L (7-52); Albumin Globulin Ratio 1.1 (0.9-2); Albumin Level 3.8 gm/dl (3.4-5.0); Alkaline Phosphatase 75 U/L (34-104); Anion Gap 7 (3-11); Aspartate Aminotransferase 16 U/L (13-39); BUN Creatinine Ratio 18.5 (10-20); Blood Urea Nitrogen 15 mg/dl (6-23); Calcium 9.4 mg/dl (8.6-10.3); Carbon Dioxide 30 mmol/L (21-32); Chloride 108 mmol/L (98-107); Globulin 3.4 gm/dl (2.5-4.0); Glucose 118 mg/dl (70-99(Fasting)); Lipase 14 U/L (11-82); Potassium 3.4 mmol/L (3.5-5.1); Sodium 145 mmol/L (136-145); Total Protein 7.2 gm/dl (6.0-8.3)
[2024-06-28 10:30] LABS: Basophils # (auto) 0.03 K/uL (0.00-0.20); Basophils % (auto) 0.2 %; INR 1.3 (0.9-1.1); Immature Granulocytes # (auto) 0.05 K/uL (0.01-0.20); Immature Granulocytes % (auto) 0.3 %; Lymphocytes # (auto) 0.37 K/uL (1.20-3.40); Lymphocytes % (auto) 2.5 %; Monocytes # (auto) 0.48 K/uL (0.11-0.59); Monocytes % (auto) 3.3 %; Neutrophils % (auto) 93.7 %; Ovalocytes 1+; Prothrombin Time 13.7 Seconds (9.0-12.0); Troponin I High Sensitivity 5.1 pg/ml (0-14)
[2024-06-28 11:06] LABS: Adenovirus PCR Not Detected (NotDetected); Bordetella parapertussis PCR Not Detected (NotDetected); Bordetella pertussis PCR Not Detected (NotDetected); Chlamydia pneumoniae PCR Not Detected (NotDetected); Coronavirus 229E PCR Not Detected (NotDetected); Coronavirus CoV-2 (COVID19)PCR Not Detected (NotDetected); Coronavirus HKU1 PCR Not Detected (NotDetected); Coronavirus NL63 PCR Not Detected (NotDetected); Coronavirus OC43PCR Not Detected (NotDetected); Human Metapneumovirus PCR Not Detected (NotDetected); Influenza A PCR Not Detected (NotDetected); Influenza B PCR Not Detected (NotDetected); Mycoplasma pneumoniae PCR Not Detected (NotDetected); Parainfluenza Virus 1 PCR Not Detected (NotDetected); Parainfluenza Virus 2 PCR Not Detected (NotDetected); Parainfluenza Virus 3 PCR Not Detected (NotDetected); Parainfluenza Virus 4 PCR Not Detected (NotDetected); Respiratory Syncytial VirusPCR Not Detected (NotDetected); Rhinovirus/Enterovirus PCR Not Detected (NotDetected)
--- NOTE | 2024-06-28 11:11 | XRay Report ---
XR chest 1V portable CLINICAL HISTORY: Shortness of breath. COMPARISON STUDY: Chest radiograph February 06, 2024. Chest CT November 20, 2023. FINDINGS: Patient is rotated. Moderate left and small right pleural effusions are present. Bibasilar opacities are greater on the left. There are also left perihilar opacities. There is no pneumothorax. Cardiomegaly with mild interstitial thickening. There is a probable hiatal hernia. IMPRESSION: 1. Cardiomegaly with interstitial pulmonary edema. Moderate left and small right pleural effusions. 2. Asymmetric left lung opacities which could reflect superimposed pneumonia or asymmetric alveolar e swetha. Radiographic follow-up to ensure resolution is recommended. ACT 112: Negative or not required by law. Electronically signed by: Vin Lema M.D. 06/28/2024 11:09 AM
[2024-06-28] MEDS ORDERED: AZITHROMYCIN 500 MG VIAL IV ONE (11:21)
--- NOTE | 2024-06-28 11:38 | History & Physical Report ---
Date of Service June 28, 2024 Assessment & Plan (1) Pneumonia: Plan: likely aspiration pneumonia with hx of fistula and GERD Patient has a history of fistula between hiatal hernia and lung -> follows with [facility] who recommended feeding tube, patient declined/not surgical candidate at this time CXR showing cardiomegaly, pulmonary edema, moderate left pleural effusion, small right pleural effusion, left lung opacity (PNA vs alveolar edema) ED course: DuoNeb, azithromycin, Rocephin, Solu-Medrol 125 IV, NSS 1 L - procal ordered - Chest CT ordered - will switch antibiotic coverage to cover for anaerobes as well - Zosyn + azithromycin - consult to pulm -Consult speech therapy for significant aspiration Check sputum culture (2) Sepsis: Plan: Source: PNA - WBC 14.53, hypotensive (96/64), tachycardic (130), afebrile on admission - lactate negative, 1.5 - MAP = 75 -> 130 Fluids: Sepsis fluid bolus for ideal body weight = 2160 - Sepsis fluid bolus of 1L NSS given in ED - will give additional liter of LR on admission and start maintenance fluids as she is n.p.o. for aspiration - defer trending lactate as original was negative - Continue Zosyn + azithromycin as above - Blood cultures pending (3) Acute hypoxic respiratory failure: Plan: secondary to PNA found to be 85% on room air in ED - currently on 2L NC with improvement - VBG 7.4/50/31 - wean O2 as tolerated with tx above - incentive spirometry (4) Asthma: Plan: previously followed with pulmonary outpatient PFTs do not suggest obstruction, mild restriction perhaps possibly an acute exacerbation at this time although not wheezing - DuoNebs every 6 as needed - defer further Solu-Medrol at this time - continue home symbicort - consult to pulm as above (5) Hypokalemia: Plan: likely secondary to recent diarrhea - 3.4 on admission -> unable to tolerate PO tablets changed to 40 meq IV - during time of critical IV shortage, only repleting 40 mEq vs 60; can replete further once stable for PO intake - trend BMP (6) Hypomagnesemia: Plan: Likely secondary to recent diarrhea - 1.5 on admission -> 2g IV ordered - trend mg (7) Diarrhea: Plan: associated electrolyte abnormalities above Diarrhea x 3 days, no recent antibiotic use - stool cultures ordered - can add Imodium if C. difficile negative - hold home prn constipation medications - linaclotide, miralax (8) Factor V Leiden mutation: Plan: History of factor V Leiden with multiple PEs in the past; on chronic anticoagulation with Xarelto - continue home Xarelto - No concern for PE or DVT at this time given compliant with home Xarelto Plan Chronic stable diagnoses: HLD - continue statin Prediabetes - heart healthy diet GERD - continue Pepcid and Protonix Overactive bladder - continue oxybutynin prn VTE ppx: continue Xarelto Diet: heart healthy Code status: full code Dispo: PCU/tele Admission and Anticipated Discharge Date Admission Date: 06/28/24 History of Present Illness Chief Complaint: dyspnea Primary Care Provider: Thanh Phelan Patient is a 78-year-old female with a past medical history of factor V Leiden with multiple PEs on Xarelto, COPD, hypertension, hyperlipidemia, prediabetes, and 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 She presents today due to dyspnea and a cough for the past few days. She stated that she has a chronic cough, but it is worse than her normal. She also endorses sputum production, also chronic but acutely worsened. She stated that she has had a sore throat for the past few days along with diarrhea; last episode of diarrhea last night. She endorses chills for the past few days. Patient denies fever, headache, dizziness, lightheadedness, rhinorrhea, chest pain, abdominal pain, vomiting, constipation, dysuria, hematuria, edema, numbness, tingling. On examination patient was coughing up white, thick fluid. She also was trying to take p.o. potassium supplements, stated that they may be too big for her to swallow. She took half a tablet and vomited it up; IV K+ ordered. She lives at home alone and took her home medications this morning. She does not use oxygen at baseline. She wishes to be full code at this time. Patient's friend updated at bedside. Allergies Allergy/AdvReac Type Severity Reaction Status Date / Time shellfish derived Allergy Severe Itchy/Swelling Verified 06/16/24 11:15 Throat environmental allergies Allergy Unknown multiple/allergy Uncoded 06/16/24 11:15 testing +. unsure rxn details. Home Medications Medication Instructions Recorded Confirmed Type melatonin 5 mg capsule 5 mg PO HS PRN Sleep 02/26/19 06/28/24 History rosuvastatin 5 mg tablet (Crestor) 5 mg PO QAM 10/31/19 06/28/24 History pantoprazole 40 mg tablet,delayed 40 mg PO QAM 11/14/19 06/28/24 History release (Protonix) albuterol sulfate 90 mcg/actuation 2 puffs inhalation QID PRN sob 02/25/20 06/28/24 History breath activated powder inhaler (ProAir RespiClick) coenzyme Q10 100 mg capsule (Co 100 mg PO QAM 02/25/20 06/28/24 History Q-10) acetaminophen 325 mg tablet 325 mg PO QID PRN Pain 03/27/22 06/28/24 History (Tylenol) oxybutynin chloride 5 mg tablet 5 mg PO QAM PRN urinary discomfort 03/27/22 06/28/24 History rivaroxaban 20 mg tablet (Xarelto) 20 mg PO QAM 03/27/22 06/28/24 History fluticasone propionate 50 2 spray intranasal QAM 10/03/22 06/28/24 History mcg/actuation nasal spray,suspension albuterol sulfate 0.63 mg/3 mL 0.63 mg inhalation UD PRN coughing 05/04/23 06/28/24 History solution for nebulization spells dextromethorphan polistirex 30 10 ml PO UD PRN coughing spell 05/04/23 06/28/24 History mg/5 mL oral susp ext.release 12hr (Delsym 12 hour) fexofenadine 60 mg tablet (Olga 60 mg PO QPM 05/04/23 06/28/24 History Allergy) famotidine 20 mg tablet (Pepcid) 20 mg PO HS #90 tabs 08/28/23 06/28/24 Rx guaifenesin 600 mg tablet, 600 mg PO QAM 10/05/23 06/28/24 History extended release 12 hr (Mucinex) ipratropium bromide 21 mcg (0.03 2 spray intranasal QPM PRN cough & 10/05/23 06/28/24 History %) nasal spray congestion linaclotide 290 mcg capsule 290 mcg PO QAM #90 caps 11/05/23 06/28/24 Rx (Linzess) polyethylene glycol 3350 17 17 g PO DAILY 04/24/24 06/28/24 History gram/dose oral powder (Miralax) budesonide-formoterol HFA 160 2 puff inhalation BID #10.2 grams 06/16/24 06/28/24 Rx mcg-4.5 mcg/actuation aerosol inhaler (Symbicort) inhalational spacing device #1 ea 06/16/24 06/16/24 Rx triamcinolone acetonide 0.025 % 1 applic topical TID 06/28/24 06/28/24 History topical cream Past Med/Surg History Problem List (Updated 06/28/24 @ 14:59 by Dillon Ellis DO) Hypoxia (Acute) Diarrhea Hypokalemia Moderate persistent asthma Dyspnea Sepsis (Acute) Bilateral pneumonia (Acute) Acute hypoxic respiratory failure (Acute) Fistula COPD (chronic obstructive pulmonary disease) Other dysphagia Pneumonia (Acute) History of colon polyps Constipation Vocal cord paralysis Excessive cerumen in both ear canals Hemoptysis Bilateral pleural effusion Acute respiratory failure with hypoxia Hypomagnesemia (Acute) Hypoxia (Acute) Bacterial pneumonia Sepsis Hypoxia (Acute) Cough productive of yellow sputum (Acute) Laryngopharyngeal reflux (LPR) Mild asthma Chronic cough Pancreatitis SYLVIA (acute kidney injury) DVT prophylaxis SBO (small bowel obstruction) Abdominal pain, RUQ (Acute) Asthma Atypical mycobacterial infection Bronchiectasis Cough Diaphragmatic hernia Factor V Leiden mutation History of hemoptysis Menopause Pain, lower extremity Pulmonary embolism Vocal cord paralysis LEFT Encounter for pre-operative examination Encounter for pre-operative examination History of repair of hiatal hernia 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 Chronic gastroesophageal reflux disease Chronic bronchitis with productive mucopurulent cough Vocal cord paralysis Chronic pulmonary aspiration History of recent fall not since 04/2023 Chronic cough coughing spells over last 3 yr. Prediabetes Upper airway cough syndrome Shortness of breath more noticeable with activity/no change from baseline. Aspiration pneumonia hx Hiatal hernia GERD (gastroesophageal reflux disease) Laryngopharyngeal reflux Restrictive lung disease Hyperlipidemia Factor V Leiden Anemia hx Cancer breast ca - left - partial mastectomy - radiation Pulmonary embolism -10/2019 -- factor V -- on eliquis BID -7 years ago - post hiatal hernia repair - pt also has factor V - [facility] - treated w/ AC Hypertension Asthma inhaler prn/last use 10/04/23 for cough spell. get coughing spells over past 3 yrs . Surgical History History of right cataract surgery History of left cataract surgery History of surgery lysis of abdominal adhesions 10/2019 [facility] History of vaginal surgery History of hernia repair History of repair diaphramic hernia by thoracoabdominal approach History of Jamil fundoplication History of esophagogastric fundoplasty jamil fundoplication History of laryngoscopy History of direct laryngoscopy with injection into vocal chords History of nasal polypectomy History of arthroscopy of right knee meniscus repair History of tooth extraction History of wisdom tooth extraction History of breast biopsy History of partial mastectomy of left breast History of surgery vocal cord surgery. foreign body present "something for support" History of esophagogastroduodenoscopy (EGD) History of colonoscopy Family History Brother Family history of diabetes mellitus Father Cerebral artery occlusion with cerebral infarction Sister Factor V Leiden mutation Hypercoagulation Other No family history of adverse response to anesthesia Social History Smoking Status: Former smoker Tobacco Type: Cigarettes Cigarettes Per Day: 35 yr ago; Smoking End Date: Quit 25 to 35 years ago; Second Hand Exposure: No; Do You Dip or Chew Tobacco: No; Hx Alcohol Use: Yes Alcohol type: beer, wine and hard liquor Hx Substance Use: No Preferred Language: Divehi Communication Ability: Effective [employer] Required: No Beliefs That Will Affect Care: None marital status: Single Current Living Situation: Alone How many Children do You have: 0 Other Information That Helps Us Care for You: No Feels Safe at Home: Yes and No Is there a partner from a previous relationship who is making you feel unsafe now?: No Any Concerns about Your Family Situation: No Would You Like to Speak to Someone About Your Situation: No Safety Concerns: Feels Safe At This Time Assistive Devices: Glasses Review of Systems Review of Systems: see HPI Physical Exam Physical Exam: The patient is awake, alert and oriented 3, well developed and well nourished, normocephalic and atraumatic, in no acute distress. Non-toxic appearing. HEENT- EOMI, mucous membranes dry. Hearing grossly intact. Heart-normal S1 and S2. No murmurs, rubs or gallops. Lungs-clear bilaterally, no wheezes, no respiratory distress, no accessory muscle use. Abdomen-normal bowel sounds and soft. No ascites noted. Non-tender. Extremities- no clubbing, cyanosis, or edema. Psychiatric-normal affect. Results & Data Results & Data Vital Signs (Past 12 Hours) Vital Signs Temp Pulse Pulse Resp BP BP Pulse Ox 06/28/24 11:11 123 H 19 143/81 H 94 06/28/24 10:44 104 H 22 92 06/28/24 10:17 98 H 06/28/24 10:06 36.8 C 100 H 27 H 118/81 93 06/28/24 09:44 06/28/24 09:43 85 L 06/28/24 09:27 36.6 C 142 H 20 96/64 L 85 L O2 Del Method O2 Flow Rate 06/28/24 11:11 Nasal Cannula 4 06/28/24 10:44 Nasal Cannula 4 06/28/24 10:17 06/28/24 10:06 Nasal Cannula 5 06/28/24 09:44 Nasal Cannula 5 06/28/24 09:43 Room Air 06/28/24 09:27 Room Air Laboratory Results CBC, PT/INR, VBG, BMP, magnesium, LFTs, BNP, troponin, procalcitonin, UA, viral respiratory BioFire reviewed Diagnostic Findings CT chest reviewed Chest x-ray reviewed ECG Additional Comments: ECG from 06/28/2024 at 9:36 AM with sinus tachycardia with occasional PACs, rate 138, some possible mild/subtle ST depression in lateral leads Code Status & VTE Plan Code Status full code VTE Prophylaxis Plan VTE Prophylaxis will be ordered: Yes Supervising Physician Co-Signing Physician Notes MIREILLE Supervision Note: I personally saw and examined the patient. I verified all aggarwal points and agree with MIREILLE Rockwell with the following exceptions and/or additions: S-patient here with cough and worsening shortness of breath, fatigue, some loose stools. Was found to be hypoxic, hypotensive, tachycardic, and with extensive multifocal pneumonia on chest x-ray in the ER. She has been coughing up copious amounts of thin green liquid O- Vitals reviewed Gen: AAOx3, NAD, appears ill HEENT: Anicteric sclerae, EOMI CV: Tachycardic, regular rhythm, no mgr nl S1S2 Pulm: Diminished breath sounds at bases bilaterally, positive rhonchi bilaterally, no wheezes Abd: +BS soft NT ND no masses or hernias Ext: No edema Skin: No rashes, warm/dry Neuro: Full strength throughout A/V-31-myij-old female here with sepsis and pneumonia, aspiration, with gastro pulmonary fistula and known severe GERD Antibiotics and IV fluids as above Check KUB given that she is coughing up bile to ensure no bowel issues Appreciate pulmonary consultation Check sputum culture Consult speech therapy PG Care Time/CCT Total # of Minutes Spent Total Time Spent with Patient: Total time spent is greater than 50% in coordination of care (as documented) at patient's floor/unit and/or counseling patient: Coding Level of Care Code 29493 INT INP/OBS CARE MIN Diagnoses Pneumonia J18.9 Sepsis A41.9; R65.20; J96.01 Acute respiratory failure type: with hypoxia Sepsis acute organ dysfunction status: with acute organ dysfunction Sepsis type: sepsis due to unspecified organism Severe sepsis acute organ dysfunction type: acute respiratory failure Severe sepsis shock status: without septic shock Acute hypoxic respiratory failure J96.01 Asthma J45.909 Hypokalemia E87.6 Hypomagnesemia E83.42 Diarrhea R19.7 Factor V Leiden mutation D68.51 (2) Sepsis Acute respiratory failure type: with hypoxia Sepsis acute organ dysfunction status: with acute organ dysfunction Sepsis type: sepsis due to unspecified organism Severe sepsis acute organ dysfunction type: acute respiratory failure Severe sepsis shock status: without septic shock Qualified Code(s): A41.9 - Sepsis, unspecified organism; R65.20 - Severe sepsis without septic shock; J96.01 - Acute respiratory failure with hypoxia
[2024-06-28] MEDS: cefTRIAXone SODIUM 2,000 MG/50 ML BAG IV STA (11:56)
--- NOTE | 2024-06-28 12:12 | Electrocardiogram Report ---
Test Reason : Blood Pressure : */* mmHG Vent. Rate : 138 BPM Atrial Rate : 138 BPM P-R Int : 182 ms QRS Dur : 92 ms QT Int : 262 ms P-R-T Axes : 44 -4 168 degrees QTcB Int : 396 ms Sinus tachycardia with occasional PACs Possible Left atrial enlargement Minimal voltage criteria for LVH, may be normal variant Abnormal ECG When compared with ECG of 20-Nov-2023 15:21, No significant change was found Confirmed by Issac Veliz ([id number]) on 06/28/2024 12:12:15 PM Referred By: REFERRED SELF Confirmed By: Issac Veliz
[2024-06-28] MEDS: POTASSIUM CHLORIDE CRTAB 20 MEQ TABCR PO STA (12:16)
[2024-06-28 12:18] LABS: Magnesium 1.5 mg/dl (1.7-2.4)
[2024-06-28] MEDS: AZITHROMYCIN 500 MG in SODIUM CHLORIDE 0.9% 250 ML IV ONE (12:28)
[2024-06-28] MEDS: LACTATED RINGER'S 1,000 ML IV ONE (12:28)
[2024-06-28] MEDS: ONDANSETRON INJ 2 MG/ML 2 ML VIAL IV PRN (12:53)
--- NOTE | 2024-06-28 13:17 | Pulmonary Consultation ---
Date of Consultation June 28, 2024 Assessment & Plan (1) Bilateral pneumonia: Lung location: lower lobe of lung Pneumonia type: due to unspecified organism Qualified Code(s): J18.9 - Pneumonia, unspecified organism (2) Acute hypoxic respiratory failure: (3) Vocal cord paralysis: Plan 78 year old female w/ PMHx of PE/DVT/afib on Eliquis, asthma, history of vocal cord paralysis who presents shortness of breath and multilobar pneumonia CT chest 06/28/2024 personally reviewed: Dense consolidative process appreciated in the left upper lobe the whole of left lower lobe as well as right lower lobe No significant pleural effusion No significant mediastinal lymphadenopathy 2D echo 03/28/2023: EF 55%, grade 1 diastolic dysfunction, normal RV size and function, severely dilated LA --Acute hypoxic respiratory failure Secondary to multilobar pneumonia along with HFpEF Likely aspiration episodes along with fistula between the hiatal hernia and the right lower lobe Respiratory BioFire negative for everything on 06/28/2024 Procalcitonin 0.89 BNP 215 --Carries history of asthma On Symbicort 160, 2 puffs twice a day Following up with Dr. Smith --Elevated left hemidiaphragm Continue with incentive spirometry -- Ex-smoker [id number] smoking history Quit in 1988 --History of thyroplasty and tracheostomy --A-fib with history of DVT and PE On Xarelto Plan: Follow sputum culture Continue with antibiotic coverage to cover for anaerobes Overall prognosis for the patient is poor if the fistula between the hernia and the right lower lobe cannot be fixed and she is going to have recurrent infections again and again. I do thing on the long run palliative care consult would be reasonable Case was discussed with primary team Please note the above document was generated using voice recognition software. It may contain grammatical, syntax or spelling errors.Any formal questions or concerns about the content, text or information contained within the body of this dictation should be directly addressed to the provider for clarification. History of Present Illness Attending Physician: Arlet Taylor MD History of Present Illness 78-year-old female presented to the hospital for cough and shortness of breath Past medical history: Pulmonary emboli/DVT, A-fib on Eliquis, asthma, vocal cord paralysis, right-sided hernia and pulmonary fistula Pulmonary consulted for the same Follows up with Dr. Connor as well as Dr. Smith, notes reviewed At the time of examination patient was saturating 91-92% on 4 L nasal cannula She was not in respiratory distress, respiratory in the high teens. She stated that she has been having issues with coughing copious amount of phlegm for the last 3 or 4 days Does [place] any difficulty bringing up the phlegm Denies any difficulty swallowing No dysuria Does have 1 bowel on a daily basis which is loose. It has not changed in consistency or frequency. Social history: Approximately [id number] smoking history, quit in 1988 Allergies Allergy/AdvReac Type Severity Reaction Status Date / Time shellfish derived Allergy Severe Itchy/Swelling Verified 06/16/24 11:15 Throat environmental allergies Allergy Unknown multiple/allergy Uncoded 06/16/24 11:15 testing +. unsure rxn details. Home Medications Medication Instructions Recorded Confirmed Type melatonin 5 mg capsule 5 mg PO HS PRN Sleep 02/26/19 06/28/24 History rosuvastatin 5 mg tablet (Crestor) 5 mg PO QAM 10/31/19 06/28/24 History pantoprazole 40 mg tablet,delayed 40 mg PO QAM 11/14/19 06/28/24 History release (Protonix) albuterol sulfate 90 mcg/actuation 2 puffs inhalation QID PRN sob 02/25/20 06/28/24 History breath activated powder inhaler (ProAir RespiClick) coenzyme Q10 100 mg capsule (Co 100 mg PO QAM 02/25/20 06/28/24 History Q-10) acetaminophen 325 mg tablet 325 mg PO QID PRN Pain 03/27/22 06/28/24 History (Tylenol) oxybutynin chloride 5 mg tablet 5 mg PO QAM PRN urinary discomfort 03/27/22 06/28/24 History rivaroxaban 20 mg tablet (Xarelto) 20 mg PO QAM 03/27/22 06/28/24 History fluticasone propionate 50 2 spray intranasal QAM 10/03/22 06/28/24 History mcg/actuation nasal spray,suspension albuterol sulfate 0.63 mg/3 mL 0.63 mg inhalation UD PRN coughing 05/04/23 06/28/24 History solution for nebulization spells dextromethorphan polistirex 30 10 ml PO UD PRN coughing spell 05/04/23 06/28/24 History mg/5 mL oral susp ext.release 12hr (Delsym 12 hour) fexofenadine 60 mg tablet (Olga 60 mg PO QPM 05/04/23 06/28/24 History Allergy) famotidine 20 mg tablet (Pepcid) 20 mg PO HS #90 tabs 08/28/23 06/28/24 Rx guaifenesin 600 mg tablet, 600 mg PO QAM 10/05/23 06/28/24 History extended release 12 hr (Mucinex) ipratropium bromide 21 mcg (0.03 2 spray intranasal QPM PRN cough & 10/05/23 06/28/24 History %) nasal spray congestion linaclotide 290 mcg capsule 290 mcg PO QAM #90 caps 11/05/23 06/28/24 Rx (Linzess) polyethylene glycol 3350 17 17 g PO DAILY 04/24/24 06/28/24 History gram/dose oral powder (Miralax) budesonide-formoterol HFA 160 2 puff inhalation BID #10.2 grams 06/16/24 06/28/24 Rx mcg-4.5 mcg/actuation aerosol inhaler (Symbicort) inhalational spacing device #1 ea 06/16/24 06/16/24 Rx triamcinolone acetonide 0.025 % 1 applic topical TID 06/28/24 06/28/24 History topical cream Patient History Medical History Hx of sepsis Hx of small bowel obstruction "[facility] fixed that" COPD (chronic obstructive pulmonary disease) Fistula Gastropulmonary Fistula - "I am not sure they thought I had a fistula connecting my stomach to my lungs." Overactive bladder controlled History of pneumonia x2 past 2 yrs/most recent May 2023. Chronic gastroesophageal reflux disease Chronic bronchitis with productive mucopurulent cough Vocal cord paralysis Chronic pulmonary aspiration History of recent fall not since 04/2023 Chronic cough coughing spells over last 3 yr. Prediabetes Upper airway cough syndrome Shortness of breath more noticeable with activity/no change from baseline. Aspiration pneumonia hx Hiatal hernia GERD (gastroesophageal reflux disease) Laryngopharyngeal reflux Restrictive lung disease Hyperlipidemia Factor V Leiden Anemia hx Cancer breast ca - left - partial mastectomy - radiation Pulmonary embolism -10/2019 -- factor V -- on eliquis BID -7 years ago - post hiatal hernia repair - pt also has factor V - [facility] - treated w/ AC Hypertension Asthma inhaler prn/last use 10/04/23 for cough spell. get coughing spells over past 3 yrs . Surgical History History of right cataract surgery History of left cataract surgery History of surgery lysis of abdominal adhesions 10/2019 [facility] History of vaginal surgery History of hernia repair History of repair diaphramic hernia by thoracoabdominal approach History of Dillon fundoplication History of esophagogastric fundoplasty dillon fundoplication History of laryngoscopy History of direct laryngoscopy with injection into vocal chords History of nasal polypectomy History of arthroscopy of right knee meniscus repair History of tooth extraction History of wisdom tooth extraction History of breast biopsy History of partial mastectomy of left breast History of surgery vocal cord surgery. foreign body present "something for support" History of esophagogastroduodenoscopy (EGD) History of colonoscopy Family History Brother Family history of diabetes mellitus Father Cerebral artery occlusion with cerebral infarction Sister Factor V Leiden mutation Hypercoagulation Other No family history of adverse response to anesthesia Social History Smoking Status: Former smoker Tobacco Type: Cigarettes Cigarettes Per Day: 35 yr ago; Smoking End Date: Quit 25 to 35 years ago; Second Hand Exposure: No; Do You Dip or Chew Tobacco: No; Hx Alcohol Use: Yes Alcohol type: beer, wine and hard liquor Hx Substance Use: No Preferred Language: Chinese Communication Ability: Effective Ceiling Cleaner Required: No Beliefs That Will Affect Care: None marital status: Single Current Living Situation: Alone How many Children do You have: 0 Other Information That Helps Us Care for You: No Feels Safe at Home: Yes and No Is there a partner from a previous relationship who is making you feel unsafe now?: No Any Concerns about Your Family Situation: No Would You Like to Speak to Someone About Your Situation: No Safety Concerns: Feels Safe At This Time Assistive Devices: Glasses Review of Systems 2 Review of Systems: All systems reviewed & are unremarkable except as noted in HPI & below Physical Exam 2 Physical Exam: Constitutional: No acute distress HEENT: EOMI, PERRLA, soft raspy voice Respiratory system: Decreased air entry bilaterally, no wheeze, positive rhonchi, positive crackles bilaterally more on the left side CVS: S1-S2 positive, no murmurs or gallops Abdomen: Soft, nontender, nondistended, positive bowel sounds x4 Extremities: +2 pulses bilaterally radialis/ dorsalis pedis, no cyanosis, no edema Neuro: Awake alert oriented x3 Psych: Normal mood and affect G/U: No Urban Musculoskeletal: Thoracic kyphosis Skin: no rashes, warm and dry Lymphatic: no cervical or axillary lymphadenopathy Results & Data Results & Data Vital Signs (Past 12 Hours) Vital Signs Temp Pulse Pulse Resp BP BP Pulse Ox 06/28/24 12:58 106 H 19 136/81 96 06/28/24 11:11 123 H 19 143/81 H 94 06/28/24 10:44 104 H 22 92 06/28/24 10:17 98 H 06/28/24 10:06 36.8 C 100 H 27 H 118/81 93 06/28/24 09:44 06/28/24 09:43 85 L 06/28/24 09:27 36.6 C 142 H 20 96/64 L 85 L O2 Del Method O2 Flow Rate 06/28/24 12:58 Nasal Cannula 4 06/28/24 11:11 Nasal Cannula 4 06/28/24 10:44 Nasal Cannula 4 06/28/24 10:17 06/28/24 10:06 Nasal Cannula 5 06/28/24 09:44 Nasal Cannula 5 06/28/24 09:43 Room Air 06/28/24 09:27 Room Air Laboratory Results 06/28/24 09:45 06/28/24 09:45 PG Care Time/CCT Total # of Minutes Spent Total Time Spent with Patient: Total time spent is greater than 50% in coordination of care (as documented) at patient's floor/unit and/or counseling patient: Coding Level of Care Code 35055 INT INP/OBS CARE 3/75MIN Diagnoses Bilateral pneumonia J18.9 Lung location: lower lobe of lung Pneumonia type: due to unspecified organism Acute hypoxic respiratory failure J96.01 Vocal cord paralysis J38.00
[2024-06-28] MEDS ORDERED: oxyBUTYnin chloride 5 MG TAB PO PRN (13:58)
[2024-06-28] MEDS ORDERED: ALBUT/IPRATROP 3MG/0.5MG NEB 3 ML VIAL NEB PRN (13:58)
--- NOTE | 2024-06-28 14:03 | CT Scan Report ---
CT OF THE CHEST WITHOUT IV CONTRAST CLINICAL HISTORY: Shortness of breath. Pneumonia. Fistula between lung and hiatal hernia. COMPARISON STUDY: Chest CT November 20, 2023. Chest radiograph performed earlier today. CT DOSE: 414.92 mGy.cm TECHNIQUE: Axial images of the chest were obtained without IV contrast. Images were reviewed in the axial, sagittal, and coronal planes. IV contrast was not administered for this examination. Automat ed exposure control was utilized for the study. A dose lowering technique was utilized adhering to t he principles of ALARA. FINDINGS: The heart is moderately enlarged. There is no pericardial effusion. Mildly enlarged medias tinal lymph nodes are similar to prior exam. There is no pneumothorax. There are trace bilateral pleu ral effusions. Postoperative findings along the left hemidiaphragm are again noted. The postoperative appearance is similar to prior CT. There is hyperdense material within the distal esophagus. A moder ate sized hiatal hernia is noted. Extensive bilateral lower lobe consolidation is present. There is a lso right middle lobe and lingular consolidation. The extent of airspace opacities as increased when compared to CT of November 20, 2023. No consolidation is present. There are extensive secretions within the airways, most notably the left mainstem bronchus. Possible fistulous connection between the hiata l hernia and the right lower lobe is again noted on image 154 of 225. This similar in appearance to p rior exam. Left-sided parapelvic cysts are incidentally noted. There are gallstones within the gallbl adder. IMPRESSION: 1. Dense consolidation within the bilateral lower lobes, lingula and right middle lobe, increased in extent since CT of November 20, 2023. The findings are suggestive of pneumonia or aspiration pneumonitis , given extensive airway secretions. Radiographic follow-up to ensure resolution is recommended. 2. As suggested previously, a possible fistulous connection between the hiatal hernia and the right l ower lobe is not excluded. 3. Trace bilateral pleural effusions. 4. Cardiomegaly. 5. Stable mildly enlarged mediastinal lymph this, likely reactive. ACT 112: Negative or not required by law. Electronically signed by: Vin Lema M.D. 06/28/2024 2:01 PM
[2024-06-28] MEDS: MAGNESIUM SULFATE / D5W 1 GM/100 ML BAG IV SCH (14:47)
[2024-06-28] MEDS: POTASSIUM CHLORIDE / WTR 10 MEQ/100 ML PLCT IV SCH (14:47)
[2024-06-28] MEDS: 4.5GM X1 IV STA (14:57)
[2024-06-28 16:30] LABS: Appearance Urine Cloudy (Clear); Bacteria Urine Automated None Seen (None Seen); Bilirubin Urine Negative (Negative); Blood Urine 3+ (Negative); Cast Urine Automated 0-2 /lpf (0-2); Color Urine Yellow; Epithelial Cell Urine Auto 0-2 /hpf (0-2); Glucose Urine UA Negative (Negative); Ketones Urine 1+ (Negative); Leukocyte Esterase Urine Trace (Negative); Nitrite Urine Negative (Negative); Protein Urine 1+ (Negative); RBC Urine Automated >20 /hpf (0-2); Specific Gravity Urine 1.016 (1.000-1.030); Urobilinogen Urine Negative (Negative); WBC Urine Automated 0-5 /hpf (0-5); pH Urine 5.5 (4.5-7.5)
[2024-06-28] MEDS: RIVAROXABAN 20 MG TAB PO SCH (17:04)
[2024-06-28] MEDS: SODIUM CHLORIDE 0.9% 1,000 ML IV SCH (18:44)
--- NOTE | 2024-06-28 19:22 | XRay Report ---
EXAM: Radiograph of the Abdomen 1 View INDICATION: Evaluate for small bowel obstruction. TECHNIQUE: Frontal supine view of the abdomen/pelvis. COMPARISON: 11/28/2023 FINDINGS: Limitations: None. Lower thorax: There is significant increase confluent consolidation in the left lung base. Stable right basilar airspace consolidation and small bilateral pleural effusions. Gastrointestinal tract: Small amounts of air noted in nondilated bowel loops likely noted within the colon. There is a small amount of fluid and stool in the rectal vault. Small bowel loops are not aerated. Organs: Visualized organ shadows appear grossly normal. Bones/joints: Degenerative changes noted in the scoliotic spine. No acute osseous abnormality noted. Soft tissues: No abnormality noted. No radiopaque foreign body noted. IMPRESSION: 1. Relatively little gas noted in the colon. The small bowel is not aerated which could reflect significant fluid deposition secondary to ileus or obstruction. If additional imaging is clinically warranted, CT with oral and IV contrast is the modality of choice. 2. There is significant increase confluent consolidation in the left lung base. Stable right basilar airspace consolidation and small bilateral pleural effusions. ACT 112: Negative or not required by law. Electronically signed by Diane Richmond 06-28-2024 7:22 PM
[2024-06-28] MEDS: PIPERACILLIN/TAZOBACTAM 4.5 GM/100 ML BAG IV SCH (20:17)
[2024-06-28] MEDS: FAMOTIDINE 20 MG TAB PO SCH (20:17)
[2024-06-28] MEDS: MELATONIN 3 MG TAB PO PRN (22:45)
[2024-06-28] MEDS: ACETAMINOPHEN 325 MG TAB PO PRN (22:45)
[2024-06-29 04:25] LABS: Base Excess VBG 1.7 mEq/L; HCO3 VBG 28 mmol/L; Oxygen Saturation VBG 98.9 %; PCO2 VBG 48 mmHg (38-50); PO2 VBG 87 mmHg; pH VBG 7.37 (7.36-7.41)
[2024-06-29 04:33] LABS: Hemoglobin 10.6 g/dl (12.0-16.0); Mean Corpuscular Hemoglobin 27.7 pg (25.0-34.0); Mean Corpuscular Hgb Conc 31.2 g/dL (32.0-36.0); Mean Corpuscular Volume 88.8 fL (80.0-100.0); Mean Platelet Volume 11.2 fL (9.4-12.4); Platelet Count 172 K/uL (130-400); RDW Coefficient of Variation 15.6 % (11.5-14.5); RDW Standard Deviation 50.6 fL (36.4-46.3); Red Blood Count 3.83 M/uL (4.20-5.40); White Blood Count 14.53 K/ul (4.8-10.8)
[2024-06-29 04:54] LABS: ALC (manual) 0.58 K/uL (1.2-3.4); ANC (manual) 13.22 K/uL (1.4-6.5); Eosinophils # (manual) 0.44 K/uL (0-0.50); Eosinophils % (manual) 3 %; Lymphocytes # (manual) 0.58 K/uL (1.2-3.4); Lymphocytes % (manual) 4 %; Monocytes # (manual) 0.29 K/uL (0.11-0.59); Monocytes % (manual) 2 %; Neutrophils # (manual) 13.22 K/uL (1.40-6.50); Neutrophils % (manual) 91 %
[2024-06-29 05:05] LABS: BUN Creatinine Ratio 19.1 (10-20); Calcium 8.6 mg/dl (8.6-10.3); Creatinine Clr Calc Pharmacy 47.7 ml/min; Magnesium 1.9 mg/dl (1.7-2.4); Potassium 4.7 mmol/L (3.5-5.1)
--- NOTE | 2024-06-29 05:30 | XRay Report ---
EXAM: XR chest 1V portable CLINICAL HISTORY: INCREASED OXYGEN REQUIREMENT JMF TECHNIQUE: X-ray of chest was done in AP view. COMPARISON: 02/06/2024. FINDINGS: Moderate left-sided and mild right-sided pleural effusion. Haziness at the left middle lung zone, likely suggestive of infection, please correlate clinically. Cardiac size cannot be evaluated as the left cardiac border is obscured by the left side pleural effusion. Normal mediastinal contour. Unremarkable to the thoracic and bony cage. IMPRESSION: 1. Moderate left-sided and mild right-sided pleural effusion. Interval new finding. 2. Haziness at the left middle lung zone, likely suggestive of infection, please correlate clinically. Interval new finding. [facility] was called at [phone] at 4:23 AM [employer], 06/29/2024 and Veronica Nurse was informed regarding the presence of Important Medical Findings in the report. Electronically signed by Meet Ernandez 06-29-2024 05:29 AM
--- NOTE | 2024-06-29 06:04 | Communication Note ---
Date of Service: June 29, 2024 Notified by nursing on concern for increased oxygen requirement. 4-5 L to 7L. Evaluated pt at bedside. In no acute distress. Denies chest pain/dyspnea. No increased work or breathing. Lungs with rhonchi in bases B/L Left worse than right, no wheezing. Was able to be weaned to 6L NC. Repeat VBG unremarkable. CBC with leukocytosis= 14, stable from prior. On Zosyn/Azithromycin for PNA. Per my read repeat CXR again shows LLL opacity and again with B/L pleural effusion slightly worse from prior. Hold further IVF- consider Lasix if any further increase in O2 requirement- hold for now as she was mildly hypotensive on admission, and with BP 100/60 now.
[2024-06-29] MEDS: AZITHROMYCIN 250 MG TAB PO SCH (09:30)
[2024-06-29] MEDS: ROSUVASTATIN CALCIUM 5 MG TAB PO SCH (09:30)
[2024-06-29] MEDS: PANTOprazole 40 MG TAB PO SCH (09:30)
[2024-06-29] MEDS: FLUTICASONE/VILANTEROL 200/25MCG 14 PUFFS/INHALER INH SCH (09:30)
--- NOTE | 2024-06-29 09:31 | Pulmonology Progress Note ---
Date of Service June 29, 2024 Assessment & Plan (1) Bilateral pneumonia: Lung location: lower lobe of lung Pneumonia type: due to unspecified organism Qualified Code(s): J18.9 - Pneumonia, unspecified organism (2) Acute hypoxic respiratory failure: (3) Vocal cord paralysis: Plan 78 year old female w/ PMHx of PE/DVT/afib on Eliquis, asthma, history of vocal cord paralysis who presents shortness of breath and multilobar pneumonia CT chest 06/28/2024 personally reviewed: Dense consolidative process appreciated in the left upper lobe the whole of left lower lobe as well as right lower lobe No significant pleural effusion No significant mediastinal lymphadenopathy 2D echo 03/28/2023: EF 55%, grade 1 diastolic dysfunction, normal RV size and function, severely dilated LA --Acute hypoxic respiratory failure Secondary to multilobar pneumonia along with HFpEF Likely aspiration episodes along with fistula between the hiatal hernia and the right lower lobe Respiratory BioFire negative for everything on 06/28/2024 Procalcitonin 0.89 BNP 215 --Carries history of asthma On Symbicort 160, 2 puffs twice a day Following up with Dr. Smith --Elevated left hemidiaphragm Continue with incentive spirometry -- Ex-smoker [id number] smoking history Quit in 1988 --History of thyroplasty and tracheostomy --A-fib with history of DVT and PE On Xarelto Plan: Continue with antibiotic coverage to cover for anaerobes. Follow sputum culture Would recommend to get an opinion from thoracic surgery regarding the fistula. Overall prognosis for the patient is poor if the fistula between the hernia and the right lower lobe cannot be fixed and she is going to have recurrent infections again and again. I do thing on the long run palliative care consult would be reasonable Case was discussed with primary team Please note the above document was generated using voice recognition software. It may contain grammatical, syntax or spelling errors.Any formal questions or concerns about the content, text or information contained within the body of this dictation should be directly addressed to the provider for clarification. Admission and Anticipated Discharge Date Admission Date: June 28, 2024 Subjective Patient seen and examined at bedside. No acute distress. As per the nurse overnight patient needed more oxygen. This is most likely because she was laying down. She was saturating 96% on 4 L nasal cannula. I went down to 2 L She says she is able to bring up the phlegm without any issues She feels a little better compared to before Denied any abdominal pain No chest pain Mild nausea, no vomiting Review of Systems 2 Review of Systems: All systems reviewed & are unremarkable except as noted in Subjective Physical Exam 2 Physical Exam: Constitutional: No acute distress HEENT: EOMI, PERRLA, soft raspy voice Respiratory system: Decreased air entry bilaterally, no wheeze, positive rhonchi, positive crackles bilaterally more on the left side CVS: S1-S2 positive, no murmurs or gallops Abdomen: Soft, nontender, nondistended, positive bowel sounds x4 Extremities: +2 pulses bilaterally radialis/ dorsalis pedis, no cyanosis, no edema Neuro: Awake alert oriented x3 Psych: Normal mood and affect G/U: No Urban Musculoskeletal: Thoracic kyphosis Skin: no rashes, warm and dry Lymphatic: no cervical or axillary lymphadenopathy Results & Data Results & Data Vital Signs (Past 12 Hours) Vital Signs Temp Pulse Pulse Resp BP Pulse Ox O2 Del Method 06/29/24 07:25 36.8 C 73 18 104/63 99 Room Air 06/29/24 05:02 83 06/29/24 03:46 36.9 C 91 H 18 100/63 90 Nasal Cannula 06/28/24 23:18 37.8 C H 130 H 18 110/63 90 Nasal Cannula 06/28/24 22:31 124 H 06/28/24 21:48 Nasal Cannula O2 Flow Rate 06/29/24 07:25 06/29/24 05:02 06/29/24 03:46 6 06/28/24 23:18 4 06/28/24 22:31 06/28/24 21:48 4 Laboratory Results 06/29/24 04:16 06/29/24 04:16 PG Care Time/CCT Total # of Minutes Spent Total Time Spent with Patient: Total time spent is greater than 50% in coordination of care (as documented) at patient's floor/unit and/or counseling patient: Coding Level of Care Code 13470 SUB INP/OBS CARE 3/50MIN Diagnoses Bilateral pneumonia J18.9 Lung location: lower lobe of lung Pneumonia type: due to unspecified organism Acute hypoxic respiratory failure J96.01 Vocal cord paralysis J38.00
--- NOTE | 2024-06-29 11:03 | Hospitalist Progress Note ---
Date of Service June 29, 2024 Assessment & Plan (1) Pneumonia: Plan: Presents with significant multi lobar aspiration pneumonia with hx of gastro pulmonary fistula and severe reflux and esophageal dysmotility She has followed with [facility] thoracic surgery and cough clinic/pulmonology who recommended feeding tube (presumably J-tube)-but patient declined J-tube and was told she is not a good surgical candidate for repair of the fistula due to it being very major surgery-these records are not available for my review and this is all based on patient report CXR showing cardiomegaly, pulmonary edema, moderate left pleural effusion, small right pleural effusion, left lung opacity (PNA vs alveolar edema) CT chest with dense consolidation in bilateral lower lobes, lingula, RML consistent with pneumonia. Fistula connection between hiatal hernia and right lower lobe also suspected Her oxygen requirement was as high as 7 L nasal cannula overnight on 06/28 but is now improved to 2 L nasal cannula-she is not on oxygen at home She was coughing up copious bile liquid on admission and this is now improving Follow sputum culture-pending Follow blood cultures-pending Continue Zosyn + azithromycin for broad-spectrum coverage to include anaerobes given chronic aspiration as well as typical's and atypicals Continue pulmonary toilet with flutter valve, incentive spirometry, and bronchodilators Consult pulmonology appreciated-recommends seeking second opinion from thoracic surgery as an outpatient for fistula repair versus J-tube placement and/or palliative medicine consultation Consult speech therapy for significant aspiration-she does not have any difficulty with swallowing but rather has significant likely silent reflux aspiration Follow CBC, BMP Follow chest imaging (2) Sepsis: Plan: Source: PNA With leukocytosis, tachycardia, hypotension on admission with normal lactate Now improved with IV fluids and antibiotics Follow cultures as above (3) Acute hypoxic respiratory failure: Plan: secondary to extensive multifocal PNA found to be 85% on room air in ED and at 1 point requiring 7 L nasal cannula-now weaned down to 2 L nasal cannula VBG without evidence of mild chronic respiratory acidosis wean O2 as tolerated with tx above Continue incentive spirometry and flutter valve (4) Hypokalemia: Plan: On admission, replaced and now resolved (5) Hypomagnesemia: Plan: Likely secondary to recent diarrhea-replaced and now resolved (6) Diarrhea: Plan: associated electrolyte abnormalities above Diarrhea x 3 days, no recent antibiotic use-mild and improving - stool cultures ordered - can add Imodium if C. difficile negative - hold home prn constipation medications - linaclotide, miralax (7) Factor V Leiden mutation: Plan: History of factor V Leiden with multiple PEs in the past; on chronic anticoagulation with Xarelto - continue home Xarelto - No concern for PE or DVT at this time given compliant with home Xarelto Plan Chronic stable diagnoses: HLD - continue statin Prediabetes - heart healthy diet GERD - continue Pepcid and Protonix Overactive bladder - continue oxybutynin prn VTE ppx: continue Xarelto Diet: heart healthy Code status: full code Dispo: Continued stay PCU/tele, will need PT OT Admission and Anticipated Discharge Date Admission Date: June 28, 2024 Subjective Patient had some increasing oxygen requirements overnight but weaned from 7 L nasal cannula back down to 2 L this morning. She reports she is not coughing up nearly as much green bile liquid as she was yesterday She is out of bed to chair. I discussed her care with pulmonology at the bedside with the patient. She declines feeding tube but is open to getting another opinion from thoracic surgery other than [facility] She reports that she has been following through telehealth with thoracic surgery at [facility] and they just ordered an echocardiogram last week-will attempt to obtain these results She is having some loose stool, denies abdominal pain or nausea. Telemetry with normal sinus rhythm with rates in the 70s or 80s I discussed her care also with speech therapy Physical Exam Constitutional: WD/WN, vitals as above Respiratory: normal respiratory effort and + cough Auscultation: + diminished lung sounds (Throughout left lung and base of right lung), + crackles and + rhonchi Cardiovascular: RRR, no murmur, no edema Gastrointestinal (Abdomen): normal bowel sounds, soft, nontender, no hepatosplenomegaly Psychiatric: A+Ox3, euthymic affect Results & Data Results & Data Vital Signs (Past 12 Hours) Vital Signs Temp Pulse Pulse Resp BP Pulse Ox O2 Del Method 06/29/24 07:25 36.8 C 73 18 104/63 99 Room Air 06/29/24 05:02 83 06/29/24 03:46 36.9 C 91 H 18 100/63 90 Nasal Cannula 06/28/24 23:18 37.8 C H 130 H 18 110/63 90 Nasal Cannula O2 Flow Rate 06/29/24 07:25 06/29/24 05:02 06/29/24 03:46 6 06/28/24 23:18 4 Laboratory Results CBC, BMP, VBG, UA, blood cultures and sputum culture reviewed Diagnostic Findings Chest x-ray from 06/29 reviewed PG Care Time/CCT Total # of Minutes Spent Total Time Spent with Patient: Total time spent is greater than 50% in coordination of care (as documented) at patient's floor/unit and/or counseling patient: Coding Level of Care Code 67550 SUB INP/OBS CARE 3/50MIN Diagnoses Pneumonia J18.9 Sepsis A41.9; R65.20; J96.01 Acute respiratory failure type: with hypoxia Sepsis acute organ dysfunction status: with acute organ dysfunction Sepsis type: sepsis due to unspecified organism Severe sepsis acute organ dysfunction type: acute respiratory failure Severe sepsis shock status: without septic shock Acute hypoxic respiratory failure J96.01 Hypokalemia E87.6 Hypomagnesemia E83.42 Diarrhea R19.7 Factor V Leiden mutation D68.51 (2) Sepsis Acute respiratory failure type: with hypoxia Sepsis acute organ dysfunction status: with acute organ dysfunction Sepsis type: sepsis due to unspecified organism Severe sepsis acute organ dysfunction type: acute respiratory failure Severe sepsis shock status: without septic shock Qualified Code(s): A41.9 - Sepsis, unspecified organism; R65.20 - Severe sepsis without septic shock; J96.01 - Acute respiratory failure with hypoxia
[2024-06-30 06:04] LABS: Hematocrit (blood only) 32.5 % (37.0-47.0); Hemoglobin 10.1 g/dl (12.0-16.0); Mean Corpuscular Hemoglobin 27.6 pg (25.0-34.0); Mean Corpuscular Hgb Conc 31.1 g/dL (32.0-36.0); Mean Corpuscular Volume 88.8 fL (80.0-100.0); Mean Platelet Volume 10.8 fL (9.4-12.4); Platelet Count 159 K/uL (130-400); RDW Coefficient of Variation 15.5 % (11.5-14.5); RDW Standard Deviation 51.1 fL (36.4-46.3); Red Blood Count 3.66 M/uL (4.20-5.40); White Blood Count 12.37 K/ul (4.8-10.8)
[2024-06-30 06:28] LABS: Basophils # (auto) 0.02 K/uL (0.00-0.20); Basophils % (auto) 0.2 %; Eosinophils # (auto) 0.01 K/uL (0.00-0.50); Eosinophils % (auto) 0.1 %; Immature Granulocytes # (auto) 0.06 K/uL (0.01-0.20); Immature Granulocytes % (auto) 0.5 %; Lymphocytes # (auto) 0.69 K/uL (1.20-3.40); Lymphocytes % (auto) 5.6 %; Monocytes # (auto) 0.35 K/uL (0.11-0.59); Monocytes % (auto) 2.8 %; Neutrophils # (auto) 11.24 K/uL (1.40-6.50); Neutrophils % (auto) 90.8 %; Ovalocytes 1+; Polychromasia 1+
[2024-06-30 06:38] LABS: BUN Creatinine Ratio 20.2 (10-20); Calcium 8.4 mg/dl (8.6-10.3); Creatinine Clr Calc Pharmacy 51.9 ml/min; Potassium 3.9 mmol/L (3.5-5.1)
--- NOTE | 2024-06-30 07:38 | Hospitalist Progress Note ---
Date of Service June 30, 2024 Assessment & Plan (1) Bilateral pneumonia: Plan: likely secondary to aspiration improving clinically and WBC downtrending - switched from IV Zosyn to Augmentin PO for total abx course of 14 days - continue daily CBC - duonebs q6 as needed (2) Acute hypoxic respiratory failure: Plan: currently on 2L/min O2 on NC, vitals stable - consider weaning off NC tomorrow if continues to improve - PT/OT (3) Vocal cord paralysis: Plan: seen and evaluated by speech therapy - continue diet as tolerated with reflux precautions: HOB between 45-90 - alternate solids and liquids, small frequent meals - HOB no lower than 30deg at all times (4) Factor V Leiden mutation: Plan: continue on Xarelto (5) Fistula: Plan: 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 - appears stable at this time Plan VTE ppx: continue Xarelto Diet: heart healthy Code status: full code Dispo: tele Admission and Anticipated Discharge Date Admission Date: June 28, 2024 ATTESTATION I also saw the patient and confirmed agagrwal portions of the history and exam. I agree with the impression and plan in the resident documentation, and as sum marized below. Making progress - decreased oxygen requirement and generally feels better today compared to yesterday. EXAM 134/80, 77, 18, Afebrile, 96% on 2 lpm via NC Alert and oriented. Talks in full sentences without pause CV RRR Lungs with decreased lung sounds, bilateral bases; crackles/rhonchi DATA Labs WBC down to 12.37 HgB stable at 10.1 BMP unremarkable Imaging No new imaging Micro Blood cultures negative at 48 hours IMPRESSION & PLAN Pneumonia, improving ARF, improving Sepsis, resolved Gastropulmonary fistula H/O of Factor V on chronic anticoagulation Appreciate pulmonary input Transition to Augmentin Wean oxygen PT/OT Additional per resident documentation Subjective Patient was seen and evaluated at bedside this AM. Denies any significant pain or discomfort overnight. Endorses cough and sputum production continuing to improve. Currently on 2L/min O2 via NC, willing to try weaning off tomorrow if continuing to improve. Eating well per speech recommendations, no significant reflux reported. Denies fever, body aches, chills, headache, neck pain, chest pain, abdominal pain, numbness/tingling of extremities, pain/swelling of extremities. Review of Systems Review of Systems: per HPI Physical Exam Physical Exam: Constitutional: A&Ox3, appears stated age, not in acute distress HEENT: anicteric sclerae, EOM intact Cardiovascular: RRR, +s1/s2, no m/r/g Respiratory: mild rales and coarse breath sounds in lung bases R>L, otherwise clear to auscultation with good air entry b/l, no wheeze GI: abdomen soft, +BS, no tenderness to palpation Neuro: no facial droop, speech intact, no sensory deficits MSK: 5/5 strength in all extremities Results & Data Results & Data Vital Signs (Past 12 Hours) Vital Signs Temp Pulse Pulse Resp BP Pulse Ox O2 Del Method 06/30/24 03:22 36.9 C 89 20 120/70 91 Nasal Cannula 06/30/24 00:00 Nasal Cannula 06/30/24 00:00 94 H 06/29/24 23:48 37.2 C 91 H 20 118/68 92 Nasal Cannula 06/29/24 20:00 Nasal Cannula O2 Flow Rate 06/30/24 03:22 2 06/30/24 00:00 2 06/30/24 00:00 06/29/24 23:48 2 06/29/24 20:00 2 Laboratory Results Abnormal lab results 06/30/24 Range/Units 05:32 WBC 12.37 H (4.8-10.8) K/ul RBC 3.66 L (4.20-5.40) M/uL Hgb 10.1 L (12.0-16.0) g/dl Hct 32.5 L (37.0-47.0) % MCHC 31.1 L (32.0-36.0) g/dL RDW Std Deviation 51.1 H (36.4-46.3) fL RDW Coeff of Maya 15.5 H (11.5-14.5) % Neut # (Auto) 11.24 H (1.40-6.50) K/uL Lymph # (Auto) 0.69 L (1.20-3.40) K/uL Chloride 110 H (98-107) mmol/L BUN/Creatinine Ratio 20.2 H (10-20) Calcium 8.4 L (8.6-10.3) mg/dl Resident Activity Tracking Resident Involvement: Resident Care Provided Care Provided: Adult Hospital Medicine (1) Bilateral pneumonia Lung location: lower lobe of lung Pneumonia type: due to unspecified organism Qualified Code(s): J18.9 - Pneumonia, unspecified organism
--- NOTE | 2024-06-30 11:16 | Pulmonology Progress Note ---
Date of Service June 30, 2024 Assessment & Plan (1) Bilateral pneumonia: Lung location: lower lobe of lung Pneumonia type: due to unspecified organism Qualified Code(s): J18.9 - Pneumonia, unspecified organism (2) Acute hypoxic respiratory failure: (3) Vocal cord paralysis: Plan Impression: 78-year-old female admitted with pneumonia. She has what appears to be a gastro pulmonary fistula. This has been evaluated in the outpatient setting at [facility] and she was not felt to be a great candidate for operative intervention. The patient is unsure which course she wants to take but she is having persistent issues with recurrent pneumonia. Recommendations: 1. Advised the patient that without definitive therapy she should expect to have continued issues with recurrent pneumonia. She is at risk for development of a pulmonary abscess and destruction of the lower part of the lung with recurrent episodes of soiling from her fistula. She again wants to consider her options moving forward and is not enthusiastic about a feeding tube or surgery. 2. At this point time will de-escalate antibiotics down to oral Augmentin which she should complete for 14 days. 3. Would recommend assessing the patient for supplemental oxygen prior to discharge. 4. Patient can follow-up with in the outpatient setting. No new pulmonary recommendations. Pulmonary will sign off. Feel free to contact us with questions or concerns Admission and Anticipated Discharge Date Admission Date: June 28, 2024 Subjective Patient seen and examined. EMR reviewed. Discussed with off going passenger attendant. The patient reports that she is doing okay clinically. She is not really coughing much up at this point in time. No chest pain. She does not use oxygen at baseline. She has not been very ambulatory. The patient relates that at [place] she was given 3 options for her gastric pulmonary fistula. 1 option was to to do nothing. The second option was to pursue a J-tube. Third option was to pursue surgery. The patient was not felt to be a great candidate for the extensive surgery required. She is leaning towards observation at this point in time. Review of Systems 2 Review of Systems: All systems reviewed & are unremarkable except as noted in Subjective Physical Exam 2 Constitutional: WD/WN, vitals as above Respiratory: normal respiratory effort and + cough Auscultation: + diminished lung sounds (Throughout left lung and base of right lung), + crackles and + rhonchi Cardiovascular: RRR, no murmur, no edema Gastrointestinal (Abdomen): normal bowel sounds, soft, nontender, no hepatosplenomegaly Psychiatric: A+Ox3, euthymic affect Results & Data Results & Data Vital Signs (Past 12 Hours) Vital Signs Temp Pulse Pulse Resp BP Pulse Ox O2 Del Method 06/30/24 09:54 High Flow Nasal Cannula 06/30/24 08:37 36.6 C 89 19 127/76 90 Nasal Cannula 06/30/24 08:00 85 06/30/24 03:22 36.9 C 89 20 120/70 91 Nasal Cannula 06/30/24 00:00 Nasal Cannula 06/30/24 00:00 94 H 06/29/24 23:48 37.2 C 91 H 20 118/68 92 Nasal Cannula O2 Flow Rate 06/30/24 09:54 2 06/30/24 08:37 1 06/30/24 08:00 06/30/24 03:22 2 06/30/24 00:00 2 06/30/24 00:00 06/29/24 23:48 2 Laboratory Results 06/30/24 05:32 06/30/24 05:32 Diagnostic Findings No new imaging PG Care Time/CCT Total # of Minutes Spent Total Time Spent with Patient: Total time spent is greater than 50% in coordination of care (as documented) at patient's floor/unit and/or counseling patient: Coding Level of Care Code 78722 SUB INP/OBS CARE 2/35MIN Diagnoses Bilateral pneumonia J18.9 Lung location: lower lobe of lung Pneumonia type: due to unspecified organism Acute hypoxic respiratory failure J96.01 Vocal cord paralysis J38.00
[2024-06-30] MEDS: POLYETHYLENE (MIRALAX) 17 GM PACK PO SCH (11:59)
[2024-06-30] MEDS: LINACLOTIDE 145 MCG CAPSULE PO SCH (12:37)
[2024-06-30] MEDS: AMOXICILLIN/CLAVULANATE 875 MG TAB PO SCH (17:33)
[2024-07-01 04:01] LABS: Adenovirus F 40/41 PCR Not Detected (NotDetected); Astrovirus PCR Not Detected (NotDetected); Campylobacter PCR Not Detected (NotDetected); Cryptosporidium PCR Not Detected (NotDetected); Cyclospora cayetanensis PCR Not Detected (NotDetected); Entamoeba histolytica PCR Not Detected (NotDetected); Enteroaggregative E.coli(EAEC) Not Detected (NotDetected); Enteropathogenic E.coli (EPEC) Not Detected (NotDetected); Enterotoxigenic E.coli (ETEC) Not Detected (NotDetected); Giardia lamblia PCR Not Detected (NotDetected); Norovirus GI/GII PCR Not Detected (NotDetected); Plesiomonas shigelloides PCR Not Detected (NotDetected); Rotavirus A PCR Not Detected (NotDetected); Salmonella PCR Not Detected (NotDetected); Sapovirus PCR Not Detected (NotDetected); Shiga-like Toxin E.coli (STEC) Not Detected (NotDetected); Shigella/Enteroinvasive E.coli Not Detected (NotDetected); Vibrio cholerae PCR Not Detected (NotDetected); Vibrio species PCR Not Detected (NotDetected); Yersinia enterocolitica PCR Not Detected (NotDetected)
[2024-07-01 06:09] LABS: Basophils # (auto) 0.01 K/uL (0.00-0.20); Basophils % (auto) 0.1 %; Hematocrit (blood only) 34.1 % (37.0-47.0); Hemoglobin 10.6 g/dl (12.0-16.0); Immature Granulocytes # (auto) 0.04 K/uL (0.01-0.20); Immature Granulocytes % (auto) 0.4 %; Lymphocytes # (auto) 0.81 K/uL (1.20-3.40); Lymphocytes % (auto) 7.8 %; Mean Corpuscular Hemoglobin 27.5 pg (25.0-34.0); Mean Corpuscular Hgb Conc 31.1 g/dL (32.0-36.0); Mean Corpuscular Volume 88.6 fL (80.0-100.0); Monocytes # (auto) 0.36 K/uL (0.11-0.59); Monocytes % (auto) 3.5 %; Neutrophils % (auto) 87.2 %; Platelet Count 157 K/uL (130-400); RDW Standard Deviation 48.1 fL (36.4-46.3); Red Blood Count 3.85 M/uL (4.20-5.40); White Blood Count 10.32 K/ul (4.8-10.8)
[2024-07-01 06:25] LABS: Calcium 8.4 mg/dl (8.6-10.3); Potassium 3.2 mmol/L (3.5-5.1)
[2024-07-01 06:32] LABS: BUN Creatinine Ratio 28.8 (10-20); Creatinine Clr Calc Pharmacy 82.1 ml/min
--- NOTE | 2024-07-01 07:07 | Hospitalist Progress Note ---
Date of Service July 01, 2024 Assessment & Plan (1) Bilateral pneumonia: Plan: likely secondary to aspiration improving clinically and WBC downtrending - continue Augmentin PO for total abx course of 14 days - continue daily CBC - duonebs q6 as needed - breo ellipta qAM (2) Acute hypoxic respiratory failure: Plan: history of COPD, duonebs q6 as needed and breo ellipta qAM currently on 2L/min O2 on NC, vitals stable - consider decreasing O2 to 1L/min NC - respiratory therapy to perform 2-step test - PT recommending transfer to rehab once medically stable (3) Hypokalemia: Plan: acute, 3.2 per morning labs, likely in the setting of K loss from diarrhea overnight and this morning 07/01/24 - repleting with 40meq potassium - asymptomatic (4) Vocal cord paralysis: Plan: seen and evaluated by speech therapy - continue diet as tolerated with reflux precautions: HOB between 45-90 - alternate solids and liquids, small frequent meals - HOB no lower than 30deg at all times (5) Factor V Leiden mutation: Plan: continue on Xarelto (6) Fistula: Plan: 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 Case management has put in a referral to [facility] home health, will ensure they are aware of PT's recommendation as of 06/30/24. VTE ppx: continue Xarelto Diet: heart healthy Code status: full code Dispo: tele Admission and Anticipated Discharge Date Admission Date: June 28, 2024 Supervising Physician Co-Signing Physician Notes ATTESTATION I also saw the patient and confirmed aggarwal portions of the history and exam. I agree with the impression and plan in the resident documentation, and as summarized below. Upon my visit, seated in chair next to bed. Breathing about the same. She had several questions about post hospital plans, and she would be willing to pursue inpatient PT. EXAM 130/81, 89, 17, 95% on 2 lpm Alert and oriented. Talks in full sentences without pause CV RRR Lungs with improved sounds compared to yesterday; crackles in bases but remainder clear. DATA Labs WBC now normalized HgB stable at 10.6 Potassium 3.2 Imaging No new imaging Micro Blood cultures negative at 48 hours IMPRESSION & PLAN Pneumonia, improving ARF, improving Sepsis, resolved Gastropulmonary fistula H/O of Factor V on chronic anticoagulation Continue Augmentin CXR in AM Replete potassium and recheck in AM Hold Linzess and Miralax given loose stool Wean oxygen PT/OT evaluation Additional per resident documentation Subjective Patient was seen and evaluated at bedside this AM, sitting comfortably on edge of bed with breakfast in front of her, on 2L NC. Endorses 2 episodes of nonbloody diarrhea last night and one episode this morning, otherwise denies any pain or discomfort overnight and slept well. Cough and sputum production continuing to improve. Still on 2L/min O2 via NC satting in low-mid 90s, willing to try going down to 1L/min and 2-step with respiratory therapy. Still well with speech therapy recommendations, no nausea or vomiting reported. Denies fever, body aches, chills, headache, neck pain, chest pain, abdominal pain, numbness/tingling of extremities, pain/swelling of extremities. Review of Systems Review of Systems: per HPI Physical Exam Physical Exam: Constitutional: A&Ox3, appears stated age, not in acute distress HEENT: anicteric sclerae, EOM intact Cardiovascular: RRR, +s1/s2, no m/r/g Respiratory: mild rales and coarse breath sounds in b/l lung bases, otherwise clear to auscultation; mild reduction of air movement in lung bases R>L; no wheezes GI: abdomen soft, +BS, no tenderness to palpation Neuro: no facial droop, speech intact, no sensory deficits MSK: 5/5 strength in all extremities Results & Data Results & Data Vital Signs (Past 12 Hours) Vital Signs Temp Pulse Resp BP Pulse Ox O2 Del Method O2 Flow Rate 07/01/24 02:30 36.6 C 85 20 148/77 H 91 Nasal Cannula 2 06/30/24 23:22 36.8 C 90 18 124/68 92 Nasal Cannula 2 06/30/24 20:00 Nasal Cannula 2 06/30/24 19:28 36.6 C 80 18 128/76 92 Nasal Cannula 2 Laboratory Results Abnormal lab results 07/01/24 Range/Units 05:45 RBC 3.85 L (4.20-5.40) M/uL Hgb 10.6 L (12.0-16.0) g/dl Hct 34.1 L (37.0-47.0) % MCHC 31.1 L (32.0-36.0) g/dL RDW Std Deviation 48.1 H (36.4-46.3) fL RDW Coeff of Maya 15.0 H (11.5-14.5) % Neut # (Auto) 9.00 H (1.40-6.50) K/uL Lymph # (Auto) 0.81 L (1.20-3.40) K/uL Potassium 3.2 L (3.5-5.1) mmol/L Chloride 110 H (98-107) mmol/L Creatinine 0.59 L D (0.6-1.2) mg/dl BUN/Creatinine Ratio 28.8 H (10-20) Calcium 8.4 L (8.6-10.3) mg/dl Resident Activity Tracking Resident Involvement: Resident Care Provided Care Provided: Adult Hospital Medicine (1) Bilateral pneumonia Lung location: lower lobe of lung Pneumonia type: due to unspecified organism Qualified Code(s): J18.9 - Pneumonia, unspecified organism
[2024-07-01] MEDS: POTASSIUM CHLORIDE CRTAB 20 MEQ TABCR PO STA (10:25)
[2024-07-02 06:32] LABS: Hematocrit (blood only) 34.9 % (37.0-47.0); Hemoglobin 11.1 g/dl (12.0-16.0); Mean Corpuscular Hemoglobin 27.8 pg (25.0-34.0); Mean Corpuscular Hgb Conc 31.8 g/dL (32.0-36.0); Mean Corpuscular Volume 87.3 fL (80.0-100.0); Mean Platelet Volume 10.6 fL (9.4-12.4); Platelet Count 177 K/uL (130-400); RDW Coefficient of Variation 14.6 % (11.5-14.5); RDW Standard Deviation 47.4 fL (36.4-46.3); White Blood Count 7.54 K/ul (4.8-10.8)
[2024-07-02 07:00] LABS: Calcium 8.5 mg/dl (8.6-10.3); Creatinine Clr Calc Pharmacy 79.6 ml/min; Potassium 3.3 mmol/L (3.5-5.1)
[2024-07-02] MEDS: BENZONATATE 100 MG CAPSULE PO PRN (08:47)
[2024-07-02] MEDS: CHLORASEPTIC (PHENOL) 1.4% SOLN 180 ML BTL MT PRN (08:48)
--- NOTE | 2024-07-02 10:06 | XRay Report ---
XR chest 2V PA/lateral CLINICAL HISTORY: Pneumonia. COMPARISON STUDY: Chest CT June 28, 2024. Chest radiograph June 29, 2024. FINDINGS: The patient is rotated. There is no pneumothorax. A small left pleural effusion is present. There is a trace right pleural effusion. Extensive left lung airspace opacities have slightly improv ed. There is persistent right basilar opacity. Cardiomediastinal silhouette is stable. IMPRESSION: 1. Slight improvement in extensive left lung airspace opacities suggestive of pneumonia. Persistent r ight basilar opacity suggestive of pneumonia. 2. Small left and trace right pleural effusions. ACT 112: Negative or not required by law. Electronically signed by: Vin Lema M.D. 07/02/2024 10:03 AM
[2024-07-02] MEDS: POTASSIUM CHLORIDE CRTAB 20 MEQ TABCR PO STA (10:19)
--- NOTE | 2024-07-02 15:17 | Hospitalist Progress Note ---
Date of Service July 02, 2024 Assessment & Plan (1) Bilateral pneumonia: Plan: likely secondary to aspiration WBC continues to downtrend, however O2 requirement increased from previous days - continue Augmentin PO for total abx course of 14 days - continue daily CBC - duonebs q6 as needed - breo ellipta qAM (2) Acute hypoxic respiratory failure: Plan: history of COPD, duonebs q6 as needed and breo ellipta qAM PT assessment 07/02/24: had desats to mid 80s on 5L during gait and stair trials - recommending home PT vs rehab, patient strongly in favor of home PT Respiratory therapy performed 2-step test on 07/01/24: required 3L with exertion and room air at rest - may need to re-assess prior to discharge as O2 requirements have changed (3) Hypokalemia: Plan: acute, improving 3.2 -> 3.3 per morning labs - continue repleting with 40meq potassium daily, additional 20meq given 07/02/24 afternoon - asymptomatic (4) Vocal cord paralysis: Plan: seen and evaluated by speech therapy - continue diet as tolerated with reflux precautions: HOB between 45-90 - alternate solids and liquids, small frequent meals - HOB no lower than 30deg at all times (5) Factor V Leiden mutation: Plan: continue on Xarelto (6) Fistula: Plan: 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 Case management has put in a referral to [facility] home health, will ensure they are aware of PT's recommendation as of 06/30/24. VTE ppx: continue Xarelto Diet: heart healthy Code status: full code Dispo: tele Admission and Anticipated Discharge Date Admission Date: June 28, 2024 Supervising Physician Co-Signing Physician Notes ATTESTATION I also saw the patient and confirmed aggarwal portions of the history and exam. I agree with the impression and plan in the resident documentation, and as summarized below. Upon my visit with her later this afternoon, she is again seated in the bedside chair. She feels little bit better than yesterday. In talking to her nurse, the patient had significant oxygen desaturations with minimal activity (85 percent). Her at rest oxygen requirement had gone up overnight as well. EXAM 130/81, 54, 19, 36.7, 92% via nasal cannula at 3 L/min upon most recent vital signs at Alert and oriented. Talks in full sentences without pause CV RRR Lungs with improved sounds compared to Sunday; crackles in bases but remainder clear; overall similar to yesterday DATA Labs WBC normal HgB stable at 11.1 Potassium 3.3 Imaging Chest x-ray completed this morning shows slight improvement in the left lung; persistent right basilar opacity. Small left and trace right pleural effusions. 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 Currently on 5L O2, sitting comfortably in no distress. Cough and sputum production continuing to improve. Was able to tolerate 5 -> 4L/min O2 during encounter. PT note shows that she had desats to mid 80s during stair and gait trials on 5L O2. Patient expresses feelings of boredom and strong desire to go home, but due to apparent increased O2 requirements it was explained to her that it would not be safe to discharge her home today. It was communicated that we would continue to try to wean her O2 as long as she can tolerate it, patient endorses understanding of current plan that she will not go home today. Denies fever, body aches, chills, headache, neck pain, chest pain, abdominal pain, numbness/tingling of extremities, pain/swelling of extremities. Review of Systems Review of Systems: per HPI Physical Exam Physical Exam: Constitutional: A&Ox3, appears stated age, not in acute distress HEENT: anicteric sclerae, EOM intact Cardiovascular: RRR, +s1/s2, no m/r/g Respiratory: mild improving rales in b/l lung bases, otherwise clear to auscultation; mild reduction of air movement in lung bases R>L; no wheezes GI: abdomen soft, +BS, no tenderness to palpation Neuro: no facial droop, speech intact, no sensory deficits MSK: 5/5 strength in all extremities Results & Data Results & Data Vital Signs (Past 12 Hours) Vital Signs Temp Pulse Pulse Resp BP Pulse Ox O2 Del Method 07/02/24 11:23 36.7 C 85 20 131/82 94 Nasal Cannula 07/02/24 07:24 36.7 C 82 17 155/83 H 90 High Flow Nasal Cannula 07/02/24 07:23 Nasal Cannula 07/02/24 06:56 79 07/02/24 03:24 36.7 C 73 18 149/83 H 92 Nasal Cannula O2 Flow Rate 07/02/24 11:23 4 07/02/24 07:24 4 07/02/24 07:23 4 07/02/24 06:56 07/02/24 03:24 2 Laboratory Results Abnormal lab results 07/02/24 Range/Units 05:42 RBC 4.00 L (4.20-5.40) M/uL Hgb 11.1 L (12.0-16.0) g/dl Hct 34.9 L (37.0-47.0) % MCHC 31.8 L (32.0-36.0) g/dL RDW Std Deviation 47.4 H (36.4-46.3) fL RDW Coeff of Maya 14.6 H (11.5-14.5) % Potassium 3.3 L (3.5-5.1) mmol/L Chloride 109 H (98-107) mmol/L BUN/Creatinine Ratio 23.0 H (10-20) Glucose 100 H (70-99(Fasting)) mg/dl Calcium 8.5 L (8.6-10.3) mg/dl Resident Activity Tracking Resident Involvement: Resident Care Provided Care Provided: Adult Hospital Medicine (1) Bilateral pneumonia Lung location: lower lobe of lung Pneumonia type: due to unspecified organism Qualified Code(s): J18.9 - Pneumonia, unspecified organism
[2024-07-02] MEDS ORDERED: POTASSIUM CHLORIDE CRTAB 20 MEQ TABCR PO STA (15:37)
[2024-07-02] MEDS: POTASSIUM CHLORIDE CRTAB 20 MEQ TABCR PO ONE (17:04)
[2024-07-03 05:21] LABS: Hematocrit (blood only) 35.4 % (37.0-47.0); Hemoglobin 11.1 g/dl (12.0-16.0); Mean Corpuscular Hgb Conc 31.4 g/dL (32.0-36.0); Mean Corpuscular Volume 86.1 fL (80.0-100.0); Mean Platelet Volume 10.5 fL (9.4-12.4); Platelet Count 195 K/uL (130-400); RDW Coefficient of Variation 14.6 % (11.5-14.5); RDW Standard Deviation 45.9 fL (36.4-46.3); Red Blood Count 4.11 M/uL (4.20-5.40); White Blood Count 6.48 K/ul (4.8-10.8)
[2024-07-03 05:37] LABS: Calcium 8.7 mg/dl (8.6-10.3); Potassium 3.6 mmol/L (3.5-5.1)
--- NOTE | 2024-07-03 07:06 | Hospitalist Progress Note ---
Date of Service July 03, 2024 Assessment & Plan (1) Bilateral pneumonia: Plan: likely secondary to aspiration WBC continues to downtrend, however O2 requirement increased from previous days - continue Augmentin PO for total abx course of 14 days - continue daily CBC - duonebs q6 as needed - breo ellipta qAM (2) Acute hypoxic respiratory failure: Plan: history of COPD, duonebs q6 as needed and breo ellipta qAM - appears stable on 3L/min at rest, but has been de-satting into 80s and getting SOB with minimal exertion - PT to re-assess on 07/04/24 as O2 requirements have changed (3) Hypokalemia: Plan: resolved, 3.6 per morning labs (4) Vocal cord paralysis: Plan: seen and evaluated by speech therapy - continue diet as tolerated with reflux precautions: HOB between 45-90 - alternate solids and liquids, small frequent meals - HOB no lower than 30deg at all times (5) Factor V Leiden mutation: Plan: continue on Xarelto (6) Fistula: Plan: 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 VTE ppx: continue Xarelto Diet: heart healthy Code status: full code Dispo: tele Admission and Anticipated Discharge Date Admission Date: June 28, 2024 Supervising Physician Co-Signing Physician Notes ATTESTATION I also saw the patient and confirmed aggarwal portions of the history and exam. I agree with the impression and plan in the resident documentation, and as summarized below. Feels about the same. Continues to require 4-5 lpm with activity. Reviewed outpatient records - as recently as May, SPO2 in office 96-97% on room air. She does admit to progressive activity intolerance, so suspect there may have been some unrealized oxygen desaturations prior to this admission. EXAM 123/78, 93, 18, 36.3, 93% via nasal cannula at 4 L/min upon most recent vital signs I turned her down to 2 lpm for about 15 minutes during my exam, and her SPO2 dropped to 91% Alert and oriented. Talks in full sentences without pause CV RRR Lungs with improved sounds compared to Sunday; crackles in bases but remainder clear; overall similar to yesterday DATA Labs WBC normal HgB stable at 11.1 Potassium 3.6 Imaging Chest x-ray completed this morning shows slight improvement in the left lung; persistent right basilar opacity. Small left and trace right pleural effusions. 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 I am concerned that she is not ready to return home given her increased oxygen demand with activity. Prior to admission, was independent at home, so feel would benefit from inpatient rehabilitation. Continue PT while here Consider reaching out to pulmonology tomorrow for re-evaluation Additional per resident documentation Subjective Patient was seen and evaluated at bedside this AM, sitting in chair in no apparent distress. Was doing fine on 3L/min, had just finished eating breakfast. When talking with patient, she became short of breath and was amenable to increasing NC to 4L, and then to 5L/min which was more comfortable for her. Discussed with patient at length that she is looking better with regard to her pneumonia, but the recent increase in her O2 requirements have been too concerning to send her home on, to which she ultimately expressed understanding. She is in favor of continuing to try to lower her O2 via NC to see how she can tolerate lower rates, but knows with exertion she is likely to require more. Denies fever, body aches, chills, headache, neck pain, chest pain, abdominal pain, numbness/tingling of extremities, pain/swelling of extremities. Review of Systems Review of Systems: per HPI Physical Exam Physical Exam: Constitutional: A&Ox3, appears stated age, not in acute distress HEENT: anicteric sclerae, EOM intact Cardiovascular: RRR, +s1/s2, no m/r/g Respiratory: minimal rales in b/l lung bases, otherwise clear to auscultation; mild reduction of air movement in lung bases R>L; no wheezes GI: abdomen soft, +BS, no tenderness to palpation Neuro: no facial droop, speech intact, no sensory deficits MSK: 5/5 strength in all extremities Results & Data Results & Data Vital Signs (Past 12 Hours) Vital Signs Temp Pulse Pulse Resp BP Pulse Ox O2 Del Method 07/03/24 02:44 36.5 C 82 18 145/88 H 90 Nasal Cannula 07/03/24 00:00 86 07/02/24 22:55 36.8 C 85 18 136/82 91 Nasal Cannula 07/02/24 20:20 Nasal Cannula 07/02/24 19:53 36.3 C L 104 H 18 158/93 H 92 Nasal Cannula O2 Flow Rate 07/03/24 02:44 3 07/03/24 00:00 07/02/24 22:55 3 07/02/24 20:20 3 07/02/24 19:53 3 Laboratory Results Abnormal lab results 07/03/24 Range/Units 04:14 RBC 4.11 L (4.20-5.40) M/uL Hgb 11.1 L (12.0-16.0) g/dl Hct 35.4 L (37.0-47.0) % MCHC 31.4 L (32.0-36.0) g/dL RDW Coeff of Maya 14.6 H (11.5-14.5) % Chloride 109 H (98-107) mmol/L BUN/Creatinine Ratio 25.0 H (10-20) Glucose 103 H (70-99(Fasting)) mg/dl Resident Activity Tracking Resident Involvement: Resident Care Provided Care Provided: Adult Hospital Medicine (1) Bilateral pneumonia Lung location: lower lobe of lung Pneumonia type: due to unspecified organism Qualified Code(s): J18.9 - Pneumonia, unspecified organism
[2024-07-04 04:26] LABS: Hematocrit (blood only) 35.6 % (37.0-47.0); Hemoglobin 11.3 g/dl (12.0-16.0); Mean Corpuscular Hemoglobin 27.3 pg (25.0-34.0); Mean Corpuscular Hgb Conc 31.7 g/dL (32.0-36.0); Mean Platelet Volume 10.4 fL (9.4-12.4); Platelet Count 224 K/uL (130-400); RDW Coefficient of Variation 14.7 % (11.5-14.5); RDW Standard Deviation 46.9 fL (36.4-46.3); Red Blood Count 4.14 M/uL (4.20-5.40); White Blood Count 7.88 K/ul (4.8-10.8)
[2024-07-04 04:45] LABS: BUN Creatinine Ratio 24.4 (10-20); Calcium 8.7 mg/dl (8.6-10.3); Creatinine Clr Calc Pharmacy 62.7 ml/min; Potassium 3.7 mmol/L (3.5-5.1)
--- NOTE | 2024-07-04 08:01 | Hospitalist Progress Note ---
Date of Service July 04, 2024 Assessment & Plan (1) Bilateral pneumonia: Plan: likely secondary to 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 vs inhalation WBC resolved, O2 requirement remains elevated - continue Augmentin PO for total abx course of 14 days - continue daily CBC - duonebs q6 as needed - breo ellipta qAM (2) Acute hypoxic respiratory failure: Plan: history of COPD, gastropulmonary fistula with recurrent pneumonia - duonebs q6 as needed and breo ellipta qAM PT 07/04/24: ambulated 40'x3 on 4L/min O2, sat range from 89-93% at rest and with ambulation - this is an improvement from prior PT eval, but patient would benefit from continuing to regain more strength prior to an intensive rehab such as [facility] - home with services and PT is another option PT has suggested, but it is unclear how reliable pt's friend will be for help if services aren't around (3) Hypokalemia: Plan: resolved, 3.7 per morning labs (4) Vocal cord paralysis: Plan: seen and evaluated by speech therapy - continue diet as tolerated with reflux precautions: HOB between 45-90 - alternate solids and liquids, small frequent meals - HOB no lower than 30deg at all times (5) Factor V Leiden mutation: Plan: continue on Xarelto (6) Fistula: Plan: 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 Consider for discharge to acute rehab early next week pending clinical improvement. VTE ppx: continue Xarelto Diet: heart healthy Code status: full code Dispo: tele Admission and Anticipated Discharge Date Admission Date: June 28, 2024 Supervising Physician Co-Signing Physician Notes I personally examined the patient and verified aggarwal points of history and exam, discussed case, and agree with decision making and plan documented by Dr. Campos. Patient seated in chair, nasal canula in place, lungs clear b/l to auscultation, regular rate and rhythm, no acute distress. Reviewed with patient continued attempts to wean oxygen requirement. Patient understanding of likely continued episodes of recurrent pneumonia in setting of gastric pulmonary fistula. She is motivated to pursue rehabilitation to return to her independence at home. Re viewed that she will likely require oxygen on discharge. Subjective Patient was seen and evaluated at bedside this AM, lying in bed in no apparent d istress. Denies any issues overnight. No complaints this AM either, denies any particular pain or SOB at time of encounter. Patient was on 4L/min at the time as she had just gotten back from using the bathroom, felt it was a comfortable rate. Patient continues to convey understanding that her O2 requirements currently are not reassuring as she still gets short of breath and desats with exertion. Interested in discharge to acute rehab such as [facility] upon discharge, and they could continue to wean O2 there, however it would be in her favor to continue with inpatient PT and consider more realistic discharge next week. Continues to deny fever, body aches, chills, headache, neck pain, chest pain, abdominal pain, numbness/tingling of extremities, pain/swelling of extremities. Review of Systems Review of Systems: per HPI Physical Exam Physical Exam: Constitutional: A&Ox3, appears stated age, not in acute distress HEENT: anicteric sclerae, EOM intact Cardiovascular: RRR, +s1/s2, no m/r/g Respiratory: minimal rales in b/l lung bases, otherwise clear to auscultation; mild reduction of air movement in lung bases R>L; no wheezes GI: abdomen soft, +BS, no tenderness to palpation Neuro: no facial droop, speech intact, no sensory deficits MSK: 5/5 strength in all extremities Results & Data Results & Data Vital Signs (Past 12 Hours) Vital Signs Temp Pulse Pulse Resp BP Pulse Ox O2 Del Method 07/04/24 07:39 78 07/04/24 07:39 Nasal Cannula 07/04/24 07:32 36.2 C L 84 18 129/82 90 Nasal Cannula 07/04/24 02:29 36.6 C 82 18 136/83 91 Nasal Cannula 07/03/24 23:17 36.6 C 82 18 143/87 H 92 Nasal Cannula 07/03/24 21:55 85 07/03/24 20:37 Nasal Cannula O2 Flow Rate 07/04/24 07:39 07/04/24 07:39 3 07/04/24 07:32 3 11/29/24 02:29 3 07/03/24 23:17 3 07/03/24 21:55 07/03/24 20:37 3 Laboratory Results Abnormal lab results 07/04/24 Range/Units 03:57 RBC 4.14 L (4.20-5.40) M/uL Hgb 11.3 L (12.0-16.0) g/dl Hct 35.6 L (37.0-47.0) % MCHC 31.7 L (32.0-36.0) g/dL RDW Std Deviation 46.9 H (36.4-46.3) fL RDW Coeff of Maya 14.7 H (11.5-14.5) % Chloride 108 H (98-107) mmol/L BUN/Creatinine Ratio 24.4 H (10-20) Glucose 104 H (70-99(Fasting)) mg/dl Resident Activity Tracking Resident Involvement: Resident Care Provided Care Provided: Adult Hospital Medicine (1) Bilateral pneumonia Lung location: lower lobe of lung Pneumonia type: due to unspecified organism Qualified Code(s): J18.9 - Pneumonia, unspecified organism
[2024-07-05 04:54] LABS: Hematocrit (blood only) 35.9 % (37.0-47.0); Hemoglobin 11.3 g/dl (12.0-16.0); Mean Corpuscular Hgb Conc 31.5 g/dL (32.0-36.0); Mean Corpuscular Volume 85.9 fL (80.0-100.0); Mean Platelet Volume 10.3 fL (9.4-12.4); Platelet Count 247 K/uL (130-400); RDW Standard Deviation 47.5 fL (36.4-46.3); Red Blood Count 4.18 M/uL (4.20-5.40); White Blood Count 7.47 K/ul (4.8-10.8)
[2024-07-05 05:07] LABS: BUN Creatinine Ratio 27.4 (10-20); Calcium 8.4 mg/dl (8.6-10.3); Creatinine Clr Calc Pharmacy 57.8 ml/min; Potassium 3.9 mmol/L (3.5-5.1)
--- NOTE | 2024-07-05 07:33 | Hospitalist Progress Note ---
Date of Service July 05, 2024 Assessment & Plan (1) Bilateral pneumonia: Plan: likely secondary to 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 vs inhalation WBC resolved, lungs clear on exam however O2 requirement remains elevated compared to baseline - continue Augmentin PO for total abx course of 14 days - continue daily CBC - duonebs q6 as needed - breo ellipta qAM (2) Acute hypoxic respiratory failure: Plan: history of COPD, gastropulmonary fistula with recurrent pneumonia - duonebs q6 as needed, breo ellipta qAM PT 07/04/24: ambulated 40'x3 on 4L/min O2, sat range from 89-93% at rest and with ambulation - this is an improvement from prior PT eval, patient agreeable to discharge to acute rehab where they could wean O2 as she works on improving her strength (3) Hypokalemia: Plan: resolved, 3.9 per morning labs (4) Vocal cord paralysis: Plan: seen and evaluated by speech therapy - continue diet as tolerated with reflux precautions: HOB between 45-90 - alternate solids and liquids, small frequent meals - HOB no lower than 30deg at all times (5) Factor V Leiden mutation: Plan: continue on Xarelto (6) Fistula: Plan: 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 Plant to discharge on O2 to acute rehab. VTE ppx: continue Xarelto Diet: heart healthy Code status: full code Dispo: tele Admission and Anticipated Discharge Date Admission Date: June 28, 2024 Supervising Physician Co-Signing Physician Notes I personally examined the patient and verified aggarwal points of history and exam, discussed case, and agree with decision making and plan documented by Dr. Campos. Patient seated in chair, kyphotic posture, nasal canula in place, lungs clear b/l to auscultation, regular rate and rhythm, no acute distress. Reviewed with patient continued attempts to wean oxygen requirement and remains on 4L. Patient understanding of likely continued episodes of recurrent pneumonia in setting of gastric pulmonary fistula. She is motivated to pursue rehabilitation to return to her independence at home. Advised that her rehab could continue efforts to wean oxygen as able. Subjective Patient was seen and evaluated at bedside this AM, sitting chair in no apparent distress, on 4L NC. Denies any issues overnight, denies any significant SOB this morning. States this morning she has been having some R mid back pain which is not new but has just come back, agreeable to voltaren gel. Patient is interested in being discharged to acute rehab such as [facility] with plan to wean O2 while there. Continues to deny fever, body aches, chills, headache, neck pain, chest pain, abdominal pain, numbness/tingling of extremities, pain/swelling of extremities. Review of Systems Review of Systems: per HPI Physical Exam Physical Exam: Constitutional: A&Ox3, appears stated age, not in acute distress HEENT: anicteric sclerae, EOM intact Cardiovascular: RRR, +s1/s2, no m/r/g Respiratory: b/l clear to auscultation; mild reduction of air movement in lung bases R>L; no wheezes GI: abdomen soft, +BS, no tenderness to palpation Neuro: no facial droop, speech intact, no sensory deficits MSK: 5/5 strength in all extremities Results & Data Results & Data Vital Signs (Past 12 Hours) Vital Signs Temp Pulse Pulse Resp BP Pulse Ox O2 Del Method 07/05/24 07:06 36.5 C 84 19 123/73 92 Nasal Cannula 07/05/24 02:39 36.7 C 80 18 117/75 91 Nasal Cannula 07/04/24 22:54 36.5 C 79 18 121/76 91 Nasal Cannula 07/04/24 21:45 81 07/04/24 21:00 Nasal Cannula 07/04/24 20:05 36.2 C L 99 H 18 135/82 91 Nasal Cannula O2 Flow Rate 07/05/24 07:06 4 07/05/24 02:39 3 07/04/24 22:54 3 07/04/24 21:45 07/04/24 21:00 3 07/04/24 20:05 3 Laboratory Results Abnormal lab results 07/05/24 Range/Units 04:19 RBC 4.18 L (4.20-5.40) M/uL Hgb 11.3 L (12.0-16.0) g/dl Hct 35.9 L (37.0-47.0) % MCHC 31.5 L (32.0-36.0) g/dL RDW Std Deviation 47.5 H (36.4-46.3) fL RDW Coeff of Maya 15.0 H (11.5-14.5) % Chloride 109 H (98-107) mmol/L BUN/Creatinine Ratio 27.4 H (10-20) Glucose 104 H (70-99(Fasting)) mg/dl Calcium 8.4 L (8.6-10.3) mg/dl Resident Activity Tracking Resident Involvement: Resident Care Provided Care Provided: Adult Hospital Medicine (1) Bilateral pneumonia Lung location: lower lobe of lung Pneumonia type: due to unspecified organism Qualified Code(s): J18.9 - Pneumonia, unspecified organism
[2024-07-05] MEDS: DICLOFENAC SOD 1% GEL 100 GM TUBE EXT SCH (13:06)
[2024-07-06 04:47] LABS: Hematocrit (blood only) 35.4 % (37.0-47.0); Mean Corpuscular Hgb Conc 31.1 g/dL (32.0-36.0); Platelet Count 254 K/uL (130-400); RDW Coefficient of Variation 14.8 % (11.5-14.5); RDW Standard Deviation 47.5 fL (36.4-46.3); Red Blood Count 4.07 M/uL (4.20-5.40)
[2024-07-06 05:02] LABS: BUN Creatinine Ratio 35.3 (10-20); Calcium 8.6 mg/dl (8.6-10.3); Creatinine Clr Calc Pharmacy 71.3 ml/min; Potassium 3.8 mmol/L (3.5-5.1)
--- NOTE | 2024-07-06 06:47 | Hospitalist Progress Note ---
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 Campos. Patient successfully weaned off supplemental oxygen to room air. She remains on Augmentin for pneumonia. Patient is understanding that she may have additional episodes of recurrent pneumonia as a result of her gastric pulmonary fistula. Reviewed that insurance authorization has been placed for inpatient rehab however insurance may not cover it. Patient aware that home with home health PT is an option. Prior to hospitalization, she was doing outpatient physical therapy at [facility] and would benefit from continued efforts. Overall her concern is deconditioning and independent living. We reviewed consideration of Meals on Wheels to assist her with nutritional support. Subjective Patient was seen and evaluated at bedside this AM, lying in bed with elevated HOB in no apparent distress, on room air. Denies any issues overnight, denies any significant SOB this morning. States this morning she has still been having her R mid back pain, agreeable to continue voltaren gel for relief. Patient is still interested in being discharged to acute rehab such as [facility]. Informed patient that there's a chance her insurance may not improve of her going to acute rehab, patient understanding that she may be discharged home with home health services such as prison and PT. Continues to deny fever, body aches, chills, headache, neck pain, chest pain, abdominal pain, numbness/tingling of extremities, pain/swelling of extremities. Review of Systems Review of Systems: per HPI Physical Exam Physical Exam: Constitutional: A&Ox3, appears stated age, not in acute distress HEENT: anicteric sclerae, EOM intact Cardiovascular: RRR, +s1/s2, no m/r/g Respiratory: b/l clear to auscultation; mild reduction of air movement in lung bases R>L; no wheezes GI: abdomen soft, +BS, no tenderness to palpation Neuro: no facial droop, speech intact, no sensory deficits MSK: 5/5 strength in all extremities Results & Data Results & Data Vital Signs (Past 12 Hours) Vital Signs Temp Pulse Pulse Resp BP BP Pulse Ox 07/06/24 04:11 36.7 C 75 16 127/78 92 07/06/24 00:00 36.6 C 81 16 119/73 92 07/05/24 21:55 86 07/05/24 21:45 07/05/24 20:12 36.4 C L 95 H 18 105/66 92 O2 Del Method 07/06/24 04:11 Room Air 07/06/24 00:00 Room Air 07/05/24 21:55 07/05/24 21:45 Room Air 07/05/24 20:12 Room Air Laboratory Results Abnormal lab results 07/06/24 Range/Units 04:20 RBC 4.07 L (4.20-5.40) M/uL Hgb 11.0 L (12.0-16.0) g/dl Hct 35.4 L (37.0-47.0) % MCHC 31.1 L (32.0-36.0) g/dL RDW Std Deviation 47.5 H (36.4-46.3) fL RDW Coeff of Maya 14.8 H (11.5-14.5) % Chloride 108 H (98-107) mmol/L BUN 24 H (6-23) mg/dl BUN/Creatinine Ratio 35.3 H (10-20) Glucose 103 H (70-99(Fasting)) mg/dl Resident Activity Tracking Resident Involvement: Resident Care Provided Care Provided: Adult Hospital Medicine (1) Bilateral pneumonia Lung location: lower lobe of lung Pneumonia type: due to unspecified organism Qualified Code(s): J18.9 - Pneumonia, unspecified organism
[2024-07-06] MEDS ORDERED: ONDANSETRON 2 MG OD TAB PO PRN (11:10)
--- NOTE | 2024-07-07 07:00 | Hospitalist Progress Note ---
Date of Service July 07, 2024 Assessment & Plan (1) Acute hypoxic respiratory failure: Plan: history of COPD, gastropulmonary fistula with recurrent pneumonia - currently 96% on room air at rest, transient desats into mid 80s with exertion but returns to 90s within 10sec - duonebs q6 as needed, breo ellipta qAM - following PT notes - patient agreeable to discharge to acute rehab if insurance approves, but in case they do not approve she is agreeable to d/c home with services of half-way and PT - respiratory therapy to perform 2-step evaluation prior to discharge to gauge O2 requirement (2) Bilateral pneumonia: Plan: likely secondary to 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 vs inhalation WBC resolved, lungs clear on exam, O2 requirement improving - continue Augmentin PO for total abx course of 14 days - continue daily CBC - duonebs q6 as needed - breo ellipta qAM (3) Hypokalemia: Plan: resolved, 4.0 per morning labs (4) Vocal cord paralysis: Plan: seen and evaluated by speech therapy - continue diet as tolerated with reflux precautions: HOB between 45-90 - alternate solids and liquids, small frequent meals - HOB no lower than 30deg at all times (5) Factor V Leiden mutation: Plan: continue on Xarelto (6) Fistula: Plan: 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 slow but steady gait 84% on RA after finishing but quickly rebounds to 92% vitals noted nad heent nc at mmm breathing unlabored no accessory muscles good effort CAP / acute on probably chronic hypoxic respiratory failure (acute due to CAP, chronic due to COPD) - appears improving. weakness would probably benefit from rehab, eventually suspect she'd benefit from home O2 at least for with exertion. anticoagulated, otherwise as above Subjective Patient was seen and evaluated at bedside this AM, lying in bed with elevated HOB in no apparent distress, on room air. Denies any issues overnight, denies any significant SOB this morning. States this morning she has still been having some R mid back pain, agreeable to continue voltaren gel for relief. Reports no bowel movement overnight but has been urinating without issue. Patient is still interested in being discharged to acute rehab such as [facility]. Informed patient that we are still awaiting insurance approval for acute rehab. Patient continues to convey understanding that she may be discharged home with home health services such as half-way and PT. Continues to deny fever, body aches, chills, headache, neck pain, chest pain, abdominal pain, numbness/tingling of extremities, pain/swelling of extremities. Review of Systems Review of Systems: per HPI Physical Exam Physical Exam: Constitutional: A&Ox3, appears stated age, not in acute distress HEENT: anicteric sclerae, EOM intact Cardiovascular: RRR, +s1/s2, no m/r/g Respiratory: b/l clear to auscultation; mild reduction of air movement in lung bases R>L; no wheezes GI: abdomen soft, +BS, no tenderness to palpation Neuro: no facial droop, speech intact, no sensory deficits MSK: 5/5 strength in all extremities Results & Data Results & Data Vital Signs (Past 12 Hours) Vital Signs Temp Pulse Pulse Resp BP BP Pulse Ox 07/07/24 04:04 36.4 C L 79 18 146/81 H 91 07/07/24 00:19 36.4 C L 80 17 118/70 92 07/06/24 22:00 83 07/06/24 20:25 36.5 C 81 17 128/79 93 07/06/24 19:00 O2 Del Method 07/07/24 04:04 Room Air 07/07/24 00:19 Room Air 07/06/24 22:00 07/06/24 20:25 Room Air 07/06/24 19:00 Room Air Laboratory Results Abnormal lab results 07/07/24 Range/Units 08:22 MCHC 30.9 L (32.0-36.0) g/dL RDW Std Deviation 47.9 H (36.4-46.3) fL RDW Coeff of Maya 15.0 H (11.5-14.5) % BUN/Creatinine Ratio 29.3 H (10-20) Resident Activity Tracking Resident Involvement: Resident Care Provided Care Provided: Adult Hospital Medicine (2) Bilateral pneumonia Lung location: lower lobe of lung Pneumonia type: due to unspecified organism Qualified Code(s): J18.9 - Pneumonia, unspecified organism
[2024-07-07 08:37] LABS: Hematocrit (blood only) 40.1 % (37.0-47.0); Hemoglobin 12.4 g/dl (12.0-16.0); Mean Corpuscular Hgb Conc 30.9 g/dL (32.0-36.0); Mean Corpuscular Volume 87.2 fL (80.0-100.0); Mean Platelet Volume 9.7 fL (9.4-12.4); Platelet Count 263 K/uL (130-400); RDW Standard Deviation 47.9 fL (36.4-46.3); White Blood Count 7.66 K/ul (4.8-10.8)
[2024-07-07 08:52] LABS: BUN Creatinine Ratio 29.3 (10-20); Creatinine Clr Calc Pharmacy 64.6 ml/min
--- NOTE | 2024-07-07 19:10 | Billing Data ---
Date of Service July 07, 2024 Coding Level of Care Code 65932 SUB INP/OBS CARE
[2024-07-08 06:20] LABS: Hematocrit (blood only) 35.1 % (37.0-47.0); Mean Corpuscular Hemoglobin 27.2 pg (25.0-34.0); Mean Corpuscular Hgb Conc 31.3 g/dL (32.0-36.0); Mean Corpuscular Volume 86.9 fL (80.0-100.0); Platelet Count 252 K/uL (130-400); RDW Coefficient of Variation 14.8 % (11.5-14.5); RDW Standard Deviation 47.7 fL (36.4-46.3); Red Blood Count 4.04 M/uL (4.20-5.40); White Blood Count 7.39 K/ul (4.8-10.8)
[2024-07-08 06:31] LABS: BUN Creatinine Ratio 29.8 (10-20); Calcium 8.7 mg/dl (8.6-10.3); Creatinine Clr Calc Pharmacy 57.7 ml/min; Potassium 3.9 mmol/L (3.5-5.1)
--- NOTE | 2024-07-08 07:05 | Hospitalist Progress Note ---
Date of Service July 08, 2024 Assessment & Plan (1) Acute hypoxic respiratory failure: Plan: history of COPD, gastropulmonary fistula with recurrent pneumonia - currently 93% on room air at rest, no current need for NC with exertion anymore - duonebs q6 as needed, breo ellipta qAM - following PT notes - patient agreeable to discharge to acute rehab if insurance approves, but in case they do not approve she is agreeable to d/c home with services of snf and PT - respiratory therapy to perform 2-step evaluation prior to discharge to gauge O2 requirement (2) Bilateral pneumonia: Plan: likely secondary to 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 vs inhalation WBC resolved, lungs clear on exam, O2 requirement improving - Augmentin course completed yesterday 07/07/24 - continue daily CBC - duonebs q6 as needed - breo ellipta qAM (3) Hypokalemia: Plan: resolved, 3.9 per morning labs (4) Vocal cord paralysis: Plan: seen and evaluated by speech therapy - continue diet as tolerated with reflux precautions: HOB between 45-90 - alternate solids and liquids, small frequent meals - HOB no lower than 30deg at all times (5) Factor V Leiden mutation: Plan: continue on Xarelto (6) Fistula: Plan: 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 VTE ppx: continue Xarelto Diet: heart healthy Code status: full code Dispo: tele Admission and Anticipated Discharge Date Admission Date: June 28, 2024 Supervising Physician Co-Signing Physician Notes I personally examined the patient and verified all aggarwal points of history and exam, discussed case, and agree with decision making with Dr Campos feeling ok no new complaints still awaiting insurance auth. vitals noted nad heent nc at mmm breathing unlabored no accessory muscles good effort CAP / acute on probably chronic hypoxic respiratory failure (acute due to CAP, chronic due to COPD) - appears improving. completed antibiotics. weakness would probably benefit from rehab, surprisingly did well on 2step pulse ox. anticoagulated, otherwise as above Subjective Patient was seen and evaluated at bedside this AM, sitting in chair eating breakfast in no apparent distress, on room air. Denies any issues overnight, denies any significant SOB this morning. States this morning she has still been having some R mid back pain, agreeable to continue voltaren gel for relief. Reports no bowel movement overnight but has been urinating without issue. Able to ambulate independently to bathroom with minimal SOB, no more O2 via NC needed with exertion. Patient is still interested in being discharged to acute rehab. Informed patient that we are still awaiting insurance approval for acute rehab at [facility]. Continues to deny fever, body aches, chills, headache, neck pain, chest pain, abdominal pain, numbness/tingling of extremities, pain/swelling of extremities. Review of Systems Review of Systems: per HPI Physical Exam Physical Exam: Constitutional: A&Ox3, appears stated age, not in acute distress HEENT: anicteric sclerae, EOM intact Cardiovascular: RRR, +s1/s2, no m/r/g Respiratory: b/l clear to auscultation; mild reduction of air movement in lung bases R>L; no wheezes GI: abdomen soft, +BS, no tenderness to palpation Neuro: no facial droop, speech intact, no sensory deficits MSK: 5/5 strength in all extremities Results & Data Results & Data Vital Signs (Past 12 Hours) Vital Signs Temp Pulse Pulse Resp BP BP Pulse Ox 07/08/24 03:26 36.8 C 70 17 112/71 93 07/07/24 22:47 36.6 C 93 H 16 128/85 94 07/07/24 22:00 99 H 07/07/24 19:55 36.6 C 79 19 116/74 94 O2 Del Method 07/08/24 03:26 Room Air 07/07/24 22:47 Room Air 07/07/24 22:00 07/07/24 19:55 Room Air Laboratory Results Abnormal lab results 07/08/24 Range/Units 05:51 RBC 4.04 L (4.20-5.40) M/uL Hgb 11.0 L (12.0-16.0) g/dl Hct 35.1 L (37.0-47.0) % MCHC 31.3 L (32.0-36.0) g/dL RDW Std Deviation 47.7 H (36.4-46.3) fL RDW Coeff of Maya 14.8 H (11.5-14.5) % BUN 25 H (6-23) mg/dl BUN/Creatinine Ratio 29.8 H (10-20) Resident Activity Tracking Resident Involvement: Resident Care Provided Care Provided: Adult Hospital Medicine (2) Bilateral pneumonia Lung location: lower lobe of lung Pneumonia type: due to unspecified organism Qualified Code(s): J18.9 - Pneumonia, unspecified organism
--- NOTE | 2024-07-08 18:55 | Billing Data ---
Date of Service July 08, 2024 Coding Level of Care Code 18026 SUB INP/OBS CARE
--- NOTE | 2024-07-09 06:59 | Hospitalist Progress Note ---
Date of Service July 09, 2024 Assessment & Plan (1) Acute hypoxic respiratory failure: Plan: history of COPD, gastropulmonary fistula with recurrent pneumonia - currently 93% on room air at rest, no current need for NC with exertion anymore - duonebs q6 as needed, breo ellipta qAM - following PT notes - patient agreeable to discharge to acute rehab if insurance approves, but in case they do not approve she is agreeable to d/c home with services of prison and PT - respiratory therapy to perform 2-step evaluation prior to discharge to gauge O2 requirement (2) Bilateral pneumonia: Plan: likely secondary to 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 vs inhalation WBC resolved, lungs clear on exam, O2 requirement improving - Augmentin course completed yesterday 07/07/24 - continue daily CBC - duonebs q6 as needed - breo ellipta qAM (3) Hypokalemia: Plan: resolved, 3.9 per morning labs (4) Vocal cord paralysis: Plan: seen and evaluated by speech therapy - continue diet as tolerated with reflux precautions: HOB between 45-90 - alternate solids and liquids, small frequent meals - HOB no lower than 30deg at all times (5) Factor V Leiden mutation: Plan: continue on Xarelto (6) Fistula: Plan: 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 VTE ppx: continue Xarelto Diet: heart healthy Code status: full code Dispo: tele Admission and Anticipated Discharge Date Admission Date: June 28, 2024 Subjective To be updated: [[Patient was seen and evaluated at bedside this AM, sitting in chair eating breakfast in no apparent distress, on room air. Denies any issues overnight, denies any significant SOB this morning. States this morning she has still been having some R mid back pain, agreeable to continue voltaren gel for relief. Reports no bowel movement overnight but has been urinating without issue. Able to ambulate independently to bathroom with minimal SOB, no more O2 via NC needed with exertion. Patient is still interested in being discharged to acute rehab. Informed patient that we are still awaiting insurance approval for acute rehab at [facility]. Continues to deny fever, body aches, chills, headache, neck pain, chest pain, abdominal pain, numbness/tingling of extremities, pain/swelling of extremities.]] Review of Systems Review of Systems: per HPI Physical Exam Physical Exam: To be updated: [[Constitutional: A&Ox3, appears stated age, not in acute distress HEENT: anicteric sclerae, EOM intact Cardiovascular: RRR, +s1/s2, no m/r/g Respiratory: b/l clear to auscultation; mild reduction of air movement in lung bases R>L; no wheezes GI: abdomen soft, +BS, no tenderness to palpation Neuro: no facial droop, speech intact, no sensory deficits MSK: 5/5 strength in all extremities]] Results & Data Results & Data Vital Signs (Past 12 Hours) Vital Signs Temp Pulse Pulse Resp BP BP Pulse Ox 07/09/24 03:29 36.3 C L 73 18 115/73 92 07/08/24 23:57 36.5 C 77 18 114/72 94 07/08/24 21:56 76 07/08/24 19:55 36.5 C 83 19 108/67 92 07/08/24 19:15 O2 Del Method 07/09/24 03:29 Room Air 07/08/24 23:57 Room Air 07/08/24 21:56 07/08/24 19:55 Room Air 07/08/24 19:15 Room Air (2) Bilateral pneumonia Lung location: lower lobe of lung Pneumonia type: due to unspecified organism Qualified Code(s): J18.9 - Pneumonia, unspecified organism
[2024-07-09 08:20] VITALS: PULSE 84; RESP 16; TEMP 97.5; O2SAT 91
[2024-07-09 11:04] VITALS: BP 115/73
--- NOTE | 2024-07-09 17:25 | Discharge Summary ---
Discharge Summary Date of Service July 09, 2024 Principal Dx & Hospital Course #1 = Principal Diagnosis (1) Acute hypoxic respiratory failure: history of COPD, gastropulmonary fistula with recurrent pneumonia - Treated pneumoniarespiratory status improved. Did well on room air even with ambulation. 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 They denied rehab and denied a peer to peer appealfortunately patient is cognitively sound and we went over safety priorities as well as case management setting up what home health would be possible. Home cautiously, close outpatient follow-up. Notes For Next Care Provider Medication Changes From Visit none Admission HPI Per Admitting Provider Patient is a 78-year-old female with a past medical history of factor V Leiden with multiple PEs on Xarelto, COPD, hypertension, hyperlipidemia, prediabetes, and 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 She presents today due to dyspnea and a cough for the past few days. She stated that she has a chronic cough, but it is worse than her normal. She also endorses sputum production, also chronic but acutely worsened. She stated that she has had a sore throat for the past few days along with diarrhea; last episode of diarrhea last night. She endorses chills for the past few days. Patient denies fever, headache, dizziness, lightheadedness, rhinorrhea, chest pain, abdominal pain, vomiting, constipation, dysuria, hematuria, edema, numbness, tingling. On examination patient was coughing up white, thick fluid. She also was trying to take p.o. potassium supplements, stated that they may be too big for her to swallow. She took half a tablet and vomited it up; IV K+ ordered. She lives at home alone and took her home medications this morning. She does not use oxygen at baseline. She wishes to be full code at this time. Patient's friend updated at bedside. Updated Medication List Medication Instructions Recorded Confirmed Type melatonin 5 mg capsule 5 mg PO HS PRN Sleep 02/26/19 06/28/24 History rosuvastatin 5 mg tablet (Crestor) 5 mg PO QAM 10/31/19 06/28/24 History pantoprazole 40 mg tablet,delayed 40 mg PO QAM 11/14/19 06/28/24 History release (Protonix) albuterol sulfate 90 mcg/actuation 2 puffs inhalation QID PRN sob 02/25/20 06/28/24 History breath activated powder inhaler (ProAir RespiClick) coenzyme Q10 100 mg capsule (Co 100 mg PO QAM 02/25/20 06/28/24 History Q-10) acetaminophen 325 mg tablet 325 mg PO QID PRN Pain 03/27/22 06/28/24 History (Tylenol) oxybutynin chloride 5 mg tablet 5 mg PO QAM PRN urinary discomfort 03/27/22 06/28/24 History rivaroxaban 20 mg tablet (Xarelto) 20 mg PO QAM 03/27/22 06/28/24 History fluticasone propionate 50 2 spray intranasal QAM 10/03/22 06/28/24 History mcg/actuation nasal spray,suspension albuterol sulfate 0.63 mg/3 mL 0.63 mg inhalation UD PRN coughing 05/04/23 06/28/24 History solution for nebulization spells dextromethorphan polistirex 30 10 ml PO UD PRN coughing spell 05/04/23 06/28/24 History mg/5 mL oral susp ext.release 12hr (Delsym 12 hour) fexofenadine 60 mg tablet (Olga 60 mg PO QPM 05/04/23 06/28/24 History Allergy) famotidine 20 mg tablet (Pepcid) 20 mg PO HS #90 tabs 08/28/23 06/28/24 Rx guaifenesin 600 mg tablet, 600 mg PO QAM 10/05/23 06/28/24 History extended release 12 hr (Mucinex) ipratropium bromide 21 mcg (0.03 2 spray intranasal QPM PRN cough & 10/05/23 History %) nasal spray congestion linaclotide 290 mcg capsule 290 mcg PO QAM #90 caps 11/05/23 06/28/24 Rx (Linzess) polyethylene glycol 3350 17 17 g PO DAILY 04/24/24 06/28/24 History gram/dose oral powder (Miralax) budesonide-formoterol HFA 160 2 puff inhalation BID #10.2 grams 06/16/24 06/28/24 Rx mcg-4.5 mcg/actuation aerosol inhaler (Symbicort) inhalational spacing device #1 ea 06/16/24 06/16/24 Rx triamcinolone acetonide 0.025 % 1 applic topical TID 06/28/24 06/28/24 History topical cream Hospital Stay Data Consultations 06/28/24 11:45 ED Decision to Admit Stat 06/28/24 12:23 Consult Pulmonology Routine Diagnostic Imagining Performed 06/28/24 12:21 CT chest diagnostic wo con Urgent Pending Results Patient Have Any Pending Studies at Discharge: No Discharge Instructions Given to Patient (Per Discharging Provider) You came to [facility] on 06/28/24 for progressing cough with shortness of breath. On imaging of your chest, you were found to have bilateral pneumonia (both lungs). You were also found to have a small amount of fluid in your lungs in addition to the pneumonia. Your O2 concentration was found to be low in the 80s and thus we put on on supplemental O2. You did not have a fever, but your blood pressure was on the low side so you were given IV fluids. For the pneumonia, we started you on on Augmentin for a 7day course and provided supplemental O2 via nasal cannula, which has been adjusted throughout your stay based on your symptoms of shortness of breath particularly on exertion. You have mostly been on 2L/min of O2 on NC, but have required up to 4-5L/min at times. Thankfully, you have improved over the course of your stay in that you came to require less supplemental O2 to the point of having good O2 saturation on room air. You have also been getting stronger and more independent based on assessment from physical therapy. Your lungs have sounded clear for the past few days leading up to today 07/09/24, so given that plus your lack of shortness of breath and improving O2 on room air, you have clinically improved enough to be discharged home. Unfortunately your insurance was not approved for acute rehab at [facility], but you will have Home Health Services at home which includes alf and physical therapy, so that you can continue to improve with your independence at home. Please follow up with your PCP, Dr. Phelan, within the week so that your recent condition as well as chronic conditions can be closely followed. Total Time Total Time Spent Total Time Spent (In Minutes): <30
--- NOTE | 2024-07-09 17:36 | Discharge Summary ---
Date of Service July 09, 2024 Admission HPI Per Admitting Provider Patient is a 78-year-old female with a past medical history of factor V Leiden with multiple PEs on Xarelto, COPD, hypertension, hyperlipidemia, prediabetes, and 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 She presents today due to dyspnea and a cough for the past few days. She stated that she has a chronic cough, but it is worse than her normal. She also endorses sputum production, also chronic but acutely worsened. She stated that she has had a sore throat for the past few days along with diarrhea; last episode of diarrhea last night. She endorses chills for the past few days. Patient denies fever, headache, dizziness, lightheadedness, rhinorrhea, chest pain, abdominal pain, vomiting, constipation, dysuria, hematuria, edema, numbness, tingling. On examination patient was coughing up white, thick fluid. She also was trying to take p.o. potassium supplements, stated that they may be too big for her to swallow. She took half a tablet and vomited it up; IV K+ ordered. She lives at home alone and took her home medications this morning. She does not use oxygen at baseline. She wishes to be full code at this time. Patient's friend updated at bedside. Admission Exam Per Admitting Provider The patient is awake, alert and oriented 3, well developed and well nourished, normocephalic and atraumatic, in no acute distress. Non-toxic appearing. HEENT- EOMI, mucous membranes dry. Hearing grossly intact. Heart-normal S1 and S2. No murmurs, rubs or gallops. Lungs-clear bilaterally, no wheezes, no respiratory distress, no accessory muscle use. Abdomen-normal bowel sounds and soft. No ascites noted. Non-tender. Extremities- no clubbing, cyanosis, or edema. Psychiatric-normal affect. Principal Diagnosis pneumonia likely 2/2 aspiration Discharge Exam Constitutional: A&Ox3, appears stated age, not in acute distress HEENT: anicteric sclerae, EOM intact Cardiovascular: RRR, +s1/s2, no m/r/g Respiratory: b/l clear to auscultation; mild reduction of air movement in lung bases R>L; no wheezes/rales/rhonchi GI: abdomen soft, +BS, no tenderness to palpation Neuro: no facial droop, speech intact, no sensory deficits MSK: 5/5 strength in all extremities Discharge Data Allergies Allergy/AdvReac Type Severity Reaction Status Date / Time shellfish derived Allergy Severe Itchy/Swelling Verified 06/16/24 11:15 Throat Consultations 06/28/24 11:45 ED Decision to Admit Stat 06/28/24 12:23 Consult Pulmonology Routine Ordered Studies 06/28/24 12:21 CT chest diagnostic wo con Urgent Hospital Course (1) Acute hypoxic respiratory failure: history of COPD, gastropulmonary fistula with recurrent pneumonia - currently 93% on room air at rest, no current need for NC with exertion anymore - duonebs q6 as needed, breo ellipta qAM - following PT notes - patient agreeable to discharge to acute rehab if insurance approves, but in case they do not approve she is agreeable to d/c home with services of long-term and PT - respiratory therapy to perform 2-step evaluation prior to discharge to gauge O2 requirement (2) Bilateral pneumonia: likely secondary to 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 vs inhalation WBC resolved, lungs clear on exam, O2 requirement improving - Augmentin course completed yesterday 07/07/24 - continue daily CBC - duonebs q6 as needed - breo ellipta qAM (3) Hypokalemia: resolved, 3.9 per morning labs (4) Vocal cord paralysis: seen and evaluated by speech therapy - continue diet as tolerated with reflux precautions: HOB between 45-90 - alternate solids and liquids, small frequent meals - HOB no lower than 30deg at all times (5) Factor V Leiden mutation: continue on Xarelto (6) Fistula: 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 - appears stable at this time Plan Home health services: long-term and physical therapy Total Time Total Time Spent Total Time Spent (In Minutes): 60 Discharge Plan Discharge Items Patient Disposition: Home - Home Health Services Reason For Visit: SEPSIS, PNA, HYPOXIA Discharge Diagnosis: pneumonia, hypoxia Activity: Per Instructions section Non-emergency contact: Primary Care Provider Call non-emergency contact if: your symptoms worsen and your pain is not controlled Follow-up/Referrals: Thanh Phelan [Primary Care Provider] - 07/11/24 3:00 pm (Hospital follow up on July 11 at 3 pm with an arrival time of 2:45 pm) Diet: Regular Addtl Attending Provider Instructions: You came to [facility] on 06/28/24 for progressing cough with shortness of breath. On imaging of your chest, you were found to have bilateral pneumonia (both lungs). You were also found to have a small amount of fluid in your lungs in addition to the pneumonia. Your O2 concentration was found to be low in the 80s and thus we put on on supplemental O2. You did not have a fever, but your blood pressure was on the low side so you were given IV fluids. For the pneumonia, we started you on on Augmentin for a 7day course and provided supplemental O2 via nasal cannula, which has been adjusted throughout your stay based on your symptoms of shortness of breath particularly on exertion. You have mostly been on 2L/min of O2 on NC, but have required up to 4-5L/min at times. Thankfully, you have improved over the course of your stay in that you came to require less supplemental O2 to the point of having good O2 saturation on room air. You have also been getting stronger and more independent based on assessment from physical therapy. Your lungs have sounded clear for the past few days leading up to today 07/09/24, so given that plus your lack of shortness of breath and improving O2 on room air, you have clinically improved enough to be discharged home. Unfortunately your insurance was not approved for acute rehab at [facility], but you will have Home Health Services at home which includes long-term and physical therapy, so that you can continue to improve with your independence at home. Please follow up with your PCP, Dr. Phelan, within the week so that your recent condition as well as chronic conditions can be closely followed. Pending Studies at Discharge: No Stand-Alone Forms: My [facility], Smoking Cessation Medications and DC Order Prescriptions: Continued Linzess 290 mcg capsule 290 mcg PO QAM Qty: 90 3RF acetaminophen [Tylenol] 325 mg tablet 325 mg PO QID PRN (Reason: Pain) Rx Instructions: otc unable to verify oxybutynin chloride 5 mg tablet 5 mg PO QAM PRN (Reason: urinary discomfort ) Xarelto 20 mg tablet 20 mg PO QAM Rx Instructions: must administer with evening meal famotidine [Pepcid] 20 mg tablet 20 mg PO HS Qty: 90 3RF budesonide-formoterol [Symbicort] 160-4.5 mcg/actuation HFA aerosol inhaler 2 puff inhalation BID Qty: 10.2 11RF (DME) inhalational spacing device Spacer See Rx Instructions .ROUTE .MEDSUPPLY Qty: 1 0RF Rx Instructions: As directed melatonin 5 mg capsule 5 mg PO HS PRN (Reason: Sleep) Rx Instructions: otc unable to verify pantoprazole [Protonix] 40 mg tablet,delayed release (DR/EC) 40 mg PO QAM ProAir RespiClick 90 mcg/actuation aerosol powdr breath activated 2 puffs INH QID PRN (Reason: sob) coenzyme Q10 [Co Q-10] 100 mg capsule 100 mg PO QAM Rx Instructions: otc unable to verify rosuvastatin [Crestor] 5 mg tablet 5 mg PO QAM fexofenadine [Olga Allergy] 60 mg Tablet 60 mg PO QPM Rx Instructions: otc unable to verify dextromethorphan polistirex [Delsym 12 hour] 30 mg/5 mL Suspension,Extended Rel 12 Hr 10 ml PO UD PRN (Reason: coughing spell) Rx Instructions: otc unable to verify albuterol sulfate 0.63 mg/3 mL Solution For Nebulization 0.63 mg INHALATION UD PRN (Reason: coughing spells) Rx Instructions: last filled in february ipratropium bromide 21 mcg (0.03 %) spray,non-aerosol 2 spray intranasal QPM PRN (Reason: cough & congestion) Rx Instructions: otc unable to verify administer into each nostril guaifenesin [Mucinex] 600 mg Tablet Extended Release 12hr 600 mg PO QAM Rx Instructions: otc unable to verify fluticasone propionate 50 mcg/actuation spray,suspension 2 spray intranasal QAM Rx Instructions: otc unable to verify administer into each nostril triamcinolone acetonide 0.025 % cream 1 applic topical TID Rx Instructions: picked 3 weeks ago polyethylene glycol 3350 [Miralax] 17 gram/dose Powder 17 g PO DAILY Rx Instructions: otc unable to verify Discharge Orders: Discharge Order (Routine); Ordered 07/09/24 Ordered By: Marek Malave/Other Patient Handouts: Vocal Cord Dysfunction (VCD), Asthma COPD Trigger Control, What Is Pneumonia?, Preventing Pneumonia Admission Data Admit Date/Time: 06/28/24 12:36 Attending Provider: Cj Spangler Admit Provider: Arlet Taylor Primary Care Provider: Thanh Phlean Other Providers: Arlet Taylor; [facility]; [facility] Other Interventions: Discharge Summary Assessment (RN) Last Done: 07/09/24 11:02 Resident Activity Tracking Resident Involvement: Resident Care Provided Care Provided: Adult Hospital Medicine
--- NOTE | 2024-07-09 17:46 | Billing Data ---
Date of Service July 09, 2024 Coding Level of Care Code 43912 IN/OBS DISCH 30 MIN/LESS
== END 2024-07-09 12:08 | disposition home health service (06) | DRG 871 ==
LOC: SUATTDRO → ED 09:23 → 4W 12:36 → SUATTDRO 12:36 → 4W 13:01

== ENCOUNTER 2024-12-23 12:24 | Inpatient (IN) ==
[2024-12-23 13:16] LABS: Hematocrit (blood only) 38.9 % (37.0-47.0); Hemoglobin 12.3 g/dl (12.0-16.0); Mean Corpuscular Hemoglobin 27.4 pg (25.0-34.0); Mean Corpuscular Hgb Conc 31.6 g/dL (32.0-36.0); Mean Corpuscular Volume 86.6 fL (80.0-100.0); Mean Platelet Volume 10.5 fL (9.4-12.4); Platelet Count 218 K/uL (130-400); RDW Coefficient of Variation 14.6 % (11.5-14.5); Red Blood Count 4.49 M/uL (4.20-5.40); White Blood Count 16.47 K/ul (4.8-10.8)
[2024-12-23] MEDS: ALBUT/IPRATROP 3MG/0.5MG NEB 3 ML VIAL NEB STA (13:21)
--- NOTE | 2024-12-23 13:26 | Electrocardiogram Report ---
Test Reason : Blood Pressure : */* mmHG Vent. Rate : 112 BPM Atrial Rate : 112 BPM P-R Int : 142 ms QRS Dur : 84 ms QT Int : 314 ms P-R-T Axes : 49 -5 -21 degrees QTcB Int : 428 ms Sinus tachycardia Poor R wave progression, consider anterior IN vs. lead placement vs. LVH Abnormal ECG When compared with ECG of 28-Jun-2024 09:36, No significant change was found Confirmed by Gregory Tracy ([id number]) on 12/23/2024 1:26:21 PM Referred By: Confirmed By: Gregory Tracy
[2024-12-23 13:37] LABS: Basophils # (auto) 0.03 K/uL (0.00-0.20); Basophils % (auto) 0.2 %; Eosinophils # (auto) 0.01 K/uL (0.00-0.50); Eosinophils % (auto) 0.1 %; Immature Granulocytes # (auto) 0.07 K/uL (0.01-0.20); Immature Granulocytes % (auto) 0.4 %; Lymphocytes # (auto) 0.35 K/uL (1.20-3.40); Lymphocytes % (auto) 2.1 %; Monocytes # (auto) 0.57 K/uL (0.11-0.59); Monocytes % (auto) 3.5 %; Neutrophils # (auto) 15.44 K/uL (1.40-6.50); Neutrophils % (auto) 93.7 %; Ovalocytes 1+
--- NOTE | 2024-12-23 13:46 | Emergency Department Note ---
Impression & Plan Pneumonia, Dyspnea, Chronic cough ED Provider Note Provider: Jacob Tellez MD CHIEF COMPLAINT: Cough, some weakness HISTORY OF PRESENT ILLNESS: Patient is a 79-year-old female significant past medical history including COPD, pulmonary gastric fistula, SBO, bronchiectasis, vocal cord paralysis, PE on Xarelto presenting here today reporting over last 3 days she has had some worsening of her cough and a bit of increased shortness of breath. States her oxygen levels been in the low 90s at home. Has had ongoing issues with her lungs for some time. Has followed with pulmonary here as well as at the [facility]. Patient denies falls the last several days or significant chest pain. No fevers but a little bit of chills. Reports she has had pneumonia before but came before things got as bad as night. No significant abdominal pain reported. Has been eating okay and small amounts as directed to try to help prevent food backup or aspiration. PAST MEDICAL HISTORY: As noted above MEDICATIONS: Reviewed home medications SOCIAL HISTORY: Former smoker PHYSICAL EXAM: GENERAL: alert and oriented in no acute distress on stretcher slightly kyphotic appearance Head: normocephalic and atraumatic EYES: No injection, discharge or icterus. NECK: Trachea midline. ENT: Mucous membranes pink and moist. No stridor LUNGS: Airway patent. No retractions. Breath sounds coarse with diminished bases occasional cough HEART: Regular rate and rhythm. No chest wall tenderness ABDOMEN: Soft and non-tender, without guarding or rebound. SKIN: Acyanotic, warm, dry, without rashes EXTREMITIES: Without swelling, tenderness or deformity NEUROLOGICAL: No focal deficits. No aphasia. No facial droop or slurred speech. EK beats per enzymes tachycardia. No PVC or PAC. No acute ST segment elevation with a QTc of 428. CONTINUOUS CARDIAC MONITORING: was ordered and showed a heart rate of 90s to 100s bpm in normal sinus rhythm/sinus tachycardia/sinus arrhythmia with a brief 5 beat run of NSVT Patient's laboratory studies and imaging reviewed. Differential includes Reactive airway disease, pneumonia, pneumothorax, COPD, CHF, infections, cardiac ischemia, pulmonary embolism, musculoskeletal, gastrointestinal, as well as other pathologies. IMPRESSION/MEDICAL DECISION MAKING: Patient longstanding underlying pulmonary issues. Given a DuoNeb here. Oxygen in the low 90s. Some tachycardia and borderline temperature upon arrival. Does have a leukocytosis here today. Lactate not elevated however. No anemia negative COVID testing. Chest x-ray questions left lung base finding of pneumonia versus atelectasis versus effusion as well as possible CHF. Does not appear clinically that fluid overloaded on exam however. Will obtain a chest CT for further differentiation. Anticoagulant Xarelto and doubt PE. No stridulous findings and doubt significant upper airway issues. Blood work here with leukocytosis of 16. No anemia. No send electrolyte abnormalities or renal dysfunction. Normal lactate. Normal LFTs. Procalcitonin 0.13. BNP [address] of the chest shows evidence of increased lower lobe alveolar opacities consistent with pneumonia/aspiration pneumonia with again suspected fistulous connection from the stomach. Monitor here with a brief NSVT episode. Asymptomatic. Still with a fairly good cough. Discussed with patient given underlying lung disease with this findings of pneumonia and the significant leukocytosis with her tachycardia would recommend that she stay for IV antibiotics and further treatment. In shared decision making, she was agreeable. Given Zosyn for antibiotic coverage. Hospitalist was contacted. DIAGNOSIS: Pneumonia, cough DISPOSITION: Hospitalist will evaluate Patient was agreeable with this plan. Past Med/Surg History Problem List (Updated 12/23/24 @ 16:03 by Jacob Tellez M.D.) Pneumonia (Acute) Abnormal chest CT Acquired gastric fistula Dry skin dermatitis Moderate persistent asthma Dyspnea (Acute) COPD (chronic obstructive pulmonary disease) Other dysphagia History of colon polyps Constipation Excessive cerumen in both ear canals Hemoptysis Bilateral pleural effusion Acute respiratory failure with hypoxia Hypoxia (Acute) Bacterial pneumonia Sepsis Hypoxia (Acute) Cough productive of yellow sputum (Acute) Laryngopharyngeal reflux (LPR) Mild asthma Chronic cough (Acute) Pancreatitis SYLVIA (acute kidney injury) DVT prophylaxis SBO (small bowel obstruction) Abdominal pain, RUQ (Acute) Atypical mycobacterial infection Bronchiectasis Cough Diaphragmatic hernia History of hemoptysis Menopause Pain, lower extremity Pulmonary embolism Vocal cord paralysis LEFT Encounter for pre-operative examination Encounter for pre-operative examination History of repair of hiatal hernia 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) "Abnormal left breast mammogram Status post biopsy revealing DCIS, solid with focal comedonecrosis Status post left breast segmental mastectomy Stage [id number] stage 0 Status post completion of radiation therapy 03/22/2010 received 6120 cGy" Medical History Hypoxia Diarrhea Hypokalemia Sepsis Bilateral pneumonia Acute hypoxic respiratory failure Pneumonia Vocal cord paralysis Hypomagnesemia Asthma Factor V Leiden mutation Fistula Hx of sepsis Hx of small bowel obstruction COPD (chronic obstructive pulmonary disease) Fistula Overactive bladder History of pneumonia Chronic gastroesophageal reflux disease Chronic bronchitis with productive mucopurulent cough Vocal cord paralysis Chronic pulmonary aspiration History of recent fall Chronic cough Prediabetes Upper airway cough syndrome Shortness of breath Aspiration pneumonia Hiatal hernia GERD (gastroesophageal reflux disease) Laryngopharyngeal reflux Restrictive lung disease Hyperlipidemia Factor V Leiden Anemia Cancer Pulmonary embolism Hypertension Asthma Surgical History History of right cataract surgery History of left cataract surgery History of surgery History of vaginal surgery History of hernia repair History of [place] fundoplication History of laryngoscopy History of nasal polypectomy History of arthroscopy of right knee History of tooth extraction History of wisdom tooth extraction History of breast biopsy History of partial mastectomy of left breast History of surgery History of esophagogastroduodenoscopy (EGD) History of colonoscopy Family History Brother Family history of diabetes mellitus Father Cerebral artery occlusion with cerebral infarction Sister Factor V Leiden mutation Hypercoagulation Other No family history of adverse response to anesthesia Social History Smoking Status: Never smoker Tobacco Type: Cigarettes Cigarettes Per Day: 35 yr ago; Second Hand Exposure: No; Do You Dip or Chew Tobacco: No; Hx Alcohol Use: Yes Alcohol type: beer, wine and hard liquor Hx Substance Use: No Preferred Language: Argentine Communication Ability: Effective Deputy County Attorney Required: No Beliefs That Will Affect Care: None marital status: Single Current Living Situation: Alone How many Children do You have: 0 Feels Safe at Home: Yes Assistive Devices: None Allergies Allergies Allergy/AdvReac Type Severity Reaction Status Date / Time shellfish derived Allergy Severe Itchy/Swelling Verified 12/23/24 15:57 Throat Home Meds Home Medications Medication Instructions Recorded Confirmed melatonin 5 mg capsule 5 mg PO HS PRN Sleep 02/26/19 12/23/24 rosuvastatin 5 mg tablet (Crestor) 5 mg PO QAM 10/31/19 12/23/24 pantoprazole 40 mg tablet,delayed 40 mg PO QAM 11/14/19 12/23/24 release (Protonix) albuterol sulfate 90 mcg/actuation 2 puffs inhalation QID PRN sob 02/25/20 12/23/24 breath activated powder inhaler (ProAir RespiClick) coenzyme Q10 100 mg capsule (Co 100 mg PO QAM 02/25/20 12/23/24 Q-10) acetaminophen 325 mg tablet 325 mg PO QID PRN Pain 03/27/22 12/23/24 (Tylenol) oxybutynin chloride 5 mg tablet 5 mg PO QAM PRN urinary discomfort 03/27/22 12/23/24 rivaroxaban 20 mg tablet (Xarelto) 20 mg PO QAM 03/27/22 12/23/24 fluticasone propionate 50 2 spray intranasal QAM 10/03/22 12/23/24 mcg/actuation nasal spray,suspension albuterol sulfate 0.63 mg/3 mL 0.63 mg inhalation UD PRN coughing 05/04/23 12/23/24 solution for nebulization spells dextromethorphan polistirex 30 10 ml PO UD PRN coughing spell 05/04/23 12/23/24 mg/5 mL oral susp ext.release 12hr (Delsym 12 hour) fexofenadine 60 mg tablet (Olga 60 mg PO QPM 05/04/23 12/23/24 Allergy) guaifenesin 600 mg tablet, 600 mg PO QAM 10/05/23 12/23/24 extended release 12 hr (Mucinex) polyethylene glycol 3350 17 17 g PO DAILY 04/24/24 12/23/24 gram/dose oral powder (Miralax) triamcinolone acetonide 0.025 % 1 applic topical TID 06/28/24 12/23/24 topical cream Previous Rx's Medication Instructions Recorded budesonide-formoterol HFA 160 2 puff inhalation BID #10.2 grams 06/16/24 mcg-4.5 mcg/actuation aerosol inhaler (Symbicort) inhalational spacing device #1 ea 06/16/24 ipratropium bromide 21 mcg (0.03 2 spray intranasal TID PRN 08/18/24 %) nasal spray postnasal drip #30 mL Flutter Valve #1 ea 09/22/24 sodium chloride 7 % for 4 ml inhalation BID #240 mL 09/22/24 nebulization famotidine 20 mg tablet (Pepcid) 20 mg PO HS #90 tabs 10/24/24 linaclotide 290 mcg capsule 290 mcg PO QAM #90 caps 11/21/24 (Linzess) Results & Data (ED) Vital Signs Vital Signs - 24 hr 12/23/24 12:27 12/23/24 13:03 12/23/24 13:04 Temperature 37.7 C H Temperature Source Oral Pulse Rate 115 H Pulse Rate [Apical] 105 H Pulse Strength [Apical] Normal Respiratory Rate 18 20 Respiratory Effort / Characteristics Non-Labored Spontaneous Non-Labored Spontaneous Respiratory Depth Normal Normal Respiratory Pattern Regular Blood Pressure [Right Arm] 124/71 Blood Pressure Mean [Right Arm] 88 Blood Pressure Position Sitting Pulse Oximetry 91 92 92 Oxygen Delivery Method Room Air Room Air Room Air Sepsis Recent Fever Within 48 Hours No Sepsis New/Unexplained Change in Mental Status N/A Sepsis Action Taken by Nursing No Action Required 12/23/24 14:30 12/23/24 15:00 12/23/24 16:00 Temperature Temperature Source Pulse Rate Pulse Rate [Apical] 103 H 103 H 99 H Pulse Strength [Apical] Respiratory Rate 18 18 18 Respiratory Effort / Characteristics Non-Labored Spontaneous Non-Labored Spontaneous Non-Labored Spontaneous Respiratory Depth Normal Normal Normal Respiratory Pattern Regular Regular Regular Blood Pressure [Right Arm] 114/85 116/72 138/73 Blood Pressure Mean [Right Arm] 94 86 94 Blood Pressure Position Pulse Oximetry 94 95 94 Oxygen Delivery Method Room Air Room Air Room Air Sepsis Recent Fever Within 48 Hours Sepsis New/Unexplained Change in Mental Status Sepsis Action Taken by Nursing Laboratory Data 12/23/24 12:48 12/23/24 12:48 Lab Results 12/23/24 12/23/24 12/23/24 Range/Units 12:46 12:48 15:46 WBC 16.47 H (4.8-10.8) K/ul RBC 4.49 (4.20-5.40) M/uL Hgb 12.3 (12.0-16.0) g/dl Hct 38.9 (37.0-47.0) % MCV 86.6 (80.0-100.0) fL MCH 27.4 (25.0-34.0) pg MCHC 31.6 L (32.0-36.0) g/dL RDW Std Deviation 46.0 (36.4-46.3) fL RDW Coeff of Maya 14.6 H (11.5-14.5) % Plt Count 218 (130-400) K/uL MPV 10.5 (9.4-12.4) fL Immature Gran % (Auto) 0.4 % Neut % (Auto) 93.7 % Lymph % (Auto) 2.1 % [place] % (Auto) 3.5 % Eos % (Auto) 0.1 % Baso % (Auto) 0.2 % Neut # (Auto) 15.44 H (1.40-6.50) K/uL Lymph # (Auto) 0.35 L (1.20-3.40) K/uL [place] # (Auto) 0.57 (0.11-0.59) K/uL Eos # (Auto) 0.01 (0.00-0.50) K/uL Baso # (Auto) 0.03 (0.00-0.20) K/uL Immature Gran # (Auto) 0.07 (0.01-0.20) K/uL Ovalocytes 1+ Sodium 142 (136-145) mmol/L Potassium 3.6 (3.5-5.1) mmol/L Chloride 105 (98-107) mmol/L Carbon Dioxide 28 (21-32) mmol/L Anion Gap 9 (3-11) BUN 18 (6-23) mg/dl Creatinine 0.83 (0.6-1.2) mg/dl Est Cr Clr Drug Dosing 53.0 ml/min eGFR 72.56 BUN/Creatinine Ratio 21.7 H (10-20) Glucose 128 H (70-99(Fasting)) mg/dl Lactate 1.0 (0.4-2.0) mmol/L Calcium 9.4 (8.6-10.3) mg/dl Total Bilirubin 1.0 (0.2-1.0) mg/dl AST 12 L (13-39) U/L ALT 7 (7-52) U/L Alkaline Phosphatase 79 (34-104) U/L Troponin I High Sens 4.6 (0-14) pg/ml B-Natriuretic Peptide 166 H (0-100) pg/ml Total Protein 7.5 (6.0-8.3) gm/dl Albumin 4.0 (3.4-5.0) gm/dl Globulin 3.5 (2.5-4.0) gm/dl Albumin/Globulin Ratio 1.1 (0.9-2) Procalcitonin 0.13 (0-0.5) ng/ml Urine Comment SARS-CoV-2 (PCR) NEGATIVE (Negative) Administered Medications Discontinued Medications Albuterol (Albut/Ipratrop 3mg/0.5mg Neb 3 Ml Vial) 3 ml NEB NOW STA; Protocol Stop: 12/23/24 13:16 Last Admin: 12/23/24 13:21 Dose: 3 ml Documented By: EMILIA Piperacillin Sod/Tazobactam Sod (Zosyn) 4.5 gm in 100 mls @ 200 mls/hr IV NOW ONE; Protocol Stop: 12/23/24 16:12 Last Infusion: 12/23/24 16:38 Dose: Infused Documented By: Admin: 12/23/24 15:58 Dose: 200 mls/hr Documented By: STEPH Imaging Data Radiologist's Impression: Chest X-Ray 12/23/24 12:32 XR chest 1V portable CLINICAL HISTORY: Dyspnea COMPARISON STUDY: 10/27/2024 FINDINGS: Stable cardiomegaly with mild pulmonary vascular congestion. There is increased opacity at the left lung base with obscuration of the left hemidiaphragm. No pneumothorax. IMPRESSION: 1. CHF. 2. Increased opacity at the left lung base could represent small left pleural effusion, atelectasis, or pneumonia. ACT 112: Negative or not required by law. Electronically signed by: Elliott Barnes M.D. 12/23/2024 1:[address] 12/23/24 13:52 CT OF THE CHEST WITHOUT IV CONTRAST CLINICAL HISTORY: Shortness of breath. Evaluate for pneumonia. COMPARISON STUDY: Chest CT December 04, 2024. Chest radiograph performed earlier today. CT DOSE: 382.84 mGy.cm TECHNIQUE: Axial images of the chest were obtained without IV contrast. Images were reviewed in the axial, sagittal, and coronal planes. IV contrast was not administered for this examination. Automated exposure control was utilized for the study. A dose lowering technique was utilized adhering to the principles of ALARA. FINDINGS: This exam is compromised given difficulty positioning. Moderate cardiomegaly is again noted. There is no pericardial effusion. No pathologically enlarged thoracic lymph nodes are present. A moderate sized hiatal hernia is again noted. There are postoperative findings along the left hemidiaphragm. An apparent fistulous communication between the intrathoracic portion of the stomach and right lower lobe is again noted. This has been shown on prior exams. Moderate lower lung alveolar opacities have progressed when compared to CT of December 04, 2024. These include foci of consolidation and multifocal tree-in-bud nodules. There is no pneumothorax or pleural effusion. Gallstone within the gallbladder is incidentally noted. There are left-sided renal parapelvic cysts IMPRESSION: 1. Increase in lower lung predominant alveolar opacities since chest CT of December 04, 2024 consistent with pneumonia or aspiration pneumonitis. 2. Hiatal hernia. As previously described, suspected fistulous connection between the hiatal hernia and right lower lobe. 3. Cardiomegaly. ACT 112: Negative or not required by law. Electronically signed by: Vin Lema M.D. 12/23/2024 2:28 PM Discharge Plan Visit Data Chief Complaint: Shortness of Breath/Dyspnea Stated Complaint: PHLEM, SOB ED Provider: Jacob Tellez Discharge Problem: Pneumonia, Dyspnea, Chronic cough Patient Disposition: Being Evaluated by Hospitalist Condition: Fair Forms Stand Alone Forms: [employer] Prescriptions Prescriptions: No Action famotidine [Pepcid] 20 mg tablet 20 mg PO HS Qty: 90 3RF Linzess 290 mcg capsule 290 mcg PO QAM Qty: 90 3RF acetaminophen [Tylenol] 325 mg tablet 325 mg PO QID PRN (Reason: Pain) Rx Instructions: otc unable to verify oxybutynin chloride 5 mg tablet 5 mg PO QAM PRN (Reason: urinary discomfort ) Xarelto 20 mg tablet 20 mg PO QAM Rx Instructions: must administer with evening meal budesonide-formoterol [Symbicort] 160-4.5 mcg/actuation HFA aerosol inhaler 2 puff inhalation BID Qty: 10.2 11RF (DME) inhalational spacing device Spacer See Rx Instructions .ROUTE .MEDSUPPLY Qty: 1 0RF Rx Instructions: As directed melatonin 5 mg capsule 5 mg PO HS PRN (Reason: Sleep) Rx Instructions: otc unable to verify pantoprazole [Protonix] 40 mg tablet,delayed release (DR/EC) 40 mg PO QAM ProAir RespiClick 90 mcg/actuation aerosol powdr breath activated 2 puffs INH QID PRN (Reason: sob) coenzyme Q10 [Co Q-10] 100 mg capsule 100 mg PO QAM Rx Instructions: otc unable to verify (DME) Flutter Valve Device See Rx Instructions .MEDSUPPLY Qty: 1 0RF Rx Instructions: Twice daily after 7% saline nebulizer treatments sodium chloride 7 % solution for nebulization 4 ml inhalation BID Qty: 240 3RF ipratropium bromide 21 mcg (0.03 %) spray,non-aerosol 2 spray intranasal TID PRN (Reason: postnasal drip) Qty: 30 11RF Rx Instructions: administer into each nostril rosuvastatin [Crestor] 5 mg tablet 5 mg PO QAM fexofenadine [Olga Allergy] 60 mg Tablet 60 mg PO QPM Rx Instructions: otc unable to verify dextromethorphan polistirex [Delsym 12 hour] 30 mg/5 mL Suspension,Extended Rel 12 Hr 10 ml PO UD PRN (Reason: coughing spell) Rx Instructions: otc unable to verify albuterol sulfate 0.63 mg/3 mL Solution For Nebulization 0.63 mg INHALATION UD PRN (Reason: coughing spells) Rx Instructions: last filled in february guaifenesin [Mucinex] 600 mg Tablet Extended Release 12hr 600 mg PO QAM Rx Instructions: otc unable to verify fluticasone propionate 50 mcg/actuation spray,suspension 2 spray intranasal QAM Rx Instructions: otc unable to verify administer into each nostril triamcinolone acetonide 0.025 % cream 1 applic topical TID Rx Instructions: picked 3 weeks ago polyethylene glycol 3350 [Miralax] 17 gram/dose Powder 17 g PO DAILY Rx Instructions: otc unable to verify Referrals Referrals: Thanh Phelan [Primary Care Provider] -
[2024-12-23 14:14] LABS: Calcium 9.4 mg/dl (8.6-10.3); Potassium 3.6 mmol/L (3.5-5.1)
[2024-12-23 14:20] LABS: Albumin Globulin Ratio 1.1 (0.9-2); BUN Creatinine Ratio 21.7 (10-20); Globulin 3.5 gm/dl (2.5-4.0); Total Protein 7.5 gm/dl (6.0-8.3)
--- NOTE | 2024-12-23 14:29 | CT Scan Report ---
CT OF THE CHEST WITHOUT IV CONTRAST CLINICAL HISTORY: Shortness of breath. Evaluate for pneumonia. COMPARISON STUDY: Chest CT December 04, 2024. Chest radiograph performed earlier today. CT DOSE: 382.84 mGy.cm TECHNIQUE: Axial images of the chest were obtained without IV contrast. Images were reviewed in the axial, sagittal, and coronal planes. IV contrast was not administered for this examination. Automat ed exposure control was utilized for the study. A dose lowering technique was utilized adhering to t he principles of ALARA. FINDINGS: This exam is compromised given difficulty positioning. Moderate cardiomegaly is again note d. There is no pericardial effusion. No pathologically enlarged thoracic lymph nodes are present. A m oderate sized hiatal hernia is again noted. There are postoperative findings along the left hemidiaph ragm. An apparent fistulous communication between the intrathoracic portion of the stomach and right lower lobe is again noted. This has been shown on prior exams. Moderate lower lung alveolar opacities have progressed when compared to CT of December 04, 2024. These include foci of consolidation and multifoc al tree-in-bud nodules. There is no pneumothorax or pleural effusion. Gallstone within the gallbladde r is incidentally noted. There are left-sided renal parapelvic cysts IMPRESSION: 1. Increase in lower lung predominant alveolar opacities since chest CT of December 04, 2024 consistent wit h pneumonia or aspiration pneumonitis. 2. Hiatal hernia. As previously described, suspected fistulous connection between the hiatal hernia a nd right lower lobe. 3. Cardiomegaly. ACT 112: Negative or not required by law. Electronically signed by: Vin Lema M.D. 12/23/2024 2:28 PM
[2024-12-23 15:40] LABS: Troponin I High Sensitivity 4.6 pg/ml (0-14)
[2024-12-23] MEDS: PIPERACILLIN/TAZOBACTAM 4.5 GM/100 ML BAG IV ONE (15:58)
--- NOTE | 2024-12-23 16:43 | History & Physical Report ---
Date of Service December 23, 2024 Assessment & Plan (1) Pneumonia: (2) Acquired gastric fistula: (3) COPD (chronic obstructive pulmonary disease): (4) Factor V Leiden mutation: Plan #pneumonia w sepsis (but fortunately not severe sepsis/septic shock) -due to pneumonia - which appears essentially to be aspiration pneumonia but with fistula as mechanism rather than dysphagia -given no severe sepsis, and given no empyema/no abscess -> rocephin, given COPD will add zithromax for pulmonary anti-inflammatory effect -supportive care, serial exams, serial labs. 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 not candidate for potential procedures per [facility]. however, pt doing remarkably well despite this - has not been hospitalized since ~07/2024 and not losing weight/no clear evidence of failure to thrive -discussed that this will be source of recurrent pneumonias and chronic aspiration, but that overall she is doing well with a "bad diagnosis" #COPD -continue budesonide/formoterol, and nebs -add anticholinergic -as above noted, add zithromax for pulmonary antiinflammatory effect #V Leiden w prior VTE -chronic anticoagulation dispo - [place] [facility], med/surg; given her overall presentation i discussed with her that hopefully this hospital stay will not be too prolonged. Full code. she does not that she's never really talked advanced directives - discussed that it would be worthwhile to do so at some point History of Present Illness Chief Complaint: cough/sob Primary Care Provider: Thanh Phelan very pleasant 79f 3-4 days worsening cough sputum and sob. was in usual state of health until last 3-4 days. chills, no noted fevers or sweats. sob not too severe but is noticeable. does have chronic respiratory sx no hospitalizations since july 2024; not losing weight. was seen at [facility] - no procedures to take down fistula viable for her. 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) Allergies Allergy/AdvReac Type Severity Reaction Status Date / Time shellfish derived Allergy Severe Itchy/Swelling Verified 12/23/24 15:57 Throat Home Medications Medication Instructions Recorded Confirmed Type melatonin 5 mg capsule 5 mg PO HS PRN Sleep 02/26/19 12/23/24 History rosuvastatin 5 mg tablet (Crestor) 5 mg PO QAM 10/31/19 12/23/24 History pantoprazole 40 mg tablet,delayed 40 mg PO QAM 11/14/19 12/23/24 History release (Protonix) albuterol sulfate 90 mcg/actuation 2 puffs inhalation QID PRN sob 02/25/20 12/23/24 History breath activated powder inhaler (ProAir RespiClick) coenzyme Q10 100 mg capsule (Co 100 mg PO QAM 02/25/20 12/23/24 History Q-10) acetaminophen 325 mg tablet 325 mg PO QID PRN Pain 03/27/22 12/23/24 History (Tylenol) oxybutynin chloride 5 mg tablet 5 mg PO QAM PRN urinary discomfort 03/27/22 12/23/24 History rivaroxaban 20 mg tablet (Xarelto) 20 mg PO QAM 03/27/22 12/23/24 History fluticasone propionate 50 2 spray intranasal QAM 10/03/22 12/23/24 History mcg/actuation nasal spray,suspension albuterol sulfate 0.63 mg/3 mL 0.63 mg inhalation UD PRN coughing 05/04/23 12/23/24 History solution for nebulization spells dextromethorphan polistirex 30 10 ml PO UD PRN coughing spell 05/04/23 12/23/24 History mg/5 mL oral susp ext.release 12hr (Delsym 12 hour) fexofenadine 60 mg tablet (Olga 60 mg PO QPM 05/04/23 12/23/24 History Allergy) guaifenesin 600 mg tablet, 600 mg PO QAM 10/05/23 12/23/24 History extended release 12 hr (Mucinex) polyethylene glycol 3350 17 17 g PO DAILY 04/24/24 12/23/24 History gram/dose oral powder (Miralax) budesonide-formoterol HFA 160 2 puff inhalation BID #10.2 grams 06/16/24 12/23/24 Rx mcg-4.5 mcg/actuation aerosol inhaler (Symbicort) inhalational spacing device #1 ea 06/16/24 12/18/24 Rx triamcinolone acetonide 0.025 % 1 applic topical TID 06/28/24 12/23/24 History topical cream ipratropium bromide 21 mcg (0.03 2 spray intranasal TID PRN 08/18/24 12/23/24 Rx %) nasal spray postnasal drip #30 mL Flutter Valve #1 ea 09/22/24 12/18/24 Rx sodium chloride 7 % for 4 ml inhalation BID #240 mL 09/22/24 12/23/24 Rx nebulization famotidine 20 mg tablet (Pepcid) 20 mg PO HS #90 tabs 10/24/24 12/23/24 Rx linaclotide 290 mcg capsule 290 mcg PO QAM #90 caps 11/21/24 12/23/24 Rx (Linzess) Past Med/Surg History Problem List Pneumonia (Acute) Abnormal chest CT Acquired gastric fistula Dry skin dermatitis Moderate persistent asthma Dyspnea (Acute) COPD (chronic obstructive pulmonary disease) Other dysphagia History of colon polyps Constipation Excessive cerumen in both ear canals Hemoptysis Bilateral pleural effusion Acute respiratory failure with hypoxia Hypoxia (Acute) Bacterial pneumonia Sepsis Hypoxia (Acute) Cough productive of yellow sputum (Acute) Laryngopharyngeal reflux (LPR) Mild asthma Chronic cough (Acute) Pancreatitis SYLVIA (acute kidney injury) DVT prophylaxis SBO (small bowel obstruction) Abdominal pain, RUQ (Acute) Atypical mycobacterial infection Bronchiectasis Cough Diaphragmatic hernia History of hemoptysis Menopause Pain, lower extremity Pulmonary embolism Vocal cord paralysis LEFT Encounter for pre-operative examination Encounter for pre-operative examination History of repair of hiatal hernia 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) "Abnormal left breast mammogram Status post biopsy revealing DCIS, solid with focal comedonecrosis Status post left breast segmental mastectomy Stage [id number] stage 0 Status post completion of radiation therapy 03/22/2010 received 6120 cGy" Medical History Hypoxia Diarrhea Hypokalemia Sepsis Bilateral pneumonia Acute hypoxic respiratory failure Pneumonia Vocal cord paralysis Hypomagnesemia Asthma Factor V Leiden mutation Fistula Hx of sepsis Hx of small bowel obstruction "[facility] fixed that" COPD (chronic obstructive pulmonary disease) Fistula Gastropulmonary Fistula - "I am not sure they thought I had a fistula connecting my stomach to my lungs." Overactive bladder controlled History of pneumonia x2 past 2 yrs/most recent May 2023. Chronic gastroesophageal reflux disease Chronic bronchitis with productive mucopurulent cough Vocal cord paralysis Chronic pulmonary aspiration History of recent fall not since 04/2023 Chronic cough coughing spells over last 3 yr. Prediabetes Upper airway cough syndrome Shortness of breath more noticeable with activity/no change from baseline. Aspiration pneumonia hx Hiatal hernia GERD (gastroesophageal reflux disease) Laryngopharyngeal reflux Restrictive lung disease Hyperlipidemia Factor V Leiden Anemia hx Cancer breast ca - left - partial mastectomy - radiation Pulmonary embolism -10/2019 -- factor V -- on eliquis BID -7 years ago - post hiatal hernia repair - pt also has factor V - [facility] - treated w/ AC Hypertension Asthma inhaler prn/last use 10/04/23 for cough spell. get coughing spells over past 3 yrs . Surgical History History of right cataract surgery History of left cataract surgery History of surgery lysis of abdominal adhesions 10/2019 [facility] History of vaginal surgery History of hernia repair History of repair diaphramic hernia by thoracoabdominal approach History of Jamil fundoplication History of esophagogastric fundoplasty jamil fundoplication History of laryngoscopy History of direct laryngoscopy with injection into vocal chords History of nasal polypectomy History of arthroscopy of right knee meniscus repair History of tooth extraction History of wisdom tooth extraction History of breast biopsy History of partial mastectomy of left breast History of surgery vocal cord surgery. foreign body present "something for support" History of esophagogastroduodenoscopy (EGD) History of colonoscopy Family History Brother Family history of diabetes mellitus Father Cerebral artery occlusion with cerebral infarction Sister Factor V Leiden mutation Hypercoagulation Other No family history of adverse response to anesthesia Social History Smoking Status: Never smoker Tobacco Type: Cigarettes Cigarettes Per Day: 35 yr ago; Second Hand Exposure: No; Do You Dip or Chew Tobacco: No; Hx Alcohol Use: Yes Alcohol type: beer, wine and hard liquor Hx Substance Use: No Preferred Language: Greenlandic Communication Ability: Effective Private Tutor Required: No Beliefs That Will Affect Care: None marital status: Single Current Living Situation: Alone How many Children do You have: 0 Feels Safe at Home: Yes Assistive Devices: None Review of Systems Review of Systems: All systems reviewed & are unremarkable except as noted in HPI & below Physical Exam Physical Exam: gen aaox3 fatigued but pleasant nad heent nc at mmm lungs faintly coarse b/l R worse than L decent air entry no rales no wheeze good effort. msk noted kyphoscoliosis. skin no rashes no pallor or icterus. neuro cn 2-12 grossly intact gross motor/sensory intact. good recent and remote recall normal mood and affect good judgement and insight labs and diagnostics noted Results & Data Results & Data Vital Signs (Past 12 Hours) Vital Signs Temp Pulse Pulse Resp BP Pulse Ox O2 Del Method 12/23/24 16:00 99 H 18 138/73 94 Room Air 12/23/24 15:00 103 H 18 116/72 95 Room Air 12/23/24 14:30 103 H 18 114/85 94 Room Air 12/23/24 13:04 92 Room Air 12/23/24 13:03 105 H 20 124/71 92 Room Air 12/23/24 12:27 99.9 F H 115 H 18 91 Room Air Code Status & VTE Plan VTE Prophylaxis Plan VTE Prophylaxis will be ordered: Yes PG Care Time/CCT Total # of Minutes Spent Total Time Spent with Patient: Total time spent is greater than 50% in coordination of care (as documented) at patient's floor/unit and/or counseling patient: Coding Level of Care Code 32095 INT INP/OBS CARE 3/75MIN Diagnoses Pneumonia J18.9 Acquired gastric fistula K31.6 COPD (chronic obstructive pulmonary disease) J44.9 Factor V Leiden mutation D68.51
[2024-12-23 19:08] LABS: Appearance Urine Clear (Clear); Bilirubin Urine Negative (Negative); Blood Urine Negative (Negative); Color Urine Yellow; Glucose Urine UA Negative (Negative); Ketones Urine 2+ (Negative); Leukocyte Esterase Urine Negative (Negative); Nitrite Urine Negative (Negative); Protein Urine 1+ (Negative); Specific Gravity Urine 1.023 (1.000-1.030); Urobilinogen Urine Negative (Negative); pH Urine 5.5 (4.5-7.5)
[2024-12-23] MEDS: ACETAMINOPHEN 500 MG TAB PO STA (20:10)
[2024-12-23] MEDS ORDERED: ONDANSETRON INJ 2 MG/ML 2 ML VIAL IV PRN (20:36)
[2024-12-23] MEDS ORDERED: ALUMINUM/MAGNESIUM SUSP 30 ML UDC PO PRN (20:36)
[2024-12-23] MEDS ORDERED: IPRATROPIUM BROMIDE NASAL SPRAY 0.03% 30 ML NAE PRN (20:36)
[2024-12-23] MEDS ORDERED: oxyBUTYnin chloride 5 MG TAB PO PRN (20:36)
[2024-12-23] MEDS ORDERED: MAGNESIUM HYDROXIDE SUSP 30 ML UDC PO PRN (20:36)
[2024-12-23] MEDS ORDERED: ALBUTEROL HFA 8 GM INHALER INH PRN (20:43)
[2024-12-23] MEDS ORDERED: ALBUTEROL 0.5% NEB SOLN 2.5 MG/0.5 ML VIAL INH PRN (20:44)
[2024-12-23] MEDS: TRIAMCINOLONE ACET 0.025% CR 15 GM TUBE TOP SCH (22:13)
[2024-12-23] MEDS: RIVAROXABAN 20 MG TAB PO SCH (22:14)
[2024-12-23] MEDS: FEXOFENADINE 60 MG TAB PO SCH (22:14)
[2024-12-23] MEDS: cefTRIAXone SODIUM 1,000 MG/50 ML BAG IV SCH (22:18)
[2024-12-23] MEDS: MELATONIN 3 MG TAB PO PRN (22:20)
[2024-12-23] MEDS: FAMOTIDINE 20 MG TAB PO SCH (22:21)
[2024-12-23] MEDS: ACETAMINOPHEN 325 MG TAB PO PRN (22:21)
[2024-12-23 22:59] LABS: Bacteria Urine Automated None Seen (None Seen); WBC Urine Automated 0-5 /hpf (0-5)
[2024-12-23] MEDS: AZITHROMYCIN 500 MG/255 ML BAG IV ONE (23:30)
[2024-12-23] MEDS: SODIUM CHLOR 7% 4 ML NEB INH SCH (23:35)
[2024-12-24 07:11] LABS: Basophils # (auto) 0.03 K/uL (0.00-0.20); Basophils % (auto) 0.3 %; Eosinophils # (auto) 0.13 K/uL (0.00-0.50); Eosinophils % (auto) 1.4 %; Hematocrit (blood only) 31.4 % (37.0-47.0); Hemoglobin 9.8 g/dl (12.0-16.0); Immature Granulocytes # (auto) 0.02 K/uL (0.01-0.20); Immature Granulocytes % (auto) 0.2 %; Lymphocytes # (auto) 1.26 K/uL (1.20-3.40); Lymphocytes % (auto) 13.4 %; Mean Corpuscular Hemoglobin 27.2 pg (25.0-34.0); Mean Corpuscular Hgb Conc 31.2 g/dL (32.0-36.0); Mean Corpuscular Volume 87.2 fL (80.0-100.0); Mean Platelet Volume 10.5 fL (9.4-12.4); Monocytes # (auto) 0.51 K/uL (0.11-0.59); Monocytes % (auto) 5.4 %; Neutrophils # (auto) 7.42 K/uL (1.40-6.50); Neutrophils % (auto) 79.3 %; Platelet Count 188 K/uL (130-400); RDW Coefficient of Variation 14.6 % (11.5-14.5); RDW Standard Deviation 47.1 fL (36.4-46.3); White Blood Count 9.37 K/ul (4.8-10.8)
--- NOTE | 2024-12-24 07:25 | Hospitalist Progress Note ---
Date of Service December 24, 2024 Assessment & Plan (1) Pneumonia: (2) Acquired gastric fistula: (3) COPD (chronic obstructive pulmonary disease): (4) Factor V Leiden mutation: Gonzalo Moralez is a 79 yo female with PMH of COPD, factor V leiden, HLD, and hx of breast cancer presented to the ED with sepsis due to pneumonia secondary to aspiration due to fistula between esophagus and left lung. #Pneumonia/sepsis Pt presented to ED with sepsis, which responded well to fluids. This morning, pt's vitals are stable and WBC has returned to normal range. Pt continues with general fatigue this morning - Continue IV ceftriaxone with plan to transition to oral abx for home - Continue Azithromycin for pulmonary anti-inflammatory #Gastropulmonary fistula Root cause of current pneumonia, but not a candidate for potential procedures per [place]. Pt has not been hospitalized since ~07/2024 and not losing weight/no clear evidence of failure to thrive #COPD -continue budesonide/formoterol and albuterol nebs -Continue ipratropium - Continue Azithromycin as stated above for pulmonary antiinflammatory effect #V Leiden w prior VTE -Continue Xarelto 20mg qam Chronic conditions; HLD- continue rosuvastatin Dispo - med/surg Diet: Regular VTE prophylaxis: Xarelto, home dose Full code Admission and Anticipated Discharge Date Admission Date: December 23, 2024 Supervising Physician Co-Signing Physician Notes I personally examined the patient and verified all aggarwal points of history and exam, discussed case, and agree with decision making with Dr Agarwal feeling a little better, still coughing, not yet well enough to get home vitals noted nad heent nc at mmm breathing unlabored no accessory muscles good effort skin no rashes no pallor or icterus aspiration pneumonia due to gastropulmonary fistuala superimposed on COPD - do ing better, sepsis resolved (and never severe sepsis/septic shock) - continue current care/supportive care, hopefully home soon. Subjective No acute events over night. This morning, pt reports she is feeling tired and continues productive coughing. Pt denies chest pain, SOB, abdominal pain, N/V/T, dizziness. Review of Systems Review of Systems: As per HPI Physical Exam Physical Exam: Gen: A&O x3 , pleasant, NAD HEENT: Normocephalic, mmm,no lymphandenopathy Respiratory: Faint coarse crackles noted on left. No rales or wheeze. Normal work of breathing on RA at rest Cardio: RRR, S1, S2. Systolic murmur noted at right sternal boarder MSK: Able to sit EOB unassisted. Functional ROM at UE/LE. Significant thoracic kyphosis noted Skin: Warm, dry, no rashes noted on exposed skin Neuro: CN 2-12 grossly intact, gross motor/sensory intact. Results & Data Results & Data Vital Signs (Past 12 Hours) Vital Signs Temp Pulse Pulse Resp BP Pulse Ox O2 Del Method 12/23/24 20:40 Room Air 12/23/24 20:40 36.7 C 86 117/70 94 Room Air 12/23/24 20:39 36.7 C 86 117/70 94 Room Air 12/23/24 20:39 94 Room Air 12/23/24 20:00 88 18 108/59 L 95 Room Air 12/23/24 19:30 90 18 98/62 L 94 Room Air Resident Activity Tracking Resident Involvement: Resident Care Provided Care Provided: Adult Hospital Medicine
[2024-12-24 07:36] LABS: BUN Creatinine Ratio 23.8 (10-20); Calcium 8.7 mg/dl (8.6-10.3); Potassium 3.5 mmol/L (3.5-5.1)
[2024-12-24] MEDS: FLUTICASONE PROPIONATE NA SPR 16 GM BTL NAE SCH (08:35)
[2024-12-24] MEDS: POLYETHYLENE (MIRALAX) 17 GM PACK PO SCH (08:35)
[2024-12-24] MEDS: PANTOprazole 40 MG TAB PO SCH (08:36)
[2024-12-24] MEDS: LINACLOTIDE 145 MCG CAPSULE PO SCH (08:36)
[2024-12-24] MEDS: ROSUVASTATIN CALCIUM 5 MG TAB PO SCH (08:36)
[2024-12-24] MEDS: guaiFENesin 600 MG TABCR PO SCH (08:36)
[2024-12-24] MEDS ORDERED: FLUTICASONE/VILANTEROL 200/25MCG 14 PUFFS/INHALER INH SCH (09:00)
[2024-12-24] MEDS: UMECLIDINIUM BROMIDE 62.5MCG/BLISTER 7 PUFFS/INHALER INH SCH (10:08)
--- NOTE | 2024-12-24 13:13 | Billing Data ---
Date of Service December 24, 2024 Coding Level of Care Code 28487 SUB INP/OBS CARE
[2024-12-24] MEDS ORDERED: ALBUTEROL 0.5% NEB SOLN 2.5 MG/0.5 ML VIAL NEB PRN (13:54)
--- OUTSIDE RECORDS SUMMARY | 2024-12-24 14:50 | External Medical Summary | Continuity of Care Document ---
Author Name Unknown Organization [facility] [address] [place] [id number] Care Team Providers Care Manager Motor Name Role Phone Thanh Phelan Primary Care Physician [phone] Encounter [facility] PHIL [phone] Date(s): 12/19/24 - 12/19/24 [facility] 207 [facility] [address] [address] [phone] Encounter Diagnosis Body mass index [BMI] 26.0-26.9, adult(Discharge Diagnosis) - 12/19/24 Hypotension(Discharge Diagnosis) - 12/19/24 Left hip pain(Discharge Diagnosis) - 12/19/24 Discharge Disposition: Home or Self Care Attending Physician: DO Reyes Allison B Encounter Type: Clinic Allergies, Adverse Reactions, Alerts Substance Criticality Severity Reaction Reaction Severity Status shellfish Active Dust dust cats pollen Act asael Immunizations Given and Recorded Vaccine Date Status Refusal Reason influenza virus vaccine, inactivated 04/23/24 Kike rded influenza virus vaccine, inactivated 04/06/24 Kike rded influenza virus vaccine, inactivated 05/2022 Kike rded influenza virus vaccine, inactivated 05/04/21 Kike rded influenza virus vaccine, inactivated 05/21/20 Give n influenza virus vaccine, inactivated 04/25/19 Kike rded influenza virus vaccine, inactivated 05/29/18 Kike rded influenza virus vaccine, inactivated 07/03/17 Give n influenza virus vaccine, inactivated 07/24/16 Give n influenza virus vaccine, inactivated 06/02/15 Kike rded influenza virus vaccine, inactivated 05/19/14 Give n influenza virus vaccine, inactivated 1 07/03/12 Re corded influenza virus vaccine, inactivated 06/01/08 Kike rded SARS-CoV-2 (COVID-19) mRNA-vacc - [id number] 04/23/24 Recorded SARS-CoV-2 (COVID-19) mRNA-vacc - [id number] 06/09/23 Recorded RSV Vaccine Unspecified 04/06/24 Recorded SARS COVID Vaccine Unspecified 04/06/24 Recorded SARS-CoV-2 mRNA (Pfizer 12+) bivalent 05/15/22 Rec orded SARS-CoV-2 mRNA (Pfizer 12+) bivalent 05/2022 Rec orded SARS-CoV-2 mRNA (tozinameran 5y-11y) 11/09/21 Kike rded SARS-CoV-2 (COVID-19) ChAdOx1 vaccine 05/01/21 Rec orded SARS-CoV-2 (COVID-19) mRNA BNT-162b2 vax 2 10/01/20 Recorded SARS-CoV-2 (COVID-19) mRNA BNT-162b2 vax 3 09/10/20 Recorded pneumococcal 23-valent vaccine 04/19/20 Given pneumococcal 23-valent vaccine 10/08/08 Recorded pneumococcal 23-valent vaccine 08/17/03 Recorded zoster vaccine, inactivated 02/04/20 Recorded zoster vaccine, inactivated 09/20/19 Recorded zoster vaccine, inactivated 04/25/19 Recorded hepatitis B adult vaccine 06/02/19 Given hepatitis B adult vaccine 06/02/19 Recorded hepatitis B adult vaccine 04/28/19 Given tetanus/diphtheria/pertuss, acel (Tdap) 04/28/19 G iven tetanus/diphtheria/pertuss, acel (Tdap) 05/29/08 R ecorded hepatitis A adult vaccine 04/28/19 Given hepatitis A adult vaccine 12/20/06 Recorded pneumococcal 13-valent vaccine 06/02/15 Recorded pneumococcal 13-valent vaccine 11/12/14 Given zoster vaccine live 10/08/08 Recorded 1Result Comment: [07/05/2012] got @ [facility] 2Result Comment: 2021-05-16: Historical information-source unspecified 3Result Comment: 2021-05-16: Historical information-source unspecified Medications albuterol 0.083% for nebulization Start: 10/06/24 12:08:00 PM EST, 1 vial, inhaled, q6h, Disp# 300 mL, Refills: 4, PRN: NEEDED FOR WHEEZING, Pharmacy: [facility]40 Start Date: 10/06/24 Status: Ordered Quantity: 300.0 Unit: mL Repeat number: 1 Olga 180 mg oral tablet Start: 06/09/24 3:17:00 PM EST, 1 tab, PO, Daily, PRN: as needed for allergy symptoms Start Date: 06/09/24 Status: Ordered Repeat number: 1 Breyna 160 mcg-4.5 mcg/inh inhalation aerosol Start: 07/22/24 11:23:00 AM EST, 2 inh, inhaled, Daily Start Date: 07/22/24 Status: Ordered Repeat number: 1 Co-Q10 100 mg oral capsule Start: 04/15/10 1:33:30 PM EDT, 1 cap, PO, Daily, Refills: 0, current medication from another provider Start Date: 04/15/10 Status: Ordered Repeat number: 1 famotidine 20 mg oral tablet Start: 03/26/23 1:23:00 PM EDT, See Instructions, Disp# 90 tab, Refills: 3, TAKE 1 TABLET BY MOUTH ONCE DAILY AT BEDTIME, Pharmacy: [facility] [address] Start Date: 03/26/23 Status: Ordered Quantity: 90.0 Unit: tab Repeat number: 4 Flonase Start: 05/09/21 10:51:00 AM EDT Start Date: 05/09/21 Status: Ordered Repeat number: 1 guaiFENesin 600 mg oral tablet, extended release Start: 10/05/23 12:00:00 AM EST, 1 tab, PO, Daily Start Date: 10/05/23 Status: Ordered Repeat number: 1 ipratropium 21 mcg/inh (0.03%) nasal spray Start: 11/30/23 1:37:00 PM EDT, 2 spray, each nostril, bid, Disp# 1 each, PRN: as needed for allergysymptoms, other Start Date: 11/30/23 Status: Ordered Quantity: 1.0 Unit: each Repeat number: 1 Linzess 290 mcg oral capsule Start: 12/26/22 7:45:00 AM EDT Start Date: 12/26/22 Status: Ordered Repeat number: 1 melatonin 1 mg oral tablet Start: 05/08/13 11:30:00 AM EDT, 1 tab, PO, qhs, PRN: Insomnia Start Date: 05/08/13 Status: Ordered Repeat number: 1 MiraLax Start: 02/04/24 4:42:00 PM EDT, PRN Start Date: 02/04/24 Status: Ordered Repeat number: 1 oxyBUTYnin 5 mg/24 hours oral tablet, extended release Start: 08/07/24 3:42:00 PM EST, 1 tab, PO, Daily, Disp# 30 tab, Refills: 12, PRN: NEEDED FOR URINARY DISCOMFORT, Pharmacy: [facility] [id number] Start Date: 08/07/24 Stop Date: 09/06/24 Status: Ordered Quantity: 30.0 Unit: tab Repeat number: 1 pantoprazole 40 mg oral delayed release tablet Start: 10/06/24 7:05:00 PM EST, 1 tab, PO, bid, Disp# 180 tab, Refills: 3, , Pharmacy:[facility] [id number] Start Date: 10/06/24 Stop Date: 10/01/25 Status: Ordered Quantity: 180.0 Unit: tab Repeat number: 4 rosuvastatin 5 mg oral tablet Start: 09/03/24 9:25:00 AM EST, 1 tab, PO, Daily, Disp# 90 tab, Refills: 4, Pharmacy: [facility] [id number] Start Date: 09/03/24 Status: Ordered Quantity: 90.0 Unit: tab Repeat number: 1 triamcinolone 0.025% topical cream Start: 06/09/24 3:08:00 PM EST, 1 appl, topical, bid, Disp# 60 g, Refills: 3, to affected area prn, Pharmacy: [facility] [id number] Start Date: 06/09/24 Status: Ordered Quantity: 60.0 Unit: g Repeat number: 4 triamcinolone 0.025% topical cream Start: 06/09/24 3:28:00 PM EST, See Instructions, Disp# 60 g, Refills: 2, APPLY CREAM TOPICALLY TO AFFECTED AREA THREE TIMES DAILY, Pharmacy: [facility] [id number] Start Date: 06/09/24 Status: Ordered Quantity: 60.0 Unit: g Repeat number: 3 Tylenol 500 mg oral tablet Start: 05/08/13 11:30:00 AM EDT, 1 tab, PO, q6h, PRN: as needed for pain Start Date: 05/08/13 Status: Ordered Repeat number: 1 Xarelto 20 mg oral tablet Start: 12/10/21 9:36:00 AM EDT, daily with evening meal Start Date: 12/10/21 Status: Ordered Repeat number: 1 Mental Status 12/19/24 Barriers to Learning one year None evide nt Mandatory Health Literacy Documentation Yes Health Literacy Communication Barriers N ever Primary Language Danish Problem List Condition Confirmation Course Effective Dates Status H ealth Status Informant 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 Confirmed Active DiverticulOSIS Confirmed Active Factor V Leiden mutation 1, 2 Confirmed Active Stomach fistula Confirmed Active GERD 3 Confirmed Active Low frequency hearing loss Confirmed Active (HFpEF) heart failure with preserved ejection fraction Confirmed Active Hemorrhoids Confirmed Active 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 Hyperlipidemia Confirmed Active Hypertension goal BP (blood pressure) < 150/90 Confirmed Active Iron deficiency anemia, unspecified Confirmed Active Osteoarthritis of left knee Confirmed Active Osteopenia Confirmed 2008 Active Prediabetes Confirmed Active Vitamin D deficiency Confirmed Active Ambulatory dysfunction Confirmed Active 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" 2At risk for thrombosis treated with ASA 325 mg 3since reduction of massive paraesophageal hernia 4left, comedo type Diagnosis Diagnosis Type Effective Dates Health Status Clinical Service Informant Body mass index [BMI] 26.0-26.9, adult Discharge Diagnosis 12/19/24 Non-Specified Left hip pain Discharge Diagnosis 12/19/24 Non-Specified Hypotension Discharge Diagnosis 12/19/24 Non-Specified Procedures Procedure Date Related Diagnosis Body Site Status Colonoscopy 1 10/18/23 Completed Upper GI (gastrointestinal) endoscopy 2 10/10/22 Completed Barium swallow 3 08/01/22 Complete d Chest X-ray 4 07/05/22 Completed Date of last mammogram 5 02/07/22 Completed Chest X-ray 6 06/13/21 Completed Echocardiogram 7 05/06/21 Complete d Chest X-ray 8 05/03/21 Completed Ultrasound Bilateral Lung 9 05/03/21 Completed Chest X-ray 10 02/15/21 Completed Chest x-ray 11 08/07/20 Completed Chest X-ray 12 07/13/20 Completed Foot X-ray 3V routine 13 07/13/20 Completed Phacoemulsification of lens 14 03/16/[address] of chest with contrast 15 02/12/20 Completed CXR - Chest X-ray 16 02/04/20 Comp leted Plain X-ray of left hip 17 01/27/[address] angiography of chest with contrast 18 10/31/19 Completed Doppler ultrasonography of b ilateral lower extremity blood vessels 19 10/31/19 Completed KUB X-ray 20 10/31/19 Completed Mammogram tomosynthesis R 21 10/23/19 Completed Plain X-ray of right wrist 22 10/13/19 Completed Mammography 23 04/23/19 Completed Mammogram 24 04/10/19 Completed X-ray of wrist 25 03/07/19 Complet ed Colonoscopy 26 12/20/18 Completed Screening colonoscopy 27 12/20/18 Completed DEXA (dual energy X-ray phot on absorptiometry) scan of lateral spine 28 12/12/18 Completed Arthroscopy of knee 29 09/23/18 Co mpleted X-ray tibia / fibula right 30 07/10/18 Completed CXR - Chest X-ray 31 05/06/18 Comp leted Ultrasound 32 05/01/18 Completed Colonoscopy 33 08/29/[address] of chest 34 01/17/17 Completed Chest X-ray 35 06/06/16 Completed Bronchial washing 36 04/25/16 Comp leted CTA Chest 37 03/23/16 Completed Chest x-ray 38 05/26/15 Completed Bone density scan 39 02/24/[address] 11/20/13 Completed Colonoscopy 40 10/17/13 Completed repair hiatal hernia - [facility] 02/11/13 Completed mammogram 10/10/12 Completed colonoscopy 41 08/19/12 Completed removal of polyp during colonoscopy 08/19/12 Completed Cyst removed from RIGHT Shoulder 12/05/11 Completed Bronchoscopy 42 04/25/11 Completed Rad TX to LEFT Breast S/P Lumpectomy 02/03/10 Completed LEFT BREAST Lumpectomy- Ca In Situ 43 12/24/09 Completed Vocal Cord Support Placed Lopez rgically 44 07/06/09 Completed DEXA - Dual energy X-ray renee ton absorptiometry 45 04/27/09 Completed Labial Cyst removed 08/06/00 Compl eted Vaginal septum removed 08/06/[address] of abdomen and pelvis wit hout contrast 46 Completed DIAGNOSTIC LARYNGOSCOPY C ompleted Fit 47 Completed 1Impression: -Preparation of the colon was inadequate -Stool in the rectum, in the sigmoid colon and in the descending colon -No specimens collected 2Normal esophagus. Biopsied. Gastritis. Biopsied. Normal duodenal bulb and second portion of the duodenum. will await pathology results 3Impression: 1, No tracheal aspiration identified. intact swallowing mechanism. 2. Full recommendations by speech pathology to follow. 4Impression: 1. Cardiomegaly without radiographic evidence of congestive failure. 2. Airspace opacities at both lung bases could represent scarring/atelectasis and/or pneumonia/aspiration pneumonitits. Clinical correlation will be required. 5negative for malignancy 6Small right pleural effusion. Otherwise, no acute chest disease 7Interpretation Summary: 1. Normal left ventricular size and systolic function. EF 55-60%. No regional wall motion abnormalities. Mild concentric left ventricular hypertrophy. 2. Severe left atrial dilation 3. No significant valvular stenosis or regurgitation 4. Normal estimated right ventricular systolic pressure 5. No significant change from prior study on 11/02/2019. 8Impression: Moderate left and small right pleural effusion, increased from the prior. Worsened airspace opacities in the bilateral lower lungs which may represent atelctasis pneumonia, and/or aspiration 9Impression: Right lung: B-lines appreciated posteriorly inferiorly, NO pleural efusion, a lines ateriorly Left Lung: Elevated left hemidiaphram, consolidated left lung, NO significant pleural effusion appreciated 101. bibasilar opacities which favor atelectasis 2. possbile trace bilateral pleural effusions 3. Hiatal hernia 111. Cardiomegaly without radiographic evidence of congestive failure. 2. There is right basilar airspace consolidation, typical for pneumonia/aspiration pneumonitis. Clinical correlation will be required. 12Impression: 1. Linear bibasilar densities suggest atelectasis 2. Large hiatal hernia 13Impression: 1. No acute fracture or dislocation within the right foot 2. Osteopenia 3. Mild degenerative changes 14Left eye cataract 151. Bibasilar parenchymal infiltrates similar to the prior exam. 2. Fixed hiatal hernia 3. Study of the chest is otherwise negative. 16Mild bibasilar atelectasis. Otherwise negative study. 17No fractures or dislocations identified. 181. Study is positive for a focal pulmonary embolus involving the right lower lobe. 2. Mild bibasilar atelectasis with stable postoperative changes left hemidiaphragm. 3. Moderate fluid-filled gastric distention associated with hiatal hernia. Moderate proximal small bowel and gallbladder distention. 19No DVT within the right or left lower extremity. 20Nasogastric tube is now coiled within either a small hiatal hernia or within the left lower lobe. This tube should be repositioned. 21two adjacent punctate calcications in the igh 12:00 breast are stable compared to the prior exam and are considered benign given the morphology and stability. there is no mammographiic evidence of malignancy in the right breast. return to annual mammogram screening schedule is recommended 22no acute bony abrnomality is identified 23ACR BI RADS CAT 3; probably benign Two adjacent punctate benign appearing calcifications in the right breast 12:00 probably benign. recommend fup diagnostic mammogram of the right breast in 6 months to confirm stability 24A small grouping of microcalcifications and focal asymmetry in the right breast need comparison to more recent prior mammograms to assess stability. If these exams are unable to be obtained, additional imaging evaluation is needed in the breast. 25No acute fracture or dislocation in left wrist 26Diverticulosis in the sigmoid colon. A few ulcers at the splenic flexure. Biopsied. Repeat in [address] 27[address] Case - ro report at this time 28Patient is considered osteopenic in bilateral femur neck, fracture risk is moderate 29Right knee -partial menisectomy, chondroplasty, synovectomy, ijection of calcium phosphate to treatinsufficieincy fracture 301. No acute osseous injury 2. Degenerative changes Osteopenia may be present. The knee joint and ankle mortise are congruent. Trace osteophytosis in the medial and lateral compartments of the knee. enthesophyte noted at the orgin of the plantar fascia. No acute fracture or malilignment. No advanced degenerative change. No radiographic soft tissue abnormality. 31WNL 32US venous doppler LE RT No evidence of deep venous thrombosis. 33Diverticulosis in the sigmoid colon. Examined portion of ileum was normal.. Repeat 5 years 34no significant change compared to the prior study. Postoperative changes within the left hemidiaphragm with stable bibasilar scar like densities. Moderate to large hiatus hernia 35cardiomegaly and trace pleural effusion. Hiatal hernia. No acute findings 36Malignant cells are not seen 37artifact versus trace and almost certainly chronic pulmonary embolus is questioned within the rightupper lobe pulmonary artery and within a sigmental subse 38Abnormal bibasalaar density, similar to or slightly improved compared to 06/17/15. Slight blunting of the costophrenic angles 39osteopenic 40WNL. Repat in 5 years. 41Multiple fragments of TUBULAR ADENOMA. Repeat COLO done AUG 2013 WNL ( done earlier than 3 yrs due to rectal bleeding). COLO of AUG 2013 was WNL so repeat in 5 years. 42Dr. Cable 43in [place] 44At [facility] 45-1.2 left wrist; min. worse 461. Suboptimal examination without oral and IV contrast. 2. Findings are consistent with a small bowel obstruction. A transition point is identified in the ventra lower abdomen and this is likely in the basis of adhesions. A second transition point is suggested in the right lower quadrant, and a complex bowel obstruction is not excluded. Surgical assessment is advised. 3. There is trace interlop fluid and pelvic ascites. 4. There is no pneumatosis intestinalis or portal venous gas. No intrperitoneal free air is seen. 5. There is a moderate to large hiatal hernia. 6. Postoperative changes consistent with surgical repair of the left hemidiaphragm. 7. Cholelithiasis and left-sided nephrolithiasis. 8. Cardiomegaly and trace right pleural effusion. 9. Additional findings as above. 47heme negative stool Vital Signs Most recent to oldest [Reference Range]: 1 Height 164.5 cm (12/19/24 8:11 AM) Patient Weight 70.5 kg (12/19/24 8:11 AM) Body Mass Index 26.05 kg/m2 (12/19/24 8:11 AM) Temperature [36.5-37.9 DegC] 36.5 DegC (12/19/24 8:11 AM) Heart Rate 100 bpm (12/19/24 8:11 AM) Respiratory Rate 18 br/min (12/19/24 8:11 AM) Blood Pressure 118/74mmHg (12/19/24 8:11 AM) Cuff Pulse Pressure 44 mmHg (12/19/24 8:11 AM) Social History Social History Type Response Tobacco Former smoker, Cigar ettes, 2 per day. 20 year(s). Total pack years: 40. Started age 22 Years. Stopped age 43 Years. 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 Sex Female Sex Representation Female (finding) Patient Care team information Care Team Personnel Name: MD Jason, Tylor Wilburn Position: Physician - Family Med Member Role: Lifetime Relationship Address: [address] [address] [place] Telecom: [phone] Name: JESSIKA Malik Tara Position: Nurse Pract - Family Med Member Role: Lifetime Relationship Address: [address] [place] [address] [place] Telecom: [phone] Name: Kim Gottlieb Amy E Position: Pharmacist Member Role: Pharmacy - Lifetime Address: [facility] [address] Name: MD Zhane, Thanh Monterroso Position: Physician - Family Med Member Role: Primary Care Provider Address: [address] [address] [place] Telecom: [phone] Name: Wilner Medina MD, Bessie Position: Resident Member Role: Lifetime Relationship Address: [address] [address] [place] Telecom: [phone] Name: DO Radford Sameer Position: Resident Member Role: Lifetime Relationship Address: [address] [address] [place] Telecom: [phone] Name: Kim Sanford Kyle Position: Pharmacist Member Role: Pharmacy - Lifetime Address: [address] [place] [address] Care Team Related Persons Name: NICK MARTINEZ Insurance Providers Guarantor name: HILL MCKEON Health Plan Information #: 1 Payer: [employer] Member Number: [id number] Policy Number: NA Group Number: [id number] Payer Identifier: [id number] Health Plan Information #: 2 Payer: [employer] Member Number: [id number] Policy Number: NA Group Number: [id number] Payer Identifier: [id number]
--- OUTSIDE RECORDS SUMMARY | 2024-12-24 14:50 | External Medical Summary | Continuity of Care Document ---
Author Name Unknown Organization [address] Address [address] [place] [address] [id number] Care Team Providers Care Agricultural Education Professor Name Role Phone Thanh Phelan Primary Care Physician [id number] [id number] Encounter [facility] PH[facility] [phone] Date(s): 12/18/24 - 12/18/24 [place] [address] [address]ON[place]DE ROHAN A [address] [address] [phone] Encounter Diagnosis Prediabetes(Discharge Diagnosis) - 12/18/24 Hypotension(Discharge Diagnosis) - 12/18/24 (HFpEF) heart failure with preserved ejection fraction(Discharge Diagnosis) - 12/18/24 Factor V Leiden mutation(Discharge Diagnosis) - 12/18/24 Discharge Disposition: Home or Self Care Attending Physician: DO Reyes Allison B Encounter Type: Clinic Allergies, Adverse Reactions, Alerts Substance Criticality Severity Reaction Reaction Severity Status shellfish Active Dust dust cats pollen Act asael Assessment and Plan Extracted from: Title:Office Visit Note Author:DO Reyes Allis on B Date:12/18/24 1. Hypotension Continue to hold Entresto. Patient stable today. Warning signs and symptoms were discussed. To the ER with any super signs or symptoms. Recommend monitoring blood pressure at home and will get patient set up with home nursing. May need case management. Did reach out to cardiology who agrees with plan. Would like a follow-up next week. Repeat BMP. 2. (HFpEF) heart failure with preserved ejection fraction Stable. Continue to monitor symptoms. 3. Prediabetes Will check a BMP with glucose. 4. Factor V Leiden mutation Stable. Continue to follow with hematology. Recent CBC was normal. Did reach out to cardiology, since I was concerned about her memory. She states she does not take double doses of medications, but occasionally forgets her medications. She has been in her medication by herself. She reports that she lives by herself. Would like to get home nursing and case management, as cardiology stated that over the last 6 months she is becoming more frail. She has a follow-up tomorrow for possible hip injection. Would like to bring her back in the office on Sunday. Warning signs were discussed. ER precautions discussed. Immunizations Given and Recorded Vaccine Date Status [...] 06/01/08 Kike rded SARS-CoV-2 (COVID-19) mRNA-vacc - [id number] 04/23/24 Recorded SARS-CoV-2 (COVID-19) mRNA-vacc - [id number] 06/09/23 Recorded RSV Vaccine Unspecified 04/06/24 Recorded [...] 10/08/08 Recorded 1Result Comment: [07/05/2012] got @ [facility] 2Result Comment: 2021-05-16: Historical information-source unspecified 3Result Comment: 2021-05-16: Historical information-source unspecified Medications albuterol 0.083% for nebulization Start: 10/06/24 12:08:00 PM EST, 1 vial, inhaled, q6h, Disp# 300 mL, Refills: 4, PRN: NEEDED FOR WHEEZING, Pharmacy: [id number] Start Date: 10/06/24 Status: Ordered Quantity: [...] BY MOUTH ONCE DAILY AT BEDTIME, Pharmacy: [id number] Start Date: 03/26/23 Status: Ordered Quantity: 90.0 [...] 12, PRN: NEEDED FOR URINARY DISCOMFORT, Pharmacy: [id number] Start Date: 08/07/24 Stop Date: 09/06/24 Status: Ordered Quantity: 30.0 Unit: tab Repeat number: 1 pantoprazole 40 mg oral delayed release tablet Start: 10/06/24 7:05:00 PM EST, 1 tab, PO, bid, Disp# 180 tab, Refills: 3, , Pharmacy:[facility] Start Date: 10/06/24 Stop Date: 10/01/25 Status: Ordered Quantity: 180.0 Unit: tab Repeat number: 4 rosuvastatin 5 mg oral tablet Start: 09/03/24 9:25:00 AM EST, 1 tab, PO, Daily, Disp# 90 tab, Refills: 4, Pharmacy: [id number] Start Date: 09/03/24 Status: Ordered Quantity: 90.0 Unit: tab Repeat number: 1 triamcinolone 0.025% topical cream Start: 06/09/24 3:08:00 PM EST, 1 appl, topical, bid, Disp# 60 g, Refills: 3, to affected area prn, Pharmacy: [id number] Start Date: 06/09/24 Status: Ordered Quantity: 60.0 Unit: g Repeat number: 4 triamcinolone 0.025% topical cream Start: 06/09/24 3:28:00 PM EST, See Instructions, Disp# 60 g, Refills: 2, APPLY CREAM TOPICALLY TO AFFECTED AREA THREE TIMES DAILY, Pharmacy: [id number] Start Date: 06/09/24 Status: Ordered Quantity: 60.0 Unit: g Repeat number: 3 Tylenol 500 mg oral tablet Start: 05/08/13 11:30:00 AM EDT, 1 tab, PO, q6h, PRN: as needed for pain Start Date: 05/08/13 Status: Ordered Repeat number: 1 Xarelto 20 mg oral tablet Start: 12/10/21 9:36:00 AM EDT, daily with evening meal Start Date: 12/10/21 Status: Ordered Repeat number: 1 Mental Status 12/18/24 Barriers to Learning one year None evide nt Mandatory Health Literacy Documentation Yes Health Literacy Communication Barriers N ever Primary Language Pashto Problem List Condition Confirmation Course Effective Dates [...] Effective Dates Health Status Clinical Service Informant Prediabetes Discharge Diagnosis 12/18/24 Non-Specified Hypotension Discharge Diagnosis 12/18/24 Non-Specified (HFpEF) heart failure with preserved ejection fraction Discharge Diagnosis 12/18/24 Non-Specified Factor V Leiden mutation Discharge Diagnosis 12/18/24 Non-Specified Procedures Procedure Date Related Diagnosis Body [...] 40 10/17/13 Completed repair hiatal hernia - [facility] 02/11/13 Completed mammogram 10/10/12 Completed colonoscopy 43 [...] repeat in 5 years. 42Dr. Cable 43in [place] 44At [facility] 45-1.2 left wrist; min. worse 461. Suboptimal [...] Most recent to oldest [Reference Range]: 1 Patient Weight 71.2 kg (12/18/24 8:12 AM) Heart Rate 85 bpm (12/18/24 8:12 AM) Respiratory Rate 18 br/min (12/18/24 8:12 AM) Blood Pressure 114/78mmHg (12/18/24 8:12 AM) Social History Social History Type Response Tobacco Former smoker, Cigar ettes, 2 per day. 20 year(s). Total pack years: 40. Started age 22 Years. Stopped age 43 Years. 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 Sex Female Sex Representation Female (finding) FCM Outpt Note * DO Reyes Allison B: PERFORM Event Display: FCM Outpt Note Authored Date: Chief Complaint c/o low blood pressure- states was at another appt yesterday and her BP was 87/57. History of Present Illness Patient is a 79-year-old female presents the office for acute visit. She presents to the office with low blood pressure. Per phone call her blood pressure was very low at 88/57 at an appointment yesterday with Dr. Cadet and she was told to reach out to her physician. She sent a message to cardiology who had recently increased her Entresto. She reported thatshe did not increase her Entresto at that time. Cardiology recommended holding the Entresto. There is recommendation to follow-up with the ER as she felt very weak and fatigued. Patient reports that she stopped her Entresto. She reports that she was a little hazy yesterday. She denies any symptoms of chest pain or shortness of breath. She denies any fatigue or weakness. She had called in stating fatigue and weakness, but she stated that this was a misunderstanding. She does not feel that she needs to go to the ER. She is eating and drinking. No headaches. No falls. She reports that she feels by herself. She is unsure if she has a blood pressure cuff at home. She denies any recent infections. She had blood work that was stable and December 11 and reported that she also CBC done prior to her hematology appointment yesterday. She reports that they checked her blood pressure at her appointment and told her it was "okay ". She denies any symptoms of heart failure. She denies any swelling. Review of Systems Constitutional: No fever, No chills, No fatigue._ Respiratory: No shortness of breath, No cough, No wheezing. _ Cardiovascular: no lightheadedness/presyncope, No chest pain, No palpitations._ Gastrointestinal: No nausea, No vomiting, No diarrhea, No constipation, No heartburn, No abdominal pain._ Musculoskeletal: No back pain, No neck pain, No joint pain, No muscle pain, No decreased range ofmotion, No trauma._ Skin: No rash, No pruritus, No breakdown._ Neurologic: No abnormal balance, No numbness, No tingling, No headache._ Physical Exam Vitals & Measurements HR: 85 (Monitored) RR: 18 BP: 114/78 SpO2: 97% WT: 71.200 kg (Dosing) WT: 71.2 kg PHQ2 Data (Data Documented on:12/18/2024 08:12) Emotional health assessment NEGATIVE General: _Alert and oriented, No acute distress HEENT: _ Normocephalic, TM clear, Nl gross hearing, moist oral mucosa _ Cardiovascular: _Normal rate, Regular rhythm, +murmur, No gallop. Respiratory: _Lungs are clear to auscultation, Respirations are non-labored, Breath sounds are equal Gastrointestinal: _Soft, Non-tender, Non-distended, Normal bowel sounds. Musculoskeletal: _Normal range of motion, normal strength. Neurologic: Normal sensory, Normal motor function, CN II-XII grossly intact. Integumentary: _Warm, Dry, [place]. Assessment/Plan 1. Hypotension Continue to hold Entresto. Patient stable today. Warning signs and symptoms were discussed. To the ER with any super signs or symptoms. Recommend monitoring blood pressure at home and will get patient set up with home nursing. May need case management. Did reach out to cardiology who agrees with plan. Would like a follow-up next week. Repeat BMP. 2. (HFpEF) heart failure with preserved ejection fraction Stable. Continue to monitor symptoms. 3. Prediabetes Will check a BMP with glucose. 4. Factor V Leiden mutation Stable. Continue to follow with hematology. Recent CBC was normal. Did reach out to cardiology, since I was concerned about her memory. She states she does not take double doses of medications, but occasionally forgets her medications. She has been in her medication by herself. She reports that she lives by herself. Would like to get home nursing and case management, as cardiology stated that over the last 6 months she is becoming more frail. She has a follow-up tomorrow for possible hip injection. Would like to bring her back in the office on Sunday. Warning signs were discussed. ER precautions discussed. 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 Vitamin D deficiency Resolved Aspiration pneumonia Burn CARCINOMA IN SITU OF BREAST Cough Gastric volvulus Health care maintenance Hearing deficit Immunization due Impaired fasting glucose Lower back pain MALIGNANT NEOPLASM OF BREAST (FEMALE), UNSPECIFIED PE (pulmonary embolism) Pneumonia Pulmonary embolus Sepsis Procedure/Surgical History •Colonoscopy| Service Date: 10/18/2023•Upper GI (gastrointestinal) endoscopy| Service Date: 10/10/2022•Barium swallow| Service Date: 08/01/2022•Chest X-ray| Service Date: 07/05/2022•Date oflast mammogram| Service Date: 02/07/2022•Chest X-ray| Service Date: 06/13/2021•Echocardiogram| Service Date: 05/06/2021•Ultrasound Bilateral Lung| Service Date: 05/03/2021•Chest X-ray| Service Date: 05/03/2021•Chest X-ray| Service Date: 02/15/2021•Chest x-ray| Service Date: 08/07/2020•Foot X-ray 3V routine| Service Date: 07/13/2020•Chest X-ray| Service Date: 07/13/2020•Phacoemulsification of lens| Service Date: 03/16/2020•CT of chest with contrast| Service Date: 02/12/2020•CXR - Chest X-ray| Service Date: 02/04/2020•Plain X-ray of left hip| Service Date: 01/27/2020•CT angiography of chest with contrast| Service Date: 10/31/2019•Doppler ultrasonography of bilateral lower extremity blood vessels| Service Date: 10/31/2019•KUB X-ray| Service Date: 10/31/2019•Mammogram tomosynthesis R| Service Date: 10/23/2019•Plain X-ray of right wrist| Service Date: 10/13/2019•Mammography| Service Date: 04/23/2019•Mammogram| Service Date: 04/10/2019•X-ray of wrist| Service Date: 03/07/2019•Colonoscopy| Service Date: 12/20/2018•Screening colonoscopy| Service Date: 12/20/2018•DEXA (dual energy X-ray photon absorptiometry) scan of lateral spine| Service Date: 12/12/2018•Arthroscopy of knee| Service Date: 09/23/2018•X-ray tibia / fibula right| Service Date: 07/10/2018•CXR - Chest X-ray| Service Date: 05/06/2018•Ultrasound| Service Date: 05/01/2018•Colonoscopy| Service Date: 08/29/2017•CT of chest| Service Date: 01/17/2017•Chest X-ray| Service Date: 06/06/2016•Bronchial washing| Service Date: 04/25/2016•CTA Chest| Service Date: 03/23/2016•Chest x-ray| Service Date: 05/26/2015•Bone density scan| Service Date: 02/24/2014•Chest CT| Service Date: 11/20/2013•Colonoscopy| Service Date: 2013•repair hiatal hernia - [facility]| Service Date: 02/11/2013•mammogram| Service Date: 10/10/2012•removal of polyp during colonoscopy| Service Date: 08/19/2012•colonoscopy| Service Date: 08/19/2012•Cyst removed from RIGHT Shoulder| Service Date: 12/05/2011•Bronchoscopy| Service Date: 04/25/2011•Rad TX to LEFT Breast S/P Lumpectomy| Service Date: 02/03/2010•LEFT BREAST Lumpectomy- Ca In Situ| Service Date: 12/05•Vocal Cord Support Placed Surgically| Service Date: 07/06/2009•DEXA - Dual energy X-ray photon absorptiometry| Service Date: 04/27/2009•Labial Cyst removed| Service Date: 08/06/2000•Vaginal septum removed| Service Date: 08/06/1973•DIAGNOSTIC LARYNGOSCOPY•Fit•CT of abdomen and pelvis without contrast Medications acetaminophen(Tylenol 500 mg oral tablet), 1 tab, PO, q6h, PRN albuterol(albuterol 0.083% for nebulization), 1 vial, inhaled, q6h, PRN budesonide-formoterol(Breyna 160 mcg-4.5 mcg/inh inhalation aerosol), 2 inh, inhaled, Daily famotidine(famotidine 20 mg oral tablet), See Instructions, 3 refills fexofenadine(Olga 180 mg oral tablet), 180 mg= 1 tab, PO, Daily, PRN fluticasone nasal(Flonase) guaiFENesin(guaiFENesin 600 mg oral tablet, extended release), 600 mg= 1 tab, PO, Daily ipratropium nasal(ipratropium 21 mcg/inh (0.03%) nasal spray), 2 spray, each nostril, bid, PRN linaclotide(Linzess 290 mcg oral capsule) melatonin(melatonin 1 mg oral tablet), 1 mg= 1 tab, PO, qhs, PRN oxyBUTYnin(oxyBUTYnin 5 mg/24 hours oral tablet, extended release), 1 tab, PO, Daily, PRN pantoprazole(pantoprazole 40 mg oral delayed release tablet), 40 mg= 1 tab, PO, bid, 3 refills polyethylene glycol 3350(MiraLax) rivaroxaban(Xarelto 20 mg oral tablet) rosuvastatin(rosuvastatin 5 mg oral tablet), 1 tab, PO, Daily triamcinolone topical(triamcinolone 0.025% topical cream), 1 appl, topical, bid, 3 refills triamcinolone topical(triamcinolone 0.025% topical cream), See Instructions, 2 refills ubiquinone(Co-Q10 100 mg oral capsule), 100 mg= 1 cap, PO, Daily Allergies Dust dust cats pollen shellfish Social History Smoking Status Never smoked cigarettes Alcohol Use:Current Type:Beer, Wine, Liquor Frequency:1-2 times per month Average drinks per episode in last year:1 Employment/School Status:Employed Description:[employer] Activity level:Desk/Office Highest education:Post graduate degree(s) - Comments: PhD: [employer] -- Exercise Times per week:1-2 times/week Exercise type:Walking - Comments: execising less due to knee pain Home/Environment Lives with:Alone Living situation:Home/Independent Nutrition/Health Type of diet:Regular Substance Abuse - Denies Substance Abuse Tobacco - Denies Tobacco Use Use:Former smoker Type:Cigarettes Tobacco use per day:2 Number of years:20 Total pack years:40 Started at age:22Years Stopped at age:43Years Intake ([place]) Smoking History Cigarette smoker: Never smoked cigarettes Tobacco Product Use: Never used other tobacco products Family History Alzheimer disease: Mother. CVA (cerebral vascular accident): Father. Cancer: Mother and Father. Cigarette smoker: Father. DVT (deep venous thrombosis): Sister. Diabetes: Brother. Factor V Leiden: Sister, Sister and Brother. Parkinson disease: Brother. Stroke: Father. Health Status Family Member(s) Family Member(s) Relationship: Mother, Age: 86 Years, Cause: Unknown cause Relationship: Father, Age: 56 Years, Cause: CVA at age 42 then ? CA at 56 Relationship: Brother, Name: , Age: 72 Years, Cause: PArkinsons Immunizations Vaccine Date Status influenza virus vaccine, inactivated 04/23/2024 Recorded SARS-CoV-2 (COVID-19) mRNA-vacc - [id number] 04/23/2024 Recorded RSV Vaccine Unspecified 04/06/2024 Recorded SARS COVID Vaccine Unspecified 04/06/2024 Recorded influenza virus vaccine, inactivated 04/06/2024 Recorded SARS-CoV-2 (COVID-19) mRNA-vacc - [id number] 06/09/2023 Recorded SARS-CoV-2 mRNA (Pfizer 12+) bivalent 05/15/2022 Recorded SARS-CoV-2 mRNA (Pfizer 12+) bivalent 05/2022 Recorded influenza virus vaccine, inactivated 05/2022 Recorded SARS-CoV-2 mRNA (tozinameran 5y-11y) 11/09/2021 Recorded influenza virus vaccine, inactivated 05/04/2021 Recorded SARS-CoV-2 (COVID-19) ChAdOx1 vaccine 05/01/2021 Recorded SARS-CoV-2 (COVID-19) mRNA BNT-162b2 vax 10/01/2020 Recorded Comments : 2021-05-16: Historical information-source unspecified SARS-CoV-2 (COVID-19) mRNA BNT-162b2 vax 09/10/2020 Recorded Comments : 2021-05-16: Historical information-source unspecified influenza virus vaccine, inactivated 05/21/2020 Given pneumococcal 23-valent vaccine 04/19/2020 Given zoster vaccine, inactivated 02/04/2020 Recorded zoster vaccine, inactivated 09/20/2019 Recorded hepatitis B adult vaccine 06/02/2019 Given hepatitis B adult vaccine 06/02/2019 Recorded tetanus/diphtheria/pertuss, acel (Tdap) 04/28/2019 Given hepatitis B adult vaccine 04/28/2019 Given hepatitis A adult vaccine 04/28/2019 Given zoster vaccine, inactivated 04/25/2019 Recorded influenza virus vaccine, inactivated 04/25/2019 Recorded influenza virus vaccine, inactivated 05/29/2018 Recorded influenza virus vaccine, inactivated 07/03/2017 Given influenza virus vaccine, inactivated 07/24/2016 Given pneumococcal 13-valent vaccine 06/02/2015 Recorded influenza virus vaccine, inactivated 06/02/2015 Recorded pneumococcal 13-valent vaccine 11/12/2014 Given influenza virus vaccine, inactivated 05/19/2014 Given influenza virus vaccine, inactivated 07/03/2012 Recorded Comments : [07/05/2012] got @ [facility] zoster vaccine live 10/08/2008 Recorded pneumococcal 23-valent vaccine 10/08/2008 Recorded influenza virus vaccine, inactivated 06/01/2008 Recorded tetanus/diphtheria/pertuss, acel (Tdap) 05/29/2008 Recorded hepatitis A adult vaccine 12/20/2006 Recorded pneumococcal 23-valent vaccine 08/17/2003 Recorded Recommendations Health Maintenance Pending (in the next year) OverDue Medicare Annual Wellness Visit due 09/25/23 and every 1 year Due Adult Social Determinants of Health Screening due 12/18/24 Unknown Frequency Falls Plan of Care due 12/18/24 Unknown Frequency Due In Future Adult Influenza Vaccine not due until 02/03/25 and every 1 year Satisfied (in the past 1 year) Satisfied Adult Influenza Vaccine on 04/23/24. Satisfied by TIFFANY Borden Brittany Body Mass Index on 12/11/24. Satisfied by KIRTI Chaney [place] Breast Cancer Screening on 04/21/24. Satisfied by TIFFANY Forde Lynnae Diabetes Management A1c on 12/11/24. Satisfied by Contributor_system, [id number] Lipid Screening on 08/12/24. Satisfied by Contributor_system, [id number] Seasonal COVID 19 Vaccine on 04/23/24. Satisfied by TIFFANY Borden Brittany Electronic Signature on File Electronically Reviewed/Signed by: Mehreen Reyes DO Author Signature Dt/Tm:12/18/2024 01:44 PM Department of Family Medicine [facility] Patient Care team information Care Team Personnel Name: MD Gomez Jonathan D Position: Physician - Family Med Member Role: Lifetime Relationship Address: [address] [place] [address] [place] Telecom: [phone] Name: JESSIKA Malik Tara Position: Nurse Pract - Family Med Member Role: Lifetime Relationship Address: [address] [place] [address] [place] Telecom: [phone] Name: Kim Gottlieb Amy E Position: Pharmacist Member Role: Pharmacy - Lifetime Address: [address] Name: MD Zhane, Thanh Monterroso Position: Physician - Family Med Member Role: Primary Care Provider Address: [address] [place] [address] [place] Telecom: [phone] Name: Wilner Medina MD, [facility] Position: Resident Member Role: Lifetime Relationship Address: [address] [place] [address] [place] Telecom: [phone] Name: DO Radford Sameer Position: Resident Member Role: Lifetime Relationship Address: [address] [place] [address] [place] Telecom: [phone] Name: Kim Sanford Kyle Position: Pharmacist Member Role: Pharmacy - Lifetime Address: [address] [place] [address] [place] Care Team Related Persons Name: NICK MARTINEZ Insurance Providers Guarantor name: HILL MCKEON Health Plan Information #: 1 Payer: [employer] PPO Member Number: [id number] Policy Number: NA Group Number: [id number] Payer Identifier: [id number] Health Plan Information #: 2 Payer: [employer] [facility] Member Number: [id number] Policy Number: NA Group Number: [id number] Payer Identifier: [id number]
[2024-12-24] MEDS: BUDESONIDE 0.5 MG/2 ML VIAL (PULMICORT) NEB SCH (19:57)
[2024-12-24] MEDS: COUGH DROP (SUGAR FREE) LOZ 24 LOZ/1 BOX BUCCAL STA (20:30)
[2024-12-24] MEDS: DEXTROMETHORPHAN POLYMR COMPLX 30MG/5 ML BTL PO PRN (20:56)
[2024-12-24] MEDS: AZITHROMYCIN 250 MG in DEXTROSE 5% 250 ML IV SCH (21:45)
[2024-12-25 06:48] LABS: Hematocrit (blood only) 32.2 % (37.0-47.0); Mean Corpuscular Hgb Conc 31.1 g/dL (32.0-36.0); Mean Corpuscular Volume 86.8 fL (80.0-100.0); Mean Platelet Volume 10.1 fL (9.4-12.4); Platelet Count 193 K/uL (130-400); RDW Coefficient of Variation 14.4 % (11.5-14.5); Red Blood Count 3.71 M/uL (4.20-5.40); White Blood Count 6.23 K/ul (4.8-10.8)
--- NOTE | 2024-12-25 07:07 | Discharge Summary ---
Date of Service December 25, 2024 Admission HPI Per Admitting Provider very salas 79f 3-4 days worsening cough sputum and sob. was in usual state of health until last 3-4 days. chills, no noted fevers or sweats. sob not too severe but is noticeable. does have chronic respiratory sx no hospitalizations since july 2024; not losing weight. was seen at [facility] - no procedures to take down fistula viable for her. 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 No rales or wheeze. Normal work of breathing on RA at rest Cardio: RRR, S1, S2. Systolic murmur noted at right sternal boarder MSK: Able to sit EOB unassisted. Functional ROM at UE/LE. Significant thoracic kyphosis noted Skin: Warm, dry, no rashes noted on exposed skin Neuro: CN 2-12 grossly intact, gross motor/sensory intact. Discharge Data Allergies Allergy/AdvReac Type Severity Reaction Status Date / Time shellfish derived Allergy Severe Itchy/Swelling Verified 12/23/24 15:57 Throat Consultations 12/23/24 16:32 ED Decision to Admit Stat Ordered Studies 12/23/24 13:52 CT chest diagnostic wo con Stat Hospital Course (1) Pneumonia: (2) Acquired gastric fistula: (3) COPD (chronic obstructive pulmonary disease): (4) Factor V Leiden mutation: Gonzalo Moralez is a 79 yo female with PMH of COPD, factor V leiden, HLD, and hx of breast cancer presented to the ED with sepsis due to pneumonia secondary to aspiration due to fistula between esophagus and left lung. #Pneumonia/sepsis Pt presented to ED with sepsis, which responded well to fluids. This morning, pt's vitals are stable and WBC has returned to normal range. Pt continues with general fatigue this morning - Continue IV ceftriaxone with plan to transition to oral abx for home - Continue Azithromycin for pulmonary anti-inflammatory #Gastropulmonary fistula Root cause of current pneumonia, but not a candidate for potential procedures per [facility]. Pt has not been hospitalized since ~07/2024 and not losing weight/no clear evidence of failure to thrive #COPD -continue budesonide/formoterol and albuterol nebs -Continue ipratropium - Continue Azithromycin as stated above for pulmonary antiinflammatory effect #V Tmoas w prior VTE -Continue Xarelto 20mg qam Chronic conditions; HLD- continue rosuvastatin Dispo - med/surg Diet: Regular VTE prophylaxis: Xarelto, home dose Full code Total Time Total Time Spent Total Time Spent (In Minutes): <30 Discharge Plan Discharge Items Patient Disposition: Home - Self-Care Reason For Visit: PNEUMONIA Discharge Diagnosis: Pneumonia Condition on Discharge: Fair Activity: Per Instructions section Non-emergency contact: Primary Care Provider Call non-emergency contact if: your symptoms worsen Follow-up/Referrals: Thanh Phelan [Primary Care Provider] - 01/01/25 3:00 pm (Primary Care hospital follow up scheduled on 01/01/25 at 3:[address] Wilson. Arrival time is 2:45) Diet: Regular Addtl Attending Provider Instructions: You were admitted for pneumonia related to the fistula between your esophagus and your lungs. We started an IV antibiotic and an oral antibiotic and continued your COPD medications. We are sending in an oral antibiotic to your pharmacy: Augmentin 875mg/125mg, take twice daily for 5 days Azithromycin 250mg, take once daily for 4 days You may resume your home medications. Please follow up with your PCP in 5-7 days. Pending Studies at Discharge: No Stand-Alone Forms: My [facility], Smoking Cessation Medications and DC Order Prescriptions: New azithromycin 250 mg tablet 250 mg PO DAILY 4 Days Qty: 4 0RF Rx Instructions: start on day 2 of therapy amoxicillin-pot clavulanate 875-125 mg tablet 1 tab PO BID 5 Days Qty: 10 0RF Continued famotidine [Pepcid] 20 mg tablet 20 mg PO HS Qty: 90 3RF Linzess 290 mcg capsule 290 mcg PO QAM Qty: 90 3RF acetaminophen [Tylenol] 325 mg tablet 325 mg PO QID PRN (Reason: Pain) Rx Instructions: otc unable to verify oxybutynin chloride 5 mg tablet 5 mg PO QAM PRN (Reason: urinary discomfort ) Xarelto 20 mg tablet 20 mg PO QAM Rx Instructions: must administer with evening meal budesonide-formoterol [Symbicort] 160-4.5 mcg/actuation HFA aerosol inhaler 2 puff inhalation BID Qty: 10.2 11RF (DME) inhalational spacing device Spacer See Rx Instructions .ROUTE .MEDSUPPLY Qty: 1 0RF Rx Instructions: As directed melatonin 5 mg capsule 5 mg PO HS PRN (Reason: Sleep) Rx Instructions: otc unable to verify pantoprazole [Protonix] 40 mg tablet,delayed release (DR/EC) 40 mg PO QAM ProAir RespiClick 90 mcg/actuation aerosol powdr breath activated 2 puffs INH QID PRN (Reason: sob) coenzyme Q10 [Co Q-10] 100 mg capsule 100 mg PO QAM Rx Instructions: otc unable to verify (DME) Flutter Valve Device See Rx Instructions .MEDSUPPLY Qty: 1 0RF Rx Instructions: Twice daily after 7% saline nebulizer treatments sodium chloride 7 % solution for nebulization 4 ml inhalation BID Qty: 240 3RF ipratropium bromide 21 mcg (0.03 %) spray,non-aerosol 2 spray intranasal TID PRN (Reason: postnasal drip) Qty: 30 11RF Rx Instructions: administer into each nostril rosuvastatin [Crestor] 5 mg tablet 5 mg PO QAM fexofenadine [Olga Allergy] 60 mg Tablet 60 mg PO QPM Rx Instructions: otc unable to verify dextromethorphan polistirex [Delsym 12 hour] 30 mg/5 mL Suspension,Extended Rel 12 Hr 10 ml PO UD PRN (Reason: coughing spell) Rx Instructions: otc unable to verify albuterol sulfate 0.63 mg/3 mL Solution For Nebulization 0.63 mg INHALATION UD PRN (Reason: coughing spells) Rx Instructions: last filled in february guaifenesin [Mucinex] 600 mg Tablet Extended Release 12hr 600 mg PO QAM Rx Instructions: otc unable to verify fluticasone propionate 50 mcg/actuation spray,suspension 2 spray intranasal QAM Rx Instructions: otc unable to verify administer into each nostril triamcinolone acetonide 0.025 % cream 1 applic topical TID Rx Instructions: picked 3 weeks ago polyethylene glycol 3350 [Miralax] 17 gram/dose Powder 17 g PO DAILY Rx Instructions: otc unable to verify Discharge Orders: Discharge Order (Routine); Ordered 12/25/24 Ordered By: Eboni Agarwal Admission Data Admit Date/Time: 12/23/24 16:42 Attending Provider: Cj Spangler Admit Provider: Cj Spangler Primary Care Provider: Thanh Phelan Other Providers: Cj Spangler; IRB Approved Study,Terri Other Interventions: Discharge Summary Assessment (RN) Last Done: 12/25/24 07:14 Supervising Physician Co-Signing Physician Notes I personally examined the patient and verified all aggarwal points of history and exam, discussed case, and agree with decision making with Dr Agarwal feels better still, would like to go home today vitals noted nad heent nc at mmm breathing unlabored no accessory muscles good effort skin no rashes no pallor or icterus aspiration pneumonia due to gastropulmonary fistula superimposed on COPD - doing better, sepsis resolved (and never severe sepsis/septic shock) - safe/stable for home, PO abx. outpt f/u. Resident Activity Tracking Resident Involvement: Resident Care Provided Care Provided: Adult Hospital Medicine
[2024-12-25 07:11] LABS: BUN Creatinine Ratio 23.7 (10-20); Calcium 8.7 mg/dl (8.6-10.3); Creatinine Clr Calc Pharmacy 57.9 ml/min; Potassium 3.7 mmol/L (3.5-5.1)
[2024-12-25 07:28] VITALS: BP 122/67; PULSE 81; RESP 16; TEMP 97.9; O2SAT 98
--- NOTE | 2024-12-25 14:03 | Billing Data ---
Date of Service December 25, 2024 Coding Level of Care Code 78496 IN/OBS DISCH 30 MIN/LESS
== END 2024-12-25 11:43 | disposition home or self-care (01) | DRG 871 ==
LOC: ED 12:24 → EDINP 16:42 → 3W 20:18

== ENCOUNTER 2025-04-01 09:27 | Inpatient (IN) ==
--- NOTE | 2025-04-01 11:15 | Emergency Department Note ---
Impression & Plan Pneumonia, Hypoxia ED Provider Note ED Provider Note NAME: HILL MCKEON AGE:79 SEX: Female : 1945 ARRIVES VIA: INFORMANT: Patient ED PROVIDER(s): Trice Kim DO CHIEF COMPLAINT: Worsening cough, recent course of antibiotics HPI: This is a 79-year-old female who presents to the emergency department due to concern for worsening cough. Patient does have a prior history of aspiration pneumonia. Patient states she first began with an increased cough 2 weeks ago. She states she did see her PCP as an outpatient and was started on Augmentin. She states she also noticed a few days during that time that there was some blood in her sputum. Her PCP instructed her to stop her Xarelto for a few days which she did. She states she did recently restart the Xarelto. Patient states she is finished Augmentin 3 days ago. Patient denies fevers or chills. Denies chest pain, denies nausea or vomiting but has noted a decrease in her appetite and states she does struggle to stay hydrated. No recent vomiting or diarrhea. Patient states given her prior history she has had a prior swallow study and also pulmonology. Patient states she has also been seen at the [facility] due to her hx. PAST MEDICAL HISTORY:See Below PAST SURGICAL HISTORY:See Below FAMILY HISTORY:See Below SOCIAL HISTORY:See Below HOME MEDICATIONS:See Below ALLERGIES:See Below VITALS:See Below PHYSICAL EXAMINATION: GENERAL: alert, well appearing, well nourished, no distress, non-toxic EYE EXAM: normal conjunctiva, PERRL and EOM's grossly intact OROPHARYNX: no exudate, no erythema, lips, buccal mucosa, and tongue normal and mucous membranes are moist NECK: supple, no nuchal rigidity, no adenopathy, non-tender LUNGS: Decreased bilaterally to auscultation. Normal chest wall mechanics, no w/r; rhonchi noted on the right, coarse cough during exam; no increased WOB HEART: no murmurs, S1 normal and S2 normal ABDOMEN: abdomen soft, non-tender, normo-active bowel sounds, no masses, no rebound or guarding. SKIN: no rashes, petechiae, orbruising UPPER EXTREMITIES: upper extremities are grossly normal. FROM, nml pulses b/l. LOWER EXTREMITIES: No pitting edema. FROM, nml pulses b/l. NEURO EXAM: Normal sensorium, cranial nerves II-XII grossly intact, normal speech, no facial droop,nogross weakness of arms, no gross weakness of legs. Gross sensation intact. No ataxia. Vital Signs: reviewed and remarkable Differential Diagnosis: pneumonia, bronchitis, COPD/Asthma exacerbation, pneumothorax, pulmonary embolism, congestive heart failure, acute coronary syndrome, as well as others were considered MEDICAL DECISION MAKING: This is a 79-year-old female who presents to the emergency department due to concern for persistent cough despite recent outpatient course of antibiotics. The patient was afebrile, but was found to be tachycardic and hypoxic. Patient noted to have a coarse cough during her exam, no obvious increased work of breathing. Labs drawn and sent, IV established, EKG performed and interpreted at bedside, and patient placed on telemetry. I did review the prior outpatient chest x-ray the patient had on March 19, 2025. Given her prior history and recent chest x-ray and antibiotics, we discussed CT imaging. Blood cultures including lactic acid and procalcitonin were also obtained due to patient's history and risk of worsening infection or sepsis. Patient given IV Zosyn as well caution due to prior history of aspiration pneumonia. Patient was titrated up during her evaluation from 2 L/min to 5 L/min while awaiting results. Patient was noted to have a leukocytosis, other labs reassuring. Patient was also given a DuoNeb treatment as well as a dose of Tessalon Perles. Nasal swab obtained and sent for viral respiratory panel and was negative. Due to worsening hypoxia while in the ER, underlying history of COPD and what appears to be recurrent pneumonia, case discussed with the hospitalist team for additional evaluation and management. Consultation(s): 1520: Discussed with [place] hospitalist team for additional evaluation and mgmt. ER Treatment Provided: See below Diagnostics Interpreted By Me: -ECG: Normal sinus at 99, normal axis, normal intervals, PVC noted, nonspecific ST/T wave changes -Cardiac Monitoring: An order was placed for continuous cardiac monitoring. The monitor shows a rate of 92 with normal sinus rhythm. -Laboratory studies: As stated above and show below. 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) "Abnormal left breast mammogram Status post biopsy revealing DCIS, solid with focal comedonecrosis Status post left breast segmental mastectomy Stage [id number] stage 0 Status post completion of radiation therapy 03/22/2010 received 6120 cGy" Medical History (Updated 04/01/25 @ 18:02 by Marek Campos DO) Pulmonary embolism SBO (small bowel obstruction) Pancreatitis Bilateral pneumonia Vocal cord paralysis Hypomagnesemia Asthma Factor V Leiden mutation Fistula Hx of sepsis Hx of small bowel obstruction "[facility] fixed that" COPD (chronic obstructive pulmonary disease) Fistula Gastropulmonary Fistula - "I am not sure they thought I had a fistula connecting my stomach to my lungs." Overactive bladder controlled History of pneumonia x2 past 2 yrs/most recent May 2023. Chronic gastroesophageal reflux disease Chronic bronchitis with productive mucopurulent cough Vocal cord paralysis Chronic pulmonary aspiration History of recent fall not since 04/2023 Chronic cough coughing spells over last 3 yr. Prediabetes Hiatal hernia GERD (gastroesophageal reflux disease) Laryngopharyngeal reflux Restrictive lung disease Hyperlipidemia Anemia hx Cancer breast ca - left - partial mastectomy - radiation Pulmonary embolism -10/2019 -- factor V -- on eliquis BID -7 years ago - post hiatal hernia repair - pt also has factor V - [facility] - treated w/ AC Hypertension Asthma inhaler prn/last use 10/04/23 for cough spell. get coughing spells over past 3 yrs . Surgical History (Updated 01/04/25 @ 00:08 by Background Daemon) History of right cataract surgery History of left cataract surgery History of surgery lysis of abdominal adhesions 10/2019 [facility] History of vaginal surgery History of hernia repair History of repair diaphramic hernia by thoracoabdominal approach History of Dillon fundoplication History of esophagogastric fundoplasty dillon fundoplication History of laryngoscopy History of direct laryngoscopy with injection into vocal chords History of nasal polypectomy History of arthroscopy of right knee meniscus repair History of tooth extraction History of wisdom tooth extraction History of breast biopsy History of partial mastectomy of left breast History of surgery vocal cord surgery. foreign body present "something for support" History of esophagogastroduodenoscopy (EGD) History of colonoscopy Family History Brother Family history of diabetes mellitus Father Cerebral artery occlusion with cerebral infarction Sister Factor V Leiden mutation Hypercoagulation Other No family history of adverse response to anesthesia Social History Smoking Status: Former smoker Tobacco Type: Cigarettes Cigarettes Per Day: 35 yr ago; Second Hand Exposure: No; Do You Dip or Chew Tobacco: No; Hx Alcohol Use: Yes Alcohol type: beer, wine and hard liquor Hx Substance Use: No Preferred Language: Tajik Communication Ability: Effective State Assessed Properties Director Required: No Beliefs That Will Affect Care: None marital status: Single Current Living Situation: Alone How many Children do You have: 0 Feels Safe at Home: Yes Assistive Devices: Cane Allergies Allergies Allergy/AdvReac Type Severity Reaction Status Date / Time animal dander Allergy Severe itching/SOB Verified 04/01/25 15:05 shellfish derived Allergy Severe Itchy/Swelling Verified 04/01/25 15:05 Throat tree and shrub pollen Allergy Severe itching/SOB Verified 04/01/25 15:05 weed pollen Allergy Severe itching/SOB Verified 04/01/25 15:05 Home Meds Home Medications Medication Instructions Recorded Confirmed melatonin 5 mg capsule 5 mg PO HS PRN Sleep 02/26/19 04/01/25 rosuvastatin 5 mg tablet (Crestor) 5 mg PO QAM 10/31/19 04/01/25 pantoprazole 40 mg tablet,delayed 40 mg PO BID 11/14/19 04/01/25 release (Protonix) albuterol sulfate 90 mcg/actuation 2 puffs inhalation QID PRN sob 02/25/20 04/01/25 breath activated powder inhaler (ProAir RespiClick) coenzyme Q10 100 mg capsule (Co 100 mg PO QAM 02/25/20 04/01/25 Q-10) acetaminophen 325 mg tablet 325 mg PO QID PRN Pain 03/27/22 04/01/25 (Tylenol) oxybutynin chloride 5 mg tablet 5 mg PO QAM urinary discomfort 03/27/22 04/01/25 rivaroxaban 20 mg tablet (Xarelto) 20 mg PO QPM 03/27/22 04/01/25 fluticasone propionate 50 2 spray intranasal QAM 10/03/22 04/01/25 mcg/actuation nasal spray,suspension dextromethorphan polistirex 30 10 ml PO Q12H PRN coughing spell 05/04/23 04/01/25 mg/5 mL oral susp ext.release 12hr (Delsym 12 hour) fexofenadine 60 mg tablet (Olga 60 mg PO QPM 05/04/23 04/01/25 Allergy) guaifenesin 600 mg tablet, 600 mg PO BID 10/05/23 04/01/25 extended release 12 hr (Mucinex) polyethylene glycol 3350 17 17 g PO DAILY PRN Constipation 04/24/24 04/01/25 gram/dose oral powder (Miralax) triamcinolone acetonide 0.025 % 1 applic topical TID PRN Skin 06/28/24 04/01/25 topical cream Irritation sodium chloride 7 % for 4 ml inhalation 2XWK PRN NEEDED 02/15/25 04/01/25 nebulization PER PT albuterol sulfate 2.5 mg/3 mL 2.5 mg inhalation Q6H PRN 04/01/25 04/01/25 (0.083 %) solution for nebulization WHEEZING/COUGH Previous Rx's Medication Instructions Recorded inhalational spacing device #1 ea 06/16/24 ipratropium bromide 21 mcg (0.03 2 spray intranasal TID PRN 08/18/24 %) nasal spray postnasal drip #30 mL Flutter Valve #1 ea 09/22/24 famotidine 20 mg tablet (Pepcid) 20 mg PO HS #90 tabs 10/24/24 linaclotide 290 mcg capsule 290 mcg PO QAM #90 caps 11/21/24 (Linzess) Results & Data (ED) Vital Signs Vital Signs - 24 hr 04/01/25 10:02 04/01/25 11:09 04/01/25 11:12 Temperature 37.3 C Temperature Source Temporal Artery Scan Pulse Rate 106 H 95 H 92 H Pulse Rate [Apical] Pulse Rate from SpO2 Sensor 95 H Respiratory Rate 20 17 Respiratory Effort / Characteristics Respiratory Depth Respiratory Pattern Blood Pressure 124/70 Blood Pressure [Right Arm] Blood Pressure Mean 88 Blood Pressure Mean [Right Arm] Blood Pressure Position [Right Arm] Pulse Oximetry 91 84 L Oxygen Delivery Method Room Air Room Air Oxygen Flow Rate Sepsis New/Unexplained Change in Mental Status No Sepsis Action Taken by Nursing No Action Required 04/01/25 11:24 04/01/25 11:27 04/01/25 11:28 Temperature 37.3 C Temperature Source Oral Pulse Rate 96 H 92 H Pulse Rate [Apical] Pulse Rate from SpO2 Sensor 96 H 91 H Respiratory Rate 21 29 H Respiratory Effort / Characteristics Respiratory Depth Respiratory Pattern Blood Pressure Blood Pressure [Right Arm] Blood Pressure Mean Blood Pressure Mean [Right Arm] Blood Pressure Position [Right Arm] Pulse Oximetry 91 90 Oxygen Delivery Method Oxygen Flow Rate Sepsis New/Unexplained Change in Mental Status Sepsis Action Taken by Nursing 04/01/25 11:38 04/01/25 11:38 04/01/25 11:38 Temperature Temperature Source Pulse Rate Pulse Rate [Apical] Pulse Rate from SpO2 Sensor Respiratory Rate Respiratory Effort / Characteristics Respiratory Depth Respiratory Pattern Blood Pressure 131/74 131/74 131/74 Blood Pressure [Right Arm] Blood Pressure Mean 90 90 90 Blood Pressure Mean [Right Arm] Blood Pressure Position [Right Arm] Pulse Oximetry Oxygen Delivery Method Oxygen Flow Rate Sepsis New/Unexplained Change in Mental Status Sepsis Action Taken by Nursing 04/01/25 11:38 04/01/25 11:39 04/01/25 11:39 Temperature Temperature Source Pulse Rate 98 H 98 H Pulse Rate [Apical] Pulse Rate from SpO2 Sensor 98 H Respiratory Rate 26 H 28 H Respiratory Effort / Characteristics Respiratory Depth Respiratory Pattern Blood Pressure 131/74 131/74 Blood Pressure [Right Arm] Blood Pressure Mean 90 93 Blood Pressure Mean [Right Arm] Blood Pressure Position [Right Arm] Pulse Oximetry 93 94 Oxygen Delivery Method Nasal Cannula Oxygen Flow Rate 3 Sepsis New/Unexplained Change in Mental Status Sepsis Action Taken by Nursing 04/01/25 11:42 04/01/25 11:54 04/01/25 12:00 Temperature Temperature Source Pulse Rate 98 H 103 H 102 H Pulse Rate [Apical] Pulse Rate from SpO2 Sensor 98 H 104 H 102 H Respiratory Rate 28 H 32 H 31 H Respiratory Effort / Characteristics Respiratory Depth Respiratory Pattern Blood Pressure Blood Pressure [Right Arm] Blood Pressure Mean Blood Pressure Mean [Right Arm] Blood Pressure Position [Right Arm] Pulse Oximetry 94 87 L 87 L Oxygen Delivery Method Oxygen Flow Rate Sepsis New/Unexplained Change in Mental Status Sepsis Action Taken by Nursing 04/01/25 12:18 04/01/25 12:21 04/01/25 12:24 Temperature Temperature Source Pulse Rate 101 H 100 H 101 H Pulse Rate [Apical] Pulse Rate from SpO2 Sensor 101 H 100 H 101 H Respiratory Rate 30 H 27 H 31 H Respiratory Effort / Characteristics Respiratory Depth Respiratory Pattern Blood Pressure Blood Pressure [Right Arm] Blood Pressure Mean Blood Pressure Mean [Right Arm] Blood Pressure Position [Right Arm] Pulse Oximetry 89 L 89 L 89 L Oxygen Delivery Method Nasal Cannula Oxygen Flow Rate 5 Sepsis New/Unexplained Change in Mental Status Sepsis Action Taken by Nursing 04/01/25 12:26 04/01/25 12:26 04/01/25 12:30 Temperature Temperature Source Pulse Rate 99 H Pulse Rate [Apical] Pulse Rate from SpO2 Sensor 99 H Respiratory Rate 28 H Respiratory Effort / Characteristics Respiratory Depth Respiratory Pattern Blood Pressure 125/81 125/81 Blood Pressure [Right Arm] Blood Pressure Mean 86 86 Blood Pressure Mean [Right Arm] Blood Pressure Position [Right Arm] Pulse Oximetry 91 Oxygen Delivery Method Oxygen Flow Rate Sepsis New/Unexplained Change in Mental Status Sepsis Action Taken by Nursing 04/01/25 12:32 04/01/25 12:48 04/01/25 12:57 Temperature Temperature Source Pulse Rate 98 H 97 H Pulse Rate [Apical] 98 H Pulse Rate from SpO2 Sensor 98 H 98 H Respiratory Rate 28 H 28 H 22 Respiratory Effort / Characteristics Respiratory Depth Respiratory Pattern Blood Pressure Blood Pressure [Right Arm] 125/74 Blood Pressure Mean Blood Pressure Mean [Right Arm] 91 Blood Pressure Position [Right Arm] Pulse Oximetry 91 93 92 Oxygen Delivery Method Nasal Cannula Oxygen Flow Rate 5 Sepsis New/Unexplained Change in Mental Status Sepsis Action Taken by Nursing 04/01/25 13:00 04/01/25 13:03 04/01/25 13:15 Temperature Temperature Source Pulse Rate 95 H 100 H Pulse Rate [Apical] Pulse Rate from SpO2 Sensor 96 H 100 H Respiratory Rate 26 H 22 Respiratory Effort / Characteristics Respiratory Depth Respiratory Pattern Blood Pressure 125/69 Blood Pressure [Right Arm] Blood Pressure Mean 104 Blood Pressure Mean [Right Arm] Blood Pressure Position [Right Arm] Pulse Oximetry 96 96 Oxygen Delivery Method Oxygen Flow Rate Sepsis New/Unexplained Change in Mental Status Sepsis Action Taken by Nursing 04/01/25 13:18 04/01/25 13:30 04/01/25 13:36 Temperature Temperature Source Pulse Rate 99 H 96 H Pulse Rate [Apical] Pulse Rate from SpO2 Sensor 100 H 96 H Respiratory Rate 26 H 26 H Respiratory Effort / Characteristics Respiratory Depth Respiratory Pattern Blood Pressure 119/82 Blood Pressure [Right Arm] Blood Pressure Mean 108 Blood Pressure Mean [Right Arm] Blood Pressure Position [Right Arm] Pulse Oximetry 96 98 Oxygen Delivery Method Oxygen Flow Rate Sepsis New/Unexplained Change in Mental Status Sepsis Action Taken by Nursing 04/01/25 13:39 04/01/25 14:01 04/01/25 14:06 Temperature Temperature Source Pulse Rate 96 H 95 H Pulse Rate [Apical] Pulse Rate from SpO2 Sensor 96 H 95 H Respiratory Rate 29 H 26 H Respiratory Effort / Characteristics Respiratory Depth Respiratory Pattern Blood Pressure 117/68 Blood Pressure [Right Arm] Blood Pressure Mean 99 Blood Pressure Mean [Right Arm] Blood Pressure Position [Right Arm] Pulse Oximetry 98 95 Oxygen Delivery Method Oxygen Flow Rate Sepsis New/Unexplained Change in Mental Status Sepsis Action Taken by Nursing 04/01/25 14:15 04/01/25 14:21 04/01/25 14:30 Temperature Temperature Source Pulse Rate 93 H 92 H 94 H Pulse Rate [Apical] Pulse Rate from SpO2 Sensor 93 H 92 H 94 H Respiratory Rate 25 H 27 H 25 H Respiratory Effort / Characteristics Respiratory Depth Respiratory Pattern Blood Pressure Blood Pressure [Right Arm] Blood Pressure Mean Blood Pressure Mean [Right Arm] Blood Pressure Position [Right Arm] Pulse Oximetry 96 96 96 Oxygen Delivery Method Oxygen Flow Rate Sepsis New/Unexplained Change in Mental Status Sepsis Action Taken by Nursing 04/01/25 14:48 04/01/25 15:00 04/01/25 15:00 Temperature Temperature Source Pulse Rate 103 H 94 H Pulse Rate [Apical] Pulse Rate from SpO2 Sensor 104 H 94 H Respiratory Rate 20 21 Respiratory Effort / Characteristics Respiratory Depth Respiratory Pattern Blood Pressure 115/66 Blood Pressure [Right Arm] Blood Pressure Mean 94 Blood Pressure Mean [Right Arm] Blood Pressure Position [Right Arm] Pulse Oximetry 90 93 Oxygen Delivery Method Oxygen Flow Rate Sepsis New/Unexplained Change in Mental Status Sepsis Action Taken by Nursing 04/01/25 15:00 04/01/25 15:10 04/01/25 15:18 Temperature 37.1 C Temperature Source Oral Pulse Rate 95 H Pulse Rate [Apical] 94 H Pulse Rate from SpO2 Sensor Respiratory Rate 25 H Respiratory Effort / Characteristics Non-Labored Spontaneous Respiratory Depth Normal Respiratory Pattern Regular Blood Pressure 115/66 Blood Pressure [Right Arm] 115/66 Blood Pressure Mean 94 Blood Pressure Mean [Right Arm] 82 Blood Pressure Position [Right Arm] Semi-fowlers Pulse Oximetry 94 Oxygen Delivery Method Nasal Cannula Oxygen Flow Rate 5 Sepsis New/Unexplained Change in Mental Status Sepsis Action Taken by Nursing 04/01/25 15:27 04/01/25 15:30 04/01/25 15:33 Temperature Temperature Source Pulse Rate 95 H 96 H Pulse Rate [Apical] Pulse Rate from SpO2 Sensor 95 H 96 H Respiratory Rate 24 21 Respiratory Effort / Characteristics Respiratory Depth Respiratory Pattern Blood Pressure 135/77 Blood Pressure [Right Arm] Blood Pressure Mean 103 Blood Pressure Mean [Right Arm] Blood Pressure Position [Right Arm] Pulse Oximetry 94 95 Oxygen Delivery Method Oxygen Flow Rate Sepsis New/Unexplained Change in Mental Status Sepsis Action Taken by Nursing 04/01/25 15:45 04/01/25 15:51 04/01/25 16:00 Temperature Temperature Source Pulse Rate 95 H 93 H Pulse Rate [Apical] 91 H Pulse Rate from SpO2 Sensor 95 H 95 H Respiratory Rate 23 26 H 24 Respiratory Effort / Characteristics Respiratory Depth Respiratory Pattern Blood Pressure Blood Pressure [Right Arm] 124/76 Blood Pressure Mean Blood Pressure Mean [Right Arm] 92 Blood Pressure Position [Right Arm] Semi-fowlers Pulse Oximetry 95 95 94 Oxygen Delivery Method Nasal Cannula Oxygen Flow Rate 5 Sepsis New/Unexplained Change in Mental Status Sepsis Action Taken by Nursing 04/01/25 16:00 04/01/25 16:09 04/01/25 16:12 Temperature Temperature Source Pulse Rate 93 H 94 H Pulse Rate [Apical] Pulse Rate from SpO2 Sensor 93 H 94 H Respiratory Rate 25 H 20 Respiratory Effort / Characteristics Respiratory Depth Respiratory Pattern Blood Pressure 124/76 Blood Pressure [Right Arm] Blood Pressure Mean 84 Blood Pressure Mean [Right Arm] Blood Pressure Position [Right Arm] Pulse Oximetry 96 97 Oxygen Delivery Method Oxygen Flow Rate Sepsis New/Unexplained Change in Mental Status Sepsis Action Taken by Nursing 04/01/25 16:18 04/01/25 16:30 04/01/25 16:30 Temperature Temperature Source Pulse Rate 92 H Pulse Rate [Apical] Pulse Rate from SpO2 Sensor 92 H Respiratory Rate 29 H Respiratory Effort / Characteristics Respiratory Depth Respiratory Pattern Blood Pressure 131/69 131/69 Blood Pressure [Right Arm] Blood Pressure Mean 94 94 Blood Pressure Mean [Right Arm] Blood Pressure Position [Right Arm] Pulse Oximetry 100 Oxygen Delivery Method Oxygen Flow Rate Sepsis New/Unexplained Change in Mental Status Sepsis Action Taken by Nursing 04/01/25 16:33 Temperature Temperature Source Pulse Rate 99 H Pulse Rate [Apical] Pulse Rate from SpO2 Sensor 100 H Respiratory Rate 27 H Respiratory Effort / Characteristics Respiratory Depth Respiratory Pattern Blood Pressure Blood Pressure [Right Arm] Blood Pressure Mean Blood Pressure Mean [Right Arm] Blood Pressure Position [Right Arm] Pulse Oximetry 95 Oxygen Delivery Method Oxygen Flow Rate Sepsis New/Unexplained Change in Mental Status Sepsis Action Taken by Nursing Laboratory Data 04/02/25 05:10 04/01/25 11:41 Lab Results 04/01/25 04/01/25 Range/Units 11:41 11:46 WBC 15.16 H (4.8-10.8) K/ul RBC 4.38 (4.20-5.40) M/uL Hgb 11.4 L (12.0-16.0) g/dl Hct 37.7 (37.0-47.0) % MCV 86.1 (80.0-100.0) fL MCH 26.0 (25.0-34.0) pg MCHC 30.2 L (32.0-36.0) g/dL RDW Std Deviation 49.0 H (36.4-46.3) fL RDW Coeff of Maya 15.6 H (11.5-14.5) % Plt Count 214 (130-400) K/uL MPV 10.1 (9.4-12.4) fL Immature Gran % (Auto) 0.5 % Neut % (Auto) 93.0 % Lymph % (Auto) 2.6 % Twiggs % (Auto) 3.6 % Eos % (Auto) 0.1 % Baso % (Auto) 0.2 % Neut # (Auto) 14.10 H (1.40-6.50) K/uL Lymph # (Auto) 0.40 L (1.20-3.40) K/uL Twiggs # (Auto) 0.54 (0.11-0.59) K/uL Eos # (Auto) 0.01 (0.00-0.50) K/uL Baso # (Auto) 0.03 (0.00-0.20) K/uL Immature Gran # (Auto) 0.08 (0.01-0.20) K/uL Polychromasia 1+ Ovalocytes 1+ PT 12.4 H (9.0-12.0) Seconds INR 1.2 H (0.9-1.1) Sodium 143 (136-145) mmol/L Potassium 3.8 (3.5-5.1) mmol/L Chloride 108 H (98-107) mmol/L Carbon Dioxide 30 (21-32) mmol/L Anion Gap 5 (3-11) BUN 23 (6-23) mg/dl Creatinine 0.83 (0.6-1.2) mg/dl Est Cr Clr Drug Dosing 55.2 ml/min eGFR 72.56 BUN/Creatinine Ratio 27.7 H (10-20) Glucose 125 H (70-99(Fasting)) mg/dl Lactate 1.1 (0.4-2.0) mmol/L Calcium 9.4 (8.6-10.3) mg/dl Magnesium 1.7 (1.7-2.4) mg/dl Total Bilirubin 0.8 (0.2-1.0) mg/dl AST 15 (13-39) U/L ALT 9 (7-52) U/L Alkaline Phosphatase 77 (34-104) U/L Troponin I High Sens 3.9 (0-14) pg/ml Total Protein 7.3 (6.0-8.3) gm/dl Albumin 3.9 (3.4-5.0) gm/dl Globulin 3.4 (2.5-4.0) gm/dl Albumin/Globulin Ratio 1.1 (0.9-2) Lipase 10 L (11-82) U/L Procalcitonin 0.06 (0-0.5) ng/ml Adenovirus (PCR) Not Detected (NotDetected) B. pertussis DNA (PCR) Not Detected (NotDetected) B.parapertussis DNA PCR Not Detected (NotDetected) C. pneumoniae DNA (PCR) Not Detected (NotDetected) Coronavirus OC43 (PCR) Not Detected (NotDetected) Coronavirus HKU1 (PCR) Not Detected (NotDetected) Coronavirus 229E (PCR) Not Detected (NotDetected) SARS-CoV-2 (PCR) Not Detected (NotDetected) Coronavirus NL63 (PCR) Not Detected (NotDetected) Human Metapneumovir PCR Not Detected (NotDetected) Influenza Type A (PCR) Not Detected (NotDetected) Influenza Type B (PCR) Not Detected (NotDetected) M. pneumoniae (PCR) Not Detected (NotDetected) Parainfluenza 1 (PCR) Not Detected (NotDetected) Parainfluenza 2 (PCR) Not Detected (NotDetected) Parainfluenza 3 (PCR) Not Detected (NotDetected) Parainfluenza 4 (PCR) Not Detected (NotDetected) RSV (PCR) Not Detected (NotDetected) Entero/Rhino (PCR) Not Detected (NotDetected) Administered Medications Acetaminophen (Acetaminophen 325 Mg Tab) 650 mg PO Q4H PRN PRN Reason: pain/fever Stop: 05/01/25 18:52 Last Admin: 04/02/25 05:19 Dose: 650 mg Documented By: Admin: 04/01/25 22:48 Dose: 650 mg Documented By: DORINA Famotidine (Famotidine 20 Mg Tab) 20 mg PO HS KENZIE Stop: 05/01/25 20:59 Last Admin: 04/01/25 21:12 Dose: 20 mg Documented By: DORINA Fexofenadine HCl (Fexofenadine 60 Mg Tab) 60 mg PO QPM KENZIE Stop: 05/01/25 20:59 Last Admin: 04/02/25 03:15 Dose: Not Given Documented By: TANI Ceftriaxone Sodium (Rocephin) 2,000 mg in 50 mls @ 100 mls/hr IV Q24H KENZIE Stop: 04/06/25 19:29 Last Infusion: 04/01/25 20:02 Dose: Infused Documented By: Admin: 04/01/25 19:28 Dose: 100 mls/hr Documented By: DORINA Parenteral Electrolytes (Plasma-Lyte A Ph 7.4) 1,000 mls @ 100 mls/hr IV .Q10H KENZIE Stop: 04/04/25 18:59 Last Admin: 04/02/25 05:10 Dose: 100 mls/hr Documented By: Infusion: 04/02/25 05:10 Dose: Infused Documented By: Admin: 04/01/25 19:30 Dose: 100 mls/hr Documented By: DORINA Pantoprazole Sodium (Pantoprazole 40 Mg Tab) 40 mg PO BID KENZIE Stop: 05/01/25 20:59 Last Admin: 04/01/25 21:12 Dose: 40 mg Documented By: DORINA Rivaroxaban (Rivaroxaban 20 Mg Tab) 20 mg PO QPM KENZIE Stop: 05/01/25 20:59 Last Admin: 04/01/25 21:12 Dose: 20 mg Documented By: DORINA Discontinued Medications Albuterol (Albut/Ipratrop 3mg/0.5mg Neb 3 Ml Vial) 3 ml NEB NOW STA; Protocol Stop: 04/01/25 15:27 Last Admin: 04/01/25 16:13 Dose: 3 ml Documented By: KATHI Benzonatate (Benzonatate 100 Mg Capsule) 100 mg PO NOW ONE Stop: 04/01/25 15:27 Last Admin: 04/01/25 16:12 Dose: 100 mg Documented By: KATHI Piperacillin Sod/Tazobactam Sod (Zosyn) 4.5 gm in 100 mls @ 200 mls/hr IV NOW ONE; Protocol Stop: 04/01/25 12:08 Last Infusion: 04/01/25 13:38 Dose: Infused Documented By: Admin: 04/01/25 12:43 Dose: 200 mls/hr Documented By: KATHI Sodium Chloride (Nss) 1,000 mls @ 125 mls/hr IV .Q8H KENZIE Stop: 04/04/25 15:29 Last Admin: 04/01/25 16:08 Dose: Not Given Documented By: KATHI Lactated Ringer's (Lr) 1,000 mls @ 125 mls/hr IV .Q8H KENZIE Stop: 04/02/25 07:00 Last Infusion: 04/01/25 20:03 Dose: Infused Documented By: Infusion: 04/01/25 20:02 Dose: 0 mls/hr Documented By: Admin: 04/01/25 16:16 Dose: 125 mls/hr Documented By: KATHI Imaging Data Radiologist's Impression: Chest CT 04/01/25 11:19 CT OF THE CHEST WITHOUT IV CONTRAST CLINICAL HISTORY: Shortness of breath. History of recurrent aspiration. COMPARISON STUDY: Chest CT December 05, 2024. Chest radiograph March 19, 2025. CT DOSE: 642.16 mGy.cm TECHNIQUE: Axial images of the chest were obtained without IV contrast. Images were reviewed in the axial, sagittal, and coronal planes. IV contrast was not administered for this examination. Automated exposure control was utilized for the study. A dose lowering technique was utilized adhering to the principles of ALARA. FINDINGS: No enlarged axillary, mediastinal or hilar lymph nodes are present. Moderate cardiomegaly and coronary calcification again noted. Postoperative findings along the left hemidiaphragm are again noted. A moderate sized hiatal hernia is unchanged. As previously described, there is a suspected fistulous connection between the hiatal hernia and the right lower lobe on axial image 154 of 237. Extensive secretions within the bilateral lower lobe bronchi are increased when compared to CT of December 23, 2024. Extensive bilateral lower lobe consolidation with tree-in-bud nodules are again noted. Right middle lobe and lingular airspace opacities are also present. Findings are slightly increased in comparison to prior CT. There is no pneumothorax. A small right pleural effusion is similar to prior study. There are left renal parapelvic cysts. Small bilateral renal calculi are incidentally noted. IMPRESSION: 1. Extensive lower lung alveolar opacities, slightly increased when compared to CT of December 23, 2024. The findings are consistent with pneumonia or aspiration pneumonitis given lower lobe secretions. 2. Small right pleural effusion. 3. Hiatal hernia. As presented described, suspected fistulous connection between the hiatal hernia and the right lower lobe. 4. Cardiomegaly. ACT 112: Negative or not required by law. Electronically signed by: Vin Lema M.D. 04/01/2025 1:57 PM Discharge Plan Visit Data Chief Complaint: Illness Stated Complaint: FLEM IN THROAT, COUGH, NOT SLEEPING ED Provider: Trice Kim Discharge Problem: Pneumonia, Hypoxia Patient Disposition: Admitted As Inpatient Condition: Fair Discharge Instructions Interventions: ED Discharge Assessment Last Done: 04/01/25 18:53 Discharge Problem: Pneumonia Qualifiers: Pneumonia type: due to unspecified organism Laterality: unspecified laterality Lung location: lower lobe of lung Qualified Code(s): J18.9 - Pneumonia, unspecified organism
[2025-04-01 11:57] LABS: Hematocrit (blood only) 37.7 % (37.0-47.0); Hemoglobin 11.4 g/dl (12.0-16.0); Mean Corpuscular Hemoglobin 26.0 pg (25.0-34.0); Mean Corpuscular Volume 86.1 fL (80.0-100.0); Platelet Count 214 K/uL (130-400); RDW Standard Deviation 49.0 fL (36.4-46.3); Red Blood Count 4.38 M/uL (4.20-5.40); White Blood Count 15.16 K/ul (4.8-10.8)
[2025-04-01 12:16] LABS: Alanine Aminotransferase 9.0 U/L (7-52); Albumin Globulin Ratio 1.1 (0.9-2); Alkaline Phosphatase 77.0 U/L (34-104); Anion Gap 5.0 (3-11); Bilirubin,Total 0.8 mg/dl (0.2-1.0); Blood Urea Nitrogen 23.0 mg/dl (6-23); Calcium 9.4 mg/dl (8.6-10.3); Carbon Dioxide 30.0 mmol/L (21-32); Chloride 108.0 mmol/L (98-107); Creatinine Clr Calc Pharmacy 55.2 ml/min; Globulin 3.4 gm/dl (2.5-4.0); Glucose 125.0 mg/dl (70-99(Fasting)); Lipase 10.0 U/L (11-82); Magnesium 1.7 mg/dl (1.7-2.4); Potassium 3.8 mmol/L (3.5-5.1); Sodium 143.0 mmol/L (136-145); Total Protein 7.3 gm/dl (6.0-8.3)
[2025-04-01 12:27] LABS: Immature Granulocytes # (auto) 0.08 K/uL (0.01-0.20); Immature Granulocytes % (auto) 0.5 %; Ovalocytes 1+; Polychromasia 1+
[2025-04-01 12:28] LABS: INR 1.2 (0.9-1.1); Prothrombin Time 12.4 Seconds (9.0-12.0)
[2025-04-01] MEDS: PIPERACILLIN/TAZOBACTAM 4.5 GM/100 ML BAG IV ONE (12:43)
--- NOTE | 2025-04-01 13:58 | CT Scan Report ---
CT OF THE CHEST WITHOUT IV CONTRAST CLINICAL HISTORY: Shortness of breath. History of recurrent aspiration. COMPARISON STUDY: Chest CT December 05, 2024. Chest radiograph March 19, 2025. CT DOSE: 642.16 mGy.cm TECHNIQUE: Axial images of the chest were obtained without IV contrast. Images were reviewed in the axial, sagittal, and coronal planes. IV contrast was not administered for this examination. Automat ed exposure control was utilized for the study. A dose lowering technique was utilized adhering to t he principles of ALARA. FINDINGS: No enlarged axillary, mediastinal or hilar lymph nodes are present. Moderate cardiomegaly and coronary calcification again noted. Postoperative findings along the left hemidiaphragm are again noted. A moderate sized hiatal hernia is unchanged. As previously described, there is a suspected fi stulous connection between the hiatal hernia and the right lower lobe on axial image 154 of 237. Exte nsive secretions within the bilateral lower lobe bronchi are increased when compared to CT of December 23, 2024. Extensive bilateral lower lobe consolidation with tree-in-bud nodules are again noted. Right m iddle lobe and lingular airspace opacities are also present. Findings are slightly increased in marina rison to prior CT. There is no pneumothorax. A small right pleural effusion is similar to prior study . There are left renal parapelvic cysts. Small bilateral renal calculi are incidentally noted. IMPRESSION: 1. Extensive lower lung alveolar opacities, slightly increased when compared to CT of December 23, 2024. T he findings are consistent with pneumonia or aspiration pneumonitis given lower lobe secretions. 2. Small right pleural effusion. 3. Hiatal hernia. As presented described, suspected fistulous connection between the hiatal hernia an d the right lower lobe. 4. Cardiomegaly. ACT 112: Negative or not required by law. Electronically signed by: Vin Lema M.D. 04/01/2025 1:57 PM
[2025-04-01 15:05] LABS: Chlamydia pneumoniae PCR Not Detected (NotDetected); Coronavirus 229E PCR Not Detected (NotDetected); Coronavirus CoV-2 (COVID19)PCR Not Detected (NotDetected); Coronavirus HKU1 PCR Not Detected (NotDetected); Coronavirus NL63 PCR Not Detected (NotDetected); Coronavirus OC43PCR Not Detected (NotDetected); Human Metapneumovirus PCR Not Detected (NotDetected); Parainfluenza Virus 1 PCR Not Detected (NotDetected); Parainfluenza Virus 2 PCR Not Detected (NotDetected); Parainfluenza Virus 3 PCR Not Detected (NotDetected); Parainfluenza Virus 4 PCR Not Detected (NotDetected); Respiratory Syncytial VirusPCR Not Detected (NotDetected); Rhinovirus/Enterovirus PCR Not Detected (NotDetected)
[2025-04-01] MEDS: SODIUM CHLORIDE 0.9% 1,000 ML IV SCH (16:08)
[2025-04-01] MEDS: BENZONATATE 100 MG CAPSULE PO ONE (16:12)
[2025-04-01] MEDS: ALBUT/IPRATROP 3MG/0.5MG NEB 3 ML VIAL NEB STA (16:13)
[2025-04-01] MEDS: LACTATED RINGER'S 1,000 ML IV SCH (16:16)
--- NOTE | 2025-04-01 17:59 | History & Physical Report ---
Date of Service April 01, 2025 Assessment & Plan (1) Pneumonia: (2) COPD (chronic obstructive pulmonary disease): (3) Acquired gastric fistula: (4) Factor V Leiden mutation: Gonzalo Moralez is a 79yo female with history of gastro-pulmonary fistula (hiatal-RLL), chronic bronchitis, recurrent hospitalizations for pneumonia (December 2024, Jul 2024), and factor V leiden on xarelto admitted for suspected pneumonia. For the past 2 days she has had increased frequency of cough with sputum, SOB, fatigue, and decreased oral intake. Requires admission for IV antibiotics for b/l lower lobe pneumonia, IV fluids for acute dehydration, and PT for generalized weakness. #Pneumonia, b/l lower lobe #Sepsis Based on CT chest 04/01/25, evidence of b/l lower lobe pneumonia: Extensive lower lung alveolar opacities, slightly increased when compared to CT 12/23/24. Findin gs consistent with pneumonia or aspiration pneumonitis given lower lobe secretions. - elevated WBCs with neutrophil predominance, tachycardia Started empirically in ED on Zosyn, narrowing at this time to ceftriaxone as the most likely suspected bacteria either from CAP or aspiration from GI tract will be covered by 3rd gen cephalosporin Pending blood cultures and sensitivities; ordered sputum culture as well CBC AM - ordered clear liquid diet to advance as tolerated - pulmonary toilet as tolerated: incentive spirometer, flutter valve, guaifenesin - PT/OT ordered #Dehydration, acute Based on history and decreased oral intake, exam findings, and BUN:Cr >25 - s/p LR 125cc/hr, currently plasmalyte 100cc/hr BMP AM - started clear liquid diet, advance as tolerated #Acute hypoxic respiratory failure #Chronic bronchitis / COPD Continue home-equivalent COPD regimen - continue 5L NC, may wean as tolerated - pulmonary toilet as above - continue duonebs, flonase #Gastro-pulmonary fistula #Hx hiatal hernia Chronic, likely contributor to recurrent pneumonia and chronic bronchitis; seen at [facility], ultimately decided no surgery due to risk > benefit - continue Protonix 40mg BID, famotidine 20mg qhs #Factor V Leiden Continue Xarelto 20mg daily VTE ppx: on xarelto Dispo: med/surg History of Present Illness Chief Complaint: SOB Primary Care Provider: Thanh Munsonyasmeen Moralez is a 79yo female with history of gastro-pulmonary fistula (hiatal-RLL), chronic bronchitis, recurrent hospitalizations for pneumonia (December 2024, Jul 2024), and factor V leiden on xarelto admitted for suspected pneumonia. HPI: notes about 2 weeks ago she starting having a strong cough which was bloody at times, denies any other symptoms aside from intermittent SOB when coughing more frequently. Was advised by primary care provider to hold Xarelto for 2 days. She didn't have any further hemoptysis over those 2 days and thereafter restarted her Xarelto. Then about 2 days ago to last night 03/31/25, she endorses starting to have a frequent cough with sputum, though no blood reported, along with increased shortness of breath, weakness, and decreased oral intake. Notes she additionally ate a pastry last night, after which her cough with sputum worsened. Denies choking on the pastry or any other food, nor her sputum. The next morning (this morning 04/01) she called her friend, Symone, who is present this evening, due to worsening cough and sputum. Symone then took pt to [facility] for evaluation. Home: currently lives independently in a condo in [place], friend Symone comes to visit her 3-4 days per week, and other friend Molly calls pt daily to check in on her. They often get together at one of their houses to have dinner. Denies any home health services, only uses a cane at home and feels this is sufficient. - no home O2 requirement - willing to be discharged to a "[facility] home" at this point ER course: stared on Zosyn IV, given LR at 125cc/hr, started on clear liquid diet per patient desire to try eating Allergies Allergy/AdvReac Type Severity Reaction Status Date / Time animal dander Allergy Severe itching/SOB Verified 04/01/25 15:05 shellfish derived Allergy Severe Itchy/Swelling Verified 04/01/25 15:05 Throat tree and shrub pollen Allergy Severe itching/SOB Verified 04/01/25 15:05 weed pollen Allergy Severe itching/SOB Verified 04/01/25 15:05 Home Medications Medication Instructions Recorded Confirmed Type melatonin 5 mg capsule 5 mg PO HS PRN Sleep 02/26/19 04/01/25 History rosuvastatin 5 mg tablet (Crestor) 5 mg PO QAM 10/31/19 04/01/25 History pantoprazole 40 mg tablet,delayed 40 mg PO BID 11/14/19 04/01/25 History release (Protonix) albuterol sulfate 90 mcg/actuation 2 puffs inhalation QID PRN sob 02/25/20 04/01/25 History breath activated powder inhaler (ProAir RespiClick) coenzyme Q10 100 mg capsule (Co 100 mg PO QAM 02/25/20 04/01/25 History Q-10) acetaminophen 325 mg tablet 325 mg PO QID PRN Pain 03/27/22 04/01/25 History (Tylenol) oxybutynin chloride 5 mg tablet 5 mg PO QAM urinary discomfort 03/27/22 04/01/25 History rivaroxaban 20 mg tablet (Xarelto) 20 mg PO QPM 03/27/22 04/01/25 History fluticasone propionate 50 2 spray intranasal QAM 10/03/22 04/01/25 History mcg/actuation nasal spray,suspension dextromethorphan polistirex 30 10 ml PO Q12H PRN coughing spell 05/04/23 04/01/25 History mg/5 mL oral susp ext.release 12hr (Delsym 12 hour) fexofenadine 60 mg tablet (Olga 60 mg PO QPM 05/04/23 04/01/25 History Allergy) guaifenesin 600 mg tablet, 600 mg PO BID 10/05/23 04/01/25 History extended release 12 hr (Mucinex) polyethylene glycol 3350 17 17 g PO DAILY PRN Constipation 04/24/24 04/01/25 History gram/dose oral powder (Miralax) inhalational spacing device #1 ea 06/16/24 01/23/25 Rx triamcinolone acetonide 0.025 % 1 applic topical TID PRN Skin 06/28/24 04/01/25 History topical cream Irritation ipratropium bromide 21 mcg (0.03 2 spray intranasal TID PRN 08/18/24 04/01/25 Rx %) nasal spray postnasal drip #30 mL Flutter Valve #1 ea 09/22/24 01/23/25 Rx famotidine 20 mg tablet (Pepcid) 20 mg PO HS #90 tabs 10/24/24 04/01/25 Rx linaclotide 290 mcg capsule 290 mcg PO QAM #90 caps 11/21/24 04/01/25 Rx (Linzess) sodium chloride 7 % for 4 ml inhalation 2XWK PRN NEEDED 02/15/25 04/01/25 History nebulization PER PT albuterol sulfate 2.5 mg/3 mL 2.5 mg inhalation Q6H PRN 04/01/25 04/01/25 History (0.083 %) solution for nebulization WHEEZING/COUGH Past Med/Surg History Problem List (Updated 04/01/25 @ 18:02 by Marek Campos DO) Hypoxia (Acute) Pneumonia (Acute) Acquired gastric fistula Dry skin dermatitis Moderate persistent asthma COPD (chronic obstructive pulmonary disease) History of colon polyps DVT prophylaxis Diaphragmatic hernia History of hemoptysis Menopause Vocal cord paralysis LEFT History of repair of hiatal hernia 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) "Abnormal left breast mammogram Status post biopsy revealing DCIS, solid with focal comedonecrosis Status post left breast segmental mastectomy Stage [id number] stage 0 Status post completion of radiation therapy 03/22/2010 received 6120 cGy" Medical History (Updated 04/01/25 @ 18:02 by Marek Campos DO) Pulmonary embolism SBO (small bowel obstruction) Pancreatitis Bilateral pneumonia Vocal cord paralysis Hypomagnesemia Asthma Factor V Leiden mutation Fistula Hx of sepsis Hx of small bowel obstruction "[facility] fixed that" COPD (chronic obstructive pulmonary disease) Fistula Gastropulmonary Fistula - "I am not sure they thought I had a fistula connecting my stomach to my lungs." Overactive bladder controlled History of pneumonia x2 past 2 yrs/most recent May 2023. Chronic gastroesophageal reflux disease Chronic bronchitis with productive mucopurulent cough Vocal cord paralysis Chronic pulmonary aspiration History of recent fall not since 04/2023 Chronic cough coughing spells over last 3 yr. Prediabetes Hiatal hernia GERD (gastroesophageal reflux disease) Laryngopharyngeal reflux Restrictive lung disease Hyperlipidemia Anemia hx Cancer breast ca - left - partial mastectomy - radiation Pulmonary embolism -10/2019 -- factor V -- on eliquis BID -7 years ago - post hiatal hernia repair - pt also has factor V - [facility] - treated w/ AC Hypertension Asthma inhaler prn/last use 10/04/23 for cough spell. get coughing spells over past 3 yrs . Surgical History (Updated 01/04/25 @ 00:08 by James Chiu) History of right cataract surgery History of left cataract surgery History of surgery lysis of abdominal adhesions 10/2019 [facility] History of vaginal surgery History of hernia repair History of repair diaphramic hernia by thoracoabdominal approach History of Dillon fundoplication History of esophagogastric fundoplasty dillon fundoplication History of laryngoscopy History of direct laryngoscopy with injection into vocal chords History of nasal polypectomy History of arthroscopy of right knee meniscus repair History of tooth extraction History of wisdom tooth extraction History of breast biopsy History of partial mastectomy of left breast History of surgery vocal cord surgery. foreign body present "something for support" History of esophagogastroduodenoscopy (EGD) History of colonoscopy Family History Brother Family history of diabetes mellitus Father Cerebral artery occlusion with cerebral infarction Sister Factor V Leiden mutation Hypercoagulation Other No family history of adverse response to anesthesia Social History Smoking Status: Former smoker Tobacco Type: Cigarettes Cigarettes Per Day: 35 yr ago; Second Hand Exposure: No; Do You Dip or Chew Tobacco: No; Hx Alcohol Use: Yes Alcohol type: beer, wine and hard liquor Hx Substance Use: No Preferred Language: Croatian Communication Ability: Effective Lay Out Helper Required: No Beliefs That Will Affect Care: None marital status: Single Current Living Situation: Alone How many Children do You have: 0 Feels Safe at Home: Yes Assistive Devices: Cane Physical Exam Physical Exam: Constitutional: A&Ox3, appearing tired but in no acute distress, satting low-mid 90s on 4L NC HEENT: EOM intact, anicteric sclerae; moist oral mucus membranes CV: RRR, +s1/s2, no m/r/g, radial pulses 2+ b/l Respiratory: mostly clear to auscultation with good symmetric breath sounds, mild rales heard in posterior L lower lung [place], otherwise no wheeze or rhonchi, no resp distress GI/Abd: +BS, abdomen soft, no hepatosplenomegaly, nondistended, nontender to palpation MSK: 5/5 strength in b/l UE and LE, no gross deformities Skin: tenting seen with gentle pinch, trace scattered ecchymoses, no rashes seen Neuro: no facial droop, no focal deficits, speech intact, wiggles toes on command Results & Data Results & Data Vital Signs (Past 12 Hours) Vital Signs Temp Pulse Pulse Resp BP BP Pulse Ox 04/01/25 16:00 91 H 24 124/76 94 04/01/25 15:18 95 H 04/01/25 15:10 37.1 C 94 H 25 H 115/66 94 04/01/25 14:48 103 H 20 90 04/01/25 14:30 94 H 25 H 96 04/01/25 14:21 92 H 27 H 96 04/01/25 14:15 93 H 25 H 96 04/01/25 14:06 95 H 26 H 95 04/01/25 14:01 117/68 04/01/25 13:39 96 H 29 H 98 04/01/25 13:36 96 H 26 H 98 04/01/25 13:30 119/82 04/01/25 13:18 99 H 26 H 96 04/01/25 13:15 100 H 22 96 04/01/25 13:03 95 H 26 H 96 04/01/25 13:00 125/69 04/01/25 12:57 97 H 22 92 04/01/25 12:48 98 H 28 H 93 04/01/25 12:32 98 H 28 H 125/74 91 04/01/25 12:30 99 H 28 H 91 04/01/25 12:26 125/81 04/01/25 12:26 125/81 04/01/25 12:24 101 H 31 H 89 L 04/01/25 12:21 100 H 27 H 89 L 04/01/25 12:18 101 H 30 H 89 L 04/01/25 12:00 102 H 31 H 87 L 04/01/25 11:54 103 H 32 H 87 L 04/01/25 11:42 98 H 28 H 94 04/01/25 11:39 98 H 28 H 94 04/01/25 11:39 98 H 26 H 131/74 93 04/01/25 11:38 131/74 04/01/25 11:38 131/74 04/01/25 11:38 131/74 04/01/25 11:38 131/74 04/01/25 11:28 37.3 C 04/01/25 11:27 92 H 29 H 90 04/01/25 11:24 96 H 21 91 04/01/25 11:12 92 H 04/01/25 11:09 95 H 17 84 L 04/01/25 10:02 37.3 C 106 H 20 124/70 91 O2 Del Method O2 Flow Rate 04/01/25 16:00 Nasal Cannula 5 04/01/25 15:18 04/01/25 15:10 Nasal Cannula 5 04/01/25 14:48 04/01/25 14:30 04/01/25 14:21 04/01/25 14:15 04/01/25 14:06 04/01/25 14:01 04/01/25 13:39 04/01/25 13:36 04/01/25 13:30 04/01/25 13:18 04/01/25 13:15 04/01/25 13:03 04/01/25 13:00 04/01/25 12:57 04/01/25 12:48 04/01/25 12:32 Nasal Cannula 5 04/01/25 12:30 04/01/25 12:26 04/01/25 12:26 04/01/25 12:24 Nasal Cannula 5 04/01/25 12:21 04/01/25 12:18 04/01/25 12:00 04/01/25 11:54 04/01/25 11:42 04/01/25 11:39 04/01/25 11:39 Nasal Cannula 3 04/01/25 11:38 04/01/25 11:38 04/01/25 11:38 04/01/25 11:38 04/01/25 11:28 04/01/25 11:27 04/01/25 11:24 04/01/25 11:12 04/01/25 11:09 Room Air 04/01/25 10:02 Room Air Diagnostic Findings CT chest 04/01/25: FINDINGS: No enlarged axillary, mediastinal or hilar lymph nodes are present. Moderate cardiomegaly and coronary calcification again noted. Postoperative findings along the left hemidiaphragm are again noted. A moderate sized hiatal hernia is unchanged. As previously described, there is a suspected fistulous connection between the hiatal hernia and the right lower lobe on axial image 154 of 237. Extensive secretions within the bilateral lower lobe bronchi are increased when compared to CT of December 23, 2024. Extensive bilateral lower lobe consolidation with tree-in-bud nodules are again noted. Right middle lobe and lingular airspace opacities are also present. Findings are slightly increased in comparison to prior CT. There is no pneumothorax. A small right pleural effusion is similar to prior study. There are left renal parapelvic cysts. Small bilateral renal calculi are incidentally noted. IMPRESSION: 1. Extensive lower lung alveolar opacities, slightly increased when compared to CT of December 23, 2024. The findings are consistent with pneumonia or aspiration pneumonitis given lower lobe secretions. 2. Small right pleural effusion. 3. Hiatal hernia. As presented described, suspected fistulous connection between the hiatal hernia and the right lower lobe. 4. Cardiomegaly Code Status & VTE Plan VTE Prophylaxis Plan VTE Prophylaxis will be ordered: Yes Supervising Physician Co-Signing Physician Notes I personally examined the patient and verified all aggarwal points of history and exam, discussed case, and agree with decision making with Dr Campos cough and shortness of breath. Vitals noted, in general she is awake and alert pleasant no distress but does appear fatigued, and even while we are talking she has a coughing fit and brings up a large amount of green sputum. Breathing otherwise unlabored, no accessory muscle use. Skin without rashes pallor or icterus. Labs and diagnostics noted, CT personally reviewed in addition to report. Recurrent pneumoniashe notes that it is now not entirely clear if she actually has a fistulabut either way she has a recurrent pneumonia, but fo rtunately not severe sepsis or septic shockshe is septic but only mildly so (heart rate and white count) and she is requiring 5 L of oxygen, but fortunately not significant respiratory distressin that respect ceftriaxone, follow. Otherwise as above. Resident Activity Tracking Resident Involvement: Resident Care Provided Care Provided: Adult Hospital Medicine (1) Pneumonia Laterality: unspecified laterality Lung location: lower lobe of lung Pneumonia type: due to unspecified organism Qualified Code(s): J18.9 - Pneumonia, unspecified organism (2) COPD (chronic obstructive pulmonary disease) COPD type: chronic bronchitis Chronic bronchitis type: unspecified Qualified Code(s): J42 - Unspecified chronic bronchitis
--- NOTE | 2025-04-01 18:19 | Billing Data ---
Date of Service April 01, 2025 Coding Level of Care Code 39636 INT INP/OBS CARE
[2025-04-01] MEDS ORDERED: POLYETHYLENE (MIRALAX) 17 GM PACK PO PRN (18:53)
[2025-04-01] MEDS ORDERED: ALBUTEROL 0.083% NEBU SOLN 3 ML VIAL INH PRN (18:53)
[2025-04-01] MEDS ORDERED: ALBUTEROL HFA 8 GM INHALER INH PRN (18:58)
[2025-04-01] MEDS: cefTRIAXone SODIUM 2,000 MG/50 ML BAG IV SCH (19:28)
[2025-04-01] MEDS: PLASMA-LYTE A 1,000 ML IV SCH (19:30)
[2025-04-01] MEDS: FAMOTIDINE 20 MG TAB PO SCH (21:12)
[2025-04-01] MEDS: RIVAROXABAN 20 MG TAB PO SCH (21:12)
[2025-04-01] MEDS: ACETAMINOPHEN 325 MG TAB PO PRN (22:48)
[2025-04-02] MEDS: FEXOFENADINE 60 MG TAB PO SCH (03:15)
[2025-04-02 05:55] LABS: Hematocrit (blood only) 33.9 % (37.0-47.0); Hemoglobin 10.4 g/dl (12.0-16.0); Mean Corpuscular Hemoglobin 26.8 pg (25.0-34.0); Mean Corpuscular Volume 87.4 fL (80.0-100.0); Platelet Count 193 K/uL (130-400); RDW Standard Deviation 50.0 fL (36.4-46.3); Red Blood Count 3.88 M/uL (4.20-5.40); White Blood Count 11.35 K/ul (4.8-10.8)
[2025-04-02 06:09] LABS: Anion Gap 6.0 (3-11); Blood Urea Nitrogen 17.0 mg/dl (6-23); Calcium 9.1 mg/dl (8.6-10.3); Carbon Dioxide 29.0 mmol/L (21-32); Chloride 107.0 mmol/L (98-107); Creatinine Clr Calc Pharmacy 57.3 ml/min; Glucose 112.0 mg/dl (70-99(Fasting)); Potassium 3.9 mmol/L (3.5-5.1); Sodium 142.0 mmol/L (136-145)
--- NOTE | 2025-04-02 06:46 | Hospitalist Progress Note ---
Date of Service April 02, 2025 Assessment & Plan (1) Pneumonia: (2) COPD (chronic obstructive pulmonary disease): (3) Acquired gastric fistula: (4) Factor V Leiden mutation: Gonzalo Moralez is a 79yo female with history of gastro-pulmonary fistula (hiatal-RLL), chronic bronchitis, recurrent hospitalizations for pneumonia (December 2024, Jul 2024), and factor V leiden on xarelto admitted for suspected pneumonia. For the past 2 days she has had increased frequency of cough with sputum, SOB, fatigue, and decreased oral intake. Requires continued admission for IV antibiotics for b/l lower lobe pneumonia, IV fluids for acute dehydration, and PT for generalized weakness. #Pneumonia, b/l lower lobe #Sepsis Based on CT chest 04/01/25, evidence of b/l lower lobe pneumonia: Extensive lower lung alveolar opacities, slightly increased when compared to CT 12/23/24. Findings consistent with pneumonia or aspiration pneumonitis given lower lobe secretions. - elevated WBCs with neutrophil predominance, tachycardia; WBCs improving 15 -> 11 Started empirically in ED on Zosyn, narrowing at this time to ceftriaxone as the most likely suspected bacteria either from CAP or aspiration from GI tract will be covered by 3rd gen cephalosporin Blood cultures negative for growth at 24hrs; pending sputum culture CBC AM - ordered clear liquid diet to advance as tolerated - pulmonary toilet as tolerated: incentive spirometer, flutter valve, g uaifenesin - PT/OT #Dehydration, acute Based on history and decreased oral intake, exam findings, and BUN:Cr >25 - s/p LR 125cc/hr, currently plasmalyte 100cc/hr BMP AM - started clear liquid diet, advance as tolerated #Acute hypoxic respiratory failure #Chronic bronchitis / COPD Continue home-equivalent COPD regimen - continue oxymask at 7-8L/min, may wean as tolerated - pulmonary toilet as above - continue duonebs, flonase #Gastro-pulmonary fistula #Hx hiatal hernia Chronic, likely contributor to recurrent pneumonia and chronic bronchitis; seen at [facility], ultimately decided no surgery due to risk > benefit - continue Protonix 40mg BID, famotidine 20mg qhs #Factor V Leiden Continue Xarelto 20mg daily VTE ppx: on xarelto Dispo: med/surg Admission and Anticipated Discharge Date Admission Date: April 01, 2025 Supervising Physician Co-Signing Physician Notes I personally examined the patient and verified all aggarwal points of history and exam, discussed case, and agree with decision making with Dr Campos Cough ongoing and constantly productive. Breathing seems to be better. Whenever I enter the room she is on her phone with the oxy mask up on her foreheadshe showed no appearance of dyspnea, so I checked a room air pulse ox and she was surprisingly 88%. Vitals noted, in general she is awake and alert pleasant no distress but does appear fatigued. Breathing otherwise unlabored, no accessory muscle use. Skin without rashes pallor or icterus. Labs and diagnostics noted, CT personally reviewed in addition to report. Recurrent pneumonia I suspect her waxing and waning oxygen requirement relates to mucous plugging giving how much copious sputum she has been producing. Her sepsis is improving. Her overall situation appears to be stabilizing. Continue oxygen, pulmonary toilet, antibiotics, supportive care. Otherwise as above. Subjective Naomy was seen this AM, feeling a bit better than day prior. Required increase in O2 to 13L/min via oxymask overnight, currently tolerating 7-8L oxymask. Notes she had a bit of jello but still not very hungry, trying to drink water occasionally too. Denies any significant pain or discomfort, other than some lower back discomfort due to position in bed. Adjusted position with RN. Physical Exam Physical Exam: Constitutional: A&Ox3, appearing tired but in no acute distress, satting mid- high 90s on 7L NC HEENT: EOM intact, anicteric sclerae; moist oral mucus membranes CV: RRR, +s1/s2, no m/r/g, radial pulses 2+ b/l Respiratory: mostly clear to auscultation with good symmetric breath sounds, mild rales heard in posterior L lower lung newton, otherwise no wheeze or rhonchi, no resp distress GI/Abd: +BS, abdomen soft, no hepatosplenomegaly, nondistended, nontender to palpation MSK: 5/5 strength in b/l UE and LE, no gross deformities Skin: tenting seen with gentle pinch, trace scattered ecchymoses, no rashes seen Neuro: no facial droop, no focal deficits, speech intact, wiggles toes on command Results & Data Results & Data Vital Signs (Past 12 Hours) Vital Signs Pulse Pulse Resp BP BP Pulse Ox O2 Del Method 04/02/25 05:15 98 Oxymask 04/02/25 03:23 86 04/02/25 03:13 87 24 119/68 97 Oxymask 04/02/25 01:42 93 H 21 119/64 95 04/02/25 01:30 94 H 23 119/64 94 04/02/25 01:30 119/64 04/02/25 01:30 119/64 04/02/25 01:30 119/64 04/02/25 01:12 88 28 H 97 04/02/25 01:00 112/60 04/02/25 01:00 112/60 04/02/25 01:00 112/60 04/02/25 01:00 92 H 31 H 95 04/02/25 00:51 90 27 H 93 04/02/25 00:48 90 27 H 93 04/02/25 00:33 90 28 H 92 04/02/25 00:30 103/62 04/02/25 00:30 103/62 04/02/25 00:30 103/62 04/02/25 00:30 103/62 04/02/25 00:27 91 H 26 H 93 04/02/25 00:03 94 H 29 H 93 04/02/25 00:00 119/64 04/01/25 23:57 98 H 30 H 94 04/01/25 23:51 96 H 22 92 04/01/25 23:45 95 H 30 H 92 04/01/25 23:30 120/69 04/01/25 23:24 98 H 29 H 91 04/01/25 23:12 99 H 26 H 129/76 91 Oxymask 04/01/25 23:06 97 H 31 H 92 04/01/25 22:51 100 H 23 90 04/01/25 22:36 98 H 31 H 89 L 04/01/25 22:21 96 H 31 H 92 04/01/25 22:15 98 H 27 H 91 04/01/25 22:00 96 H 31 H 90 04/01/25 22:00 114/60 04/01/25 22:00 114/60 04/01/25 21:51 101 H 30 H 92 04/01/25 21:33 100 H 28 H 93 04/01/25 21:30 110/64 04/01/25 21:30 110/64 04/01/25 21:30 110/64 04/01/25 21:30 110/64 04/01/25 21:18 100 H 28 H 92 04/01/25 21:15 100 H 23 93 04/01/25 21:09 101 H 28 H 93 04/01/25 20:48 117 H 18 131/83 91 04/01/25 20:33 122 H 22 127/73 94 04/01/25 20:24 115 H 21 94 04/01/25 20:12 115 H 25 H 94 04/01/25 20:09 115 H 27 H 95 04/01/25 20:00 127/73 04/01/25 20:00 127/73 04/01/25 20:00 127/73 04/01/25 19:54 112 H 27 H 95 04/01/25 19:42 112 H 27 H 93 04/01/25 19:33 113 H 20 95 04/01/25 19:30 125/76 04/01/25 19:21 113 H 30 H 95 04/01/25 19:00 118/68 04/01/25 18:54 97 H 30 H 95 O2 Flow Rate 04/02/25 05:15 13 04/02/25 03:23 04/02/25 03:13 13 04/02/25 01:42 04/02/25 01:30 04/02/25 01:30 04/02/25 01:30 04/02/25 01:30 04/02/25 01:12 04/02/25 01:00 04/02/25 01:00 04/02/25 01:00 04/02/25 01:00 04/02/25 00:51 04/02/25 00:48 04/02/25 00:33 04/02/25 00:30 04/02/25 00:30 04/02/25 00:30 04/02/25 00:30 04/02/25 00:27 04/02/25 00:03 04/02/25 00:00 04/01/25 23:57 04/01/25 23:51 04/01/25 23:45 04/01/25 23:30 04/01/25 23:24 04/01/25 23:12 13 04/01/25 23:06 04/01/25 22:51 04/01/25 22:36 04/01/25 22:21 04/01/25 22:15 04/01/25 22:00 04/01/25 22:00 04/01/25 22:00 04/01/25 21:51 04/01/25 21:33 04/01/25 21:30 04/01/25 21:30 04/01/25 21:30 04/01/25 21:30 04/01/25 21:18 04/01/25 21:15 04/01/25 21:09 04/01/25 20:48 04/01/25 20:33 04/01/25 20:24 04/01/25 20:12 04/01/25 20:09 04/01/25 20:00 04/01/25 20:00 04/01/25 20:00 04/01/25 19:54 04/01/25 19:42 04/01/25 19:33 04/01/25 19:30 04/01/25 19:21 04/01/25 19:00 04/01/25 18:54 Resident Activity Tracking Resident Involvement: Resident Care Provided Care Provided: Adult Hospital Medicine (1) Pneumonia Laterality: unspecified laterality Lung location: lower lobe of lung Pneumonia type: due to unspecified organism Qualified Code(s): J18.9 - Pneumonia, unspecified organism (2) COPD (chronic obstructive pulmonary disease) COPD type: chronic bronchitis Chronic bronchitis type: unspecified Qualified Code(s): J42 - Unspecified chronic bronchitis
[2025-04-02] MEDS: FLUTICASONE PROPIONATE NA SPR 16 GM BTL SCH (08:59)
[2025-04-02] MEDS: POLYETHYLENE (MIRALAX) 17 GM PACK PO SCH (08:59)
[2025-04-02] MEDS: guaiFENesin 600 MG TABCR PO SCH (09:00)
--- NOTE | 2025-04-02 17:58 | Billing Data ---
Date of Service April 02, 2025 Coding Level of Care Code 14048 SUB INP/OBS CARE MIN
[2025-04-02] MEDS: MELATONIN 3 MG TAB PO PRN (21:52)
--- NOTE | 2025-04-03 06:04 | Electrocardiogram Report ---
Test Reason : Blood Pressure : */* mmHG Vent. Rate : 99 BPM Atrial Rate : 99 BPM P-R Int : 154 ms QRS Dur : 92 ms QT Int : 324 ms P-R-T Axes : 35 -3 12 degrees QTcB Int : 415 ms Sinus rhythm with frequent Premature ventricular complexes Cannot rule out Anterior infarct (cited on or before 23-Dec-2024) Nonspecific T wave abnormality Abnormal ECG When compared with ECG of 23-Dec-2024 12:37, Premature ventricular complexes are now Present Confirmed by Torey Aguilar ([id number]) on 04/03/2025 6:03:48 AM Referred By: REFERRED SELF Confirmed By: Torey Aguilar
--- NOTE | 2025-04-03 07:57 | Hospitalist Progress Note ---
Date of Service April 03, 2025 Assessment & Plan (1) Acquired gastric fistula: (2) Pneumonia: Plan In summary this is a 79-year-old female initially admitted for pneumonia in the setting of a suspected gastro pulmonary fistula. With regard to the patient's presenting complaint of progressive fatigue and generalized weakness she was found to have aspiration pneumonitis versus pneumonia; given the patient's rapid improvement and lack of additional infectious findings, suspect that this is primarily aspiration pneumonitis and the combination of both her suspected gastric pulmonary fistula as well as her left-sided vocal cord paralysis increasing her risk of aspiration Continue ceftriaxone 2 g daily through 04/04 Cultures at this time are relatively unremarkable; sputum growth was primarily all normal oral suzanne Advance diet as tolerated Continue pulmonary toilet with incentive spirometry, flutter valve; discontinue guaifenesin given its lack of efficacy and risk for polypharmacy PT/OT to help with recommendations regarding the patient's anticipated placement to acute rehab Admission and Anticipated Discharge Date Admission Date: April 01, 2025 Subjective Ms. goldsmith is a 79-year-old female whose active medical conditions include a gastro pulmonary fistula, factor V Leiden deficiency, among other chronic medical conditions who was initially admitted for concern of pneumonia. No acute overnight events. The patient feels well this morning without specific acute concerns; we had a prolonged discussion regarding her disposition. Review of Systems Review of Systems: Review of constitutional, pulmonary, cardiovascular, gastrointestinal, genitourinary systems was only remarkable for the patient's continued thin sputum expectoration without hemoptysis Physical Exam Physical Exam: General: Elderly, frail adult female in no acute distress Vital Signs: Reviewed HEENT: Tacky mucous membranes; extraocular motions intact; pupils equally round reactive to light Pulmonary: Symmetrically reduced chest wall excursion secondary to excessive thoracic kyphosis; inspiratory crackles present in the left lower lobe posteriorly, extending to the ipsilateral posterior axillary line and cephalad to approximately 7th and 8th intercostal space; remaining lung newton are clear to auscultation Cardiovascular: Regular rate and rhythm with grade 3/6 systolic murmur best heard in the right second intercostal space parasternally; no rubs or gallops; S1 and S2 normal; bilateral radial and posterior tibial pulse 2+; trace bilateral lower extremity edema distal to the mid leg Neurologic: CN II-XII grossly intact; no discernible focal weakness nor paresthesias Results & Data Results & Data Vital Signs (Past 12 Hours) Vital Signs Temp Pulse Resp BP Pulse Ox O2 Del Method O2 Flow Rate 04/03/25 07:45 36.6 C 81 16 117/71 96 Room Air 04/03/25 00:44 Nasal Cannula 2 04/02/25 22:28 36.4 C L 98 H 18 120/72 90 Nasal Cannula 2 PG Care Time/CCT Total # of Minutes Spent Total Time Spent with Patient: Total time spent is greater than 50% in coordination of care (as documented) at patient's floor/unit and/or counseling patient: Coding Level of Care Code 00151 SUB INP/OBS CARE 2/35MIN Diagnoses Acquired gastric fistula K31.6 Pneumonia of lower lobe due to infectious organism, unspecified laterality J18.9 Laterality: unspecified laterality Lung location: lower lobe of lung Pneumonia type: due to unspecified organism (2) Pneumonia Laterality: unspecified laterality Lung location: lower lobe of lung Pneumonia type: due to unspecified organism Qualified Code(s): J18.9 - Pneumonia, unspecified organism
[2025-04-04] MEDS: ALBUT/IPRATROP 3MG/0.5MG NEB 3 ML VIAL NEB PRN (06:49)
[2025-04-04] MEDS: SODIUM CHLOR 7% 4 ML NEB NEB PRN (06:49)
[2025-04-04] MEDS: COUGH DROP (SUGAR FREE) LOZ 24 LOZ/1 BOX BUCCAL ONE (07:48)
--- NOTE | 2025-04-04 07:52 | Hospitalist Progress Note ---
Date of Service April 04, 2025 Assessment & Plan (1) Aspiration pneumonitis due to regurgitated gastric secretions: (2) Acquired gastric fistula: (3) Pneumonia: Plan In summary this is a 79-year-old female initially admitted for pneumonia in the setting of a suspected gastro pulmonary fistula. With regard to the patient's presenting complaint of progressive fatigue and generalized weakness she was found to have aspiration pneumonitis versus pneumonia; given the patient's rapid improvement and lack of additional infectious findings, suspect that this is primarily aspiration pneumonitis and the combination of both her suspected gastric pulmonary fistula as well as her left-sided vocal cord paralysis increasing her risk of aspiration Antibiotic course completed on 04/04 with ceftriaxone 2 g daily Cultures at this time are unremarkable; sputum growth was primarily all normal oral suzanne Advance diet as tolerated Continue pulmonary toilet with incentive spirometry, flutter valve; discontinue guaifenesin given its lack of efficacy and risk for polypharmacy PT/OT to help with recommendations regarding the patient's anticipated placement to acute rehab Admission and Anticipated Discharge Date Admission Date: April 01, 2025 Subjective Ms. Cohn is a 79-year-old female whose active medical conditions include a gastro pulmonary fistula, factor V Leiden deficiency, among other chronic medical conditions who was initially admitted for concern of pneumonia. No acute overnight events. The patient feels well this morning without specific acute concerns; we had a prolonged discussion regarding her disposition. Review of Systems Review of Systems: Review of constitutional, pulmonary, cardiovascular, gastrointestinal, genitourinary systems was only remarkable for the patient's continued thin sputum expectoration without hemoptysis Physical Exam Physical Exam: General: Elderly, frail adult female in no acute distress Vital Signs: Reviewed HEENT: Tacky mucous membranes; extraocular motions intact; pupils equally round reactive to light Pulmonary: Symmetrically reduced chest wall excursion secondary to excessive thoracic kyphosis; inspiratory crackles present in the left lower lobe posteriorly, extending to the ipsilateral posterior axillary line and cephalad to approximately 7th and 8th intercostal space; remaining lung newton are clear to auscultation Cardiovascular: Regular rate and rhythm with grade 3/6 systolic murmur best heard in the right second intercostal space parasternally; no rubs or gallops; S1 and S2 normal; bilateral radial and posterior tibial pulse 2+; trace bilateral lower extremity edema distal to the mid leg Neurologic: CN II-XII grossly intact; no discernible focal weakness nor paresthesias Results & Data Results & Data Vital Signs (Past 12 Hours) Vital Signs Temp Pulse Resp BP Pulse Ox O2 Del Method O2 Flow Rate 04/04/25 07:01 36.4 C L 77 19 133/75 99 Nasal Cannula 2 04/04/25 06:51 86 22 95 Nasal Cannula 3 04/03/25 23:05 36.3 C L 86 18 128/73 98 Nasal Cannula 2 04/03/25 21:30 Nasal Cannula 2 PG Care Time/CCT Total # of Minutes Spent Total Time Spent with Patient: Total time spent is greater than 50% in coordination of care (as documented) at patient's floor/unit and/or counseling patient: Coding Level of Care Code 59009 SUB INP/OBS CARE 235MIN Diagnoses Aspiration pneumonitis due to regurgitated gastric secretions J69.0 Acquired gastric fistula K31.6 Pneumonia of lower lobe due to infectious organism, unspecified laterality J18.9 Laterality: unspecified laterality Lung location: lower lobe of lung Pneumonia type: due to unspecified organism (3) Pneumonia Laterality: unspecified laterality Lung location: lower lobe of lung Pneumonia type: due to unspecified organism Qualified Code(s): J18.9 - Pneumonia, unspecified organism
[2025-04-04] MEDS: CHLORASEPTIC (PHENOL) 1.4% SOLN 180 ML BTL MT PRN (08:58)
--- NOTE | 2025-04-05 11:13 | Communication Note ---
Date of Service: April 05, 2025 Lshk-pm-iboc was pursued with the biomedical analytical scientist; at this time they do not feel the patient meets criteria for acute inpatient rehabilitation as the pat ient does not require a "fish hatchery assistant" for their physical therapy needs. Based on medical criteria at this time the patient's eligibility for inpatient rehab includes the following: Need for evaluation of the patient's risk for clinical complications Active and ongoing therapeutic interventions including occupational therapy, speech-language pathology Recommendations from both physical and occupational therapy at our facility are for 3 hours of therapy per day It is reasonably expected the patient will be able to actively participate in this therapy as they have been doing so during their hospitalization. She is no longer requires interventions available at an acute care hospital. It is noted that the patient is required to receive physician supervision by rehabilitation physician, it does not require direct intervention by a "fish hatchery assistant" as the provider I spoke with described. It is reasonable that the patient should be observed by a medical professional, to ensure that they are engaging in their rehabilitation appropriately and without complications as described in the first listed eligibility criteria I have appealed with the patient's denial.
--- NOTE | 2025-04-05 11:21 | Hospitalist Progress Note ---
Date of Service April 05, 2025 Assessment & Plan (1) Aspiration pneumonitis due to regurgitated gastric secretions: (2) Acquired gastric fistula: (3) Pneumonia: Plan Naomy is a 79yo female with history of gastro-pulmonary fistula (hiatal-RLL), chronic bronchitis, recurrent hospitalizations for pneumonia (December 2024, Jul 2024), and factor V Leiden on Xarelto admitted for pneumonia in the setting of a suspected gastro pulmonary fistula. #Aspiration pneumonitis/pneumonia - suspect this was primarily aspiration pneumonitis (rather than true pneumonia) given her rapid improvement and lack of additional infectious findings. She does have suspected gastro pulmonary fistula as well as left-sided vocal cord paralysis increasing her risk of aspiration. Antibiotic course completed on 04/04 with ceftriaxone 2 g daily Sputum culture unremarkable, heavy normal suzanne noted Advance diet as tolerated Continue pulmonary toilet with incentive spirometry, flutter valve, nebs; discontinue guaifenesin given its lack of efficacy and risk for polypharmacy PT/OT recommending rehab Speech therapy consulted #Gastric pulmonary fistula | H/o hiatal hernia - Chronic, likely contributor to recurrent pneumonia and chronic bronchitis; seen at [facility], ultimately decided no surgery due to risk > benefit - Continue Protonix 40mg BID, famotidine 20mg qhs #Factor V Leiden - Continue Xarelto 20mg daily VTE ppx: on xarelto Dispo: Pending rehab placement. P2P completed 04/[address] Bautista (appeal in process - see communication note) Admission and Anticipated Discharge Date Admission Date: April 01, 2025 Supervising Physician Co-Signing Physician Notes Attending Attestation - Chart reviewed, care plan d/w MIREILLE Barber. I agree w/ the aggarwal components of her documentation. Tylor Denton MD Subjective Patient seen and evaluated in bedside chair. She was not wearing her supplemental O2 when I entered the room; placed nasal cannula back in proper position. She appears fatigued. She reports "I am tired of being in the hospital." She does note slight improvement throughout her hospital stay. She does not feel as dyspneic as she previously did. She is still coughing, intermittently productive. She notes the nebulizer treatments usually help her symptoms. Continuing to wait for rehab placement. No additional complaints or concerns at this time. Physical Exam Physical Exam: General: No acute distress, nondiaphoretic. Appears fatigued. Skin: Warm, dry. Trace lower extremity edema bilaterally. Cardiac: Regular rate and rhythm. Systolic murmur noted. Pulm: Clear to auscultation bilaterally without wheezes, rales or rhonchi. Shallow inspirations. 95% on 1 L NC. Abdominal: Soft, nontender, nondistended. Bowel sounds present. Neuro: A&O x3. No focal neurological deficits. Results & Data Results & Data Vital Signs (Past 12 Hours) Vital Signs Temp Pulse Resp BP Pulse Ox O2 Del Method O2 Flow Rate 04/05/25 08:28 82 15 95 Nasal Cannula 1 04/05/25 07:44 97.7 F 76 20 133/77 96 Nasal Cannula 1 PG Care Time/CCT Total # of Minutes Spent Total Time Spent with Patient: Total time spent is greater than 50% in coordination of care (as documented) at patient's floor/unit and/or counseling patient: Coding Level of Care Code 55736 SUB INP/OBS CARE 2/35MIN Diagnoses Aspiration pneumonitis due to regurgitated gastric secretions J69.0 Acquired gastric fistula K31.6 Pneumonia of lower lobe due to infectious organism, unspecified laterality J18.9 Laterality: unspecified laterality Lung location: lower lobe of lung Pneumonia type: due to unspecified organism (3) Pneumonia Laterality: unspecified laterality Lung location: lower lobe of lung Pneumonia type: due to unspecified organism Qualified Code(s): J18.9 - Pneumonia, unspecified organism
--- NOTE | 2025-04-06 14:29 | Hospitalist Progress Note ---
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 Admitted for pneumonia in the setting of her suspected gastro-pulmonary fistula. #Aspiration pneumonitis/pneumonia - -b/l pneumonia as seen on chest CT - RLL, RML, LLL, and lingula -day #6 of rocephin today; plan 7 days (stop after 9/2 dose) -overall improving with decreasing O2 requirements -cont supportive care -appreciate speech therapy consult -no changes to diet/liquids at this time #Gastric pulmonary fistula | H/o hiatal hernia - -Chronic, likely contributor to recurrent pneumonia and chronic bronchitis; seen at [facility], ultimately decided no surgery due to risk > benefit -Continue Protonix 40mg BID, famotidine 20mg qhs -upright for meals, reflux precautions, etc. #Factor V Leiden mutation with h/o PE - -Continue Xarelto 20mg daily #COPD - -no exacerbation at this time -most recent PFTs showed moderate restriction but no obstruction #left-sided vocal cord paralysis dispo - uncertain; P2P completed by Dr Bautista for acute rehab -- insurance still denied rehab SNF? Admission and Anticipated Discharge Date Admission Date: April 01, 2025 Subjective patient sitting in the chair by window she c/o being cold and asked for a blanket states cough/chest congestion is improved, although she reports she still has a considerable amount of each denies dyspnea while at rest eating fair +stool on 04/03 asks about rehab denies pain in any location was requiring 1.5 L of O2 during my visit I put o2 on hold - sats stayed >90% in room air Review of Systems Review of Systems: gen - no fevers cv - no chest pain pulm - cough/congestion; no wheezing GI - no pain or N/V HENT - hoarse voice - chronic, but had been worse early in admission and now improved Physical Exam Physical Exam: gen - sitting in chair, NAD, coughing periodically, looks tired back - kyphotic, scoliosis neck - no JVD mouth - MMM voice - hoarse heart - RRR, s1 s2 lungs - b/l basilar rales, decreased BS bases, no wheeze, no increased work of breathing abd - soft NT ND BS+ ext - no edema, pulses 2+ b/l psych - a/o x 3 Results & Data Results & Data Vital Signs (Past 12 Hours) Vital Signs Temp Pulse Resp BP Pulse Ox O2 Del Method O2 Flow Rate 04/06/25 07:38 36.7 C 71 18 151/86 H 97 Nasal Cannula 1 04/06/25 07:20 Nasal Cannula 1 Laboratory Results Laboratory Results - last 24 hr 04/06/25 14:33 WBC 5.67 RBC 4.02 L Hgb 10.3 L Hct 34.4 L MCV 85.6 MCH 25.6 MCHC 29.9 L RDW Std Deviation 47.1 H RDW Coeff of Maya 15.1 H Plt Count 249 MPV 9.7 Immature Gran % (Auto) 0.4 Neut % (Auto) 70.3 Lymph % (Auto) 18.0 [place] % (Auto) 7.2 Eos % (Auto) 3.7 Baso % (Auto) 0.4 Neut # (Auto) 3.99 Lymph # (Auto) 1.02 L [place] # (Auto) 0.41 Eos # (Auto) 0.21 Baso # (Auto) 0.02 Immature Gran # (Auto) 0.02 Sodium 141 Potassium 3.8 Chloride 104 Carbon Dioxide 32 Anion Gap 5 BUN 14 Creatinine 0.82 Est Cr Clr Drug Dosing 55.9 eGFR 73.63 BUN/Creatinine Ratio 17.1 Glucose 92 Calcium 9.3 TSH 0.322 Diagnostic Findings Microbiology 04/01/25 12:22 Blood Aerobic Blood Culture - Final No growth in Aerobic bottle after 5 days. 04/01/25 12:22 Blood Anaerobic Blood Culture - Final No growth in Anaerobic bottle after 5 days. 04/01/25 11:38 Blood Aerobic Blood Culture - Final No growth in Aerobic bottle after 5 days. 04/01/25 11:38 Blood Anaerobic Blood Culture - Final No growth in Anaerobic bottle after 5 days. 04/01/25 16:42 Sputum, Expectorated Gram Stain - Final 04/01/25 16:42 Sputum, Expectorated Sputum Culture - Final Heavy normal suzanne. Chest CT 04/01/25 11:19 CT OF THE CHEST WITHOUT IV CONTRAST CLINICAL HISTORY: Shortness of breath. History of recurrent aspiration. COMPARISON STUDY: Chest CT December 05, 2024. Chest radiograph March 19, 2025. CT DOSE: 642.16 mGy.cm TECHNIQUE: Axial images of the chest were obtained without IV contrast. Images were reviewed in the axial, sagittal, and coronal planes. IV contrast was not administered for this examination. Automated exposure control was utilized for the study. A dose lowering technique was utilized adhering to the principles of ALARA. FINDINGS: No enlarged axillary, mediastinal or hilar lymph nodes are present. Moderate cardiomegaly and coronary calcification again noted. Postoperative findings along the left hemidiaphragm are again noted. A moderate sized hiatal hernia is unchanged. As previously described, there is a suspected fistulous connection between the hiatal hernia and the right lower lobe on axial image 154 of 237. Extensive secretions within the bilateral lower lobe bronchi are increased when compared to CT of December 23, 2024. Extensive bilateral lower lobe consolidation with tree-in-bud nodules are again noted. Right middle lobe and lingular airspace opacities are also present. Findings are slightly increased in comparison to prior CT. There is no pneumothorax. A small right pleural effusion is similar to prior study. There are left renal parapelvic cysts. Small bilateral renal calculi are incidentally noted. IMPRESSION: 1. Extensive lower lung alveolar opacities, slightly increased when compared to CT of December 23, 2024. The findings are consistent with pneumonia or aspiration pneumonitis given lower lobe secretions. 2. Small right pleural effusion. 3. Hiatal hernia. As presented described, suspected fistulous connection between the hiatal hernia and the right lower lobe. 4. Cardiomegaly. ACT 112: Negative or not required by law. Electronically signed by: Vin Lema M.D. 04/01/2025 1:57 PM PG Care Time/CCT Total # of Minutes Spent Total Time Spent with Patient: Total time spent is greater than 50% in coordination of care (as documented) at patient's floor/unit and/or counseling patient: Coding Level of Care Code 76169 SUB INP/OBS CARE 2/35MIN Diagnoses Aspiration pneumonitis due to regurgitated gastric secretions J69.0 Acquired gastric fistula K31.6 Pneumonia of lower lobe due to infectious organism, unspecified laterality J18.9 Laterality: unspecified laterality Lung location: lower lobe of lung Pneumonia type: due to unspecified organism Chronic bronchitis, unspecified chronic bronchitis type J42 COPD type: chronic bronchitis Chronic bronchitis type: unspecified Vocal cord paralysis J38.00 Factor V Leiden mutation D68.51 History of pulmonary embolus (PE) Z86.711 (3) Pneumonia Laterality: unspecified laterality Lung location: lower lobe of lung Pneumonia type: due to unspecified organism Qualified Code(s): J18.9 - Pneumonia, unspecified organism (4) COPD (chronic obstructive pulmonary disease) COPD type: chronic bronchitis Chronic bronchitis type: unspecified Qualified Code(s): J42 - Unspecified chronic bronchitis"
[2025-04-06 14:57] LABS: Hematocrit (blood only) 34.4 % (37.0-47.0); Hemoglobin 10.3 g/dl (12.0-16.0); Immature Granulocytes # (auto) 0.02 K/uL (0.01-0.20); Immature Granulocytes % (auto) 0.4 %; Mean Corpuscular Hemoglobin 25.6 pg (25.0-34.0); Mean Corpuscular Volume 85.6 fL (80.0-100.0); Platelet Count 249 K/uL (130-400); RDW Standard Deviation 47.1 fL (36.4-46.3); Red Blood Count 4.02 M/uL (4.20-5.40); White Blood Count 5.67 K/ul (4.8-10.8)
[2025-04-06 15:14] LABS: Anion Gap 5.0 (3-11); Blood Urea Nitrogen 14.0 mg/dl (6-23); Calcium 9.3 mg/dl (8.6-10.3); Carbon Dioxide 32.0 mmol/L (21-32); Chloride 104.0 mmol/L (98-107); Creatinine Clr Calc Pharmacy 55.9 ml/min; Glucose 92.0 mg/dl (70-99(Fasting)); Potassium 3.8 mmol/L (3.5-5.1); Sodium 141.0 mmol/L (136-145)
[2025-04-06 15:30] LABS: Thyroid Stimulating Hormone 0.322 uIu/ml (0.300-4.500)
[2025-04-07] MEDS: cefTRIAXone SODIUM 2,000 MG/50 ML BAG IV SCH
--- NOTE | 2025-04-07 18:03 | Hospitalist Progress Note ---
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 Admitted for pneumonia in the setting of her suspected gastro-pulmonary fistula. #Aspiration pneumonitis/pneumonia - -b/l pneumonia as seen on chest CT - RLL, RML, LLL, and lingula -completed 7+ days of IV rocephin; stop after today's dose -overall improved and O2 weaned off 04/06/25 (while at rehab will need to assess for ambulatory O2) -cont supportive care -appreciate speech therapy consult -no changes to diet/liquids at this time -d/c recs from speech: #Gastric pulmonary fistula | H/o hiatal hernia - -Chronic, major contributor to recurrent pneumonia and chronic bronchitis; seen at [facility], ultimately decided no surgery due to risk > benefit -Continue Protonix 40mg BID, famotidine 20mg qhs -upright for meals, reflux precautions, etc. -follows with [facility] for this issue #Factor V Leiden mutation with h/o PE - -Continue Xarelto 20mg daily #COPD - -no exacerbation at this time -most recent PFTs showed moderate restriction but no obstruction #left-sided vocal cord paralysis - chronic #constipation - -long-standing problem -no stools despite miralax BID -dulcolax suppos x 1 NOW -if no success then add dulcolax or senna by mouth dispo - insurance denied acute rehab at [facility] -accepted at [facility] -they can take her tomorrow AM, 04/08, at 10am Admission and Anticipated Discharge Date Admission Date: April 01, 2025 Subjective patient sitting in chair comfortably she has remained off supplemental O2 since yesterday she has mild cough only no dyspnea she asks "so, do I have a fistula?" (gastro-pulmonary fistula) I printed 3 of her most recent chest CT reports all of which discuss the presence of this fistula again she saw [facility] for this and surgery was discussed but ultimately deferred no stool her entire hospital stay she says this is typical for her -- often goes an entire week at home without a BM Review of Systems 2 Review of Systems: CV - no chest pain pulm - no dyspnea GI - no N/V/pain Physical Exam 2 Physical Exam: gen - sitting in chair, NAD, did not cough at any time during my visit, looks good today back - kyphotic, scoliosis neck - no JVD mouth - MMM voice - hoarse heart - RRR, s1 s2, no murmur lungs - minimal b/l basilar rales, decreased BS bases, no wheeze, no increased work of breathing abd - soft NT ND BS+ ext - trace edema shins only, pulses 2+ b/l psych - a/o x 3 Results & Data Results & Data Vital Signs (Past 12 Hours) Vital Signs Temp Pulse Resp BP BP Pulse Ox O2 Del Method 04/07/25 16:28 98 H 20 90 Room Air 04/07/25 15:03 36.4 C L 92 H 18 151/94 H 95 Room Air 04/07/25 07:20 Room Air 04/07/25 06:55 36.6 C 75 16 156/75 H 93 Room Air Laboratory Results Laboratory Results - last 48 hr 04/06/25 14:33 WBC 5.67 RBC 4.02 L Hgb 10.3 L Hct 34.4 L MCV 85.6 MCH 25.6 MCHC 29.9 L RDW Std Deviation 47.1 H RDW Coeff of Maya 15.1 H Plt Count 249 MPV 9.7 Immature Gran % (Auto) 0.4 Neut % (Auto) 70.3 Lymph % (Auto) 18.0 [place] % (Auto) 7.2 Eos % (Auto) 3.7 Baso % (Auto) 0.4 Neut # (Auto) 3.99 Lymph # (Auto) 1.02 L [place] # (Auto) 0.41 Eos # (Auto) 0.21 Baso # (Auto) 0.02 Immature Gran # (Auto) 0.02 Sodium 141 Potassium 3.8 Chloride 104 Carbon Dioxide 32 Anion Gap 5 BUN 14 Creatinine 0.82 Est Cr Clr Drug Dosing 55.9 eGFR 73.63 BUN/Creatinine Ratio 17.1 Glucose 92 Calcium 9.3 TSH 0.322 PG Care Time/CCT Total # of Minutes Spent Total Time Spent with Patient: Total time spent is greater than 50% in coordination of care (as documented) at patient's floor/unit and/or counseling patient: Coding Level of Care Code 20836 SUB INP/OBS CARE 2/35MIN Diagnoses Aspiration pneumonitis due to regurgitated gastric secretions J69.0 Acquired gastric fistula K31.6 Pneumonia of lower lobe due to infectious organism, unspecified laterality J18.9 Laterality: unspecified laterality Lung location: lower lobe of lung Pneumonia type: due to unspecified organism Chronic bronchitis, unspecified chronic bronchitis type J42 COPD type: chronic bronchitis Chronic bronchitis type: unspecified Vocal cord paralysis J38.00 Factor V Leiden mutation D68.51 History of pulmonary embolus (PE) Z86.711 Constipation K59.00 (3) Pneumonia Laterality: unspecified laterality Lung location: lower lobe of lung P neumonia type: due to unspecified organism Qualified Code(s): J18.9 - Pneumonia, unspecified organism (4) COPD (chronic obstructive pulmonary disease) COPD type: chronic bronchitis Chronic bronchitis type: unspecified Qualified Code(s): J42 - Unspecified chronic bronchitis
[2025-04-07 22:55] VITALS: TEMP 97.9
[2025-04-08 07:32] VITALS: RESP 18
[2025-04-08 08:28] VITALS: O2SAT 93
--- NOTE | 2025-04-08 08:53 | Discharge Summary ---
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 Admitted for pneumonia in the setting of her suspected gastro-pulmonary fistula. #Aspiration pneumonitis/pneumonia b/l pneumonia on chest CT completed course of IV Rocephin Weaned to room air. Speech therapy consulted --> no changes to diet/liquids at this time. Recommending to continue to follow up with [facility] outpatient. Has EGD scheduled for 05/12/2025. #Gastric pulmonary fistula | H/o hiatal hernia Chronic, major contributor to recurrent pneumonia and chronic bronchitis; seen at [facility], ultimately decided no surgery due to risk > benefit Continue Protonix 40mg BID, famotidine 20mg qhs upright for meals, reflux precautions, etc. follows with [facility] for this issue #Factor V Leiden mutation with h/o PE -Continue Xarelto 20mg daily #COPD - no exacerbation at this time most recent PFTs showed moderate restriction but no obstruction #left-sided vocal cord paralysis - chronic #constipation - long-standing problem Continue bowel regimen at discharge. Patient discharged to [facility] 04/08. Admission HPI Per Admitting Provider Naomy is a 79yo female with history of gastro-pulmonary fistula (hiatal-RLL), chronic bronchitis, recurrent hospitalizations for pneumonia (December 2024, Jul 2024), and factor V leiden on xarelto admitted for suspected pneumonia. HPI: notes about 2 weeks ago she starting having a strong cough which was bloody at times, denies any other symptoms aside from intermittent SOB when coughing more frequently. Was advised by primary care provider to hold Xarelto for 2 days. She didn't have any further hemoptysis over those 2 days and thereafter restarted her Xarelto. Then about 2 days ago to last night 03/31/25, she endorses starting to have a frequent cough with sputum, though no blood reported, along with increased shortness of breath, weakness, and decreased oral intake. Notes she additionally ate a pastry last night, after which her cough with sputum worsened. Denies choking on the pastry or any other food, nor her sputum. The next morning (this morning 04/01) she called her friend, Symone, who is present this evening, due to worsening cough and sputum. Symone then took pt to [facility] ER for evaluation. Home: currently lives independently in a condo in [place], friend Symone comes to visit her 3-4 days per week, and other friend Molly calls pt daily to check in on her. They often get together at one of their houses to have dinner. Denies any home health services, only uses a cane at home and feels this is sufficient. - no home O2 requirement - willing to be discharged to a "care home home" at this point ER course: stared on Zosyn IV, given LR at 125cc/hr, started on clear liquid diet per patient desire to try eating Discharge Exam Constitutional WD/WN, vitals as above Respiratory diminished at bases but clear Skin no rashes, warm and dry Neurologic PERRL, EOMI, accommodation nl, no face palsy, no dysarthria Psychiatric A+Ox3, euthymic affect Discharge Plan Discharge Items Patient Disposition: Transfer Inpatient Rehab Fac Reason For Visit: SOB, COUGH WITH SPUTUM Discharge Diagnosis: Aspiration pneumonitis Condition on Discharge: Fair Activity: Per Instructions section Non-emergency contact: Primary Care Provider Call non-emergency contact if: you have any medication questions Follow-up/Referrals: Thanh Phelan [Primary Care Provider] - Diet: Regular Fluids: 1800ml (7 cups) Diet Texture: Dental soft (bite-sized) Addtl Attending Provider Instructions: You were admitted to [facility] for concern of possible aspiration pneumonia versus aspiration pneumonitis requiring supplemental oxygen for a brief period of time. With regard to your aspiration pneumonitis, this is most likely rather than aspiration pneumonia given the rapid improvement and lack of persistent infectious findings; there is still a lack of clarity with regard to the presence or absence of a gastro pulmonary fistula, though given the persistence of your thin secretions, this is likely to be the case. We will continue pulmonary toilet with incentive spirometry, and flutter valve after discharge. You have completed your antibiotic treatment while admitted to the hospital and this will not be continued after discharge. Thank you for choosing [facility] as your healthcare provider. Pending Studies at Discharge: No Stand-Alone Forms: My [facility] Skilled Items Patient informed of condition?: Yes DNR: Yes (Conditional Code - Agreeable to invasive airway management and ventilation) Discharge Level of Care: Acute rehab Communicable Disease: No Discharge Prognosis: Improving Lines: None Urinary Catheter: No Medications and DC Order Prescriptions: New fexofenadine [Wal-Fex Allergy] 60 mg Tablet 60 mg PO QPM 30 Days Qty: 30 0RF acetaminophen 325 mg Tablet 650 mg PO Q4H PRN (Reason: pain) 30 Days Qty: 180 0RF polyethylene glycol 3350 [Miralax] 17 gram Powder In Packet 17 g PO DAILY 30 Days Qty: 100 0RF Continued Linzess 290 mcg capsule 290 mcg PO QAM Qty: 90 3RF oxybutynin chloride 5 mg tablet 5 mg PO QAM Xarelto 20 mg tablet 20 mg PO QPM Rx Instructions: must administer with evening meal (DME) inhalational spacing device Spacer See Rx Instructions .ROUTE .MEDSUPPLY Qty: 1 0RF Rx Instructions: As directed melatonin 5 mg capsule 5 mg PO HS PRN (Reason: Sleep) pantoprazole [Protonix] 40 mg tablet,delayed release (DR/EC) 40 mg PO BID ProAir RespiClick 90 mcg/actuation aerosol powdr breath activated 2 puffs INH QID PRN (Reason: sob) coenzyme Q10 [Co Q-10] 100 mg capsule 100 mg PO QAM (DME) Flutter Valve Device See Rx Instructions .MEDSUPPLY Qty: 1 0RF Rx Instructions: Twice daily after 7% saline nebulizer treatments ipratropium bromide 21 mcg (0.03 %) spray,non-aerosol 2 spray intranasal TID PRN (Reason: postnasal drip) Qty: 30 11RF Rx Instructions: administer into each nostril rosuvastatin [Crestor] 5 mg tablet 5 mg PO QAM fexofenadine [Olga Allergy] 60 mg Tablet 60 mg PO QPM fluticasone propionate 50 mcg/actuation spray,suspension 2 spray intranasal QAM triamcinolone acetonide 0.025 % cream 1 applic topical TID PRN (Reason: Skin Irritation) sodium chloride 7 % solution for nebulization 4 ml inhalation 2XWK PRN (Reason: NEEDED PER PT) albuterol sulfate 2.5 mg /3 mL (0.083 %) solution for nebulization 2.5 mg inhalation Q6H PRN (Reason: WHEEZING/COUGH) Discontinued famotidine [Pepcid] 20 mg tablet 20 mg PO HS Qty: 90 3RF acetaminophen [Tylenol] 325 mg tablet 325 mg PO QID PRN (Reason: Pain) dextromethorphan polistirex [Delsym 12 hour] 30 mg/5 mL Suspension,Extended Rel 12 Hr 10 ml PO Q12H PRN (Reason: coughing spell) guaifenesin [Mucinex] 600 mg Tablet Extended Release 12hr 600 mg PO BID polyethylene glycol 3350 [Miralax] 17 gram/dose Powder 17 g PO DAILY PRN (Reason: Constipation) Discharge Orders: Discharge Order (Routine); Ordered 04/08/25 Ordered By: Sara Alejandro Admission Data Admit Date/Time: 04/01/25 16:39 Attending Provider: Yves Chase Admit Provider: Marek Campos V. Primary Care Provider: Thanh Phelan Other Providers: Cj Spangler; [facility]; July Hurt [facility] Other Interventions: *Hourly Rounding Last Done: 04/08/25 09:00 Discharge Summary Assessment (RN) Last Done: 04/08/25 09:15 Hospital Stay Data Consultations 04/01/25 15:24 ED Decision to Admit Stat Diagnostic Imagining Performed 04/01/25 11:19 CT chest diagnostic wo con Stat Pending Results Patient Have Any Pending Studies at Discharge: No Discharge Instructions Given to Patient (Per Discharging Provider) You were admitted to [facility] for concern of possible aspiration pneumonia versus aspiration pneumonitis requiring supplemental oxygen for a brief period of time. With regard to your aspiration pneumonitis, this is most likely rather than aspiration pneumonia given the rapid improvement and lack of persistent infectious findings; there is still a lack of clarity with regard to the presence or absence of a gastro pulmonary fistula, though given the persistence of your thin secretions, this is likely to be the case. We will continue pulmonary toilet with incentive spirometry, and flutter valve after discharge. You have completed your antibiotic treatment while admitted to the hospital and this will not be continued after discharge. Thank you for choosing [facility] as your healthcare provider. Supervising Physician Co-Signing Physician Notes The patient was not seen by me. The chart was reviewed. Case discussed with MIREILLE Mosqueda. Agree with assessment and plan Total Time Total Time Spent Total Time Spent (In Minutes): 45 Total Time Includes: Examination of the Patient, Discharge Planning, Medication Reconciliation and Other Coding Level of Care Code 31897 INP/OBS DISCH >30 MIN Diagnoses Aspiration pneumonitis due to regurgitated gastric secretions J69.0 Acquired gastric fistula K31.6 Pneumonia of lower lobe due to infectious organism, unspecified laterality J18.9 Laterality: unspecified laterality Lung location: lower lobe of lung Pneumonia type: due to unspecified organism Chronic bronchitis, unspecified chronic bronchitis type J42 COPD type: chronic bronchitis Chronic bronchitis type: unspecified Vocal cord paralysis J38.00 Factor V Leiden mutation D68.51 History of pulmonary embolus (PE) Z86.711 Constipation K59.00
[2025-04-08 09:18] VITALS: BP 145/84; PULSE 78
--- NOTE | 2025-04-10 06:39 | Coding Query ---
To promote full compliance with coding requirements relating to patient care, provider participation is requested in all cases of research professional uncertainty. Please assist us with the question(s) below: Coding Question(s): The diagnosis(es) below was documented in the (research professional fill out source document ie H&P, progress notes, etc.) then subsequently fell off all further documentation. Please indicate if it is still a possible diagnosis or ruled out. Physician's Response(s): I was not involved in this patient's care. Dr. Chase SEPSIS ( ) Diagnosed and POA ( ) Diagnosed and not POA ( ) Ruled out ( ) Other (please specify) MTDD
--- NOTE | 2025-04-13 07:22 | Coding Query ---
To promote full compliance with coding requirements relating to patient care, provider participation is requested in all cases of rn occupational uncertainty. Please assist us with the question(s) below: Coding Question(s): The diagnosis(es) below was documented in the (rn occupational fill out source document ie H&P, progress notes, etc.) then subsequently fell off all further documentation. Please indicate if it is still a possible diagnosis or ruled out. Physician's Response(s): SEPSIS ( x ) Diagnosed and POA ( ) Diagnosed and not POA ( ) Ruled out ( ) Other (please specify) MTDD
== END 2025-04-08 10:41 | DRG 871 ==
LOC: ED 09:27 → EDINP 16:39 → SUATTDRO 16:39 → EDINP 18:53 → 3E 04-02 12:38